=== PATIENT | male | born 1980 | race Caucasian/White ===

== ENCOUNTER 2016-11-20 22:39 | Emergency (ER) | payer OTHER ==
[~2016-11-20] VITALS: Ht 170.2 cm; Wt 94.4 kg
[~2016-11-20 22:39] MED LIST: ALBUAER2 INH; IBUP-1050 PO; LEVO25TA5 PO; LEVO50TA6 PO; ONDA4TAB9 PO; SUCR1TAB PO; SUMA20SP
[2016-11-20 22:41] VITALS: TEMP 36.8; Ht 170.2 cm; Wt 94.4 kg
[2016-11-20] MEDS ORDERED: HYDROmorphone INJ 2 MG/ML SYR/VIAL IV STA (23:08)
[2016-11-20] MEDS ORDERED: ONDANSETRON 4MG OD TAB PO STA (23:08)
[2016-11-20] MEDS ORDERED: DEXAMETHASONE SOD INJ 10 MG/ML VIAL IV STA (23:08)
[2016-11-20] MEDS ORDERED: HYDROmorphone INJ 2 MG/ML SYR/VIAL IM STA (23:18)
[2016-11-20] MEDS ORDERED: DEXAMETHASONE SOD INJ 10 MG/ML VIAL IM STA (23:18)
--- NOTE | 2016-11-20 23:33 | EMERGENCY ROOM VISIT NOTE ---
ED Visit Note First contact with patient: 22:49 CHIEF COMPLAINT: Migraine headache HISTORY OF PRESENT ILLNESS: This 36-year-old male patient presented to the emergency department via private vehicle accompanied by female with a gradual onset of a severe generalized headache that started today around 1 or 2 PM. The patient states the migraine is similar to their typical migraines. There has been associated photophobia, phonophobia, nausea but no vomiting. The patient denies fever or chills recently, and there is no weakness or numbness of the extremities. There is no difficulty with speech or vision. No trauma to the head and no neck pain. The pain is severe, constant, and it is slowly increasing in severity. The patient points to the occipital region of his head as a location of the pain rates it as a 7/10. The patient has taken over-the- counter medication as well as Imitrex nasal spray with minimal relief. This is not the worst headache of the life and is similar to previous migraines. Previous imaging studies of the brain have been normal. 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 REVIEW OF SYSTEMS: A review of systems was performed with positives and pertinent negatives listed in the history of present illness. All other systems were reviewed and are negative. ALLERGIES: As noted below MEDICATIONS: As noted below PMH: High blood pressure, asthma SOCIAL HISTORY: Patient lives at home with PHYSICAL EXAM: Vital Signs: Reviewed Nurse's notes, vital signs stable. GENERAL : 36-year-old male, who appears in pain, but non toxic in appearance and in no acute distress. MENTAL STATUS: Alert, oriented, and coherent. HEENT: Normocephalic. PERRLA. EOMI. Nares patent without nuchal rigidity. Tympanic membranes pearly ram without erythema or effusion bilaterally. Mucous membranes moist. NECK: Supple, no nuchal rigidity, nontender, no lymphadenopathy. HEART: Regular rhythm and normal rate without murmurs, ectopy, gallops, or rubs. LUNGS: Clear to auscultation bilaterally without wheezes, rales or rhonchi. No accessory muscle use. No retractions. SKIN: Normal. NEUROLOGICAL: Pupils are round, equal and react to light. The optic fundi are normal and the discs are flat. The patient moves all extremities well and the gait is normal. EMERGENCY DEPARTMENT COURSE: I examined the patient. The patient is on a 2 narcotic injection per month treatment plan for their migraines. The patient was given 2 mg of Dilaudid IM, 10 mg of Decadron IM, 4 mg of Zofran ODT per their usual protocol. The differential diagnosis includes acute intracranial bleed, meningitis, encephalitis, mass or mass effect, sinusitis, infection, tumor, headache, temporal arteritis and carbon monoxide exposure, and migraine. The patient was discharged home in stable condition with driving. The patient is to see a neurologic specialist either this coming week where following. At this time Botox injections are to be discussed as per patient. Problem List Medical Problems: (1) Asthma Status: Chronic (2) Finger fracture, right Status: Resolved (3) Gastroparesis Status: Chronic (4) GERD (gastroesophageal reflux disease) Status: Chronic (5) Hyperlipidemia Status: Chronic (6) Hypothyroidism Status: Chronic (7) Migraine Status: Chronic (8) JESI (obstructive sleep apnea) Status: Chronic Surgical Problems: (1) Cholecystectomy Status: Resolved (2) History of dental surgery Status: Chronic (3) Hx of esophagogastroduodenoscopy Status: Chronic Current/Historical Medications Scheduled Amitriptyline Hcl (Elavil), 100 MG PO HS Atorvastatin (Atorvastatin Calcium), 40 MG PO HS Dicyclomine Hcl (Dicyclomine Hcl), 10 MG PO QID Hydrochlorothiazide (Hydrochlorothiazide), 6.25 MG PO HS Ibuprofen (Advil), 600 MG PO DAILY Levothyroxine Sodium (Levothyroxine Sodium), 25 MCG PO HS Levothyroxine Sodium (Levothyroxine Sodium), 50 MCG PO HS Pantoprazole (Pantoprazole Sodium), 40 MG PO HS Ranitidine HCl (Ranitidine HCl), 300 MG PO BID Sucralfate (Sucralfate), 1 GM PO QID Scheduled PRN Albuterol (Ventolin), 2 PUFFS INH Q4H PRN for Wheezing Fluticasone Prop/Salmeterol (Advair Diskus 250/50 60 Dose), 1 PUFF INH BID PRN for Wheezing Ibuprofen (Advil), 400 MG PO UD PRN for Pain Ondansetron (Ondansetron HCl), 4 MG PO Q8 PRN for Nausea Sumatriptan Succinate (Imitrex Nasal [place]), 1 SPRAY NA UD PRN for Headache Allergies Coded Allergies: Benzoyl Peroxide (Verified Allergy, Mild, 10/23/16) Lactose Intolerance (Verified Allergy, Unknown, Unknown, 10/23/16) Hydrocodone (Verified Adverse Reaction, Mild, VOMITING, 10/23/16) Magnesium (Verified Adverse Reaction, Unknown, Nausea, GI upset, 10/23/16) Prednisone (Verified Adverse Reaction, Unknown, "messes up my mind, depressed", 10/23/16) Vital Signs Date Time Temp Pulse Resp B/P Pulse Ox O2 Delivery O2 Flow Rate FiO2 11/21/16 00:00 81 16 129/84 98 11/20/16 22:41 36.8 79 18 133/84 96 Room Air Medications Administered Medications (Trade) Dose Ordered Sig/Denise Route Start Time Stop Time Status Last Admin Dose Admin Ondansetron HCl (Zofran Odt) 4 mg NOW STAT PO 11/20/16 23:08 11/20/16 23:11 DC 11/20/16 23:30 4 MG Hydromorphone HCl (Dilaudid Inj) 2 mg NOW STAT IM 11/20/16 23:18 11/20/16 23:19 DC 11/20/16 23:31 2 MG Dexamethasone Sodium Phosphate (Decadron Inj) 10 mg NOW STAT IM 11/20/16 23:18 11/20/16 23:19 DC 11/20/16 23:30 10 MG Departure Information Impression Primary Impression: Migraine Dispostion Home / Self-Care Condition GOOD Referrals Heather Guzman M.D. (PCP) Patient Instructions A Signature Page, [facility] Additional Instructions You have been treated in the Emergency Department for a Headache. You have received pain medicine in the emergency department which impairs your ability to operate a vehicle. It is illegal for you to drive after receiving these medicines. Please continue your regularly prescribed medications. For pain control, you can use the following [id number] medicines (if >12 yo): - Regular strength (325mg/tab) Tylenol (acetaminophen) 2 tabs every 4-6 hours as needed. Do not exceed 12 tablets in a 24 hour period. Avoid taking more than 4 grams (4000 mg) of Tylenol per day. This includes any other sources of acetaminophen you may take on a regular basis. - Regular strength (200 mg/tab) Advil (ibuprofen) 1-2 tabs every 4-6 hours as needed. Do not exceed a dose of 3200 mg per day. You should relax in a quiet, dark place for the rest of the day. Avoid any possible triggers including: cigarette smoke, caffeine, nicotine, chocolate, wine, beer, loud noises or music, or bright lights. You should schedule a follow-up appointment in 2-3 days with your Primary Care Provider or established Neurologist for further evaluation and treatment of your Headache. Please keep your scheduled appointment with the neurologist as you indicated. It is also recommended to contact your regular neurologist regarding today's visit to schedule follow-up as soon as possible. Please call them first thing tomorrow morning and indicate you were seen here for your headache. Return to the Emergency Department if your current symptoms worsen despite treatment course outlined above, or if you develop any of the following symptoms : intractable pain despite aforementioned treatment course, visual disturbances , loss of vision, unilateral weakness or facial drooping, slurring of speech, loss of coordination, or loss of consciousness. Please return to the emergency department with any new/concerning symptoms.
[2016-11-21] VITALS: BP 129/84; PULSE 81; O2SAT 98
[2017-03-22] MEDS ORDERED: ONDA4TAB10 SL (20:41)
[2017-07-03] MEDS ORDERED: VNTHFA/IN INH (10:07)
[2017-07-03] MEDS ORDERED: IMTIN5 (10:07)
[2017-07-03] MEDS ORDERED: MULT-506 PO (13:02)
[2017-07-03] MEDS ORDERED: LPT40 PO (15:49)
[2017-07-03] MEDS ORDERED: RANI150T2 PO (15:49)
[2017-07-03] MEDS ORDERED: PANT40TA2 PO (17:45)
[2017-10-20] MEDS ORDERED: FLM4 PO (16:26)
[2017-10-20] MEDS ORDERED: PHEN-775 PO (16:26)
[2017-10-20] MEDS ORDERED: ACET-1047 OR (16:30)
[2017-10-21] MEDS ORDERED: NITR-5 PO (16:24)
== END 2016-11-21 00:01 | disposition home or self-care (01) ==
LOC: C.EDB 22:40 → C.EDA 11-21 00:01
DX: G43.909 Migraine, unspecified, not intractable, without status migrainosus (principal); Z79.899 Other long term (current) drug therapy; K21.9 Gastro-esophageal reflux disease without esophagitis; E78.5 Hyperlipidemia, unspecified; E03.9 Hypothyroidism, unspecified

== ENCOUNTER 2016-11-25 10:48 | Emergency (ER) | payer OTHER ==
[~2016-11-25] VITALS: Ht 170.2 cm; Wt 92.6 kg
[2016-11-25 10:56] VITALS: BP 147/97; PULSE 76; TEMP 36.4; O2SAT 95; Ht 170.2 cm; Wt 92.6 kg
[2016-11-25] MEDS ORDERED: KETOROLAC TROMETHAMINE 60 MG/2 ML VIAL IM STA (11:34)
[2016-11-25] MEDS ORDERED: HYDROmorphone INJ 2 MG/ML SYR/VIAL IM STA (11:34)
[2016-11-25] MEDS ORDERED: ONDANSETRON 4MG OD TAB PO STA (11:34)
--- NOTE | 2016-11-25 11:40 | EMERGENCY ROOM VISIT NOTE ---
ED Visit Note First contact with patient: 11:00 CHIEF COMPLAINT: Migraine headache times one day HISTORY OF PRESENT ILLNESS: Patient is a 36-year-old white male who presents to the emergency department accompanied by his for evaluation of a migraine headache that started yesterday. Patient is well-known to the emergency department for frequent visits, and is presently on a treatment plan expecting him to 2 narcotic injections per month with regards to his chronic pain related complaints. Patient was just here 3 days ago for a migraine and received his typical regimen. He states that his headache went away, then returned yesterday. He states that he is cutting back on his caffeine use. He states that he drinks 2, 2 L of Mountain Dew per day, and stopped. He has a history of kidney stones. He states that he developed his typical, throbbing migraine headache yesterday that did not respond to Imitrex nasal spray or ibuprofen. He presently rates his headache as 7/10. He denies associated nausea and vomiting. The patient denies fever or chills recently, and there is no weakness or numbness of the extremities. There is no difficulty with speech or vision. No trauma to the head and no neck pain. The pain is severe, constant, and it is slowly increasing in severity. This is not the worst headache of the life and is similar to previous migraines. He states that the only other change to his regimen was his doctors added dicyclomine for his irritable bowel syndrome. REVIEW OF SYSTEMS: Review of systems as per HPI. All other systems reviewed were negative. 10 systems reviewed. PMH: Electronic medical records are reviewed and summarized as above/below. See Problem List. SOCIAL HISTORY: Patient lives at home. Employed. Smoker. PHYSICAL EXAM: Vital Signs: Reviewed Nurse's notes. General Appearance: Patient is well appearing, in no acute distress Eyes: Pupils equal round reactive to light extraocular muscles are intact, no proptosis, mild photophobia ENT: Oropharynx is clear, mucous membranes are moist, tympanic membranes are clear bilaterally, no sinus or dental tenderness Neck: Supple, no cervical lymphadenopathy, no meningismus Heart: Regular rate and rhythm, S1 and S2 Lungs: Clear to auscultation bilaterally, no wheezes Rales or rhonchi, no increased work of breathing Abdomen: Soft nontender nondistended. Normal active bowel sounds. No rebound. No guarding. Back: No midline tenderness to palpation. : No CVA tenderness to palpation. Skin: Warm, no diaphoresis, no rashes. Extremities: No cyanosis, clubbing, or edema Neurologic: Patient is awake alert, and oriented x 3. Cranial nerves 2-12 are grossly intact. Motor 5 out of 5 strength bilateral upper extremities and lower extremities. No gross sensory deficits. Reflexes are 2+ throughout. EMERGENCY DEPARTMENT COURSE: The patient was seen and evaluated as above. His old records are reviewed. His treatment plan typically consists of IM Dilaudid and oral Zofran. He occasionally receives Toradol as well. He requested Decadron today, stating that it helps keep his headaches from returning. He was given Toradol 60 mg, Dilaudid 2 mg, Decadron 10 mg IM and Zofran 4 mg ODT. He is immediately discharged to home to rest with his driving. He was reminded that this is his second narcotic injection for the month, and he cannot receive any additional narcotics for chronic pain. He expressed understanding of this. Differential includes: acute intracranial bleed, meningitis, encephalitis, mass or mass effect, sinusitis, infection, migraine, tumor, headache, temporal arteritis and carbon monoxide exposure. Problem List Medical Problems: (1) Asthma Status: Chronic (2) Finger fracture, right Status: Resolved (3) Gastroparesis Status: Chronic (4) GERD (gastroesophageal reflux disease) Status: Chronic (5) Hyperlipidemia Status: Chronic (6) Hypothyroidism Status: Chronic (7) Migraine Status: Chronic (8) JESI (obstructive sleep apnea) Status: Chronic Surgical Problems: (1) Cholecystectomy Status: Resolved (2) History of dental surgery Status: Chronic (3) Hx of esophagogastroduodenoscopy Status: Chronic Current/Historical Medications Scheduled Amitriptyline Hcl (Elavil), 100 MG PO HS Atorvastatin (Atorvastatin Calcium), 40 MG PO HS Dicyclomine Hcl (Dicyclomine Hcl), 10 MG PO QID Hydrochlorothiazide (Hydrochlorothiazide), 6.25 MG PO HS Ibuprofen (Advil), 600 MG PO DAILY Levothyroxine Sodium (Levothyroxine Sodium), 25 MCG PO HS Levothyroxine Sodium (Levothyroxine Sodium), 50 MCG PO HS Pantoprazole (Pantoprazole Sodium), 40 MG PO HS Ranitidine HCl (Ranitidine HCl), 300 MG PO BID Sucralfate (Sucralfate), 1 GM PO QID Scheduled PRN Albuterol (Ventolin), 2 PUFFS INH Q4H PRN for Wheezing Fluticasone Prop/Salmeterol (Advair Diskus 250/50 60 Dose), 1 PUFF INH BID PRN for Wheezing Ibuprofen (Advil), 400 MG PO UD PRN for Pain Ondansetron (Ondansetron HCl), 4 MG PO Q8 PRN for Nausea Sumatriptan Succinate (Imitrex Nasal [place]), 1 SPRAY NA UD PRN for Headache Allergies Coded Allergies: Benzoyl Peroxide (Verified Allergy, Mild, 11/25/16) Lactose Intolerance (Verified Allergy, Unknown, Unknown, 11/25/16) Hydrocodone (Verified Adverse Reaction, Mild, VOMITING, 11/25/16) Magnesium (Verified Adverse Reaction, Unknown, Nausea, GI upset, 11/25/16) Prednisone (Verified Adverse Reaction, Unknown, "messes up my mind, depressed", 11/25/16) Vital Signs Date Time Temp Pulse Resp B/P Pulse Ox O2 Delivery O2 Flow Rate FiO2 11/25/16 10:56 36.4 76 16 147/97 95 Room Air Medications Administered Medications (Trade) Dose Ordered Sig/Denise Route Start Time Stop Time Status Last Admin Dose Admin Ketorolac Tromethamine (Toradol Inj) 60 mg NOW STAT IM 11/25/16 11:34 11/25/16 11:36 DC 11/25/16 11:45 60 MG Dexamethasone Sodium Phosphate (Decadron Inj) 10 mg NOW ONCE IM 11/25/16 11:45 11/25/16 11:46 DC 11/25/16 11:45 10 MG Hydromorphone HCl (Dilaudid Inj) 2 mg NOW STAT IM 11/25/16 11:34 11/25/16 11:36 DC 11/25/16 11:44 2 MG Ondansetron HCl (Zofran Odt) 4 mg NOW STAT PO 11/25/16 11:34 11/25/16 11:36 DC 11/25/16 11:42 4 MG Departure Information Impression Primary Impression: Headache Referrals Adrian Meza M.D. (PCP) Patient Instructions A Signature Page, [facility] Additional Instructions DO NOT drive, drink alcohol, operate machinery, or perform dangerous activities today. You were given medications in the ER that can affect your ability to safely function or operate a vehicle. Rest today in a quiet, peaceful, dark environment and get a full 8-10 hrs of sleep tonight. Avoid loud noises, smoke/smoking, alcohol, bright lights, stress, or physical exertion today to minimize the chance the headache may return. Continue current medications. Return to the ER for passing out, worsening headache, vision problems, neck stiffness/pain, fevers, vomiting, worsening of your condition, or as needed. Follow up with your primary physician in 2-3 days for a recheck of your current condition.
[2016-11-25] MEDS ORDERED: DEXAMETHASONE SOD INJ 10 MG/ML VIAL IM ONE (11:45)
[2017-03-22] MEDS ORDERED: ONDA4TAB10 SL (20:41)
[2017-07-03] MEDS ORDERED: VNTHFA/IN INH (10:07)
[2017-07-03] MEDS ORDERED: IMTIN5 (10:07)
[2017-07-03] MEDS ORDERED: MULT-506 PO (13:02)
[2017-07-03] MEDS ORDERED: RANI150T2 PO (15:49)
[2017-07-03] MEDS ORDERED: LPT40 PO (15:49)
== END 2016-11-25 11:46 | disposition home or self-care (01) ==
LOC: C.EDB 10:52 → C.EDD 11:46
DX: R51 Headache (principal); K31.84 Gastroparesis; K21.9 Gastro-esophageal reflux disease without esophagitis; E78.5 Hyperlipidemia, unspecified; E03.9 Hypothyroidism, unspecified; J45.909 Unspecified asthma, uncomplicated; G47.33 Obstructive sleep apnea (adult) (pediatric); F17.200 Nicotine dependence, unspecified, uncomplicated; Z87.442 Personal history of urinary calculi; Z79.899 Other long term (current) drug therapy; Z88.5 Allergy status to narcotic agent; Z88.8 Allergy status to other drugs, medicaments and biological substances

== ENCOUNTER 2016-12-22 09:04 | Emergency (ER) | payer OTHER ==
[~2016-12-22] VITALS: Ht 170.2 cm; Wt 90.9 kg
[2016-12-22 09:16] VITALS: TEMP 36.5; Ht 170.2 cm; Wt 90.9 kg
[2016-12-22] MEDS ORDERED: PROMETHAZINE HCL INJ 25 MG/ML 1 ML VIAL IM STA (10:00)
[2016-12-22] MEDS ORDERED: KETOROLAC TROMETHAMINE 60 MG/2 ML VIAL IM STA (10:00)
[2016-12-22] MEDS ORDERED: HYDROmorphone INJ 2 MG/ML SYR/VIAL IM ONE (10:00)
--- NOTE | 2016-12-22 10:04 | EMERGENCY ROOM VISIT NOTE ---
ED Visit Note First contact with patient: 09:31 CHIEF COMPLAINT: Migraine headache HISTORY OF PRESENT ILLNESS: This 35-year-old male patient presented to the emergency department this morning with a gradual onset of a severe generalized headache that started a few days ago. The patient states the migraine is similar to their typical migraines. There has been associated photophobia, phonophobia, nausea without vomiting. The patient denies fever or chills recently, and there is no weakness or numbness of the extremities. There is no difficulty with speech or vision. No trauma to the head and no neck pain. The pain is severe, constant, and it is slowly increasing in severity. The patient rates the pain as constant and 7/10. The patient has taken ibuprofen and Imitrex without relief. This is not the worst headache of the life and is similar to previous migraines. Previous imaging studies of the brain have been normal. REVIEW OF SYSTEMS: A review of systems was performed with positives and pertinent negatives listed in the history of present illness. All other systems were reviewed and are negative. ALLERGIES: Benzyl peroxide, hydrocodone, lactose intolerance, magnesium, prednisone. MEDICATIONS: Reviewed and discussed with the patient. PMH: Migraine headaches SOCIAL HISTORY: Patient is a 35-year-old male who lives at home with family. PHYSICAL EXAM: VITAL SIGNS - Vital signs and nursing notes were reviewed. GENERAL - 35-year-old male appearing his stated age who is in no acute distress. Communicates well with provider and answers questions appropriately. HEAD - Normocephalic, Atraumatic. No House's Sign or Raccoon's Eyes. No depressed skull fractures palpable. EYES - PERRL with EOMI bilaterally. Sclera anicteric. Palpebral conjunctiva pink and moist with no injection noted. EARS - No deformities of external structures noted on gross examination bilaterally. No pain elicited with palpation of the tragus bilaterally. External auditory canals without discharge or otorrhea. Tympanic membranes pearly ram without retraction or bulging. No fluid or purulent material visualized behind the TM. Handle of malleus, umbo, cone of light, pars tensa/ flaccid all easily visualized. NOSE - Midline and without cyanosis. No epistaxis or purulent drainage noted. Septum midline without deviation or septal hematoma noted. MOUTH/OROPHARYNX - Without perioral cyanosis. Buccal mucosa pink and moist and without leukoplakia. Tongue midline with equal elevation of palate bilaterally. No tonsillar hypertrophy, erythema, or exudates noted. NECK - Neck with FROM. Supple to palpation. No lymphadenopathy noted. No nuchal rigidity. LUNGS - Chest wall symmetric without accessory muscle use, intercostals retractions, or central cyanosis. Normal vesicular breath sounds CTA B/L. No wheezes, rales, or rhonchi appreciated. CARDIAC - RRR with S1/S2. No murmur, rubs, or gallops appreciated. EXTREMITIES - No pretibial edema present. +3/5 radial and dorsalis pedis pulses palpated throughout. FROM with no tremors, fasciculations, or clonus noted on PROM throughout. +5/5 strength noted in UE/LE bilaterally. NEUROLOGIC - Cranial nerves II through XII grossly intact. Sensory intact to light touch throughout. Patellar reflexes +2/4. Patient able to perform rapid alternating movements appropriately. Negative Romberg and Pronator Drift. PSYCH - A&Ox3 and cooperates fully with examiner. Pt is very pleasant and interacts well with examiner. EMERGENCY DEPARTMENT COURSE: I examined the patient. The patient is on a narcotic injection per month treatment plan for their migraines. The patient was given 2 mg Dilaudid, 60 mg Toradol, and 25 mg Phenergan intramuscularly per their usual protocol. The differential diagnosis includes acute intracranial bleed, meningitis, encephalitis, mass or mass effect, sinusitis, infection, tumor, headache, temporal arteritis and carbon monoxide exposure, and migraine. The patient was discharged home in stable condition with his significant other driving. DIAGNOSIS: Migraine headache DISCHARGE INSTRUCTIONS & TREATMENT: You have been treated in the Emergency Department for a Headache. You have received pain medicine in the emergency department which impairs your ability to operate a vehicle. It is illegal for you to drive after receiving these medicines. For pain control, you can use the following [id number] medicines (if >12 yo): - Regular strength (325mg/tab) Tylenol (acetaminophen) 2 tabs every 4-6 hours as needed. Do not exceed 12 tablets in a 24 hour period. Avoid taking more than 4 grams (4000 mg) of Tylenol per day. This includes any other sources of acetaminophen you may take on a regular basis. - Regular strength (200 mg/tab) Advil (ibuprofen) 1-2 tabs every 4-6 hours as needed. Do not exceed a dose of 3200 mg per day. You should relax in a quiet, dark place for the rest of the day. Avoid any possible triggers including: cigarette smoke, caffeine, nicotine, chocolate, wine, beer, loud noises or music, or bright lights. You should schedule a follow-up appointment in 2-3 days with your Primary Care Provider or established Neurologist for further evaluation and treatment of your Headache. Return to the Emergency Department if your current symptoms worsen despite treatment course outlined above, or if you develop any of the following symptoms : intractable pain despite aforementioned treatment course, visual disturbances , loss of vision, unilateral weakness or facial drooping, slurring of speech, loss of coordination, or loss of consciousness. Problem List Medical Problems: (1) Asthma Status: Chronic (2) Finger fracture, right Status: Resolved (3) Gastroparesis Status: Chronic (4) GERD (gastroesophageal reflux disease) Status: Chronic (5) Hyperlipidemia Status: Chronic (6) Hypothyroidism Status: Chronic (7) Migraine Status: Chronic (8) JESI (obstructive sleep apnea) Status: Chronic Surgical Problems: (1) Cholecystectomy Status: Resolved (2) History of dental surgery Status: Chronic (3) Hx of esophagogastroduodenoscopy Status: Chronic Current/Historical Medications Scheduled Amitriptyline Hcl (Elavil), 100 MG PO HS Atorvastatin (Atorvastatin Calcium), 40 MG PO HS Dicyclomine Hcl (Dicyclomine Hcl), 10 MG PO QID Hydrochlorothiazide (Hydrochlorothiazide), 6.25 MG PO HS Ibuprofen (Advil), 600 MG PO DAILY Levothyroxine Sodium (Levothyroxine Sodium), 25 MCG PO HS Levothyroxine Sodium (Levothyroxine Sodium), 50 MCG PO HS Pantoprazole (Pantoprazole Sodium), 40 MG PO HS Ranitidine HCl (Ranitidine HCl), 300 MG PO BID Sucralfate (Sucralfate), 1 GM PO QID Scheduled PRN Albuterol (Ventolin), 2 PUFFS INH Q4H PRN for Wheezing Fluticasone Prop/Salmeterol (Advair Diskus 250/50 60 Dose), 1 PUFF INH BID PRN for Wheezing Ibuprofen (Advil), 400 MG PO UD PRN for Pain Ondansetron (Ondansetron HCl), 4 MG PO Q8 PRN for Nausea Sumatriptan Succinate (Imitrex Nasal [place]), 1 SPRAY NA UD PRN for Headache Allergies Coded Allergies: Benzoyl Peroxide (Verified Allergy, Mild, 11/25/16) Lactose Intolerance (Verified Allergy, Unknown, Unknown, 11/25/16) Hydrocodone (Verified Adverse Reaction, Mild, VOMITING, 11/25/16) Magnesium (Verified Adverse Reaction, Unknown, Nausea, GI upset, 11/25/16) Prednisone (Verified Adverse Reaction, Unknown, "messes up my mind, depressed", 11/25/16) Vital Signs Date Time Temp Pulse Resp B/P Pulse Ox O2 Delivery O2 Flow Rate FiO2 12/22/16 10:22 90 16 140/84 96 12/22/16 09:16 36.5 73 18 141/87 97 Room Air Medications Administered Medications (Trade) Dose Ordered Sig/Denise Route Start Time Stop Time Status Last Admin Dose Admin Hydromorphone HCl (Dilaudid Inj) 2 mg NOW ONCE IM 12/22/16 10:00 12/22/16 10:02 DC 12/22/16 10:14 2 MG Ketorolac Tromethamine (Toradol Inj) 60 mg NOW STAT IM 12/22/16 10:00 12/22/16 10:02 DC 12/22/16 10:13 60 MG Promethazine HCl (Phenergan Inj) 25 mg NOW STAT IM 12/22/16 10:00 12/22/16 10:02 DC 12/22/16 10:14 25 MG Departure Information Impression Primary Impression: Migraine Dispostion Home / Self-Care Condition GOOD Referrals Adrian Meza M.D. (PCP) Patient Instructions ED Headache Migraine, My [facility] Additional Instructions You have been treated in the Emergency Department for a Headache. You have received pain medicine in the emergency department which impairs your ability to operate a vehicle. It is illegal for you to drive after receiving these medicines. For pain control, you can use the following [id number] medicines (if >12 yo): - Regular strength (325mg/tab) Tylenol (acetaminophen) 2 tabs every 4-6 hours as needed. Do not exceed 12 tablets in a 24 hour period. Avoid taking more than 4 grams (4000 mg) of Tylenol per day. This includes any other sources of acetaminophen you may take on a regular basis. - Regular strength (200 mg/tab) Advil (ibuprofen) 1-2 tabs every 4-6 hours as needed. Do not exceed a dose of 3200 mg per day. You should relax in a quiet, dark place for the rest of the day. Avoid any possible triggers including: cigarette smoke, caffeine, nicotine, chocolate, wine, beer, loud noises or music, or bright lights. You should schedule a follow-up appointment in 2-3 days with your Primary Care Provider or established Neurologist for further evaluation and treatment of your Headache. Return to the Emergency Department if your current symptoms worsen despite treatment course outlined above, or if you develop any of the following symptoms : intractable pain despite aforementioned treatment course, visual disturbances , loss of vision, unilateral weakness or facial drooping, slurring of speech, loss of coordination, or loss of consciousness. Problem Qualifiers Primary Impression: Migraine Migraine type: other Status migrainosus presence: without status migrainosus Intractability: not intractable Qualified Codes: G43.809 - Other migraine, not intractable, without status migrainosus
[2016-12-22 10:22] VITALS: BP 140/84; PULSE 90; O2SAT 96
[2017-03-22] MEDS ORDERED: ONDA4TAB10 SL (20:41)
[2017-07-03] MEDS ORDERED: VNTHFA/IN INH (10:07)
[2017-07-03] MEDS ORDERED: IMTIN5 (10:07)
[2017-07-03] MEDS ORDERED: MULT-506 PO (13:02)
[2017-07-03] MEDS ORDERED: LPT40 PO (15:49)
[2017-07-03] MEDS ORDERED: RANI150T2 PO (15:49)
== END 2016-12-22 10:24 | disposition home or self-care (01) ==
LOC: C.EDB 09:05 → C.EDA 10:24
DX: G43.809 Other migraine, not intractable, without status migrainosus (principal); J45.909 Unspecified asthma, uncomplicated; K31.84 Gastroparesis; K21.9 Gastro-esophageal reflux disease without esophagitis; E78.5 Hyperlipidemia, unspecified; E03.9 Hypothyroidism, unspecified; G47.33 Obstructive sleep apnea (adult) (pediatric)

== ENCOUNTER 2016-12-26 19:55 | Emergency (ER) | payer OTHER ==
[~2016-12-26] VITALS: Ht 170.2 cm; Wt 93.7 kg
[2016-12-26 20:14] VITALS: BP 153/89; PULSE 97; TEMP 36.8; O2SAT 100; Ht 170.2 cm; Wt 93.7 kg
[2016-12-26] MEDS ORDERED: NICOTINE 14 MG/24 HR TDSY TD STA (20:25)
[2016-12-26] MEDS ORDERED: HYDROmorphone INJ 2 MG/ML SYR/VIAL IM STA (20:25)
[2016-12-26] MEDS ORDERED: MAGIC MOUTHWASH PO STA ×2 (20:25→21:07)
[2016-12-26] MEDS ORDERED: PROMETHAZINE HCL INJ 25 MG/ML 1 ML VIAL IM STA (20:25)
[2016-12-26] MEDS ORDERED: KETOROLAC TROMETHAMINE 60 MG/2 ML VIAL IM STA (20:25)
[2016-12-26] MEDS ORDERED: DEXAMETHASONE CONC SOLN 0.078 MG, NYSTATIN SUSP 0.625 ML, DiphenhydrAMINE HCL SYRUP 6.2... PO ONE ×5 (20:45)
--- NOTE | 2016-12-26 20:59 | EMERGENCY ROOM VISIT NOTE ---
ED Visit Note First contact with patient: 20:16 CHIEF COMPLAINT: Migraine headache HISTORY OF PRESENT ILLNESS: This 36-year-old male patient presented to the emergency department ambulatory with a gradual onset of a severe generalized headache that started to days ago. The patient states the migraine is similar to their typical migraines. There has been associated photophobia, phonophobia and nausea. He has not had vomiting. The patient denies fever or chills recently, and there is no weakness or numbness of the extremities. There is no difficulty with speech or vision. No trauma to the head and no neck pain. The pain is severe, constant, and it is slowly increasing in severity. The patient rates the pain as throbbing and and 8/10. The patient has taken ibuprofen and Imitrex without relief. This is not the worst headache of the life and is similar to previous migraines. Previous imaging studies of the brain have been normal. The patient currently sees a neurologist in [place] and is being scheduled for Botox injections in the next few months. The patient also reports that after chewing tobacco today, he has irritation of the inside of the left cheek. REVIEW OF SYSTEMS: A review of systems was performed with positives and pertinent negatives listed in the history of present illness. All other systems were reviewed and are negative. ALLERGIES: Benzoyl peroxide, hydrocodone, magnesium, prednisone, lactose MEDICATIONS: See med list PMH: Migraine headaches, asthma, hypothyroidism SOCIAL HISTORY: The patient lives locally with family. He is a smoker and chews tobacco. PHYSICAL EXAM: Vital Signs: Reviewed Nurse's notes, vital signs stable. GENERAL : This is a 36-year-old male, who appears in pain, but non toxic in appearance and in no acute distress. MENTAL STATUS: Alert, oriented, and coherent. HEENT: Normocephalic. PERRLA. EOMI. Nares patent without nuchal rigidity. Tympanic membranes pearly ram without erythema or effusion bilaterally. Mucous membranes moist. There is some erythema and irritation of the left buccal mucosa. No lacerations or swelling. NECK: Supple, no nuchal rigidity, nontender, no lymphadenopathy. HEART: Regular rhythm and normal rate without murmurs, ectopy, gallops, or rubs. LUNGS: Clear to auscultation bilaterally without wheezes, rales or rhonchi. No dullness to percussion. No accessory muscle use. No retractions. SKIN: Normal. NEUROLOGICAL: Pupils are round, equal and react to light. The optic fundi are normal and the discs are flat. The patient moves all extremities well and the gait is normal. EMERGENCY DEPARTMENT COURSE: I examined the patient. The patient was given Magic mouthwash for his cheek pain. He was instructed to avoid chewing tobacco for at least the next several days until the irritation is gone. He requested a nicotine patch and was given one. The patient is on a 2 narcotic injection per month treatment plan for their migraines. The patient was given 2 mg Dilaudid IM, 60 mg Toradol IM, and 25 mg Phenergan IM per their usual protocol. The differential diagnosis includes acute intracranial bleed, meningitis, encephalitis, mass or mass effect, sinusitis, infection, tumor, headache, temporal arteritis and carbon monoxide exposure, and migraine. The patient was discharged home in stable condition with his significant other driving. DIAGNOSIS: Migraine headache Problem List Medical Problems: (1) Asthma Status: Chronic (2) Finger fracture, right Status: Resolved (3) Gastroparesis Status: Chronic (4) GERD (gastroesophageal reflux disease) Status: Chronic (5) Hyperlipidemia Status: Chronic (6) Hypothyroidism Status: Chronic (7) Migraine Status: Chronic (8) JESI (obstructive sleep apnea) Status: Chronic Surgical Problems: (1) Cholecystectomy Status: Resolved (2) History of dental surgery Status: Chronic (3) Hx of esophagogastroduodenoscopy Status: Chronic Current/Historical Medications Scheduled Amitriptyline Hcl (Elavil), 100 MG PO HS Atorvastatin (Atorvastatin Calcium), 40 MG PO HS Dicyclomine Hcl (Dicyclomine Hcl), 10 MG PO QID Hydrochlorothiazide (Hydrochlorothiazide), 6.25 MG PO HS Ibuprofen (Advil), 600 MG PO DAILY Levothyroxine Sodium (Levothyroxine Sodium), 25 MCG PO HS Levothyroxine Sodium (Levothyroxine Sodium), 50 MCG PO HS Pantoprazole (Pantoprazole Sodium), 40 MG PO HS Ranitidine HCl (Ranitidine HCl), 300 MG PO BID Sucralfate (Sucralfate), 1 GM PO QID Scheduled PRN Albuterol (Ventolin), 2 PUFFS INH Q4H PRN for Wheezing Fluticasone Prop/Salmeterol (Advair Diskus 250/50 60 Dose), 1 PUFF INH BID PRN for Wheezing Ibuprofen (Advil), 400 MG PO UD PRN for Pain Ondansetron (Ondansetron HCl), 4 MG PO Q8 PRN for Nausea Sumatriptan Succinate (Imitrex Nasal [place]), 1 SPRAY NA UD PRN for Headache Allergies Coded Allergies: Benzoyl Peroxide (Verified Allergy, Mild, 11/25/16) Lactose Intolerance (Verified Allergy, Unknown, Unknown, 11/25/16) Hydrocodone (Verified Adverse Reaction, Mild, VOMITING, 11/25/16) Magnesium (Verified Adverse Reaction, Unknown, Nausea, GI upset, 11/25/16) Prednisone (Verified Adverse Reaction, Unknown, "messes up my mind, depressed", 11/25/16) Vital Signs Date Time Temp Pulse Resp B/P Pulse Ox O2 Delivery O2 Flow Rate FiO2 12/26/16 20:14 36.8 97 18 153/89 100 Room Air Medications Administered Medications (Trade) Dose Ordered Sig/Denise Route Start Time Stop Time Status Last Admin Dose Admin Hydromorphone HCl (Dilaudid Inj) 2 mg NOW STAT IM 12/26/16 20:25 12/26/16 20:28 DC 12/26/16 20:49 2 MG Ketorolac Tromethamine (Toradol Inj) 60 mg NOW STAT IM 12/26/16 20:25 12/26/16 20:28 DC 12/26/16 20:49 60 MG Promethazine HCl (Phenergan Inj) 25 mg NOW STAT IM 12/26/16 20:25 12/26/16 20:28 DC 12/26/16 20:50 25 MG Nicotine 1 patch NOW STAT TD 12/26/16 20:25 12/26/16 20:28 DC 12/26/16 20:48 1 PATCH Dexamethasone/ Nystatin/ Diphenhydramine HCl/Sucrose/ Microcrystalline Cellulose/Barcode (Decadron Conc Soln/Mycostatin Susp/Benadryl Syrup/Ora-Sweet Syrup/Ora-Plus Susp. Vehicle) NOW ONCE PO 12/26/16 20:45 12/26/16 20:46 DC 12/26/16 21:14 5 ML Departure Information Impression Primary Impression: Migraine Additional Impression: Pain of cheek Dispostion Home / Self-Care Condition GOOD Referrals Heather Guzman M.D. (PCP) Patient Instructions [facility] Additional Instructions You have been treated in the Emergency Department for a Headache. You have received pain medicine in the emergency department which impairs your ability to operate a vehicle. It is illegal for you to drive after receiving these medicines. Continue your typical medication as needed for migraines. You should relax in a quiet, dark place for the rest of the day. Avoid any possible triggers including: cigarette smoke, caffeine, nicotine, chocolate, wine, beer, loud noises or music, or bright lights. Follow-up with your primary care provider and neurologist as scheduled. Return to the Emergency Department if your current symptoms worsen despite treatment course outlined above, or if you develop any of the following symptoms : intractable pain despite aforementioned treatment course, visual disturbances , loss of vision, unilateral weakness or facial drooping, slurring of speech, loss of coordination, or loss of consciousness. Problem Qualifiers Primary Impression: Migraine Migraine type: without aura Status migrainosus presence: without status migrainosus Intractability: not intractable Qualified Codes: G43.009 - Migraine without aura, not intractable, without status migrainosus
[2016-12-26] MEDS ORDERED: DEXAMETHASONE CONC SOLN 3.75 MG, NYSTATIN SUSP 30 ML, DiphenhydrAMINE HCL SYRUP 300 MG,... PO SCH ×5 (21:15)
[2017-03-22] MEDS ORDERED: ONDA4TAB10 SL (20:41)
[2017-07-03] MEDS ORDERED: IMTIN5 (10:07)
[2017-07-03] MEDS ORDERED: VNTHFA/IN INH (10:07)
[2017-07-03] MEDS ORDERED: MULT-506 PO (13:02)
[2017-07-03] MEDS ORDERED: RANI150T2 PO (15:49)
[2017-07-03] MEDS ORDERED: LPT40 PO (15:49)
== END 2016-12-26 21:33 | disposition home or self-care (01) ==
LOC: C.EDB 19:56 → C.EDD 21:33
DX: G43.009 Migraine without aura, not intractable, without status migrainosus (principal); K13.79 Other lesions of oral mucosa; J45.909 Unspecified asthma, uncomplicated; E03.9 Hypothyroidism, unspecified; E78.5 Hyperlipidemia, unspecified; K21.9 Gastro-esophageal reflux disease without esophagitis; F17.200 Nicotine dependence, unspecified, uncomplicated; F17.220 Nicotine dependence, chewing tobacco, uncomplicated; Z79.899 Other long term (current) drug therapy

== ENCOUNTER 2016-12-30 09:03 | Emergency (ER) | payer OTHER ==
[~2016-12-30] VITALS: Ht 170.2 cm; Wt 92.4 kg
[2016-12-30 09:10] VITALS: BP 146/93; PULSE 110; TEMP 36.7; O2SAT 96; Ht 170.2 cm; Wt 92.4 kg
--- NOTE | 2016-12-30 09:54 | EMERGENCY ROOM VISIT NOTE ---
History Report prepared by Geetha: Khloe Lawton Under the Supervision of: Dr. César Phillips M.D. First contact with patient: 09:41 Chief Complaint: OTHER COMPLAINT Stated Complaint: LUMP ON INSIDE NEAR BELLY BUTTON History of Present Illness The patient is a 36 year old male who presents to the Emergency Room with complaints of a persistent lump above his umbilicus that appeared yesterday. He currently rates his discomfort as a 4/10 in severity. The patient states that the area drained fluid and states that he feels that it is going to pop. He states that the area is tender. The patient denies any other abnormal lymphadenopathy. Source of History: patient Onset: yesterday Position: abdomen (umbilicus) Symptom Intensity: 4/10 Quality: other (lump) Timing: other (persistent) Associated Symptoms: No lymphadenopathy Review of Systems All systems have been listed, reviewed, and are negative other than those previously mentioned. Please see Additional Medical History Sheet. Past Medical & Surgical Medical Problems: (1) Asthma (2) Finger fracture, right (3) Gastroparesis (4) GERD (gastroesophageal reflux disease) (5) Hyperlipidemia (6) Hypothyroidism (7) Intractable pain (8) Migraine (9) JESI (obstructive sleep apnea) (10) Renal calculi Surgical Problems: (1) Cholecystectomy (2) History of dental surgery (3) Hx of esophagogastroduodenoscopy Family History Diabetes mellitus MOTHER GRANDFATHER FH: cancer FH: heart disease FATHER GRANDFATHER FH: lung disease Hypertension Kidney disease or stones Social History Smoking Status: Former Smoker Alcohol Use: none Drug Use: none Marital Status: Housing Status: lives with family Occupation Status: employed Current/Historical Medications Scheduled Albuterol Hfa (Ventolin Hfa), 2-4 PUFFS INH Q4 Amitriptyline Hcl (Elavil), 100 MG PO HS Atorvastatin (Atorvastatin Calcium), 40 MG PO HS Cephalexin Monohydrate (Keflex), 500 MG PO QID Dicyclomine Hcl (Dicyclomine Hcl), 10 MG PO QID Hydrochlorothiazide (Hydrochlorothiazide), 6.25 MG PO HS Ibuprofen (Advil), 600 MG PO DAILY Levothyroxine Sodium (Levothyroxine Sodium), 25 MCG PO HS Levothyroxine Sodium (Levothyroxine Sodium), 50 MCG PO HS Pantoprazole (Pantoprazole Sodium), 40 MG PO HS Ranitidine HCl (Ranitidine HCl), 300 MG PO BID Sucralfate (Sucralfate), 1 GM PO QID Scheduled PRN Fluticasone Prop/Salmeterol (Advair Diskus 250/50 60 Dose), 1 PUFF INH BID PRN for Wheezing Ibuprofen (Advil), 400 MG PO UD PRN for Pain Ondansetron (Ondansetron HCl), 4 MG PO Q8 PRN for Nausea Sumatriptan Succinate (Imitrex Nasal [place]), 1 SPRAY NA UD PRN for Headache Allergies Coded Allergies: Benzoyl Peroxide (Verified Allergy, Mild, 12/30/16) Lactose Intolerance (Verified Allergy, Unknown, Unknown, 12/30/16) Hydrocodone (Verified Adverse Reaction, Mild, VOMITING, 12/30/16) Magnesium (Verified Adverse Reaction, Unknown, Nausea, GI upset, 12/30/16) Prednisone (Verified Adverse Reaction, Unknown, "messes up my mind, depressed", 12/30/16) Physical Exam Vital Signs Date Time Temp Pulse Resp B/P Pulse Ox O2 Delivery O2 Flow Rate FiO2 12/30/16 09:10 36.7 110 20 146/93 96 Room Air Physical Exam GENERAL: Patient awake, alert, oriented x 3. Patient follows commands. Patient does not appear toxic. Patient is adequately hydrated and well- nourished. SKIN: No erythema, pallor, cyanosis or rash HEENT: Normal head, pupils equal, reactive to light and accommodation. Neck: Without adenopathy, no neck vein distention. LUNGS: Clear to auscultation. No wheezes, no rales, no rhonchi. HEART: No murmurs. No gallops. No rubs ABDOMEN: [place] size mass that is fairly deep, and above umbilicus, Scar just below xiphoid from previous cholecystectomy. No signs of inguinal adenopathy. No rebound, no hepatomegaly or splenomegaly. EXTREMITIES: No signs of trauma or infection. NEUROLOGIC: Cranial nerves II-XII within normal limits. No gross motor sensory function deficits. Medical Decision & Procedures ED Course 0942: Past medical records reviewed. The patient was evaluated in room B8. A complete history and physical examination was performed. I discussed the exam findings with him and I discussed the treatment plan. He verbalized complete understanding and agreement. He is ready to go home. Medical Decision Nurses notes reviewed. Medical history sheet reviewed. Differential diagnosis includes but is not limited to: abscess, umbilical hernia. The patient has a small marble size mass just above his umbilicus. This most likely is a small abscess. It is not close enough to the skin to I&D. The patient be placed on Keflex. He is encouraged to apply warm soaks 3 times a day. Impression Primary Impression: Abscess Scribe Attestation The scribe's documentation has been prepared under my direction and personally reviewed by me in its entirety. I confirm that the note above accurately reflects all work, treatment, procedures, and medical decision making performed by me. Departure Information Dispostion Home / Self-Care Prescriptions Cephalexin Monohydrate (Keflex) 500 Mg Cap 500 MG PO QID for 10 Days, #40 CAP Prov: César Phillips M.D. 12/30/16 Referrals No Doctor, Assigned (PCP) Forms HOME CARE DOCUMENTATION FORM, IMPORTANT VISIT INFORMATION Patient Instructions [facility] Additional Instructions 500 mg of Keflex 4 times a day for 10 days. Apply warm soaks to your abdomen 3 times a day for the next 5 days. Follow-up with your family physician within the next 10 days.
[2016-12-30] MEDS ORDERED: CEPH500C PO (10:09)
[2017-03-22] MEDS ORDERED: ONDA4TAB10 SL (20:41)
[2017-07-03] MEDS ORDERED: IMTIN5 (10:07)
[2017-07-03] MEDS ORDERED: VNTHFA/IN INH (10:07)
[2017-07-03] MEDS ORDERED: MULT-506 PO (13:02)
[2017-07-03] MEDS ORDERED: RANI150T2 PO (15:49)
[2017-07-03] MEDS ORDERED: LPT40 PO (15:49)
== END 2016-12-30 10:17 | disposition home or self-care (01) ==
LOC: C.EDB 09:06
DX: L02.211 Cutaneous abscess of abdominal wall (principal); J45.909 Unspecified asthma, uncomplicated; K21.9 Gastro-esophageal reflux disease without esophagitis; E03.9 Hypothyroidism, unspecified; E78.5 Hyperlipidemia, unspecified; Z79.899 Other long term (current) drug therapy; Z87.891 Personal history of nicotine dependence; Z83.3 Family history of diabetes mellitus; Z82.49 Family history of ischemic heart disease and other diseases of the circulatory system

== ENCOUNTER 2017-01-10 10:32 | Emergency (ER) | payer OTHER ==
[~2017-01-10 10:32] MED LIST changes: -ALBUAER2 INH; +CEPH500C PO; -SUMA20SP
[2017-03-22] MEDS ORDERED: ONDA4TAB10 SL (20:41)
[2017-07-03] MEDS ORDERED: IMTIN5 (10:07)
[2017-07-03] MEDS ORDERED: VNTHFA/IN INH (10:07)
[2017-07-03] MEDS ORDERED: MULT-506 PO (13:02)
[2017-07-03] MEDS ORDERED: RANI150T2 PO (15:49)
[2017-07-03] MEDS ORDERED: LPT40 PO (15:49)
== END 2017-01-10 10:44 | disposition left against medical advice (07) ==
LOC: C.EDB 10:34
DX: M79.643 Pain in unspecified hand (principal)

== ENCOUNTER 2017-01-18 16:04 | Emergency (ER) | payer OTHER ==
[~2017-01-18] VITALS: Ht 170.2 cm; Wt 90.2 kg
[~2017-01-18 16:04] MED LIST changes: -CEPH500C PO
[2017-01-18 16:21] VITALS: TEMP 37.2; Ht 170.2 cm; Wt 90.2 kg
[2017-01-18] MEDS ORDERED: PROMETHAZINE HCL INJ 25 MG/ML 1 ML VIAL IM STA (18:01)
[2017-01-18] MEDS ORDERED: HYDROmorphone INJ 2 MG/ML SYR/VIAL IM STA (18:01)
[2017-01-18 18:14] VITALS: BP 120/83; PULSE 70; O2SAT 96
[2017-01-18] MEDS ORDERED: DEXAMETHASONE SOD INJ 10 MG/ML VIAL IM ONE (18:15)
--- NOTE | 2017-01-19 20:05 | EMERGENCY ROOM VISIT NOTE ---
ED Visit Note First contact with patient: 16:47 CHIEF COMPLAINT: Migraine headache. HISTORY OF PRESENT ILLNESS: Mr. Merrill is a 36 year-old white male who ambulates into the ED accompanied complaining of a migraine headache and left hand paresthesias. He reports a gradual onset of a severe migraine headache that started approximately 3 days or ago. His pain has been constant and slowly increasing in intensity. This is not the worst headache of the his life and is similar to previous migraines. Currently he describes the headache as a pressure/throbbing sensation/pain in the left frontal area. He rates the pain a 7/10. The pain is radiating to the retro-orbital area. He has not identified any aggravating factors related to the pain. He reports taking her prescribed Imitrex and [id number] ibuprofen without relief of pain. There is been associated light sensitivity, mild nasal congestion and nausea but no vomiting. He denies fever, sweats, chills, skin eruptions, skin color changes, dizziness, lightheadedness, abnormal neurological symptoms, sinus infection, sore throat/ pharyngitis, neck pain/stiffness weakness of the extremities, recent head/face/ neck trauma to the head. Additionally he reports over the last several months he has been noting a tingling sensation throughout the left hand excluding the distal aspect of the ring finger. He has noted this most prominent after daily working. The paresthesias resolve when he wakes up the next morning after working. He has not taken any medications for his symptoms prior to arrival at the hospital. He denies any weakness, recent trauma, swelling, previous significant injuries or surgeries. REVIEW OF SYSTEMS: As noted above in Review of Systems; all systems were reviewed with the patient and found to be negative unless noted above otherwise. PAST MEDICAL HISTORY: (1) Asthma (2) Finger fracture, right (3) Gastroparesis (4) GERD (gastroesophageal reflux disease) (5) Hyperlipidemia (6) Hypothyroidism (7) Intractable pain (8) Migraine (9) JESI (obstructive sleep apnea) (10) Renal calculi Surgical Problems: (1) Cholecystectomy (2) History of dental surgery (3) Hx of esophagogastroduodenoscopy CURRENT MEDICATIONS: Medications Dose Route/Sig Max Daily Dose Days Date Category Synthroid (Levothyroxine Sodium) 75 Mcg Tab 75 Mcg PO HS 01/18/17 Reported Imitrex Nasal [place] (Sumatriptan Succinate) 5 Mg Aers 1 [place] NA UD PRN 12/30/16 Reported Ventolin Hfa (Albuterol) 200 Puffs/81156 Mcg Aers 2-4 Puffs INH Q4 12/30/16 Reported Dicyclomine Hcl 10 Mg Cap 10 Mg PO QID 11/20/16 Reported Pantoprazole Sodium (Pantoprazole) 40 Mg Tab 40 Mg PO HS 07/19/16 Reported Ranitidine HCl 150 Mg Tab 300 Mg PO BID 04/05/16 Reported Atorvastatin Calcium (Atorvastatin) 40 Mg Tab 40 Mg PO HS 04/05/16 Reported Advil (Ibuprofen) 200 Mg Tab 400 Mg PO UD PRN 02/26/16 Reported Elavil (Amitriptyline Hcl) 100 Mg Tab 100 Mg PO HS 12/24/15 Reported Hydrochlorothiazide 12.5 Mg Tab 6.25 Mg PO HS 12/24/15 Reported Advair Diskus 250/50 60 Dose (Fluticasone Prop/Salmeterol) 1 Ea Aerp 1 Puff INH BID PRN 04/01/14 Reported ALLERGIES TO MEDICATIONS: Prednisone, hydrocodone, benzyl peroxide, lactose, magnesium, prednisone, magnesium, risperidone. SOCIAL HISTORY: Patient is currently employed; he feels safe in her home environment; he admits to tobacco use; she denies alcohol use. PHYSICAL EXAM: Vital Signs: Date Time Temp Pulse Resp B/P Pulse Ox O2 Delivery O2 Flow Rate FiO2 01/18/17 18:14 70 18 120/83 96 Room Air 01/18/17 16:21 37.2 90 18 137/88 96 Room Air GENERAL: 36 year-old male in mild distress due to pain, afebrile and hemodynamically stable. Found lying in a lighted room. NEUROLOGIC: Awake, alert and oriented to person place and time. Answering questions appropriately and following commands. Cranial nerves II-XII grossly intact. No focal neurologic deficits noted. Normal gait. Good short-term and long-term recall. SKIN: Warm, dry and pink. No rashes, lesions or soft tissue trauma noted. HEENT: Normocephalic, atraumatic. Pupils equal, round and reactive. Positive light sensitivity. Extraocular movements intact and there is no nystagmus. Sclera sclerae white and conjunctiva pink without drainage. External ears are nontender. Patient photophobic precluding funduscopic examination. Auditory canals are pink and patent and tympanic membranes are pearly ram with normal light reflex. No erythema or tenderness over the phone or back/sinuses. No nasal drainage. Oral cavity is moist and pink. Airway is patent. Uvula is midline and no abscesses are seen. No posterior pharyngeal erythema, edema; no tonsillar hypertrophy or exudates. No JVD. Trachea midline. NECK: No tenderness over the bony cervical spine or para musculature. No paraspinous muscle spasm. No nuchal rigidity. Full range of motion of the cervical spine. THORAX: Lungs clear to auscultation and equal bilaterally with no wheezing, crackles, rhonchi or stridor and equal chest wall movements. HEART: Regular rate and rhythm with no murmurs, rubs or gallops. ABDOMEN: Obese and soft with mild left lower quadrant tenderness. Positive bowel sounds present in all quadrants; no rigidity, rebound tenderness, organomegaly or guarding. EXTREMITIES: Moves all extremities well on command and with purpose. All distal neurovascular statuses intact and equal bilaterally. LEFT HAND: No gross bony deformity. No tenderness throughout the distal radius , wrist, hand or fingers. Tinel negative. Positive Phalen sign. 4/5 muscle strength in wrist flexion, wrist extension, radial and ulnar deviation. Thumb opposition strength with all fingers is 4/5. Throughout the hand the skin was warm and pink and capillary refill is brisk. He was able to distinguish light sensations through all dermatomes of the fingers. ED COURSE: Patient is assessed with history and physical examination. Patient was given 2 mg of the Dilaudid IM, 10 mg of Decadron IM and 25 mg of Phenergan IM for his symptoms. Patient was reassessed. Patient was educated about his condition and instructed on his treatment plan; he verbalized understanding and agreement with this plan. CLINICAL IMPRESSION: Migraine headache. Left hand paresthesias, possible carpal tunnel syndrome. DECISION MAKIN-year-old male who presents for evaluation of headache. He is afebrile, well appearing, and hemodynamically stable. He has no signs of a sinus, dental, or ear infection and no evidence of meningismus. He is neurologically intact. I do not suspect a headache to be secondary to a subarachnoid hemorrhage, meningitis, encephalitis, or intracranial mass lesion. DISPOSITION: Patient was discharged to home in stable condition accompanied by a friend; prior to departure she was reassessed and subjectively reported he was pain-free. DISCHARGE INSTRUCTIONS: Rest at home, in a quiet darkened room and allow the medication to work for the pain. Continue to follow up current treatment plan prescribed by your physician for your migraine headaches. See your own doctor in follow-up this week for continued care and treatment. Patient was encouraged to return to the ED as needed worsening/uncontrolled pain , any abnormal neurological symptoms, fevers, any new/concerning symptoms or in accordance with his pain management plan. Patient was encouraged to follow-up with his family physician for his left hand paresthesias for possible referral to orthopedics or surgery for definitive care and treatment.
[2017-03-22] MEDS ORDERED: ONDA4TAB10 SL (20:41)
[2017-07-03] MEDS ORDERED: VNTHFA/IN INH (10:07)
[2017-07-03] MEDS ORDERED: IMTIN5 (10:07)
[2017-07-03] MEDS ORDERED: MULT-506 PO (13:02)
[2017-07-03] MEDS ORDERED: RANI150T2 PO (15:49)
[2017-07-03] MEDS ORDERED: LPT40 PO (15:49)
== END 2017-01-18 18:37 | disposition home or self-care (01) ==
LOC: C.EDB 16:05 → C.EDD 18:37
DX: G43.909 Migraine, unspecified, not intractable, without status migrainosus (principal); R20.2 Paresthesia of skin; J45.909 Unspecified asthma, uncomplicated; E78.5 Hyperlipidemia, unspecified; E03.9 Hypothyroidism, unspecified; G47.33 Obstructive sleep apnea (adult) (pediatric)

== ENCOUNTER 2017-01-22 02:44 | Emergency (ER) | payer OTHER ==
[~2017-01-22] VITALS: Ht 170.2 cm; Wt 92.6 kg
[2017-01-22 02:48] VITALS: TEMP 36.5; Ht 170.2 cm; Wt 92.6 kg
[2017-01-22] MEDS ORDERED: PROMETHAZINE HCL INJ 25 MG/ML 1 ML VIAL IM STA (02:57)
[2017-01-22] MEDS ORDERED: KETOROLAC TROMETHAMINE 60 MG/2 ML VIAL IM STA (02:57)
[2017-01-22] MEDS ORDERED: HYDROmorphone INJ 2 MG/ML SYR/VIAL IM ONE (03:00)
--- NOTE | 2017-01-22 03:02 | EMERGENCY ROOM VISIT NOTE ---
ED Visit Note First contact with patient: 02:51 CHIEF COMPLAINT: Migraine headache HISTORY OF PRESENT ILLNESS: This 35-year-old male patient presented to the emergency department this morning with a gradual onset of a severe generalized headache that started a few days ago. The patient states the migraine is similar to their typical migraines. There has been associated photophobia, phonophobia, nausea without vomiting. The patient denies fever or chills recently, and there is no weakness or numbness of the extremities. There is no difficulty with speech or vision. No trauma to the head and no neck pain. The pain is severe, constant, and it is slowly increasing in severity. The patient rates the pain as constant and 7/10. The patient has taken ibuprofen and Imitrex without relief. This is not the worst headache of the life and is similar to previous migraines. Previous imaging studies of the brain have been normal. REVIEW OF SYSTEMS: A review of systems was performed with positives and pertinent negatives listed in the history of present illness. All other systems were reviewed and are negative. ALLERGIES: Benzyl peroxide, hydrocodone, lactose intolerance, magnesium, prednisone. MEDICATIONS: Reviewed and discussed with the patient. PMH: Migraine headaches SOCIAL HISTORY: Patient is a 35-year-old male who lives at home with family. PHYSICAL EXAM: VITAL SIGNS - Vital signs and nursing notes were reviewed. GENERAL - 35-year-old male appearing his stated age who is in no acute distress. Communicates well with provider and answers questions appropriately. HEAD - Normocephalic, Atraumatic. No House's Sign or Raccoon's Eyes. No depressed skull fractures palpable. EYES - PERRL with EOMI bilaterally. Sclera anicteric. Palpebral conjunctiva pink and moist with no injection noted. EARS - No deformities of external structures noted on gross examination bilaterally. No pain elicited with palpation of the tragus bilaterally. External auditory canals without discharge or otorrhea. Tympanic membranes pearly ram without retraction or bulging. No fluid or purulent material visualized behind the TM. Handle of malleus, umbo, cone of light, pars tensa/ flaccid all easily visualized. NOSE - Midline and without cyanosis. No epistaxis or purulent drainage noted. Septum midline without deviation or septal hematoma noted. MOUTH/OROPHARYNX - Without perioral cyanosis. Buccal mucosa pink and moist and without leukoplakia. Tongue midline with equal elevation of palate bilaterally. No tonsillar hypertrophy, erythema, or exudates noted. NECK - Neck with FROM. Supple to palpation. No lymphadenopathy noted. No nuchal rigidity. LUNGS - Chest wall symmetric without accessory muscle use, intercostals retractions, or central cyanosis. Normal vesicular breath sounds CTA B/L. No wheezes, rales, or rhonchi appreciated. CARDIAC - RRR with S1/S2. No murmur, rubs, or gallops appreciated. EXTREMITIES - No pretibial edema present. +3/5 radial and dorsalis pedis pulses palpated throughout. FROM with no tremors, fasciculations, or clonus noted on PROM throughout. +5/5 strength noted in UE/LE bilaterally. NEUROLOGIC - Cranial nerves II through XII grossly intact. Sensory intact to light touch throughout. Patellar reflexes +2/4. Patient able to perform rapid alternating movements appropriately. Negative Romberg and Pronator Drift. Negative [id number]. PSYCH - A&Ox3 and cooperates fully with examiner. Pt is very pleasant and interacts well with examiner. EMERGENCY DEPARTMENT COURSE: I examined the patient. The patient is on a narcotic injection per month treatment plan for their migraines. The patient was given 2 mg Dilaudid, 60 mg Toradol, and 25 mg Phenergan intramuscularly per their usual protocol. The differential diagnosis includes acute intracranial bleed, meningitis, encephalitis, mass or mass effect, sinusitis, infection, tumor, headache, temporal arteritis and carbon monoxide exposure, and migraine. The patient was discharged home in stable condition. DIAGNOSIS: Migraine headache DISCHARGE INSTRUCTIONS & TREATMENT: You have been treated in the Emergency Department for a Headache. You have received pain medicine in the emergency department which impairs your ability to operate a vehicle. It is illegal for you to drive after receiving these medicines. For pain control, you can use the following [id number] medicines (if >12 yo): - Regular strength (325mg/tab) Tylenol (acetaminophen) 2 tabs every 4-6 hours as needed. Do not exceed 12 tablets in a 24 hour period. Avoid taking more than 4 grams (4000 mg) of Tylenol per day. This includes any other sources of acetaminophen you may take on a regular basis. - Regular strength (200 mg/tab) Advil (ibuprofen) 1-2 tabs every 4-6 hours as needed. Do not exceed a dose of 3200 mg per day. You should relax in a quiet, dark place for the rest of the day. Avoid any possible triggers including: cigarette smoke, caffeine, nicotine, chocolate, wine, beer, loud noises or music, or bright lights. You should schedule a follow-up appointment in 2-3 days with your Primary Care Provider or established Neurologist for further evaluation and treatment of your Headache. Return to the Emergency Department if your current symptoms worsen despite treatment course outlined above, or if you develop any of the following symptoms : intractable pain despite aforementioned treatment course, visual disturbances , loss of vision, unilateral weakness or facial drooping, slurring of speech, loss of coordination, or loss of consciousness. Problem List Medical Problems: (1) Asthma Status: Chronic (2) Finger fracture, right Status: Resolved (3) Gastroparesis Status: Chronic (4) GERD (gastroesophageal reflux disease) Status: Chronic (5) Hyperlipidemia Status: Chronic (6) Hypothyroidism Status: Chronic (7) Migraine Status: Chronic (8) JESI (obstructive sleep apnea) Status: Chronic Surgical Problems: (1) Cholecystectomy Status: Resolved (2) History of dental surgery Status: Chronic (3) Hx of esophagogastroduodenoscopy Status: Chronic Current/Historical Medications Scheduled Albuterol Hfa (Ventolin Hfa), 2-4 PUFFS INH Q4 Amitriptyline Hcl (Elavil), 100 MG PO HS Atorvastatin (Atorvastatin Calcium), 40 MG PO HS Dicyclomine Hcl (Dicyclomine Hcl), 10 MG PO QID Hydrochlorothiazide (Hydrochlorothiazide), 6.25 MG PO HS Levothyroxine Sodium (Synthroid), 75 MCG PO HS Pantoprazole (Pantoprazole Sodium), 40 MG PO HS Ranitidine HCl (Ranitidine HCl), 300 MG PO BID Scheduled PRN Fluticasone Prop/Salmeterol (Advair Diskus 250/50 60 Dose), 1 PUFF INH BID PRN for Wheezing Ibuprofen (Advil), 400 MG PO UD PRN for Pain Sumatriptan Succinate (Imitrex Nasal [place]), 1 SPRAY NA UD PRN for Headache Allergies Coded Allergies: Benzoyl Peroxide (Verified Allergy, Mild, 01/18/17) Lactose Intolerance (Verified Allergy, Unknown, Unknown, 01/18/17) Risperidone (Unverified Allergy, Unknown, "I FELT LIKE I WAS DRUNK", ) Hydrocodone (Verified Adverse Reaction, Mild, VOMITING, 01/18/17) Magnesium (Verified Adverse Reaction, Unknown, Nausea, GI upset, 01/18/17) Prednisone (Verified Adverse Reaction, Unknown, "messes up my mind, depressed", 01/18/17) Vital Signs Date Time Temp Pulse Resp B/P Pulse Ox O2 Delivery O2 Flow Rate FiO2 01/22/17 03:40 75 18 148/105 96 01/22/17 02:48 36.5 83 18 159/95 97 Room Air Medications Administered Medications (Trade) Dose Ordered Sig/Denise Route Start Time Stop Time Status Last Admin Dose Admin Hydromorphone HCl (Dilaudid Inj) 2 mg NOW ONCE IM 01/22/17 03:00 01/22/17 03:01 DC 01/22/17 03:09 2 MG Ketorolac Tromethamine (Toradol Inj) 60 mg NOW STAT IM 01/22/17 02:57 01/22/17 02:58 DC 01/22/17 03:08 60 MG Promethazine HCl (Phenergan Inj) 25 mg NOW STAT IM 01/22/17 02:57 01/22/17 02:58 DC 01/22/17 02:57 25 MG Departure Information Impression Primary Impression: Migraine Dispostion Home / Self-Care Condition GOOD Referrals No Doctor, Assigned (PCP) Patient Instructions ED Headache Migraine, My [facility] Additional Instructions You have been treated in the Emergency Department for a Headache. You have received pain medicine in the emergency department which impairs your ability to operate a vehicle. It is illegal for you to drive after receiving these medicines. For pain control, you can use the following [id number] medicines (if >12 yo): - Regular strength (325mg/tab) Tylenol (acetaminophen) 2 tabs every 4-6 hours as needed. Do not exceed 12 tablets in a 24 hour period. Avoid taking more than 4 grams (4000 mg) of Tylenol per day. This includes any other sources of acetaminophen you may take on a regular basis. - Regular strength (200 mg/tab) Advil (ibuprofen) 1-2 tabs every 4-6 hours as needed. Do not exceed a dose of 3200 mg per day. You should relax in a quiet, dark place for the rest of the day. Avoid any possible triggers including: cigarette smoke, caffeine, nicotine, chocolate, wine, beer, loud noises or music, or bright lights. You should schedule a follow-up appointment in 2-3 days with your Primary Care Provider or established Neurologist for further evaluation and treatment of your Headache. Return to the Emergency Department if your current symptoms worsen despite treatment course outlined above, or if you develop any of the following symptoms : intractable pain despite aforementioned treatment course, visual disturbances , loss of vision, unilateral weakness or facial drooping, slurring of speech, loss of coordination, or loss of consciousness. Problem Qualifiers Primary Impression: Migraine Migraine type: without aura Status migrainosus presence: without status migrainosus Intractability: not intractable Qualified Codes: G43.009 - Migraine without aura, not intractable, without status migrainosus
[2017-01-22 03:40] VITALS: BP 148/105; PULSE 75; O2SAT 96
[2017-03-22] MEDS ORDERED: ONDA4TAB10 SL (20:41)
[2017-07-03] MEDS ORDERED: IMTIN5 (10:07)
[2017-07-03] MEDS ORDERED: VNTHFA/IN INH (10:07)
[2017-07-03] MEDS ORDERED: MULT-506 PO (13:02)
[2017-07-03] MEDS ORDERED: LPT40 PO (15:49)
[2017-07-03] MEDS ORDERED: RANI150T2 PO (15:49)
== END 2017-01-22 03:42 | disposition home or self-care (01) ==
LOC: C.EDB 02:45
DX: G43.009 Migraine without aura, not intractable, without status migrainosus (principal); J45.909 Unspecified asthma, uncomplicated; K21.9 Gastro-esophageal reflux disease without esophagitis; E03.9 Hypothyroidism, unspecified; E78.5 Hyperlipidemia, unspecified; Z90.49 Acquired absence of other specified parts of digestive tract; Z98.818 Other dental procedure status; Z98.890 Other specified postprocedural states; Z79.899 Other long term (current) drug therapy

== ENCOUNTER 2017-02-19 05:52 | Emergency (ER) | payer OTHER ==
[~2017-02-19] VITALS: Ht 170.2 cm; Wt 92.8 kg
[2017-02-19 05:59] VITALS: TEMP 36.4; Ht 170.2 cm; Wt 92.8 kg
--- NOTE | 2017-02-19 06:02 | EMERGENCY ROOM VISIT NOTE ---
ED Visit Note First contact with patient: 05:57 CHIEF COMPLAINT: Migraine headache HISTORY OF PRESENT ILLNESS: This 35-year-old male patient presented to the emergency department this morning with a gradual onset of a severe generalized headache that started this morning. The patient states the migraine is similar to their typical migraines. There has been associated photophobia, phonophobia, nausea without vomiting. The patient denies fever or chills recently, and there is no weakness or numbness of the extremities. There is no difficulty with speech or vision. No trauma to the head and no neck pain. The pain is severe, constant, and it is slowly increasing in severity. The patient rates the pain as constant and 7/10. The patient has taken ibuprofen and Imitrex without relief. This is not the worst headache of the life and is similar to previous migraines. Previous imaging studies of the brain have been normal. REVIEW OF SYSTEMS: A review of systems was performed with positives and pertinent negatives listed in the history of present illness. All other systems were reviewed and are negative. ALLERGIES: Benzyl peroxide, hydrocodone, lactose intolerance, magnesium, prednisone. MEDICATIONS: Reviewed and discussed with the patient. PMH: Migraine headaches SOCIAL HISTORY: Patient is a 35-year-old male who lives at home with family. PHYSICAL EXAM: VITAL SIGNS - Vital signs and nursing notes were reviewed. GENERAL - 35-year-old male appearing his stated age who is in no acute distress. Communicates well with provider and answers questions appropriately. HEAD - Normocephalic, Atraumatic. No House's Sign or Raccoon's Eyes. No depressed skull fractures palpable. EYES - PERRL with EOMI bilaterally. Sclera anicteric. Palpebral conjunctiva pink and moist with no injection noted. EARS - No deformities of external structures noted on gross examination bilaterally. No pain elicited with palpation of the tragus bilaterally. External auditory canals without discharge or otorrhea. Tympanic membranes pearly ram without retraction or bulging. No fluid or purulent material visualized behind the TM. Handle of malleus, umbo, cone of light, pars tensa/ flaccid all easily visualized. NOSE - Midline and without cyanosis. No epistaxis or purulent drainage noted. Septum midline without deviation or septal hematoma noted. MOUTH/OROPHARYNX - Without perioral cyanosis. Buccal mucosa pink and moist and without leukoplakia. Tongue midline with equal elevation of palate bilaterally. No tonsillar hypertrophy, erythema, or exudates noted. NECK - Neck with FROM. Supple to palpation. No lymphadenopathy noted. No nuchal rigidity. LUNGS - Chest wall symmetric without accessory muscle use, intercostals retractions, or central cyanosis. Normal vesicular breath sounds CTA B/L. No wheezes, rales, or rhonchi appreciated. CARDIAC - RRR with S1/S2. No murmur, rubs, or gallops appreciated. EXTREMITIES - No pretibial edema present. +3/5 radial and dorsalis pedis pulses palpated throughout. FROM with no tremors, fasciculations, or clonus noted on PROM throughout. +5/5 strength noted in UE/LE bilaterally. NEUROLOGIC - Cranial nerves II through XII grossly intact. Sensory intact to light touch throughout. Patellar reflexes +2/4. Patient able to perform rapid alternating movements appropriately. Negative Romberg and Pronator Drift. Negative [id number]. PSYCH - A&Ox3 and cooperates fully with examiner. Pt is very pleasant and interacts well with examiner. EMERGENCY DEPARTMENT COURSE: I examined the patient. The patient is on a narcotic injection per month treatment plan for their migraines. The patient was given 2 mg Dilaudid, 60 mg Toradol, and 25 mg Phenergan intramuscularly per their usual protocol. The differential diagnosis includes acute intracranial bleed, meningitis, encephalitis, mass or mass effect, sinusitis, infection, tumor, headache, temporal arteritis and carbon monoxide exposure, and migraine. The patient was discharged home in stable condition. DIAGNOSIS: Migraine headache DISCHARGE INSTRUCTIONS & TREATMENT: You have been treated in the Emergency Department for a Headache. You have received pain medicine in the emergency department which impairs your ability to operate a vehicle. It is illegal for you to drive after receiving these medicines. For pain control, you can use the following [id number] medicines (if >12 yo): - Regular strength (325mg/tab) Tylenol (acetaminophen) 2 tabs every 4-6 hours as needed. Do not exceed 12 tablets in a 24 hour period. Avoid taking more than 4 grams (4000 mg) of Tylenol per day. This includes any other sources of acetaminophen you may take on a regular basis. - Regular strength (200 mg/tab) Advil (ibuprofen) 1-2 tabs every 4-6 hours as needed. Do not exceed a dose of 3200 mg per day. You should relax in a quiet, dark place for the rest of the day. Avoid any possible triggers including: cigarette smoke, caffeine, nicotine, chocolate, wine, beer, loud noises or music, or bright lights. You should schedule a follow-up appointment in 2-3 days with your Primary Care Provider or established Neurologist for further evaluation and treatment of your Headache. Return to the Emergency Department if your current symptoms worsen despite treatment course outlined above, or if you develop any of the following symptoms : intractable pain despite aforementioned treatment course, visual disturbances , loss of vision, unilateral weakness or facial drooping, slurring of speech, loss of coordination, or loss of consciousness. Problem List Medical Problems: (1) Asthma Status: Chronic (2) Finger fracture, right Status: Resolved (3) Gastroparesis Status: Chronic (4) GERD (gastroesophageal reflux disease) Status: Chronic (5) Hyperlipidemia Status: Chronic (6) Hypothyroidism Status: Chronic (7) Migraine Status: Chronic (8) JESI (obstructive sleep apnea) Status: Chronic Surgical Problems: (1) Cholecystectomy Status: Resolved (2) History of dental surgery Status: Chronic (3) Hx of esophagogastroduodenoscopy Status: Chronic Current/Historical Medications Scheduled Albuterol Hfa (Ventolin Hfa), 2-4 PUFFS INH Q4 Amitriptyline Hcl (Elavil), 100 MG PO HS Atorvastatin (Atorvastatin Calcium), 40 MG PO HS Dicyclomine Hcl (Dicyclomine Hcl), 10 MG PO QID Hydrochlorothiazide (Hydrochlorothiazide), 6.25 MG PO HS Levothyroxine Sodium (Synthroid), 75 MCG PO HS Pantoprazole (Pantoprazole Sodium), 40 MG PO HS Ranitidine HCl (Ranitidine HCl), 300 MG PO BID Scheduled PRN Fluticasone Prop/Salmeterol (Advair Diskus 250/50 60 Dose), 1 PUFF INH BID PRN for Wheezing Ibuprofen (Advil), 400 MG PO UD PRN for Pain Sumatriptan Succinate (Imitrex Nasal [place]), 1 SPRAY NA UD PRN for Headache Allergies Coded Allergies: Benzoyl Peroxide (Verified Allergy, Mild, 01/18/17) Lactose Intolerance (Verified Allergy, Unknown, Unknown, 01/18/17) Risperidone (Unverified Allergy, Unknown, "I FELT LIKE I WAS DRUNK", ) Hydrocodone (Verified Adverse Reaction, Mild, VOMITING, 01/18/17) Magnesium (Verified Adverse Reaction, Unknown, Nausea, GI upset, 01/18/17) Prednisone (Verified Adverse Reaction, Unknown, "messes up my mind, depressed", 01/18/17) Vital Signs Date Time Temp Pulse Resp B/P Pulse Ox O2 Delivery O2 Flow Rate FiO2 02/19/17 06:41 78 18 132/64 99 02/19/17 05:59 36.4 79 18 132/81 96 Room Air Medications Administered Medications (Trade) Dose Ordered Sig/Denise Route Start Time Stop Time Status Last Admin Dose Admin Hydromorphone HCl (Dilaudid Inj) 2 mg NOW ONCE IM 02/19/17 06:15 02/19/17 06:16 DC 02/19/17 06:16 2 MG Ketorolac Tromethamine (Toradol Inj) 60 mg NOW STAT IM 02/19/17 06:07 02/19/17 06:08 DC 02/19/17 06:16 60 MG Promethazine HCl (Phenergan Inj) 25 mg NOW STAT IM 02/19/17 06:07 02/19/17 06:08 DC 02/19/17 06:15 25 MG Departure Information Impression Primary Impression: Migraine Dispostion Home / Self-Care Condition GOOD Referrals No Doctor, Assigned (PCP) Patient Instructions ED Headache Migraine, [facility] Additional Instructions You have been treated in the Emergency Department for a Headache. You have received pain medicine in the emergency department which impairs your ability to operate a vehicle. It is illegal for you to drive after receiving these medicines. For pain control, you can use the following [id number]-dspwvba medicines (if >12 yo): - Regular strength (325mg/tab) Tylenol (acetaminophen) 2 tabs every 4-6 hours as needed. Do not exceed 12 tablets in a 24 hour period. Avoid taking more than 4 grams (4000 mg) of Tylenol per day. This includes any other sources of acetaminophen you may take on a regular basis. - Regular strength (200 mg/tab) Advil (ibuprofen) 1-2 tabs every 4-6 hours as needed. Do not exceed a dose of 3200 mg per day. You should relax in a quiet, dark place for the rest of the day. Avoid any possible triggers including: cigarette smoke, caffeine, nicotine, chocolate, wine, beer, loud noises or music, or bright lights. You should schedule a follow-up appointment in 2-3 days with your Primary Care Provider or established Neurologist for further evaluation and treatment of your Headache. Return to the Emergency Department if your current symptoms worsen despite treatment course outlined above, or if you develop any of the following symptoms : intractable pain despite aforementioned treatment course, visual disturbances , loss of vision, unilateral weakness or facial drooping, slurring of speech, loss of coordination, or loss of consciousness. Problem Qualifiers Primary Impression: Migraine Migraine type: unspecified Status migrainosus presence: without status migrainosus Intractability: not intractable Qualified Codes: G43.909 - Migraine, unspecified, not intractable, without status migrainosus
[2017-02-19] MEDS ORDERED: KETOROLAC TROMETHAMINE 60 MG/2 ML VIAL IM STA (06:07)
[2017-02-19] MEDS ORDERED: PROMETHAZINE HCL INJ 25 MG/ML 1 ML VIAL IM STA (06:07)
[2017-02-19] MEDS ORDERED: HYDROmorphone INJ 2 MG/ML SYR/VIAL IM ONE (06:15)
[2017-02-19 06:41] VITALS: BP 132/64; PULSE 78; O2SAT 99
[2017-03-22] MEDS ORDERED: ONDA4TAB10 SL (20:41)
[2017-07-03] MEDS ORDERED: IMTIN5 (10:07)
[2017-07-03] MEDS ORDERED: VNTHFA/IN INH (10:07)
[2017-07-03] MEDS ORDERED: MULT-506 PO (13:02)
[2017-07-03] MEDS ORDERED: RANI150T2 PO (15:49)
[2017-07-03] MEDS ORDERED: LPT40 PO (15:49)
[2017-07-03] MEDS ORDERED: PANT40TA2 PO (17:45)
[2017-10-20] MEDS ORDERED: FLM4 PO (16:26)
[2017-10-20] MEDS ORDERED: PHEN-775 PO (16:26)
[2017-10-20] MEDS ORDERED: ACET-1047 OR (16:30)
[2017-10-21] MEDS ORDERED: NITR-5 PO (16:24)
== END 2017-02-19 06:44 | disposition home or self-care (01) ==
LOC: C.EDB 05:53 → C.EDA 06:44
DX: G43.909 Migraine, unspecified, not intractable, without status migrainosus (principal); E78.5 Hyperlipidemia, unspecified; E03.9 Hypothyroidism, unspecified; K21.9 Gastro-esophageal reflux disease without esophagitis; K31.84 Gastroparesis; J45.909 Unspecified asthma, uncomplicated; G47.33 Obstructive sleep apnea (adult) (pediatric); Z87.81 Personal history of (healed) traumatic fracture; Z90.49 Acquired absence of other specified parts of digestive tract; Z98.890 Other specified postprocedural states; Z79.899 Other long term (current) drug therapy; Z88.5 Allergy status to narcotic agent; Z88.8 Allergy status to other drugs, medicaments and biological substances

== ENCOUNTER 2017-02-20 14:22 | Emergency (ER) | payer OTHER ==
[~2017-02-20] VITALS: Ht 170.2 cm; Wt 90.3 kg
[2017-02-20 14:40] VITALS: TEMP 36.8; Ht 170.2 cm; Wt 90.3 kg
[2017-02-20] MEDS ORDERED: HYDROmorphone INJ 2 MG/ML SYR/VIAL IM STA (14:55)
[2017-02-20] MEDS ORDERED: PROMETHAZINE HCL INJ 25 MG/ML 1 ML VIAL IM STA (14:55)
[2017-02-20] MEDS ORDERED: DEXAMETHASONE SOD INJ 10 MG/ML VIAL IM ONE (15:00)
[2017-02-20 15:45] VITALS: BP 134/72; PULSE 75; O2SAT 95
--- NOTE | 2017-02-20 23:43 | EMERGENCY ROOM VISIT NOTE ---
ED Visit Note First contact with patient: 14:36 CHIEF COMPLAINT: Migraine headache. HISTORY OF PRESENT ILLNESS: Mr. Merrill is a 36 year-old white male who ambulates into the ED accompanied complaining of a migraine headache and left hand paresthesias. He reports a gradual onset of a severe migraine headache that started approximately 6 hours or ago. His pain has been constant and slowly increasing in intensity. This is not the worst headache of the his life and is similar to previous migraines. Currently he describes the headache as a pressure/throbbing sensation/pain in the left frontal area. He rates the pain a 7/10. The pain is radiating to the retro-orbital area. He has not identified any aggravating factors related to the pain. He reports taking her prescribed Imitrex and [id number]-[id number] ibuprofen without relief of pain. There is been associated light sensitivity, mild nasal congestion and nausea but no vomiting. He denies fever, sweats, chills, skin eruptions, skin color changes, dizziness, lightheadedness, abnormal neurological symptoms, sinus infection, sore throat/ pharyngitis, neck pain/stiffness weakness of the extremities, recent head/face/ neck trauma to the head. REVIEW OF SYSTEMS: As noted above in Review of Systems; all systems were reviewed with the patient and found to be negative unless noted above otherwise. PAST MEDICAL HISTORY: Asthma, gastroparesis, GERD, dyslipidemia, hypothyroidism , migraine headaches, obstructive sleep apnea, kidney stone, status post cholecystectomy. CURRENT MEDICATIONS: Medications Dose Route/Sig Max Daily Dose Days Date Category Synthroid (Levothyroxine Sodium) 75 Mcg Tab 75 Mcg PO HS 01/18/17 Reported Imitrex Nasal [place] (Sumatriptan Succinate) 5 Mg Aers 1 Lily NA UD PRN 12/30/16 Reported Ventolin Hfa (Albuterol) 200 Puffs/30034 Mcg Aers 2-4 Puffs INH Q4 12/30/16 Reported Dicyclomine Hcl 10 Mg Cap 10 Mg PO QID 11/20/16 Reported Pantoprazole Sodium (Pantoprazole) 40 Mg Tab 40 Mg PO HS 07/19/16 Reported Ranitidine HCl 150 Mg Tab 300 Mg PO BID 04/05/16 Reported Atorvastatin Calcium (Atorvastatin) 40 Mg Tab 40 Mg PO HS 04/05/16 Reported Advil (Ibuprofen) 200 Mg Tab 400 Mg PO UD PRN 02/26/16 Reported Elavil (Amitriptyline Hcl) 100 Mg Tab 100 Mg PO HS 12/24/15 Reported Hydrochlorothiazide 12.5 Mg Tab 6.25 Mg PO HS 12/24/15 Reported Advair Diskus 250/50 60 Dose (Fluticasone Prop/Salmeterol) 1 Ea Aerp 1 Puff INH BID PRN 04/01/14 Reported ALLERGIES TO MEDICATIONS: Prednisone, hydrocodone, benzyl peroxide, lactose, magnesium, prednisone, magnesium, risperidone. SOCIAL HISTORY: Patient is currently employed; he feels safe in her home environment; he admits to tobacco use; she denies alcohol use. PHYSICAL EXAM: Vital Signs: Date Time Temp Pulse Resp B/P Pulse Ox O2 Delivery O2 Flow Rate FiO2 02/20/17 15:45 75 18 134/72 95 Room Air 02/20/17 14:40 36.8 82 18 128/82 95 Room Air GENERAL: 36 year-old male in mild distress due to pain, afebrile and hemodynamically stable. Found lying in a lighted room. NEUROLOGIC: Awake, alert and oriented to person place and time. Answering questions appropriately and following commands. Cranial nerves II-XII grossly intact. No focal neurologic deficits noted. Normal gait. Good short-term and long-term recall. SKIN: Warm, dry and pink. No rashes, lesions or soft tissue trauma noted. HEENT: Normocephalic, atraumatic. Pupils equal, round and reactive. Positive light sensitivity. Extraocular movements intact and there is no nystagmus. Sclera sclerae white and conjunctiva pink without drainage. External ears are nontender. Patient photophobic precluding funduscopic examination. Auditory canals are pink and patent and tympanic membranes are pearly ram with normal light reflex. No erythema or tenderness over the phone or back/sinuses. No nasal drainage. Oral cavity is moist and pink. Airway is patent. Uvula is midline and no abscesses are seen. No posterior pharyngeal erythema, edema; no tonsillar hypertrophy or exudates. No JVD. Trachea midline. NECK: No tenderness over the bony cervical spine or para musculature. No paraspinous muscle spasm. No nuchal rigidity. Full range of motion of the cervical spine. THORAX: Lungs clear to auscultation and equal bilaterally with no wheezing, crackles, rhonchi or stridor and equal chest wall movements. HEART: Regular rate and rhythm with no murmurs, rubs or gallops. ABDOMEN: Obese and soft with mild left lower quadrant tenderness. Positive bowel sounds present in all quadrants; no rigidity, rebound tenderness, organomegaly or guarding. EXTREMITIES: Moves all extremities well on command and with purpose. All distal neurovascular statuses intact and equal bilaterally. ED COURSE: Patient is assessed with history and physical examination. Patient was given 2 mg of the Dilaudid IM, 10 mg of Decadron IM and 25 mg of Phenergan IM for his symptoms. Patient was reassessed. Patient was educated about his condition and instructed on his treatment plan; he verbalized understanding and agreement with this plan. CLINICAL IMPRESSION: Migraine headache. DECISION MAKIN-year-old male who presents for evaluation of headache. He is afebrile, well appearing, and hemodynamically stable. He has no signs of a sinus, dental, or ear infection and no evidence of meningismus. He is neurologically intact. I do not suspect a headache to be secondary to a subarachnoid hemorrhage, meningitis, encephalitis, or intracranial mass lesion. DISPOSITION: Patient was discharged to home in stable condition accompanied by a friend; prior to departure she was reassessed and subjectively reported he was feeling better and rated his discomfort 4/10. DISCHARGE INSTRUCTIONS: Rest at home, in a quiet darkened room and allow the medication to work for the pain. Continue to follow up current treatment plan prescribed by your physician for your migraine headaches. See your own doctor in follow-up this week for continued care and treatment. Patient was encouraged to return to the ED as needed worsening/uncontrolled pain , any abnormal neurological symptoms, fevers, any new/concerning symptoms or in accordance with his pain management plan.
[2017-03-22] MEDS ORDERED: ONDA4TAB10 SL (20:41)
[2017-07-03] MEDS ORDERED: VNTHFA/IN INH (10:07)
[2017-07-03] MEDS ORDERED: IMTIN5 (10:07)
[2017-07-03] MEDS ORDERED: MULT-506 PO (13:02)
[2017-07-03] MEDS ORDERED: RANI150T2 PO (15:49)
[2017-07-03] MEDS ORDERED: LPT40 PO (15:49)
[2017-07-03] MEDS ORDERED: PANT40TA2 PO (17:45)
[2017-10-20] MEDS ORDERED: FLM4 PO (16:26)
[2017-10-20] MEDS ORDERED: PHEN-775 PO (16:26)
[2017-10-20] MEDS ORDERED: ACET-1047 OR (16:30)
[2017-10-21] MEDS ORDERED: NITR-5 PO (16:24)
== END 2017-02-20 15:46 | disposition home or self-care (01) ==
LOC: C.EDB 14:24 → C.EDD 15:46
DX: G43.909 Migraine, unspecified, not intractable, without status migrainosus (principal); E78.5 Hyperlipidemia, unspecified; K21.9 Gastro-esophageal reflux disease without esophagitis; K31.84 Gastroparesis; J45.909 Unspecified asthma, uncomplicated; G47.33 Obstructive sleep apnea (adult) (pediatric); F17.200 Nicotine dependence, unspecified, uncomplicated; Z87.442 Personal history of urinary calculi; Z90.49 Acquired absence of other specified parts of digestive tract; Z79.899 Other long term (current) drug therapy; Z88.8 Allergy status to other drugs, medicaments and biological substances

== ENCOUNTER 2017-03-06 08:22 | Emergency (ER) | payer OTHER ==
[~2017-03-06] VITALS: Ht 170.2 cm; Wt 92.2 kg
[2017-03-06 08:27] VITALS: TEMP 36.6; Ht 170.2 cm; Wt 92.2 kg
[2017-03-06] MEDS ORDERED: SODIUM CHLORIDE 0.9% 1000ML 1,000 ML IV STA (08:37)
[2017-03-06] MEDS ORDERED: KETOROLAC TROMETHAMINE 30 MG/ML VIAL IV STA (08:37)
[2017-03-06] MEDS ORDERED: ONDANSETRON INJ 2 MG/ML 2 ML VIAL IV STA (08:37)
[2017-03-06] MEDS ORDERED: TAMSULOSIN HCL 0.4 MG CAP PO ONE (08:45)
[2017-03-06 08:52] LABS: BASO % 0.4 %; BASO ABS # 0.03 K/uL (0-0.2); COMPLETE YES; EOS % 2.9 %; HEMATOCRIT 38.7 % (42-52); LYMPH % 33.4 %; LYMPH ABS # 2.38 K/uL (1.2-3.4); MEAN CELL VOLUME 88.2 fL (80-100); MEAN CORPUSCULAR HEMOGLOBIN 31.2 pg (25-34); MEAN CORPUSCULAR HGB CONC 35.4 g/dl (32-36); MEAN PLATELET VOLUME 11.1 fL (7.4-10.4); MONO % 13.7 %; NEUT % 49.6 %; PLATELET COUNT 193 K/uL (130-400); RED BLOOD COUNT 4.39 M/uL (4.7-6.1); WHITE BLOOD COUNT 7.13 K/uL (4.8-10.8)
--- NOTE | 2017-03-06 09:11 | DIAGNOSTIC IMAGING REPORT ---
ABDOMEN AND PELVIS CT WITHOUT CONTRAST CT DOSE: 1113.05 mGy.cm HISTORY: Right flank pain. TECHNIQUE: Multiaxial CT images of the abdomen and pelvis were performed without the use of intravenous and oral contrast according to the standard department stone protocol. COMPARISON STUDY: Abdomen and pelvis CT 10/30/2015. FINDINGS: There are multiple punctate bilateral renal calculi with the largest in the upper pole the left kidney measuring 4 mm. There are 2 obstructing stones within the distal right ureter with the largest measuring 3 mm. The bladder is not well-distended. Mild right hydronephrosis. No left ureteral calculi. The lung bases are clear. No fractures within the visualized osseous structures. Cholecystectomy. The unenhanced liver, spleen, pancreas are unremarkable. Stable bilateral adrenal gland thickening. Suboptimal evaluation for bowel pathology due to the lack of intravenous and oral contrast. However, there is no definite bowel wall thickening or obstruction. Normal appendix. No retroperitoneal lymphadenopathy. IMPRESSION: 1. There are 2 obstructing stones within the distal right ureter with the largest measuring 3 mm. There is associated mild right-sided hydronephrosis. 2. Bilateral nephrolithiasis. 3. Cholecystectomy. Electronically signed by: Atul Herzog M.D. 03/06/2017 9:09 AM Dictated Date/Time: 03/06/2017 9:05 AM
[2017-03-06 09:12] LABS: CALCIUM 8.9 mg/dl (8.5-10.1); CREATININE 0.91 mg/dl (0.60-1.40); POTASSIUM 3.9 mmol/L (3.5-5.1)
[2017-03-06] MEDS ORDERED: HYDROmorphone INJ 1 MG/ML SYR IV STA ×2 (09:28→10:29)
[2017-03-06 09:29] LABS: URINE APPEARANCE CLOUDY (CLEAR); URINE BILIRUBIN NEG (NEG); URINE COLOR YELLOW; URINE NITRITE NEG (NEG); URINE SPECIFIC GRAVITY 1.022 (1.000-1.030); UROBILINOGEN NEG (NEG); ZZUR CULT IF INDIC CLEAN CATCH NO
[2017-03-06 09:34] LABS: MANUAL MICROSCOPIC REQUIRED? NO; REVIEW REQ? NO
[2017-03-06] MEDS ORDERED: ONDA4TAB10 SL (11:47)
[2017-03-06] MEDS ORDERED: OXYC1TAB3 PO (11:47)
[2017-03-06] MEDS ORDERED: TAMS0.4C38 PO (11:47)
--- NOTE | 2017-03-06 11:47 | EMERGENCY ROOM VISIT NOTE ---
History First contact with patient: 08:31 Chief Complaint: FLANK PAIN Stated Complaint: KIDNEY PAIN, FRONT BACK,NAUSEA History of Present Illness The patient is a 36 year old male who presents to the Emergency Room with complaints of right flank pain which started this morning. The patient admits to associated nausea but denies any vomiting. The patient states that he has decreased urinary output but denies any dysuria, hematuria, frequency. The patient denies any fever. The patient denies any abdominal pain. The patient has a history of kidney stones. He states he last had problems with kidney stones approximately 6 months ago. The patient is on a 2 injection per month treatment plan for frequent ER visits for headaches and abdominal pain. The patient has already received his 2 narcotic injections for the month of February. The patient has seen Dr. Noriega in the past for his kidney stones. Review of Systems 10 system review was performed and was negative unless stated otherwise history of present illness. Past Medical/Surgical History Medical Problems: (1) Asthma (2) Finger fracture, right (3) Gastroparesis (4) GERD (gastroesophageal reflux disease) (5) Hyperlipidemia (6) Hypothyroidism (7) Intractable pain (8) Migraine (9) JESI (obstructive sleep apnea) (10) Renal calculi Surgical Problems: (1) Cholecystectomy (2) History of dental surgery (3) Hx of esophagogastroduodenoscopy Family History Diabetes mellitus MOTHER GRANDFATHER FH: cancer FH: heart disease FATHER GRANDFATHER FH: lung disease Hypertension Kidney disease or stones Social History Smoking Status: Former Smoker Alcohol Use: none Drug Use: none Marital Status: Housing Status: lives with family Occupation Status: employed Current/Historical Medications Scheduled Albuterol Hfa (Ventolin Hfa), 2-4 PUFFS INH Q4 Amitriptyline Hcl (Elavil), 100 MG PO HS Atorvastatin (Atorvastatin Calcium), 40 MG PO HS Dicyclomine Hcl (Dicyclomine Hcl), 10 MG PO QID Hydrochlorothiazide (Hydrochlorothiazide), 6.25 MG PO HS Levothyroxine Sodium (Synthroid), 75 MCG PO HS Pantoprazole (Pantoprazole Sodium), 40 MG PO HS Ranitidine HCl (Ranitidine HCl), 300 MG PO BID Scheduled PRN Fluticasone Prop/Salmeterol (Advair Diskus 250/50 60 Dose), 1 PUFF INH BID PRN for Wheezing Ibuprofen (Advil), 400 MG PO UD PRN for Pain Sumatriptan Succinate (Imitrex Nasal [place]), 1 SPRAY NA UD PRN for Headache Allergies Coded Allergies: Benzoyl Peroxide (Verified Allergy, Mild, 03/06/17) Lactose Intolerance (Verified Allergy, Unknown, Unknown, 03/06/17) Risperidone (Verified Allergy, Unknown, "I FELT LIKE I WAS DRUNK", 03/06/17 ) Hydrocodone (Verified Adverse Reaction, Mild, VOMITING, 03/06/17) Magnesium (Verified Adverse Reaction, Unknown, Nausea, GI upset, 03/06/17) Prednisone (Verified Adverse Reaction, Unknown, "messes up my mind, depressed", 03/06/17) Physical Exam Vital Signs Date Time Temp Pulse Resp B/P Pulse Ox O2 Delivery O2 Flow Rate FiO2 03/06/17 10:57 70 16 117/67 96 Room Air 03/06/17 09:38 73 16 111/64 97 Room Air 03/06/17 08:27 36.6 85 20 160/109 96 Room Air Physical Exam GENERAL: 36-year-old male appears uncomfortable secondary to pain. MENTAL Status: Alert and oriented 3. EYES: No icterus noted MOUTH: Mucosa is moist NECK: Supple, no lymphadenopathy noted. No carotid bruits noted. LUNGS: Clear auscultation without wheezes rales or rhonchi. CARDIAC: Regular rate and rhythm without murmur. Pulses is full and equal throughout. BACK: No CVA tenderness noted. ABDOMEN: Positive bowel sounds all 4 quadrants. Soft, nontender to palpation without organomegaly or masses. EXTREMITIES: No cyanosis or edema noted. Medical Decision & Procedures ER Provider Diagnostic Interpretation: ABDOMEN AND PELVIS CT WITHOUT CONTRAST CT DOSE: 1113.05 mGy.cm HISTORY: Right flank pain. TECHNIQUE: Multiaxial CT images of the abdomen and pelvis were performed without the use of intravenous and oral contrast according to the standard department stone protocol. COMPARISON STUDY: Abdomen and pelvis CT 10/30/2015. FINDINGS: There are multiple punctate bilateral renal calculi with the largest in the upper pole the left kidney measuring 4 mm. There are 2 obstructing stones within the distal right ureter with the largest measuring 3 mm. The bladder is not well-distended. Mild right hydronephrosis. No left ureteral calculi. The lung bases are clear. No fractures within the visualized osseous structures. Cholecystectomy. The unenhanced liver, spleen, pancreas are unremarkable. Stable bilateral adrenal gland thickening. Suboptimal evaluation for bowel pathology due to the lack of intravenous and oral contrast. However, there is no definite bowel wall thickening or obstruction. Normal appendix. No retroperitoneal lymphadenopathy. IMPRESSION: 1. There are 2 obstructing stones within the distal right ureter with the largest measuring 3 mm. There is associated mild right-sided hydronephrosis. 2. Bilateral nephrolithiasis. 3. Cholecystectomy. Electronically signed by: Atul Herzog M.D. 03/06/2017 9:09 AM Dictated Date/Time: 03/06/2017 9:05 AM Laboratory Results 03/06/17 08:38 Red Blood Count 4.39, Mean Corpuscular Volume 88.2, Mean Corpuscular Hemoglobin 31.2, Mean Corpuscular Hemoglobin Concent 35.4, Mean Platelet Volume 11.1, Neutrophils (%) (Auto) 49.6, Lymphocytes (%) (Auto) 33.4, Monocytes (%) (Auto) 13.7, Eosinophils (%) (Auto) 2.9, Basophils (%) (Auto) 0.4, Neutrophils # (Auto ) 3.53, Lymphocytes # (Auto) 2.38, Monocytes # (Auto) 0.98, Eosinophils # (Auto ) 0.21, Basophils # (Auto) 0.03 03/06/17 08:38 Test 03/06/17 08:34 03/06/17 08:38 Urine Color YELLOW Urine Appearance CLOUDY (CLEAR) Urine pH 5.0 (4.5-7.5) Urine Specific [place] 1.022 (1.000-1.030) Urine Protein 1+ (NEG) Urine Glucose (UA) NEG (NEG) Urine Ketones NEG (NEG) Urine Occult Blood 3+ (NEG) Urine Nitrite NEG (NEG) Urine Bilirubin NEG (NEG) Urine Urobilinogen NEG (NEG) Urine Leukocyte Esterase TRACE (NEG) Urine WBC (Auto) 1-5 /hpf (0-5) Urine RBC (Auto) >30 /hpf (0-4) Urine Hyaline Casts (Auto) 1-5 /lpf (0-5) Urine Epithelial Cells (Auto) 5-10 /lpf (0-5) Urine Bacteria (Auto) NEG (NEG) White Blood Count 7.13 K/uL (4.8-10.8) Red Blood Count 4.39 M/uL (4.7-6.1) Hemoglobin 13.7 g/dL (14.0-18.0) Hematocrit 38.7 % (42-52) Mean Corpuscular Volume 88.2 fL (80-100) Mean Corpuscular Hemoglobin 31.2 pg (25-34) Mean Corpuscular Hemoglobin Concent 35.4 g/dl (32-36) Platelet Count 193 K/uL (130-400) Mean Platelet Volume 11.1 fL (7.4-10.4) Neutrophils (%) (Auto) 49.6 % Lymphocytes (%) (Auto) 33.4 % Monocytes (%) (Auto) 13.7 % Eosinophils (%) (Auto) 2.9 % Basophils (%) (Auto) 0.4 % Neutrophils # (Auto) 3.53 K/uL (1.4-6.5) Lymphocytes # (Auto) 2.38 K/uL (1.2-3.4) Monocytes # (Auto) 0.98 K/uL (0.11-0.59) Eosinophils # (Auto) 0.21 K/uL (0-0.5) Basophils # (Auto) 0.03 K/uL (0-0.2) RDW Standard Deviation 40.2 fL (36.4-46.3) RDW Coefficient of Variation 12.4 % (11.5-14.5) Immature Granulocyte % (Auto) 0.0 % Immature Granulocyte # (Auto) 0.00 K/uL (0.00-0.02) Anion Gap 7.0 mmol/L (3-11) Est Creatinine Clear Calc Drug Dose 123.8 ml/min Estimated GFR () 127.0 Estimated GFR (Non- 109.6 BUN/Creatinine Ratio 14.0 (10-20) Calcium Level 8.9 mg/dl (8.5-10.1) Total Bilirubin 0.6 mg/dl (0.2-1) Direct Bilirubin 0.1 mg/dl (0-0.2) Aspartate Amino Transf (AST/SGOT) 37 U/L (15-37) Alanine Aminotransferase (ALT/SGPT) 62 U/L (12-78) Alkaline Phosphatase 107 U/L (45-117) Total Protein 7.6 gm/dl (6.4-8.2) Albumin 4.0 gm/dl (3.4-5.0) Lipase 110 U/L (73-393) Medications Administered Medications (Trade) Dose Ordered Sig/Denise Route Start Time Stop Time Status Last Admin Dose Admin Sodium Chloride (Nss 1000ml) 1,000 ml @ 999 mls/hr Q1H1M STAT IV 03/06/17 08:37 03/06/17 09:37 DC 03/06/17 08:37 999 MLS/HR Ketorolac Tromethamine (Toradol Inj) 30 mg NOW STAT IV 03/06/17 08:37 03/06/17 08:41 DC 03/06/17 08:43 30 MG Ondansetron HCl (Zofran Inj) 4 mg NOW STAT IV 03/06/17 08:37 03/06/17 08:41 DC 03/06/17 08:44 4 MG Tamsulosin HCl (Flomax Cap) 0.4 mg NOW ONCE PO 03/06/17 08:45 03/06/17 08:46 DC 03/06/17 08:44 0.4 MG Hydromorphone HCl (Dilaudid Inj) 1 mg NOW STAT IV 03/06/17 09:28 03/06/17 09:30 DC 03/06/17 09:40 1 MG Hydromorphone HCl (Dilaudid Inj) 1 mg NOW STAT IV 03/06/17 10:29 03/06/17 10:31 DC 03/06/17 10:57 1 MG ED Course The patient was evaluated. IV access was obtained. The patient was given 1 L normal saline wide-open. Patient was given Toradol 30 mg IV, Zofran 4 mg IV. The patient was also given Flomax 0.4 mg by mouth. The patient has already received his 2 narcotic injections for the month of February. If he indeed had an obstructing kidney stone he will be given narcotic pain medication. A CT stone study was ordered and interpreted by the radiologist as above with 2 stones noted in the right distal ureter, the largest measuring 3 mm. Mild hydronephrosis. CBC differential, renal profile, LFTs and lipase levels was ordered. Urinalysis was ordered. Since the patient had evidence of ureteral calculi the patient was given Dilaudid 1 mg IV for pain. Labs are reviewed and were unremarkable. White count was normal. Urinalysis revealed hematuria but no evidence of bacteria. This will be sent for culture. The patient was reevaluated and was still in significant pain. The patient was given Dilaudid 1 mg IV for pain. The patient was reevaluated was feeling much better. The patient was discharged home in stable condition. Medical Decision Differential diagnosis include UTI, pyelonephritis, ureteral calculi Impression Primary Impression: Ureteral stone with hydronephrosis Departure Information Dispostion Home / Self-Care Condition GOOD Prescriptions Oxycodone Immediate Rel Tab (ROXICODONE IR) 5 Mg Tab 1-2 TAB PO Q6 Y for Pain, #20 TAB Prov: Herlinda Morales PA-C 03/06/17 Ondasetron Odt (ZOFRAN ODT) 4 Mg Tab 4 MG SL Q6H for Nausea, #10 TAB Prov: Herlinda Morales PA-C 03/06/17 Tamsulosin Hcl (FLOMAX) 0.4 Mg Cap 0.4 MG PO DAILY for 7 Days, #7 CAP Prov: Herlinda Morales PA-C 03/06/17 Referrals No Doctor, Assigned (PCP) Christelle Noriega MD Forms HOME CARE DOCUMENTATION FORM, IMPORTANT VISIT INFORMATION Patient Instructions Kidney Stones - [facility], [facility] Additional Instructions Push fluids. Strain all urine. Take Flomax as directed. Ibuprofen 600 mg every 6 hours with food for pain. Take OxyIR for more severe pain. Do not drive while taking the OxyIR. Take Zofran as needed for nausea. Call Dr. Noriega today for follow-up appointment in 2 days for reevaluation. If you experience any uncontrolled pain, high fevers, uncontrolled nausea vomiting return to ER immediately.
[2017-03-06 12:17] VITALS: BP 115/64; PULSE 72; O2SAT 97
[2017-03-22] MEDS ORDERED: ONDA4TAB10 SL (20:41)
[2017-07-03] MEDS ORDERED: VNTHFA/IN INH (10:07)
[2017-07-03] MEDS ORDERED: IMTIN5 (10:07)
[2017-07-03] MEDS ORDERED: MULT-506 PO (13:02)
[2017-07-03] MEDS ORDERED: LPT40 PO (15:49)
[2017-07-03] MEDS ORDERED: RANI150T2 PO (15:49)
[2017-07-03] MEDS ORDERED: PANT40TA2 PO (17:45)
[2017-10-20] MEDS ORDERED: PHEN-775 PO (16:26)
[2017-10-20] MEDS ORDERED: FLM4 PO (16:26)
[2017-10-20] MEDS ORDERED: ACET-1047 OR (16:30)
[2017-10-21] MEDS ORDERED: NITR-5 PO (16:24)
== END 2017-03-06 12:35 | disposition home or self-care (01) ==
LOC: C.EDB 08:24
DX: N13.2 Hydronephrosis with renal and ureteral calculous obstruction (principal); N20.0 Calculus of kidney; J45.909 Unspecified asthma, uncomplicated; K21.9 Gastro-esophageal reflux disease without esophagitis; E78.5 Hyperlipidemia, unspecified; E03.9 Hypothyroidism, unspecified; G47.33 Obstructive sleep apnea (adult) (pediatric); Z83.3 Family history of diabetes mellitus; Z82.49 Family history of ischemic heart disease and other diseases of the circulatory system; Z87.891 Personal history of nicotine dependence

== ENCOUNTER 2017-03-21 12:31 | Emergency (ER) | payer OTHER ==
[~2017-03-21] VITALS: Ht 170.2 cm; Wt 94.0 kg
[~2017-03-21 12:31] MED LIST changes: -IBUP-1050 PO; -LEVO25TA5 PO; -LEVO50TA6 PO; +ONDA4TAB10 SL; -ONDA4TAB9 PO; +OXYC1TAB3 PO; -SUCR1TAB PO
[2017-03-21 12:34] VITALS: TEMP 36.8; Ht 170.2 cm; Wt 94.0 kg
[2017-03-21] MEDS ORDERED: PROMETHAZINE HCL INJ 25 MG/ML 1 ML VIAL IM STA (12:51)
[2017-03-21] MEDS ORDERED: HYDROmorphone INJ 2 MG/ML SYR/VIAL IM STA (12:51)
[2017-03-21] MEDS ORDERED: DEXAMETHASONE SOD INJ 10 MG/ML VIAL IM ONE (13:00)
--- NOTE | 2017-03-21 13:11 | EMERGENCY ROOM VISIT NOTE ---
ED Visit Note First contact with patient: 12:38 CHIEF COMPLAINT: Migraine headache HISTORY OF PRESENT ILLNESS: This 36-year-old male patient presented to the emergency department with a gradual onset of a severe generalized headache that started today. There has been associated photophobia, phonophobia, nausea and vomiting. The patient denies fever or chills recently, and there is no weakness or numbness of the extremities. There is no difficulty with speech or vision. No trauma to the head and no neck pain. The pain is severe, constant, and it is slowly increasing in severity. The patient rates the pain as moderate and 8/10. The patient has taken his usual medications. This is not the worst headache of the life and is similar to previous migraines. Previous imaging studies of the brain (CT scans) have been normal. REVIEW OF SYSTEMS: An 8 system review of systems was completed with positives and pertinent negatives listed in the HPI. ALLERGIES: Benzoyl peroxide, hydrocodone, magnesium, prednisone, risperidone MEDICATIONS: See nursing notes PMH: Migraines, kidney stones, carpal tunnel SOCIAL HISTORY: The patient lives locally with family PHYSICAL EXAM: Vital Signs: Reviewed Nurse's notes, vital signs stable. MENTAL STATUS: Alert, oriented, and coherent. In great distress from the headache. NECK : Supple, no nuchal rigidity, nontender, no lymphadenopathy. HEART: Regular rhythm and normal rate without murmurs, ectopy, gallops, or rubs. SKIN: Normal. NEUROLOGICAL: Pupils are round, equal and react to light. The optic fundi are normal and the discs are flat. EOMs are full and there is no nystagmus. The patient moves all extremities well and the gait is normal. EMERGENCY DEPARTMENT COURSE: I examined the patient. The patient is well-known to the emergency department. He is on a 2 shot per month treatment protocol. This is a first visit for the month. He has not had any fevers, neck pain, neck stiffness, nuchal rigidity, signs or symptoms of meningitis. He states this headache feels exactly typical of his recurrent migraines. The patient was given 2 mg IM Dilaudid, 25 mg IM Phenergan and 10 mg IM Decadron with relief of their pain. The differential diagnosis includes acute intracranial bleed, meningitis, encephalitis, mass or mass effect, sinusitis, infection, tumor, headache, temporal arteritis and carbon monoxide exposure, and migraine. The patient was discharged home in stable condition with his significant other driving. DIAGNOSIS: Migraine headache DISCHARGE INSTRUCTIONS & TREATMENT: Rest at home, resume prescription medications. See your own doctor in follow-up. Problem List Medical Problems: (1) Asthma Status: Chronic (2) Finger fracture, right Status: Resolved (3) Gastroparesis Status: Chronic (4) GERD (gastroesophageal reflux disease) Status: Chronic (5) Hyperlipidemia Status: Chronic (6) Hypothyroidism Status: Chronic (7) Migraine Status: Chronic (8) JESI (obstructive sleep apnea) Status: Chronic Surgical Problems: (1) Cholecystectomy Status: Resolved (2) History of dental surgery Status: Chronic (3) Hx of esophagogastroduodenoscopy Status: Chronic Current/Historical Medications Scheduled Albuterol Hfa (Ventolin Hfa), 2-4 PUFFS INH Q4 Amitriptyline Hcl (Elavil), 100 MG PO HS Atorvastatin (Atorvastatin Calcium), 40 MG PO HS Dicyclomine Hcl (Dicyclomine Hcl), 10 MG PO QID Hydrochlorothiazide (Hydrochlorothiazide), 6.25 MG PO HS Levothyroxine Sodium (Synthroid), 75 MCG PO HS Multivitamin (Multivitamin), 1 TAB PO DAILY Ondasetron Odt (Zofran Odt), 4 MG SL Q6H Pantoprazole (Pantoprazole Sodium), 40 MG PO HS Ranitidine HCl (Ranitidine HCl), 300 MG PO BID Scheduled PRN Fluticasone Prop/Salmeterol (Advair Diskus 250/50 60 Dose), 1 PUFF INH BID PRN for Wheezing Ibuprofen (Advil), 400 MG PO UD PRN for Pain Sumatriptan Succinate (Imitrex Nasal [place]), 1 SPRAY NA UD PRN for Headache Allergies Coded Allergies: Benzoyl Peroxide (Verified Allergy, Mild, 03/21/17) Lactose Intolerance (Verified Allergy, Unknown, Unknown, 03/21/17) Risperidone (Verified Allergy, Unknown, "I FELT LIKE I WAS DRUNK", 03/21/17) Hydrocodone (Verified Adverse Reaction, Mild, VOMITING, 03/21/17) Magnesium (Verified Adverse Reaction, Unknown, Nausea, GI upset, 03/21/17) Prednisone (Verified Adverse Reaction, Unknown, "messes up my mind, depressed", 03/21/17) Vital Signs Date Time Temp Pulse Resp B/P Pulse Ox O2 Delivery O2 Flow Rate FiO2 03/21/17 13:16 73 15 125/81 96 03/21/17 12:34 36.8 79 16 124/80 95 Room Air Medications Administered Medications (Trade) Dose Ordered Sig/Denise Route Start Time Stop Time Status Last Admin Dose Admin Hydromorphone HCl (Dilaudid Inj) 2 mg ONE STAT IM 03/21/17 12:51 03/21/17 12:53 DC 03/21/17 12:51 2 MG Promethazine HCl (Phenergan Inj) 25 mg NOW STAT IM 03/21/17 12:51 03/21/17 12:53 DC 03/21/17 13:05 25 MG Dexamethasone Sodium Phosphate (Decadron Inj) 10 mg NOW ONCE IM 03/21/17 13:00 03/21/17 13:01 DC 03/21/17 13:05 10 MG Departure Information Impression Primary Impression: Migraine Dispostion Home / Self-Care Condition GOOD Referrals No Doctor, Assigned (PCP) Patient Instructions ED Headache Migraine, [facility] Additional Instructions Rest at home, resume prescription medications. See your own doctor in follow-up. Problem Qualifiers Primary Impression: Migraine
[2017-03-21 13:16] VITALS: BP 125/81; PULSE 73; O2SAT 96
[2017-03-21] MEDS ORDERED: LEVO75TA PO (16:37)
[2017-03-21] MEDS ORDERED: IBUP-1050 PO (22:36)
[2017-03-21] MEDS ORDERED: DICY10CA12 PO (23:57)
[2017-03-22] MEDS ORDERED: ONDA4TAB10 SL (20:41)
[2017-07-03] MEDS ORDERED: IMTIN5 (10:07)
[2017-07-03] MEDS ORDERED: VNTHFA/IN INH (10:07)
[2017-07-03] MEDS ORDERED: MULT-506 PO (13:02)
[2017-07-03] MEDS ORDERED: LPT40 PO (15:49)
[2017-07-03] MEDS ORDERED: RANI150T2 PO (15:49)
[2017-07-03] MEDS ORDERED: PANT40TA2 PO (17:45)
[2017-10-20] MEDS ORDERED: FLM4 PO (16:26)
[2017-10-20] MEDS ORDERED: PHEN-775 PO (16:26)
[2017-10-20] MEDS ORDERED: ACET-1047 OR (16:30)
[2017-10-21] MEDS ORDERED: NITR-5 PO (16:24)
== END 2017-03-21 13:17 | disposition home or self-care (01) ==
LOC: C.EDB 12:33 → C.EDD 13:17
DX: G43.909 Migraine, unspecified, not intractable, without status migrainosus (principal); Z87.442 Personal history of urinary calculi; J45.909 Unspecified asthma, uncomplicated; E78.5 Hyperlipidemia, unspecified; E03.9 Hypothyroidism, unspecified; K21.9 Gastro-esophageal reflux disease without esophagitis; Z90.49 Acquired absence of other specified parts of digestive tract; Z98.818 Other dental procedure status; Z98.890 Other specified postprocedural states; Z79.899 Other long term (current) drug therapy

== ENCOUNTER 2017-04-17 18:50 | Emergency (ER) | payer OTHER ==
[~2017-04-17] VITALS: Ht 170.2 cm; Wt 89.2 kg
[~2017-04-17 18:50] MED LIST changes: +DICY10CA12 PO; +IBUP-1050 PO; +LEVO75TA PO; -OXYC1TAB3 PO
[2017-04-17 18:52] VITALS: TEMP 36.7; Ht 170.2 cm; Wt 89.2 kg
[2017-04-17 19:20] VITALS: O2SAT 97
[2017-04-17 19:34] LABS: BASO % 0.4 %; BASO ABS # 0.03 K/uL (0-0.2); COMPLETE YES; EOS % 0.7 %; HEMATOCRIT 39.2 % (42-52); IG% 0.2 %; LYMPH % 19.3 %; LYMPH ABS # 1.62 K/uL (1.2-3.4); MEAN CELL VOLUME 88.1 fL (80-100); MEAN CORPUSCULAR HEMOGLOBIN 30.8 pg (25-34); MEAN CORPUSCULAR HGB CONC 34.9 g/dl (32-36); MONO % 4.5 %; NEUT % 74.9 %; PLATELET COUNT 210 K/uL (130-400); RED BLOOD COUNT 4.45 M/uL (4.7-6.1); WHITE BLOOD COUNT 8.41 K/uL (4.8-10.8)
[2017-04-17 19:44] LABS: PARTIAL THROMBOPLASTIN RATIO 0.9; PROTHROMBIN TIME (PATIENT) 10.5 SECONDS (9.0-12.0)
[2017-04-17 19:53] LABS: CREATININE 0.95 mg/dl (0.60-1.40)
--- NOTE | 2017-04-17 20:26 | DIAGNOSTIC IMAGING REPORT ---
CHEST 2 VIEWS ROUTINE CLINICAL HISTORY: Chest pain. Evaluate for pneumonia. COMPARISON STUDY: Chest radiograph April 25, 2016. FINDINGS: There are cholecystectomy clips. Lung volumes are normal. No pneumothorax or pleural effusion is present. There is no evidence of pulmonary edema. Cardiomediastinal silhouette is normal. There is no consolidation to suggest pneumonia. IMPRESSION: No acute cardiopulmonary findings. Electronically signed by: Oz Jackson M.D. 04/17/2017 8:24 PM Dictated Date/Time: 04/17/2017 8:23 PM
[2017-04-17] MEDS ORDERED: LORAZEPAM 2 MG/ML 1 ML VIAL IV STA (20:45)
[2017-04-17 21:32] VITALS: BP 117/77; PULSE 77; O2SAT 94
--- NOTE | 2017-04-18 00:37 | EMERGENCY ROOM VISIT NOTE ---
History Report prepared by Geetha: Ginny Cosme Under the Supervision of: Dr. Cole Cameron M.D. First contact with patient: 18:59 Chief Complaint: RESPIRATORY PROBLEMS Stated Complaint: BREATHING PROBLEMS History of Present Illness The patient is a 36 year old male who presents to the Emergency Room with complaints of worsening respiratory problems beginning 3 days prior to arrival. The patient states that his symptoms are worsened at night time. He is experiencing trouble breathing. When laying down his symptoms worsen. The patient does have a history of sleep apnea and initially thought this was the cause of his respiratory problems. He notes chest pressure began 3 days ago as well. The pressure radiates to his back under his shoulder blades. This pressure is constant and unremitting and has been worsening the past 3 days. The patient has been in bed the past 2 days due to increased shortness of breath with exertion. He notes that he has not been sedentary after surgery. The patient did have surgery done to his left wrist one week ago. He notes chronic abdominal pain from IBS without change. He denies swelling or pain to the extremities, history of clots in lungs, or a cough or fever. The patient has a family history of heart disease on his father's side, he states all the males have had heart disease. He did have a stress test done many years ago. 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 A total of 10 systems reviewed and were otherwise negative. Past Medical & Surgical Medical Problems: (1) Asthma (2) Finger fracture, right (3) Gastroparesis (4) GERD (gastroesophageal reflux disease) (5) Hyperlipidemia (6) Hypothyroidism (7) Intractable pain (8) Migraine (9) JESI (obstructive sleep apnea) (10) Renal calculi Surgical Problems: (1) Cholecystectomy (2) History of dental surgery (3) Hx of esophagogastroduodenoscopy Family History Diabetes mellitus MOTHER GRANDFATHER FH: cancer FH: heart disease FATHER GRANDFATHER FH: lung disease Hypertension Kidney disease or stones Social History Smoking Status: Former Smoker Smokeless Tobacco Use: Yes Alcohol Use: none Drug Use: none Marital Status: Housing Status: lives with family Occupation Status: employed Current/Historical Medications Scheduled Albuterol Hfa (Ventolin Hfa), 2-4 PUFFS INH Q4 Amitriptyline Hcl (Elavil), 100 MG PO HS Atorvastatin (Atorvastatin Calcium), 40 MG PO HS Dicyclomine Hcl (Dicyclomine Hcl), 10 MG PO QID Hydrochlorothiazide (Hydrochlorothiazide), 6.25 MG PO HS Levothyroxine Sodium (Synthroid), 75 MCG PO HS Multivitamin (Multivitamin), 1 TAB PO DAILY Pantoprazole (Pantoprazole Sodium), 40 MG PO HS Ranitidine HCl (Ranitidine HCl), 300 MG PO BID Scheduled PRN Fluticasone Prop/Salmeterol (Advair Diskus 250/50 60 Dose), 1 PUFF INH BID PRN for Wheezing Ibuprofen (Advil), 400 MG PO UD PRN for Pain Ondasetron Odt (Zofran Odt), 4 MG SL Q6H PRN for Nausea or Vomiting Sumatriptan Succinate (Imitrex Nasal [place]), 1 SPRAY NA UD PRN for Headache Allergies Coded Allergies: Benzoyl Peroxide (Verified Allergy, Mild, 03/22/17) Lactose Intolerance (Verified Allergy, Unknown, Unknown, 03/22/17) Risperidone (Verified Allergy, Unknown, "I FELT LIKE I WAS DRUNK", 03/22/17) Hydrocodone (Verified Adverse Reaction, Mild, VOMITING, 03/22/17) Magnesium (Verified Adverse Reaction, Unknown, Nausea, GI upset, 03/22/17) Prednisone (Verified Adverse Reaction, Unknown, "messes up my mind, depressed", 03/22/17) Physical Exam Vital Signs Date Time Temp Pulse Resp B/P Pulse Ox O2 Delivery O2 Flow Rate FiO2 04/17/17 21:32 77 19 117/77 94 04/17/17 21:27 67 04/17/17 21:22 72 19 129/72 96 Room Air 04/17/17 21:17 129/72 04/17/17 20:28 78 19 136/92 95 Room Air 04/17/17 19:45 97 Room Air 04/17/17 19:20 97 Room Air 04/17/17 18:52 36.7 88 16 135/86 95 Room Air Physical Exam Constitutional: Vital signs reviewed. Eyes: Pupils are equal round reactive to light. Conjunctiva are noninjected. ENT: Pharynx is clear without erythema or exudate. Mucous membranes are moist. Neck supple without meningeal signs. Respiratory: Clear to auscultation bilaterally. Breath sounds are equal bilaterally. Cardiovascular: Regular rate and rhythm. No rubs or gallops. GI: Soft, nondistended and nontender. Bowel sounds are present. Musculoskeletal: No peripheral edema. No lower extremity tenderness. Left wrist in wound dressing. No swelling to left arm. Integumentary: No cyanosis. Neurological: The patient is awake and alert. No focal deficits. Psychiatric: Anxious. Medical Decision & Procedures ER Provider Diagnostic Interpretation: X-ray results as stated below per interpretation by me and the radiologist: CHEST 2 VIEWS ROUTINE CLINICAL HISTORY: Chest pain. Evaluate for pneumonia. COMPARISON STUDY: Chest radiograph April 25, 2016. FINDINGS: There are cholecystectomy clips. Lung volumes are normal. No pneumothorax or pleural effusion is present. There is no evidence of pulmonary edema. Cardiomediastinal silhouette is normal. There is no consolidation to suggest pneumonia. IMPRESSION: No acute cardiopulmonary findings. Electronically signed by: Oz Jackson M.D. 04/17/2017 8:24 PM Dictated Date/Time: 04/17/2017 8:23 PM Laboratory Results 04/17/17 19:23 Red Blood Count 4.45, Mean Corpuscular Volume 88.1, Mean Corpuscular Hemoglobin 30.8, Mean Corpuscular Hemoglobin Concent 34.9, Mean Platelet Volume 11.0, Neutrophils (%) (Auto) 74.9, Lymphocytes (%) (Auto) 19.3, Monocytes (%) (Auto) 4.5, Eosinophils (%) (Auto) 0.7, Basophils (%) (Auto) 0.4, Neutrophils # (Auto) 6.30, Lymphocytes # (Auto) 1.62, Monocytes # (Auto) 0.38, Eosinophils # (Auto) 0.06, Basophils # (Auto) 0.03 04/17/17 19:23 Test 04/17/17 19:23 04/17/17 19:27 04/17/17 21:22 White Blood Count 8.41 K/uL (4.8-10.8) Red Blood Count 4.45 M/uL (4.7-6.1) Hemoglobin 13.7 g/dL (14.0-18.0) Hematocrit 39.2 % (42-52) Mean Corpuscular Volume 88.1 fL (80-100) Mean Corpuscular Hemoglobin 30.8 pg (25-34) Mean Corpuscular Hemoglobin Concent 34.9 g/dl (32-36) Platelet Count 210 K/uL (130-400) Mean Platelet Volume 11.0 fL (7.4-10.4) Neutrophils (%) (Auto) 74.9 % Lymphocytes (%) (Auto) 19.3 % Monocytes (%) (Auto) 4.5 % Eosinophils (%) (Auto) 0.7 % Basophils (%) (Auto) 0.4 % Neutrophils # (Auto) 6.30 K/uL (1.4-6.5) Lymphocytes # (Auto) 1.62 K/uL (1.2-3.4) Monocytes # (Auto) 0.38 K/uL (0.11-0.59) Eosinophils # (Auto) 0.06 K/uL (0-0.5) Basophils # (Auto) 0.03 K/uL (0-0.2) RDW Standard Deviation 40.3 fL (36.4-46.3) RDW Coefficient of Variation 12.5 % (11.5-14.5) Immature Granulocyte % (Auto) 0.2 % Immature Granulocyte # (Auto) 0.02 K/uL (0.00-0.02) Prothrombin Time 10.5 SECONDS (9.0-12.0) Prothromb Time International Ratio 1.0 (0.9-1.1) Activated Partial Thromboplast Time 24.0 SECONDS (21.0-31.0) Partial Thromboplastin Ratio 0.9 Anion Gap 6.0 mmol/L (3-11) Est Creatinine Clear Calc Drug Dose 116.8 ml/min Estimated GFR () 120.6 Estimated GFR (Non- 104.0 BUN/Creatinine Ratio 14.0 (10-20) Calcium Level 9.0 mg/dl (8.5-10.1) Bedside D-Dimer 279 ng/mlFEU (0-450) Bedside Troponin I 0.000 ng/ml (0-0.045) Laboratory results as reviewed by me. Medications Administered Medications (Trade) Dose Ordered Sig/Denise Route Start Time Stop Time Status Last Admin Dose Admin Lorazepam (Ativan Inj) 1 mg NOW STAT IV 04/17/17 20:45 04/17/17 20:46 DC 04/17/17 21:16 1 MG ECG Indication: SOB/dyspnea Rate (beats per minute): 81 Rhythm: normal sinus Findings: 1st degree AV block, T-wave inversion (lead 3 only), no ectopy, other (early repolarization in precordial leads) Change: 1st degree AV block new from 11/23/15 ED Course 1900: The patient was evaluated in room C6. A complete history and physical exam was performed. 1957: I discussed test results with the patient. 2043: I discussed test results with the patient. A repeat Troponin will be done and he will be given Ativan. 2044: Ativan Inj 1 mg IV. 2147: I checked on the patient. Her second troponin was 0. His chest pain relieved with Ativan. He will follow up with his PCP. 2150: Upon reevaluation, the patient appeared to have improvement of his symptoms. I discussed tonight's findings with him. He verbalized agreement of the treatment plan. He was discharged home. Medical Decision This is a 36-year-old male who presents with chest pain and shortness of breath. Differential diagnosis includes PE, DVT, pleurisy, pericarditis, pneumonia, NH. I did perform a limited focused review of portions of the patient's old chart on the electronic medical record. The patient was seen March 24 for wrist pain from carpal tunnel syndrome. He has also recently been seen for headache. Blood Pressure Screening: Patient was found to have an elevated blood pressure and was referred to their primary doctor for recheck and further treatment. Medication Reconciliation: I attest that I have personally reviewed the patient' s current medication list. I did evaluate the patient as noted above. The patient is presenting with chest pain and shortness of breath. He states the pain is a tightness across his chest rating to his back which he has had persistently for 3 days. He states at no time did his chest pain go away. He does have a family history of cardiac disease. IV access was established. The patient was placed on a continuous playground monitor. I did order and personally review the patient's 12- lead EKG and chest x-ray as described above. His 12-lead EKG demonstrates a first-degree AV block but no acute ischemic changes. Chest x-ray is unremarkable. I did order and review the patient's blood work as noted in the electronic medical record. Troponin and d-dimer are both negative. I did reassess the patient. I did discuss the test results with him. He states that he feels anxious and believes that this may be what's causing his chest discomfort. I did treat him with Ativan IV. I also repeated a second troponin. Both troponins were 0. On reassessment his chest pain is resolved with the Ativan. I did recommend he follow closely with his doctor for further evaluation and possible stress testing giving his family history. He was discharged in good condition and told to return for any worsening symptoms. Impression Primary Impression: Acute chest pain Additional Impressions: Dyspnea Anxiety First degree AV block Scribe Attestation The scribe's documentation has been prepared under my direct and personally reviewed by me in its entirety. I confirm that the note above accurately reflects all work, treatment, procedures, and medical decision making performed by me. Departure Information Dispostion Home / Self-Care Referrals Adrian Meza M.D. (PCP) Forms HOME CARE DOCUMENTATION FORM, IMPORTANT VISIT INFORMATION, WORK / SCHOOL INSTRUCTIONS Patient Instructions Chest Pain - [facility], ED Dyspnea Shortness of Breath, My [facility] Additional Instructions You have been examined and treated today on an emergency basis only. This is not a substitute for, or an effort to provide, complete comprehensive medical care. It is impossible to recognize and treat all injuries or illnesses in a single emergency department visit. It is therefore important that you follow up closely with your physician this week. Call as soon as possible for an appointment. Return for worsening symptoms or if you develop fever, vomiting, lightheadedness, profuse sweating or any other concerning symptoms. Problem Qualifiers Additional Impressions: Dyspnea Dyspnea type: unspecified Qualified Codes: R06.00 - Dyspnea, unspecified
[2017-07-03] MEDS ORDERED: IMTIN5 (10:07)
[2017-07-03] MEDS ORDERED: VNTHFA/IN INH (10:07)
[2017-07-03] MEDS ORDERED: MULT-506 PO (13:02)
[2017-07-03] MEDS ORDERED: LPT40 PO (15:49)
[2017-07-03] MEDS ORDERED: RANI150T2 PO (15:49)
[2017-07-03] MEDS ORDERED: PANT40TA2 PO (17:45)
[2017-10-20] MEDS ORDERED: FLM4 PO (16:26)
[2017-10-20] MEDS ORDERED: PHEN-775 PO (16:26)
[2017-10-20] MEDS ORDERED: ACET-1047 OR (16:30)
[2017-10-21] MEDS ORDERED: NITR-5 PO (16:24)
== END 2017-04-17 22:03 | disposition home or self-care (01) ==
LOC: C.EDB 18:51 → C.EDC 22:03
DX: R07.9 Chest pain, unspecified (principal); R06.00 Dyspnea, unspecified; F41.9 Anxiety disorder, unspecified; I44.0 Atrioventricular block, first degree; K58.9 Irritable bowel syndrome, unspecified; J45.909 Unspecified asthma, uncomplicated; K21.9 Gastro-esophageal reflux disease without esophagitis; E78.5 Hyperlipidemia, unspecified; E03.9 Hypothyroidism, unspecified; G47.33 Obstructive sleep apnea (adult) (pediatric); Z87.442 Personal history of urinary calculi; Z90.49 Acquired absence of other specified parts of digestive tract; Z83.3 Family history of diabetes mellitus; Z80.9 Family history of malignant neoplasm, unspecified; Z82.49 Family history of ischemic heart disease and other diseases of the circulatory system; Z84.1 Family history of disorders of kidney and ureter; Z87.891 Personal history of nicotine dependence; Z79.899 Other long term (current) drug therapy

== ENCOUNTER 2017-04-21 12:23 | Emergency (ER) | payer OTHER ==
[~2017-04-21] VITALS: Ht 170.2 cm; Wt 91.7 kg
[2017-04-21 12:25] VITALS: TEMP 36.4; Ht 170.2 cm; Wt 91.7 kg
[2017-04-21] MEDS ORDERED: DEXAMETHASONE SOD INJ 10 MG/ML VIAL IM STA (12:47)
[2017-04-21] MEDS ORDERED: HYDROmorphone INJ 2 MG/ML SYR/VIAL IM STA (12:47)
[2017-04-21] MEDS ORDERED: PROMETHAZINE HCL INJ 25 MG/ML 1 ML VIAL IM STA (12:47)
--- NOTE | 2017-04-21 12:51 | EMERGENCY ROOM VISIT NOTE ---
ED Visit Note First contact with patient: 12:37 CHIEF COMPLAINT: Migraine headache HISTORY OF PRESENT ILLNESS: This 36-year-old male patient presented to the emergency department via private vehicle with a gradual onset of a severe generalized headache that started last night. The patient states the migraine is similar to their typical migraines. There has been associated photophobia, phonophobia, nausea but no vomiting. The patient denies fever or chills recently , and there is no weakness or numbness of the extremities. There is no difficulty with speech or vision. No trauma to the head and no neck pain. The pain is severe, constant, and it is slowly increasing in severity. The patient rates the pain as constant and 7/10. This is not the worst headache of the life and is similar to previous migraines. Previous imaging studies of the brain have been normal from an emergency department standpoint. REVIEW OF SYSTEMS: A review of systems was performed with positives and pertinent negatives listed in the history of present illness. All other systems were reviewed and are negative. ALLERGIES: As noted below MEDICATIONS: As noted below PMH: Migraine headaches, carpal tunnel, high blood pressure, asthma, bronchitis , pneumonia, stomach problems, kidney stones SOCIAL HISTORY: Patient lives at home with family. PHYSICAL EXAM: Vital Signs: Reviewed Nurse's notes, vital signs stable. GENERAL : 36-year-old male, who appears in pain, but non toxic in appearance and in no acute distress. MENTAL STATUS: Alert, oriented, and coherent. HEENT: Normocephalic. PERRLA. EOMI. Nares patent without nuchal rigidity. Tympanic membranes pearly ram without erythema or effusion bilaterally. Mucous membranes moist. NECK: Supple, no nuchal rigidity, nontender, no lymphadenopathy. HEART: Regular rhythm and normal rate without murmurs, ectopy, gallops, or rubs. LUNGS: Clear to auscultation bilaterally without wheezes, rales or rhonchi. No dullness to percussion. No accessory muscle use. No retractions. SKIN: Normal. NEUROLOGICAL: Pupils are round, equal and react to light. The patient moves all extremities well and the gait is normal. EMERGENCY DEPARTMENT COURSE: I examined the patient. The patient is on a 2 narcotic injection per month treatment plan for their migraines. The patient was given 2 mg of Dilaudid, 10 mg of Decadron, and 25 mg of Phenergan all of which were provided intramuscularly per their usual protocol. The differential diagnosis includes acute intracranial bleed, meningitis, encephalitis, mass or mass effect, sinusitis, infection, tumor, headache, temporal arteritis and carbon monoxide exposure, and migraine. During the patient injection, he did appearance and episode of syncope, which was believed to be vagal vasal. There was no seizure. Patient states he has not slept well over the past 4 days, and has ongoing sleep apnea. He states he has had similar experiences in the past. His vital signs are stable. He was observed for a period of time, reevaluated and found to be feeling much better. He wanted to be discharged home. The patient was discharged home in stable condition with driving. Problem List Medical Problems: (1) Asthma Status: Chronic (2) Finger fracture, right Status: Resolved (3) Gastroparesis Status: Chronic (4) GERD (gastroesophageal reflux disease) Status: Chronic (5) Hyperlipidemia Status: Chronic (6) Hypothyroidism Status: Chronic (7) Migraine Status: Chronic (8) JESI (obstructive sleep apnea) Status: Chronic Surgical Problems: (1) Cholecystectomy Status: Resolved (2) History of dental surgery Status: Chronic (3) Hx of esophagogastroduodenoscopy Status: Chronic Current/Historical Medications Scheduled Albuterol Hfa (Ventolin Hfa), 2-4 PUFFS INH Q4 Amitriptyline Hcl (Elavil), 100 MG PO HS Atorvastatin (Atorvastatin Calcium), 40 MG PO HS Dicyclomine Hcl (Dicyclomine Hcl), 10 MG PO QID Hydrochlorothiazide (Hydrochlorothiazide), 6.25 MG PO HS Levothyroxine Sodium (Synthroid), 75 MCG PO HS Multivitamin (Multivitamin), 1 TAB PO DAILY Pantoprazole (Pantoprazole Sodium), 40 MG PO HS Ranitidine HCl (Ranitidine HCl), 300 MG PO BID Scheduled PRN Fluticasone Prop/Salmeterol (Advair Diskus 250/50 60 Dose), 1 PUFF INH BID PRN for Wheezing Ibuprofen (Advil), 400 MG PO UD PRN for Pain Ondasetron Odt (Zofran Odt), 4 MG SL Q6H PRN for Nausea or Vomiting Sumatriptan Succinate (Imitrex Nasal [place]), 1 SPRAY NA UD PRN for Headache Allergies Coded Allergies: Benzoyl Peroxide (Verified Allergy, Mild, 04/21/17) Lactose Intolerance (Verified Allergy, Unknown, Unknown, 04/21/17) Risperidone (Verified Allergy, Unknown, "I FELT LIKE I WAS DRUNK", 04/21/17) Hydrocodone (Verified Adverse Reaction, Mild, VOMITING, 04/21/17) Magnesium (Verified Adverse Reaction, Unknown, Nausea, GI upset, 04/21/17) Prednisone (Verified Adverse Reaction, Unknown, "messes up my mind, depressed", 04/21/17) Vital Signs Date Time Temp Pulse Resp B/P (MAP) Pulse Ox O2 Delivery O2 Flow Rate FiO2 04/21/17 13:02 64 18 147/101 97 Room Air 04/21/17 12:25 36.4 87 18 142/93 96 Room Air Medications Administered Medications (Trade) Dose Ordered Sig/Denise Route Start Time Stop Time Status Last Admin Dose Admin Dexamethasone Sodium Phosphate (Decadron Inj) 10 mg NOW STAT IM 04/21/17 12:47 04/21/17 12:49 DC 04/21/17 12:55 10 MG Hydromorphone HCl (Dilaudid Inj) 2 mg NOW STAT IM 04/21/17 12:47 04/21/17 12:49 DC 04/21/17 12:56 2 MG Promethazine HCl (Phenergan Inj) 25 mg NOW STAT IM 04/21/17 12:47 04/21/17 12:49 DC 04/21/17 12:55 25 MG Departure Information Impression Primary Impression: Headache Dispostion Home / Self-Care Condition GOOD Referrals Adrian Meza M.D. (PCP) Patient Instructions My [facility] Additional Instructions You have been treated in the Emergency Department for a Headache. You have received pain medicine in the emergency department which impairs your ability to operate a vehicle. It is illegal for you to drive after receiving these medicines. For pain control, you can use the following [id number] medicines: - Regular strength (325mg/tab) Tylenol (acetaminophen) 2 tabs every 4-6 hours as needed. Do not exceed 12 tablets in a 24 hour period. Avoid taking more than 3 grams (3000 mg) of Tylenol per day. This includes any other sources of acetaminophen you may take on a regular basis. - Regular strength (200 mg/tab) Advil (ibuprofen) 1-2 tabs every 4-6 hours as needed. Do not exceed a dose of 3200 mg per day. You should relax in a quiet, dark place for the rest of the day. Avoid any possible triggers including: cigarette smoke, caffeine, nicotine, chocolate, wine, beer, loud noises or music, or bright lights. You should schedule a follow-up appointment in 2-3 days with your Primary Care Provider or established Neurologist for further evaluation and treatment of your Headache. Return to the Emergency Department if your current symptoms worsen despite treatment course outlined above, or if you develop any of the following symptoms : intractable pain despite aforementioned treatment course, visual disturbances , loss of vision, unilateral weakness or facial drooping, slurring of speech, loss of coordination, or loss of consciousness. Please return to the emergency department with any new/concerning symptoms.
[2017-04-21 13:26] VITALS: BP 127/77; PULSE 76; O2SAT 95
[2017-07-03] MEDS ORDERED: IMTIN5 (10:07)
[2017-07-03] MEDS ORDERED: VNTHFA/IN INH (10:07)
[2017-07-03] MEDS ORDERED: MULT-506 PO (13:02)
[2017-07-03] MEDS ORDERED: LPT40 PO (15:49)
[2017-07-03] MEDS ORDERED: RANI150T2 PO (15:49)
[2017-07-03] MEDS ORDERED: PANT40TA2 PO (17:45)
[2017-10-20] MEDS ORDERED: PHEN-775 PO (16:26)
[2017-10-20] MEDS ORDERED: FLM4 PO (16:26)
[2017-10-20] MEDS ORDERED: ACET-1047 OR (16:30)
[2017-10-21] MEDS ORDERED: NITR-5 PO (16:24)
== END 2017-04-21 13:29 | disposition home or self-care (01) ==
LOC: C.EDB 12:25 → C.EDD 13:29
DX: R51 Headache (principal); J45.909 Unspecified asthma, uncomplicated; E78.5 Hyperlipidemia, unspecified; E03.9 Hypothyroidism, unspecified; G47.33 Obstructive sleep apnea (adult) (pediatric)

== ENCOUNTER 2017-04-22 17:07 | Emergency (ER) | payer OTHER ==
[~2017-04-22] VITALS: Ht 170.2 cm; Wt 92.4 kg
[2017-04-22 17:11] VITALS: TEMP 36.6; Ht 170.2 cm; Wt 92.4 kg
[2017-04-22] MEDS ORDERED: SODIUM CHLORIDE 0.9% 1000ML 1,000 ML IV STA (17:27)
[2017-04-22] MEDS ORDERED: KETOROLAC TROMETHAMINE 30 MG/ML VIAL IV STA (17:27)
[2017-04-22] MEDS ORDERED: PROCHLORPERAZINE 5 MG/ML 2 ML VIAL IV STA (17:30)
[2017-04-22] MEDS ORDERED: DEXAMETHASONE SOD INJ 10 MG/ML VIAL IV ONE (17:30)
--- NOTE | 2017-04-22 17:46 | DIAGNOSTIC IMAGING REPORT ---
SINGLE VIEW CHEST CLINICAL HISTORY: Generalized weakness. Change in mental status. FINDINGS: An AP, portable, upright chest radiograph is compared to study dated 04/17/2017. The examination is degraded by portable technique and patient rotation. The cardiomediastinal silhouette is unremarkable. There are foci of bibasilar atelectasis. No airspace consolidation is seen typical for pneumonia and there is no large pleural effusion. No pneumothorax is seen. The bony thorax is grossly intact. IMPRESSION: No acute cardiopulmonary abnormality. Electronically signed by: Barrie Bauer M.D. 04/22/2017 5:45 PM Dictated Date/Time: 04/22/2017 5:44 PM
[2017-04-22 18:00] LABS: BASO % 0.1 %; BASO ABS # 0.01 K/uL (0-0.2); COMPLETE YES; HEMATOCRIT 34.2 % (42-52); IG% 0.6 %; LYMPH % 10.3 %; LYMPH ABS # 1.53 K/uL (1.2-3.4); MEAN CELL VOLUME 88.8 fL (80-100); MEAN CORPUSCULAR HEMOGLOBIN 30.9 pg (25-34); MEAN CORPUSCULAR HGB CONC 34.8 g/dl (32-36); MEAN PLATELET VOLUME 11.4 fL (7.4-10.4); MONO % 5.4 %; NEUT % 83.6 %; PLATELET COUNT 197 K/uL (130-400); RED BLOOD COUNT 3.85 M/uL (4.7-6.1); WHITE BLOOD COUNT 14.91 K/uL (4.8-10.8)
[2017-04-22 18:16] LABS: ALT/SGPT 65 U/L (12-78); AST/SGOT 42 U/L (15-37); BLOOD UREA NITROGEN 12 mg/dl (7-18); BUN/CREATININE RATIO 15.2 (10-20); CALCIUM 8.5 mg/dl (8.5-10.1); CARBON DIOXIDE 28 mmol/L (21-32); CHLORIDE 110 mmol/L (98-107); GLUCOSE 121 mg/dl (70-99); MAGNESIUM 2.4 mg/dl (1.8-2.4); POTASSIUM 3.6 mmol/L (3.5-5.1); SODIUM 144 mmol/L (136-145)
[2017-04-22 18:19] LABS: ALKALINE PHOSPHATASE 91 U/L (45-117); CKMB/CK RATIO 1.1 (0-3.0)
[2017-04-22 18:23] LABS: INR 0.9 (0.9-1.1); PARTIAL THROMBOPLASTIN RATIO 0.8; PROTHROMBIN TIME (PATIENT) 10.1 SECONDS (9.0-12.0)
--- NOTE | 2017-04-22 19:02 | EMERGENCY ROOM VISIT NOTE ---
History Report prepared by Jerryibkindra: Swapna Walter Under the Supervision of: Dr. Tom Esqueda D.O. First contact with patient: 17:24 Chief Complaint: SYNCOPE Stated Complaint: BLACKING OUT, CHEST PAIN, BREATHING ISSSUES Nursing Triage Summary: Pt presents for eval of syncope x 3 since yesterday. states, "One time was in here yesterday. He will answer questions, but he isn't always on track with what you are saying." Pt reports h/a, chest pains, sob. Seen here yesterday for a migraine. History of Present Illness The patient is a 36 year old male who presents to the Emergency Room with complaints of intermittent episodes of syncope that started yesterday. The patient's states that the patient experienced one episode of syncope when he was evaluated in the ED yesterday for a migraine. He has experienced two more episodes of syncope since then. He is also experiencing a headache and nausea. The patient denies fevers, vomiting, and diarrhea. His adds that the patient has not been answering questions appropriately at times. She also states that the patient was sitting on the deck earlier today and started sweating. She states that he also shivers intermittently. The patient is also experiencing chest tightness with shortness of breath, which he thinks is secondary to his anxiety. The patient states that he has been experiencing increased stress and anxiety lately because his son just got expelled from a second school this year so the patient and his have been dealing with police and CYS. He states that he has not been sleeping well over the last 4 days secondary to worsening sleep apnea. Source of History: patient, spouse/significant other Onset: yesterday Position: other (global) Quality: other (syncope) Timing: intermittent Associated Symptoms: + headache, + chest pain, + SOB, + nausea, No fevers, No vomiting, No diarrhea Review of Systems See HPI for pertinent positives & negatives. A total of 10 systems reviewed and were otherwise negative. Past Medical & Surgical Medical Problems: (1) Asthma (2) Finger fracture, right (3) Gastroparesis (4) GERD (gastroesophageal reflux disease) (5) Hyperlipidemia (6) Hypothyroidism (7) Intractable pain (8) Migraine (9) JESI (obstructive sleep apnea) (10) Renal calculi Surgical Problems: (1) Cholecystectomy (2) History of dental surgery (3) Hx of esophagogastroduodenoscopy Family History Diabetes mellitus MOTHER GRANDFATHER FH: cancer FH: heart disease FATHER GRANDFATHER FH: lung disease Hypertension Kidney disease or stones Social History Smoking Status: Former Smoker Alcohol Use: none Drug Use: none Marital Status: Housing Status: lives with family Occupation Status: employed Current/Historical Medications Scheduled Albuterol Hfa (Ventolin Hfa), 2-4 PUFFS INH Q4 Amitriptyline Hcl (Elavil), 100 MG PO HS Atorvastatin (Atorvastatin Calcium), 40 MG PO HS Hydrochlorothiazide (Hydrochlorothiazide), 6.25 MG PO HS Levothyroxine Sodium (Synthroid), 75 MCG PO HS Multivitamin (Multivitamin), 1 TAB PO DAILY Pantoprazole (Pantoprazole Sodium), 40 MG PO HS Ranitidine HCl (Ranitidine HCl), 300 MG PO BID Scheduled PRN Fluticasone Prop/Salmeterol (Advair Diskus 250/50 60 Dose), 1 PUFF INH BID PRN for Wheezing Ibuprofen (Advil), 400 MG PO UD PRN for Pain Sumatriptan Succinate (Imitrex Nasal [place]), 1 SPRAY NA UD PRN for Headache Allergies Coded Allergies: Benzoyl Peroxide (Verified Allergy, Mild, 04/21/17) Lactose Intolerance (Verified Allergy, Unknown, Unknown, 04/21/17) Risperidone (Verified Allergy, Unknown, "I FELT LIKE I WAS DRUNK", 04/21/17) Hydrocodone (Verified Adverse Reaction, Mild, VOMITING, 04/21/17) Magnesium (Verified Adverse Reaction, Unknown, Nausea, GI upset, 04/21/17) Prednisone (Verified Adverse Reaction, Unknown, "messes up my mind, depressed", 04/21/17) Physical Exam Vital Signs Date Time Temp Pulse Resp B/P (MAP) Pulse Ox O2 Delivery O2 Flow Rate FiO2 04/22/17 17:11 36.6 94 18 156/94 97 Room Air Physical Exam CONSTITUTIONAL/VITAL SIGNS: Reviewed / noted above. GENERAL: Non-toxic in appearance, appears drowsy. INTEGUMENTARY: Warm, dry, and [place]. HEAD: Normocephalic. EYES: without scleral icterus or trauma. ENT/OROPHARYNX: clear and moist. LYMPHADENOPATHY/NECK: Is supple without lymphadenopathy or meningismus. RESPIRATORY: Lungs clear and equal. CARDIOVASCULAR: Regular rate and rhythm. GI/ABDOMEN: Soft and nontender. No organomegaly or pulsatile mass. No rebound or guarding. Normal bowel sounds. EXTREMITIES: Warm and well perfused. BACK: No CVA tenderness. NEUROLOGICAL: Intact without focal deficits. PSYCHIATRIC: normal affect. MUSCULOSKELETAL: Normally developed with good muscle tone. Medical Decision & Procedures ER Provider Diagnostic Interpretation: Radiology results as stated below per my review and radiologist interpretation: SINGLE VIEW CHEST FINDINGS: An AP, portable, upright chest radiograph is compared to study dated 04/17/2017. The examination is degraded by portable technique and patient rotation. The cardiomediastinal silhouette is unremarkable. There are foci of bibasilar atelectasis. No airspace consolidation is seen typical for pneumonia and there is no large pleural effusion. No pneumothorax is seen. The bony thorax is grossly intact. IMPRESSION: No acute cardiopulmonary abnormality. Electronically signed by: Barrie Bauer M.D. 04/22/2017 5:45 PM Dictated Date/Time: 04/22/2017 5:44 PM Laboratory Results 04/22/17 17:50 Red Blood Count 3.85, Mean Corpuscular Volume 88.8, Mean Corpuscular Hemoglobin 30.9, Mean Corpuscular Hemoglobin Concent 34.8, Mean Platelet Volume 11.4, Neutrophils (%) (Auto) 83.6, Lymphocytes (%) (Auto) 10.3, Monocytes (%) (Auto) 5.4, Eosinophils (%) (Auto) 0.0, Basophils (%) (Auto) 0.1, Neutrophils # (Auto) 12.48, Lymphocytes # (Auto) 1.53, Monocytes # (Auto) 0.80, Eosinophils # (Auto) 0.00, Basophils # (Auto) 0.01 04/22/17 17:50 Test 04/22/17 17:50 White Blood Count 14.91 K/uL (4.8-10.8) Red Blood Count 3.85 M/uL (4.7-6.1) Hemoglobin 11.9 g/dL (14.0-18.0) Hematocrit 34.2 % (42-52) Mean Corpuscular Volume 88.8 fL (80-100) Mean Corpuscular Hemoglobin 30.9 pg (25-34) Mean Corpuscular Hemoglobin Concent 34.8 g/dl (32-36) Platelet Count 197 K/uL (130-400) Mean Platelet Volume 11.4 fL (7.4-10.4) Neutrophils (%) (Auto) 83.6 % Lymphocytes (%) (Auto) 10.3 % Monocytes (%) (Auto) 5.4 % Eosinophils (%) (Auto) 0.0 % Basophils (%) (Auto) 0.1 % Neutrophils # (Auto) 12.48 K/uL (1.4-6.5) Lymphocytes # (Auto) 1.53 K/uL (1.2-3.4) Monocytes # (Auto) 0.80 K/uL (0.11-0.59) Eosinophils # (Auto) 0.00 K/uL (0-0.5) Basophils # (Auto) 0.01 K/uL (0-0.2) RDW Standard Deviation 40.5 fL (36.4-46.3) RDW Coefficient of Variation 12.6 % (11.5-14.5) Immature Granulocyte % (Auto) 0.6 % Immature Granulocyte # (Auto) 0.09 K/uL (0.00-0.02) Prothrombin Time 10.1 SECONDS (9.0-12.0) Prothromb Time International Ratio 0.9 (0.9-1.1) Activated Partial Thromboplast Time 21.9 SECONDS (21.0-31.0) Partial Thromboplastin Ratio 0.8 Anion Gap 6.0 mmol/L (3-11) Est Creatinine Clear Calc Drug Dose 141.0 ml/min Estimated GFR () 135.1 Estimated GFR (Non- 116.6 BUN/Creatinine Ratio 15.2 (10-20) Calcium Level 8.5 mg/dl (8.5-10.1) Magnesium Level 2.4 mg/dl (1.8-2.4) Total Bilirubin 0.4 mg/dl (0.2-1) Direct Bilirubin < 0.1 mg/dl (0-0.2) Aspartate Amino Transf (AST/SGOT) 42 U/L (15-37) Alanine Aminotransferase (ALT/SGPT) 65 U/L (12-78) Alkaline Phosphatase 91 U/L (45-117) Total Creatine Kinase 569 U/L (39-308) Creatine Kinase MB 6.2 ng/ml (0.5-3.6) Creatine Kinase MB Ratio 1.1 (0-3.0) Troponin I < 0.015 ng/ml (0-0.045) Total Protein 6.8 gm/dl (6.4-8.2) Albumin 3.7 gm/dl (3.4-5.0) Lipase 69 U/L (73-393) Laboratory results as stated above per my review. Medications Administered Medications (Trade) Dose Ordered Sig/[facility] Route Start Time Stop Time Status Last Admin Dose Admin Sodium Chloride 1,000 ml @ 999 mls/hr Q1H1M STAT IV 04/22/17 17:27 04/22/17 18:27 DC 04/22/17 18:00 999 MLS/HR Ketorolac Tromethamine (Toradol Inj) 30 mg NOW STAT IV 04/22/17 17:27 04/22/17 17:34 DC 04/22/17 18:00 30 MG Dexamethasone Sodium Phosphate (Decadron Inj) 10 mg NOW ONCE IV 04/22/17 17:30 04/22/17 17:34 DC 04/22/17 18:00 10 MG Prochlorperazine Edisylate (Compazine Inj) 10 mg NOW STAT IV 04/22/17 17:30 04/22/17 17:34 DC 04/22/17 18:00 10 MG ECG Indication: syncope Rate (beats per minute): 73 Rhythm: sinus rhythm Findings: 1st degree AV block, no acute ischemic change, no ectopy ED Course 1725: Previous medical records were reviewed. The patient was evaluated in room C3. A complete history and physical examination was performed. 1727: Ordered Toradol Inj 30 mg IV, Sodium Chloride 1000 ml @ 999 mls/hr IV 1730: Ordered Compazine Inj 10 mg IV, Decadron Inj 10 mg IV 1852: On reevaluation, the patient is doing well. I discussed the results and findings with the patient. He verbalized agreement of the treatment plan. He was discharged home. Medical Decision Differential includes acute coronary syndrome, myocardial infarction, CVA, TIA, anemia, infection, pneumonia, UTI, pyelonephritis, poor nutrition, dehydration, electrolyte disturbance,hypoglycemia. Medication Reconciliation: I attest that I have personally reviewed the patient' s current medication list. Blood pressure Screening: Patient was found to have an elevated blood pressure and was referred to their primary doctor for recheck and further treatment. This is a 36-year-old male who presents to the ED with a chief complaint of passing out several times yesterday. He also reports some history of anxiety and stress. The patient has been somewhat out of it according to the . Further details are listed above. The patient's vital signs reveal slight hypertension. He is on blood pressure medication. His physical exam and neuro exam were unremarkable. He does appear to be somewhat drowsy. Answers questions appropriately. He is in no distress. White blood cell count is 14.9. A chest x-ray did not show acute disease. EKG shows sinus rhythm at a rate of 73. No acute injury or ectopy. Complete metabolic panel was unremarkable. Troponin was negative. The patient was told results the test. He was treated with IV Toradol, IV Compazine as well as IV Decadron. He was given some IV fluids. On reassessment, he is feeling better. He was felt to be stable for discharge. He was advised that his blood pressure was elevated, he will have this rechecked. Impression Primary Impression: Syncope Additional Impressions: Malaise Headache Scribe Attestation The scribe's documentation has been prepared under my direction and personally reviewed by me in its entirety. I confirm that the note above accurately reflects all work, treatment, procedures, and medical decision making performed by me. Departure Information Dispostion Home / Self-Care Referrals Adrian Meza M.D. (PCP) Forms HOME CARE DOCUMENTATION FORM, IMPORTANT VISIT INFORMATION Patient Instructions My [facility] Additional Instructions Have your blood pressure rechecked this week by your doctor. Follow-up with your doctor for recheck of her symptoms. Problem Qualifiers
[2017-04-22 19:16] VITALS: BP 158/87; PULSE 79; O2SAT 94
[2017-07-03] MEDS ORDERED: IMTIN5 (10:07)
[2017-07-03] MEDS ORDERED: VNTHFA/IN INH (10:07)
[2017-07-03] MEDS ORDERED: MULT-506 PO (13:02)
[2017-07-03] MEDS ORDERED: LPT40 PO (15:49)
[2017-07-03] MEDS ORDERED: RANI150T2 PO (15:49)
[2017-07-03] MEDS ORDERED: PANT40TA2 PO (17:45)
[2017-10-20] MEDS ORDERED: FLM4 PO (16:26)
[2017-10-20] MEDS ORDERED: PHEN-775 PO (16:26)
[2017-10-20] MEDS ORDERED: ACET-1047 OR (16:30)
[2017-10-21] MEDS ORDERED: NITR-5 PO (16:24)
== END 2017-04-22 19:17 | disposition home or self-care (01) ==
LOC: C.EDB 17:08 → C.EDC 19:17
DX: R55 Syncope and collapse (principal); R53.81 Other malaise; R51 Headache; J45.909 Unspecified asthma, uncomplicated; K21.9 Gastro-esophageal reflux disease without esophagitis; E03.9 Hypothyroidism, unspecified; G47.33 Obstructive sleep apnea (adult) (pediatric); E78.5 Hyperlipidemia, unspecified; Z83.3 Family history of diabetes mellitus; Z82.49 Family history of ischemic heart disease and other diseases of the circulatory system; Z87.891 Personal history of nicotine dependence

== ENCOUNTER 2017-04-24 14:59 | Emergency (ER) | payer OTHER ==
[~2017-04-24] VITALS: Ht 170.2 cm; Wt 92.7 kg
[~2017-04-24 14:59] MED LIST changes: -DICY10CA12 PO; -ONDA4TAB10 SL
[2017-04-24 15:07] VITALS: BP 146/99; PULSE 66; TEMP 36.6; O2SAT 95; Ht 170.2 cm; Wt 92.7 kg
[2017-04-24] MEDS ORDERED: DEXAMETHASONE SOD INJ 10 MG/ML VIAL IM STA (15:30)
[2017-04-24] MEDS ORDERED: HYDROmorphone INJ 1 MG/ML SYR IM STA (15:30)
[2017-04-24] MEDS ORDERED: PROMETHAZINE HCL INJ 25 MG/ML 1 ML VIAL IM STA (15:30)
--- NOTE | 2017-04-24 15:34 | EMERGENCY ROOM VISIT NOTE ---
ED Visit Note First contact with patient: 15:22 CHIEF COMPLAINT: Migraine headache HISTORY OF PRESENT ILLNESS: This 36-year-old male patient presented to the emergency department here private vehicle accompanied by with a gradual onset of a severe generalized headache that started this morning. The patient states the migraine is similar to their typical migraines. There has been associated photophobia, phonophobia, nausea but no vomiting. The patient denies fever or chills recently, and there is no weakness or numbness of the extremities. There is no difficulty with speech or vision. No trauma to the head and no neck pain. The pain is severe, constant, and it is slowly increasing in severity. The patient rates the pain as constant and 7/10. The patient has taken Excedrin Migraine with minimal relief. Patient was seen today by his family doctor, and has been started on Lexapro and BuSpar for anxiety. He is to follow-up tomorrow with his hand specialist for recheck of his carpal tunnel surgery. He is also to have a sleep study tomorrow. This is not the worst headache of the life and is similar to previous migraines. Previous imaging studies of the brain have been normal from the emergency department standpoint. REVIEW OF SYSTEMS: A review of systems was performed with positives and pertinent negatives listed in the history of present illness. All other systems were reviewed and are negative. ALLERGIES: As noted below MEDICATIONS: As noted below PMH: High blood pressure, asthma, orchitis, pneumonia, stomach problems SOCIAL HISTORY: Patient lives at home with family PHYSICAL EXAM: Vital Signs: Reviewed Nurse's notes, vital signs stable. GENERAL : 36-year-old male, who appears in pain, but non toxic in appearance and in no acute distress. MENTAL STATUS: Alert, oriented, and coherent. HEENT: Normocephalic. PERRLA. EOMI. Nares patent without nuchal rigidity. Tympanic membranes pearly ram without erythema or effusion bilaterally. Mucous membranes moist. NECK: Supple, no nuchal rigidity, nontender, no lymphadenopathy. HEART: Regular rhythm and normal rate without murmurs, ectopy, gallops, or rubs. LUNGS: Clear to auscultation bilaterally without wheezes, rales or rhonchi. No dullness to percussion. No accessory muscle use. No retractions. SKIN: Normal. NEUROLOGICAL: Pupils are round, equal and react to light. The patient moves all extremities well and the gait is normal. EMERGENCY DEPARTMENT COURSE: I examined the patient. The patient is on a 2 narcotic injection per month treatment plan for their migraines. The patient was given 2 mg of Dilaudid, 25 mg of Phenergan, and 10 mg of Decadron all intramuscularly per their usual protocol. The differential diagnosis includes acute intracranial bleed, meningitis, encephalitis, mass or mass effect, sinusitis, infection, tumor, headache, temporal arteritis and carbon monoxide exposure, and migraine. The patient was discharged home in stable condition with female driving. There has been no syncope be since his evaluation here yesterday. Problem List Medical Problems: (1) Asthma Status: Chronic (2) Finger fracture, right Status: Resolved (3) Gastroparesis Status: Chronic (4) GERD (gastroesophageal reflux disease) Status: Chronic (5) Hyperlipidemia Status: Chronic (6) Hypothyroidism Status: Chronic (7) Migraine Status: Chronic (8) JESI (obstructive sleep apnea) Status: Chronic Surgical Problems: (1) Cholecystectomy Status: Resolved (2) History of dental surgery Status: Chronic (3) Hx of esophagogastroduodenoscopy Status: Chronic Current/Historical Medications Scheduled Albuterol Hfa (Ventolin Hfa), 2-4 PUFFS INH Q4 Amitriptyline Hcl (Elavil), 100 MG PO HS Atorvastatin (Atorvastatin Calcium), 40 MG PO HS Hydrochlorothiazide (Hydrochlorothiazide), 6.25 MG PO HS Levothyroxine Sodium (Synthroid), 75 MCG PO HS Multivitamin (Multivitamin), 1 TAB PO DAILY Pantoprazole (Pantoprazole Sodium), 40 MG PO HS Ranitidine HCl (Ranitidine HCl), 300 MG PO BID Scheduled PRN Fluticasone Prop/Salmeterol (Advair Diskus 250/50 60 Dose), 1 PUFF INH BID PRN for Wheezing Ibuprofen (Advil), 400 MG PO UD PRN for Pain Sumatriptan Succinate (Imitrex Nasal [place]), 1 SPRAY NA UD PRN for Headache Allergies Coded Allergies: Benzoyl Peroxide (Verified Allergy, Mild, 04/21/17) Lactose Intolerance (Verified Allergy, Unknown, Unknown, 04/21/17) Risperidone (Verified Allergy, Unknown, "I FELT LIKE I WAS DRUNK", 04/21/17) Hydrocodone (Verified Adverse Reaction, Mild, VOMITING, 04/21/17) Magnesium (Verified Adverse Reaction, Unknown, Nausea, GI upset, 04/21/17) Prednisone (Verified Adverse Reaction, Unknown, "messes up my mind, depressed", 04/21/17) Vital Signs Date Time Temp Pulse Resp B/P (MAP) Pulse Ox O2 Delivery O2 Flow Rate FiO2 04/24/17 15:07 36.6 66 18 146/99 95 Room Air Medications Administered Medications (Trade) Dose Ordered Sig/[facility] Route Start Time Stop Time Status Last Admin Dose Admin Dexamethasone Sodium Phosphate (Decadron Inj) 10 mg NOW STAT IM 04/24/17 15:30 04/24/17 15:33 DC 04/24/17 16:03 10 MG Hydromorphone HCl (Dilaudid Inj) 2 mg NOW STAT IM 04/24/17 15:30 04/24/17 15:33 DC 04/24/17 16:03 2 MG Promethazine HCl (Phenergan Inj) 25 mg NOW STAT IM 04/24/17 15:30 04/24/17 15:33 DC 04/24/17 16:03 25 MG Departure Information Impression Primary Impression: Headache Dispostion Home / Self-Care Condition GOOD Referrals Adrian Meza M.D. (PCP) Patient Instructions My [facility] Additional Instructions You have been treated in the Emergency Department for a Headache. You have received pain medicine in the emergency department which impairs your ability to operate a vehicle. It is illegal for you to drive after receiving these medicines. For pain control, you can use the following [id number] medicines (if >12 yo): - Regular strength (325mg/tab) Tylenol (acetaminophen) 2 tabs every 4-6 hours as needed. Do not exceed 12 tablets in a 24 hour period. Avoid taking more than 3 grams (3000 mg) of Tylenol per day. This includes any other sources of acetaminophen you may take on a regular basis. - Regular strength (200 mg/tab) Advil (ibuprofen) 1-2 tabs every 4-6 hours as needed. Do not exceed a dose of 3200 mg per day. You should relax in a quiet, dark place for the rest of the day. Avoid any possible triggers including: cigarette smoke, caffeine, nicotine, chocolate, wine, beer, loud noises or music, or bright lights. You should schedule a follow-up appointment in 2-3 days with your Primary Care Provider or established Neurologist for further evaluation and treatment of your Headache. Return to the Emergency Department if your current symptoms worsen despite treatment course outlined above, or if you develop any of the following symptoms : intractable pain despite aforementioned treatment course, visual disturbances , loss of vision, unilateral weakness or facial drooping, slurring of speech, loss of coordination, or loss of consciousness. Please return to the emergency department with any new/concerning symptoms.
[2017-07-03] MEDS ORDERED: IMTIN5 (10:07)
[2017-07-03] MEDS ORDERED: VNTHFA/IN INH (10:07)
[2017-07-03] MEDS ORDERED: MULT-506 PO (13:02)
[2017-07-03] MEDS ORDERED: LPT40 PO (15:49)
[2017-07-03] MEDS ORDERED: RANI150T2 PO (15:49)
[2017-07-03] MEDS ORDERED: PANT40TA2 PO (17:45)
[2017-10-20] MEDS ORDERED: FLM4 PO (16:26)
[2017-10-20] MEDS ORDERED: PHEN-775 PO (16:26)
[2017-10-20] MEDS ORDERED: ACET-1047 OR (16:30)
[2017-10-21] MEDS ORDERED: NITR-5 PO (16:24)
== END 2017-04-24 16:05 | disposition home or self-care (01) ==
LOC: C.EDB 14:59 → C.EDD 16:05
DX: R51 Headache (principal); R03.0 Elevated blood-pressure reading, without diagnosis of hypertension; J45.909 Unspecified asthma, uncomplicated; K21.9 Gastro-esophageal reflux disease without esophagitis; E78.5 Hyperlipidemia, unspecified; E03.9 Hypothyroidism, unspecified; G47.33 Obstructive sleep apnea (adult) (pediatric); K31.84 Gastroparesis; Z87.19 Personal history of other diseases of the digestive system; Z87.81 Personal history of (healed) traumatic fracture; Z90.49 Acquired absence of other specified parts of digestive tract; Z79.899 Other long term (current) drug therapy; Z98.890 Other specified postprocedural states; Z88.5 Allergy status to narcotic agent; Z88.8 Allergy status to other drugs, medicaments and biological substances; Z91.011 Allergy to milk products

== ENCOUNTER 2017-05-23 21:09 | Emergency (ER) | payer OTHER ==
[~2017-05-23] VITALS: Ht 170.2 cm; Wt 91.2 kg
[2017-05-23 21:25] VITALS: Ht 170.2 cm; Wt 91.2 kg
[2017-05-23] MEDS ORDERED: PROMETHAZINE HCL INJ 25 MG/ML 1 ML VIAL IM STA (23:07)
[2017-05-23] MEDS ORDERED: HYDROmorphone INJ 1 MG/ML SYR IM ONE (23:15)
[2017-05-23] MEDS ORDERED: DEXAMETHASONE SOD INJ 10 MG/ML VIAL IM ONE (23:15)
[2017-05-24 00:09] VITALS: BP 138/87; PULSE 94; TEMP 36.8; O2SAT 96
--- NOTE | 2017-05-24 02:53 | EMERGENCY ROOM VISIT NOTE ---
History Report prepared by Geetha: Tulio Cowan Under the Supervision of: Dr. Aristeo Hopkins D.O. First contact with patient: 22:58 Chief Complaint: RASH Stated Complaint: MIGRAINE,RASH History of Present Illness The patient is a 36 year old male who presents to the Emergency Room with complaints of a persistent migraine headache that began this morning, several hours prior to arrival. The patient states that his headache onset gradually and gradually worsened throughout the day today. He describes the pain as a "hammer in his head" or a "pounding" sensation. The patient has a history of migraine headaches and claims that he has experienced them since he was young. He denies that this headache is unusual in any way. He also denies any numbness/ tingling in the hands or feet, or any recent trauma. The patient also made note of an unusual rash that he has noticed diffusely across his upper body. He first noticed this rash 4-5 days ago. He denies change in vision, fevers, chest pain, shortness of breath, nausea, vomiting, diarrhea, pain with urination, and melena. Source of History: patient Onset: Several hours [employer] Position: head Quality: other (pounding) Timing: other (Persistent) Associated Symptoms: No weakness, No numbness Note: Pt. complains of rash as well. Review of Systems See HPI for pertinent positives & negatives. A total of 10 systems reviewed and were otherwise negative. Past Medical & Surgical Medical Problems: (1) Asthma (2) Finger fracture, right (3) Gastroparesis (4) GERD (gastroesophageal reflux disease) (5) Hyperlipidemia (6) Hypothyroidism (7) Intractable pain (8) Migraine (9) JESI (obstructive sleep apnea) (10) Renal calculi Surgical Problems: (1) Cholecystectomy (2) History of dental surgery (3) Hx of esophagogastroduodenoscopy Family History Diabetes mellitus MOTHER GRANDFATHER FH: cancer FH: heart disease FATHER GRANDFATHER FH: lung disease Hypertension Kidney disease or stones Social History Smoking Status: Former Smoker Alcohol Use: none Drug Use: none Marital Status: Housing Status: lives with family Occupation Status: employed Current/Historical Medications Scheduled Albuterol Hfa (Ventolin Hfa), 2-4 PUFFS INH Q4 Amitriptyline Hcl (Elavil), 100 MG PO HS Atorvastatin (Atorvastatin Calcium), 40 MG PO HS Hydrochlorothiazide (Hydrochlorothiazide), 6.25 MG PO HS Levothyroxine Sodium (Synthroid), 75 MCG PO HS Multivitamin (Multivitamin), 1 TAB PO DAILY Pantoprazole (Pantoprazole Sodium), 40 MG PO HS Ranitidine HCl (Ranitidine HCl), 300 MG PO BID Scheduled PRN Fluticasone Prop/Salmeterol (Advair Diskus 250/50 60 Dose), 1 PUFF INH BID PRN for Wheezing Sumatriptan Succinate (Imitrex Nasal [place]), 1 SPRAY NA UD PRN for Headache Allergies Coded Allergies: Benzoyl Peroxide (Verified Allergy, Mild, 05/23/17) Lactose Intolerance (Verified Allergy, Unknown, Unknown, 05/23/17) Risperidone (Verified Allergy, Unknown, "I FELT LIKE I WAS DRUNK", 05/23/17) Hydrocodone (Verified Adverse Reaction, Mild, VOMITING, 05/23/17) Magnesium (Verified Adverse Reaction, Unknown, Nausea, GI upset, 05/23/17) Prednisone (Verified Adverse Reaction, Unknown, "messes up my mind, depressed", 05/23/17) Physical Exam Vital Signs Date Time Temp Pulse Resp B/P (MAP) Pulse Ox O2 Delivery O2 Flow Rate FiO2 05/24/17 00:09 36.8 94 19 138/87 96 05/23/17 21:25 36.8 94 19 138/87 96 Room Air Physical Exam GENERAL: alert, well appearing male, well nourished, no distress, non-toxic EYE EXAM: normal conjunctiva, PERRL and EOM's intact OROPHARYNX: no exudate, no erythema, lips, buccal mucosa, and tongue normal and mucous membranes are moist NECK: supple, no nuchal rigidity, no adenopathy, non-tender LUNGS: Clear to auscultation. Normal chest wall mechanics HEART: no murmurs, S1 normal and S2 normal ABDOMEN: abdomen soft, non-tender, normo-active bowel sounds, no masses, no rebound or guarding. BACK: Back is symmetrical on inspection and there is no deformity, no midline tenderness, no CVA tenderness. SKIN: There are several small macular papular lesions approximately 0.5 cm in size. They are not pustules and leif on palpation. They are on the right axilla, chest, back, and right groin. A total of 10 lesions are present. UPPER EXTREMITIES: upper extremities are grossly normal. LOWER EXTREMITIES: No pitting edema. NEURO EXAM: Normal sensorium, cranial nerves II-XII intact, normal speech, no weakness of arms, no weakness of legs. No drift. Finger to nose intact. Gross sensation intact. Medical Decision & Procedures Medications Administered Medications (Trade) Dose Ordered Sig/Denise Route Start Time Stop Time Status Last Admin Dose Admin Dexamethasone Sodium Phosphate (Decadron Inj) 10 mg NOW ONCE IM 05/23/17 23:15 05/23/17 23:16 DC 05/23/17 23:25 10 MG Hydromorphone HCl (Dilaudid Inj) 1.5 mg ONE ONCE IM 05/23/17 23:15 05/23/17 23:16 DC 05/23/17 23:24 1.5 MG Promethazine HCl (Phenergan Inj) 25 mg NOW STAT IM 05/23/17 23:07 05/23/17 23:10 DC 05/23/17 23:24 25 MG ED Course ED COURSE: Vital signs were reviewed and showed hypertensive vitals The patients medical record was reviewed The above diagnostic studies were performed and reviewed. ED treatments and interventions as stated above. 2301: The patient was evaluated in room C4. A complete history and physical examination was performed. 2307: Ordered Phenergan 25 mg IM. 2315: Ordered Dilaudid 1.5 mg IM, Decadron 10 mg IM. 003: Upon reevaluation, the patient is feeling improved.I discussed my findings with the patient and he understands and agrees with the treatment plan. Based on the patients age, coexisting illnesses, exam and lab findings the decision to treat as an outpatient was made. The patient remained stable while under my care. The patient appeared well at the time of discharge. Medical Decision Blood Pressure Screening: The patient was found to have a slightly elevated blood pressure due to circumstances. I do not believe that the patient requires hypertension monitoring. Medication Reconciliation: I attest that I have personally reviewed the patient' s current medication list. Differential Diagnosis includes but is not limited to headache, tension headache , cluster headache, migraine, subarachnoid hemorrhage, meningitis, mass, central venous thrombus, concussion, trauma and epidural/subdural hemorrhage. Patient is a 36-year-old male who presents the ER for headache which came on gradually and progressively worsened today. He notes he has a history of migraines and this feels exactly like his previous headaches. This headache today is unchanged in anyway. No signs of meningitis or encephalitis. No fevers. No stiff neck. He is completely neurologically intact. IM Dilaudid, Phenergan and Decadron was given. He had significant improvement of his pain. He did have a mild diffuse rash. Uncertain of the etiology although there were no petechiae and he did not appear to be infectious. Recommended following up with PCP in the next 48 hours. No [address], working or drinking alcohol for the next 12 hours. Discussed with Pt concerning signs and symptoms to watch out for. Pt was instructed to follow up with their PCP and discussed with the patient their option to return to the ED at anytime for persistent or worsening symptoms. The appropriate anticipatory guidance and out-patient management, including indications for return to the emergency department, were explained at length to the patient and understood. Impression Primary Impression: Headache Additional Impression: Rash Scribe Attestation The scribe's documentation has been prepared under my direction and personally reviewed by me in its entirety. I confirm that the note above accurately reflects all work, treatment, procedures, and medical decision making performed by me. Departure Information Dispostion Home / Self-Care Referrals Adrian Meza M.D. (PCP) Forms HOME CARE DOCUMENTATION FORM, IMPORTANT VISIT INFORMATION, WORK / SCHOOL INSTRUCTIONS Patient Instructions My [facility] Additional Instructions Please follow up with your primary care doctor with in the next 24 hours. Any worsening of your symptoms, please return to the ED immediately. This includes confusion, weakness of the arms or legs, change in vision, fevers greater than 100.4, stiff neck, or any other concerning signs or symptoms from your standpoint. Please do not drive, operate heavy machinery, drink alcohol, take narcotics, use benzodiazepines or any other concerning signs or symptoms from your standpoint. Please follow up with your primary care doctor in regards to your rash in 24 hours. Problem Qualifiers Primary Impression: Headache Headache type: unspecified Headache chronicity pattern: acute headache Intractability: not intractable Qualified Codes: R51 - Headache
[2017-07-03] MEDS ORDERED: VNTHFA/IN INH (10:07)
[2017-07-03] MEDS ORDERED: IMTIN5 (10:07)
[2017-07-03] MEDS ORDERED: MULT-506 PO (13:02)
[2017-07-03] MEDS ORDERED: RANI150T2 PO (15:49)
[2017-07-03] MEDS ORDERED: LPT40 PO (15:49)
== END 2017-05-24 00:10 | disposition home or self-care (01) ==
LOC: C.EDB 21:10 → C.EDC 05-24 00:10
DX: G43.909 Migraine, unspecified, not intractable, without status migrainosus (principal); R21 Rash and other nonspecific skin eruption; J45.909 Unspecified asthma, uncomplicated; K31.84 Gastroparesis; K21.9 Gastro-esophageal reflux disease without esophagitis; E78.5 Hyperlipidemia, unspecified; E03.9 Hypothyroidism, unspecified; G47.33 Obstructive sleep apnea (adult) (pediatric); Z87.442 Personal history of urinary calculi; Z90.49 Acquired absence of other specified parts of digestive tract; Z83.3 Family history of diabetes mellitus; Z80.9 Family history of malignant neoplasm, unspecified; Z82.49 Family history of ischemic heart disease and other diseases of the circulatory system; Z84.1 Family history of disorders of kidney and ureter; Z87.891 Personal history of nicotine dependence; Z79.899 Other long term (current) drug therapy

== ENCOUNTER 2017-05-25 23:26 | Emergency (ER) | payer OTHER ==
[~2017-05-25] VITALS: Ht 170.2 cm; Wt 89.1 kg
[~2017-05-25 23:26] MED LIST changes: -IBUP-1050 PO
[2017-05-25 23:30] VITALS: TEMP 36.7; Ht 170.2 cm; Wt 89.1 kg
[2017-05-25] MEDS ORDERED: HYDROmorphone INJ 2 MG/ML SYR/VIAL IM STA (23:43)
[2017-05-25] MEDS ORDERED: PROMETHAZINE HCL INJ 25 MG/ML 1 ML VIAL IM STA (23:43)
[2017-05-25] MEDS ORDERED: DEXAMETHASONE SOD INJ 4 MG/ML VIAL IM ONE (23:45)
--- NOTE | 2017-05-25 23:59 | EMERGENCY ROOM VISIT NOTE ---
ED Visit Note First contact with patient: 23:32 CHIEF COMPLAINT: Migraine headache HISTORY OF PRESENT ILLNESS: This 36-year-old male patient presented to the emergency department ambulatory with a gradual onset of a severe generalized headache that started this afternoon. The patient states the migraine is similar to their typical migraines. There has been associated photophobia, phonophobia, nausea and vomiting. The patient denies fever or chills recently, and there is no weakness or numbness of the extremities. There is no difficulty with speech or vision. No trauma to the head and no neck pain. The pain is severe, constant, and it is slowly increasing in severity. The patient rates the pain as throbbing and 7/10. The patient has taken ibuprofen without relief. This is not the worst headache of the life and is similar to previous migraines. Previous imaging studies of the brain have been normal. REVIEW OF SYSTEMS: A review of systems was performed with positives and pertinent negatives listed in the history of present illness. All other systems were reviewed and are negative. ALLERGIES: See EMR MEDICATIONS: See med list PMH: Migraine headaches SOCIAL HISTORY: The patient lives locally with family. He is a former smoker. PHYSICAL EXAM: Vital Signs: Reviewed Nurse's notes, vital signs stable. GENERAL : This is a 36-year-old male, who appears in pain, but non toxic in appearance and in no acute distress. MENTAL STATUS: Alert, oriented, and coherent. HEENT: Normocephalic. PERRLA. EOMI. Nares patent without nuchal rigidity. Tympanic membranes pearly ram without erythema or effusion bilaterally. Mucous membranes moist. NECK: Supple, no nuchal rigidity, nontender, no lymphadenopathy. HEART: Regular rhythm and normal rate without murmurs, ectopy, gallops, or rubs. LUNGS: Clear to auscultation bilaterally without wheezes, rales or rhonchi. No dullness to percussion. No accessory muscle use. No retractions. SKIN: Normal. NEUROLOGICAL: Pupils are round, equal and react to light. The optic fundi are normal and the discs are flat. The patient moves all extremities well and the gait is normal. EMERGENCY DEPARTMENT COURSE: I examined the patient. The patient is on a 2 narcotic injection per month treatment plan for their migraines. The patient was given 2 mg Dilaudid IM, 10 mg Decadron IM and 25 mg Phenergan IM per their usual protocol. The differential diagnosis includes acute intracranial bleed, meningitis, encephalitis, mass or mass effect, sinusitis, infection, tumor, headache, temporal arteritis and carbon monoxide exposure, and migraine. There is no meningismus or evidence of subarachnoid hemorrhage. The patient was discharged home in stable condition with his significant other driving. DIAGNOSIS: Migraine headache Problem List Medical Problems: (1) Asthma Status: Chronic (2) Finger fracture, right Status: Resolved (3) Gastroparesis Status: Chronic (4) GERD (gastroesophageal reflux disease) Status: Chronic (5) Hyperlipidemia Status: Chronic (6) Hypothyroidism Status: Chronic (7) Migraine Status: Chronic (8) JESI (obstructive sleep apnea) Status: Chronic Surgical Problems: (1) Cholecystectomy Status: Resolved (2) History of dental surgery Status: Chronic (3) Hx of esophagogastroduodenoscopy Status: Chronic Current/Historical Medications Scheduled Albuterol Hfa (Ventolin Hfa), 2-4 PUFFS INH Q4 Amitriptyline Hcl (Elavil), 100 MG PO HS Atorvastatin (Atorvastatin Calcium), 40 MG PO HS Hydrochlorothiazide (Hydrochlorothiazide), 6.25 MG PO HS Levothyroxine Sodium (Synthroid), 75 MCG PO HS Multivitamin (Multivitamin), 1 TAB PO DAILY Pantoprazole (Pantoprazole Sodium), 40 MG PO HS Ranitidine HCl (Ranitidine HCl), 300 MG PO BID Scheduled PRN Fluticasone Prop/Salmeterol (Advair Diskus 250/50 60 Dose), 1 PUFF INH BID PRN for Wheezing Sumatriptan Succinate (Imitrex Nasal [place]), 1 SPRAY NA UD PRN for Headache Allergies Coded Allergies: Benzoyl Peroxide (Verified Allergy, Mild, 05/26/17) Lactose Intolerance (Verified Allergy, Unknown, Unknown, 05/26/17) Risperidone (Verified Allergy, Unknown, "I FELT LIKE I WAS DRUNK", 05/26/17) Hydrocodone (Verified Adverse Reaction, Mild, VOMITING, 05/26/17) Magnesium (Verified Adverse Reaction, Unknown, Nausea, GI upset, 05/26/17) Prednisone (Verified Adverse Reaction, Unknown, "messes up my mind, depressed", 05/26/17) Vital Signs Date Time Temp Pulse Resp B/P (MAP) Pulse Ox O2 Delivery O2 Flow Rate FiO2 05/26/17 00:25 67 18 139/96 95 Room Air 05/25/17 23:30 36.7 82 18 135/96 96 Room Air Medications Administered Medications (Trade) Dose Ordered Sig/Denise Route Start Time Stop Time Status Last Admin Dose Admin Dexamethasone Sodium Phosphate (Decadron Inj) 10 mg NOW ONCE IM 05/25/17 23:45 05/25/17 23:46 DC 05/26/17 00:02 10 MG Hydromorphone HCl (Dilaudid Inj) 2 mg NOW STAT IM 05/25/17 23:43 05/25/17 23:45 DC 05/26/17 00:01 2 MG Promethazine HCl (Phenergan Inj) 25 mg NOW STAT IM 05/25/17 23:43 05/25/17 23:45 DC 05/26/17 00:02 25 MG Departure Information Impression Primary Impression: Migraine Dispostion Home / Self-Care Condition GOOD Referrals Adrian Meza M.D. (PCP) Patient Instructions My [facility] Additional Instructions You have been treated in the Emergency Department for a Headache. You have received pain medicine in the emergency department which impairs your ability to operate a vehicle. It is illegal for you to drive after receiving these medicines. You should schedule a follow-up appointment in 2-3 days with your Primary Care Provider or established Neurologist for further evaluation and treatment of your Headache. Return to the Emergency Department if your current symptoms worsen despite treatment course outlined above, or if you develop any of the following symptoms : intractable pain despite aforementioned treatment course, visual disturbances , loss of vision, unilateral weakness or facial drooping, slurring of speech, loss of coordination, or loss of consciousness. Problem Qualifiers Primary Impression: Migraine Migraine type: unspecified Status migrainosus presence: without status migrainosus Intractability: not intractable Qualified Codes: G43.909 - Migraine, unspecified, not intractable, without status migrainosus
[2017-05-26 00:25] VITALS: BP 139/96; PULSE 67; O2SAT 95
[2017-07-03] MEDS ORDERED: VNTHFA/IN INH (10:07)
[2017-07-03] MEDS ORDERED: IMTIN5 (10:07)
[2017-07-03] MEDS ORDERED: MULT-506 PO (13:02)
[2017-07-03] MEDS ORDERED: LPT40 PO (15:49)
[2017-07-03] MEDS ORDERED: RANI150T2 PO (15:49)
== END 2017-05-26 00:29 | disposition home or self-care (01) ==
LOC: C.EDB 23:27
DX: G43.909 Migraine, unspecified, not intractable, without status migrainosus (principal); E03.9 Hypothyroidism, unspecified; G47.33 Obstructive sleep apnea (adult) (pediatric); E78.5 Hyperlipidemia, unspecified

== ENCOUNTER 2017-07-01 21:15 | Emergency (ER) | payer OTHER ==
[~2017-07-01] VITALS: Ht 170.2 cm; Wt 89.2 kg
[2017-07-01 21:19] VITALS: BP 132/88; PULSE 82; TEMP 36.8; O2SAT 97; Ht 170.2 cm; Wt 89.2 kg
[2017-07-01] MEDS ORDERED: DEXAMETHASONE SOD INJ 4 MG/ML VIAL IM STA (21:38)
[2017-07-01] MEDS ORDERED: HYDROmorphone INJ 2 MG/ML SYR/VIAL IM STA (21:38)
[2017-07-01] MEDS ORDERED: PROMETHAZINE HCL INJ 25 MG/ML 1 ML VIAL IM STA (21:38)
--- NOTE | 2017-07-02 00:59 | EMERGENCY ROOM VISIT NOTE ---
ED Visit Note First contact with patient: 21:23 CHIEF COMPLAINT: Migraine headache. HISTORY OF PRESENT ILLNESS: Mr. Merrill is a 36 year-old white male who ambulates into the ED accompanied by his complaining of a migraine headache. He reports a gradual onset of a severe migraine headache that started approximately 2 days ago. His pain has been constant and slowly increasing in intensity. This is not the worst headache of the his life and is similar to previous migraines. Currently he describes the headache as a pressure/throbbing sensation/pain in the left frontal area. He rates the pain a 7/10. The pain is radiating to the retro-orbital area. He has not identified any aggravating factors related to the pain. He reports taking his prescribed Imitrex without relief of pain. There is been associated light sensitivity and nausea but no vomiting. He denies fever, sweats, chills, skin eruptions, skin color changes, dizziness, lightheadedness, abnormal neurological symptoms, sinus infection, sore throat/ pharyngitis, neck pain/stiffness weakness of the extremities, recent head/face/ neck trauma to the head. REVIEW OF SYSTEMS: As noted above in Review of Systems; all systems were reviewed with the patient and found to be negative unless noted above otherwise. PAST MEDICAL HISTORY: Asthma, gastroparesis, GERD, dyslipidemia, hypothyroidism , migraine headaches, obstructive sleep apnea, kidney stone, status post cholecystectomy. CURRENT MEDICATIONS: Medications Dose Route/Sig Max Daily Dose Days Date Category Dose Instructions Buspirone HCl 10 Mg Tab 10 Mg PO BID PRN 07/01/17 Reported Dicyclomine Hcl 10 Mg Cap 10 Mg PO QID PRN 07/01/17 Reported Levothyroxine Sodium 75 Mcg Tab 75 Mcg PO QAM 07/01/17 Reported TAKE THIS MEDICATION ONCE DAILY 30 MINUTES BEFORE BREAKFAST OR ANY OTHER MEDICATION Multivitamin (Multivitamins) Tab 1 Tab PO DAILY 03/21/17 Reported Imitrex Nasal [place] (Sumatriptan Succinate) 5 Mg Aers 1 [place] NA UD PRN 12/30/16 Reported Ventolin Hfa (Albuterol) 200 Puffs/30516 Mcg Aers 2-4 Puffs INH Q4H PRN 12/30/16 Reported Pantoprazole Sodium (Pantoprazole) 40 Mg Tab 40 Mg PO HS 07/19/16 Reported Ranitidine HCl 150 Mg Tab 300 Mg PO BID 04/05/16 Reported Atorvastatin Calcium (Atorvastatin) 40 Mg Tab 40 Mg PO HS 04/05/16 Reported Elavil (Amitriptyline Hcl) 100 Mg Tab 100 Mg PO HS 12/24/15 Reported Hydrochlorothiazide 12.5 Mg Tab 6.25 Mg PO HS 12/24/15 Reported Advair Diskus 250/50 60 Dose (Fluticasone Prop/Salmeterol) 1 Ea Aerp 1 Puff INH BID PRN 04/01/14 Reported ALLERGIES TO MEDICATIONS: Prednisone, hydrocodone, benzyl peroxide, lactose, magnesium, prednisone, magnesium, risperidone. SOCIAL HISTORY: Patient is currently employed; he feels safe in her home environment; he admits to tobacco use; she denies alcohol use. PHYSICAL EXAM: Vital Signs: Date Time Temp Pulse Resp B/P (MAP) Pulse Ox O2 Delivery O2 Flow Rate FiO2 07/01/17 21:19 36.8 82 18 132/88 97 Room Air GENERAL: 36 year-old male in mild distress due to pain, afebrile and hemodynamically stable. Found lying in a lighted room. NEUROLOGIC: Awake, alert and oriented to person place and time. Answering questions appropriately and following commands. Cranial nerves II-XII grossly intact. No focal neurologic deficits noted. Normal gait. Good short-term and long-term recall. SKIN: Warm, dry and pink. No rashes, lesions or soft tissue trauma noted. HEENT: Normocephalic, atraumatic. Pupils equal, round and reactive. Positive light sensitivity. Extraocular movements intact and there is no nystagmus. Sclera sclerae white and conjunctiva pink without drainage. External ears are nontender. Patient photophobic precluding funduscopic examination. Auditory canals are pink and patent and tympanic membranes are pearly ram with normal light reflex. No erythema or tenderness over the phone or back/sinuses. No nasal drainage. Oral cavity is moist and pink. Airway is patent. Uvula is midline and no abscesses are seen. No posterior pharyngeal erythema, edema; no tonsillar hypertrophy or exudates. No JVD. Trachea midline. NECK: No tenderness over the bony cervical spine or para musculature. No paraspinous muscle spasm. No nuchal rigidity. Full range of motion of the cervical spine. THORAX: Lungs clear to auscultation and equal bilaterally with no wheezing, crackles, rhonchi or stridor and equal chest wall movements. HEART: Regular rate and rhythm with no murmurs, rubs or gallops. ABDOMEN: Obese and soft with mild left lower quadrant tenderness. Positive bowel sounds present in all quadrants; no rigidity, rebound tenderness, organomegaly or guarding. EXTREMITIES: Moves all extremities well on command and with purpose. All distal neurovascular statuses intact and equal bilaterally. ED COURSE: Patient is assessed with history and physical examination. Patient was given 2 mg of the Dilaudid IM, 10 mg of Decadron IM and 25 mg of Phenergan IM for his symptoms. Patient was reassessed. Patient was educated about his condition and instructed on his treatment plan; he verbalized understanding and agreement with this plan. CLINICAL IMPRESSION: Migraine headache. DECISION MAKIN-year-old male who presents for evaluation of headache. He is afebrile, well appearing, and hemodynamically stable. He has no signs of a sinus, dental, or ear infection and no evidence of meningismus. He is neurologically intact. I do not suspect a headache to be secondary to a subarachnoid hemorrhage, meningitis, encephalitis, or intracranial mass lesion. DISPOSITION: Patient was discharged to home in stable condition accompanied by his ; prior to departure she was reassessed and subjectively reported he was feeling better and rated his discomfort 5/10. DISCHARGE INSTRUCTIONS: Rest at home, in a quiet darkened room and allow the medication to work for the pain. Continue to follow up current treatment plan prescribed by your physician for your migraine headaches. See your own doctor in follow-up this week for continued care and treatment. Patient was encouraged to return to the ED as needed worsening/uncontrolled pain , any abnormal neurological symptoms, fevers, any new/concerning symptoms or in accordance with his pain management plan.
[2017-07-03] MEDS ORDERED: IMTIN5 (10:07)
[2017-07-03] MEDS ORDERED: VNTHFA/IN INH (10:07)
[2017-07-03] MEDS ORDERED: MULT-506 PO (13:02)
[2017-07-03] MEDS ORDERED: LPT40 PO (15:49)
[2017-07-03] MEDS ORDERED: RANI150T2 PO (15:49)
== END 2017-07-01 22:06 | disposition home or self-care (01) ==
LOC: C.EDB 21:16 → C.EDD 22:06
DX: G43.909 Migraine, unspecified, not intractable, without status migrainosus (principal); J45.909 Unspecified asthma, uncomplicated; E03.9 Hypothyroidism, unspecified; K21.9 Gastro-esophageal reflux disease without esophagitis; E78.5 Hyperlipidemia, unspecified; Z87.442 Personal history of urinary calculi; Z72.0 Tobacco use; Z90.49 Acquired absence of other specified parts of digestive tract; Z79.899 Other long term (current) drug therapy

== ENCOUNTER 2017-07-03 17:06 | Emergency (ER) | payer OTHER ==
[~2017-07-03] VITALS: Ht 180.3 cm; Wt 92.2 kg
[~2017-07-03 17:06] MED LIST changes: +IMTIN5; -LEVO75TA PO; +LPT40 PO; +MULT-506 PO; +RANI150T2 PO; +VNTHFA/IN INH
[2017-07-03 17:10] VITALS: BP 145/99; TEMP 36.9; Ht 180.3 cm; Wt 92.2 kg
[2017-07-03] MEDS ORDERED: HYDROmorphone INJ 2 MG/ML SYR/VIAL IM STA (17:17)
[2017-07-03] MEDS ORDERED: PROMETHAZINE HCL INJ 25 MG/ML 1 ML VIAL IM STA (17:17)
--- NOTE | 2017-07-03 17:23 | EMERGENCY ROOM VISIT NOTE ---
History First contact with patient: 17:13 Chief Complaint: HEADACHE Stated Complaint: MIGRAINE History of Present Illness The patient is a 36 year old male who presents to the Emergency Room with complaints of migraine headache which started yesterday at 4 PM. The patient states the headache is at the center of the back of his head. He admits to photosensitivity but denies any other visual changes. The patient denies any dizziness. The patient admits to nausea but denies any vomiting. The patient took 2 doses of Imitrex without any relief. The patient states that symptoms are typical for his migraine headaches. This is not the worst headache of his life. Review of Systems 6 system review was performed and was negative unless stated otherwise in history of present illness. Past Medical/Surgical History Medical Problems: (1) Asthma (2) Finger fracture, right (3) Gastroparesis (4) GERD (gastroesophageal reflux disease) (5) Hyperlipidemia (6) Hypothyroidism (7) Intractable pain (8) Migraine (9) JESI (obstructive sleep apnea) (10) Renal calculi Surgical Problems: (1) Cholecystectomy (2) History of dental surgery (3) Hx of esophagogastroduodenoscopy Family History Diabetes mellitus MOTHER GRANDFATHER FH: cancer FH: heart disease FATHER GRANDFATHER FH: lung disease Hypertension Kidney disease or stones Social History Smoking Status: Former Smoker Alcohol Use: none Drug Use: none Marital Status: Housing Status: lives with family Occupation Status: employed Current/Historical Medications Scheduled Amitriptyline Hcl (Elavil), 100 MG PO HS Atorvastatin (Atorvastatin Calcium), 40 MG PO HS Hydrochlorothiazide (Hydrochlorothiazide), 6.25 MG PO HS Levothyroxine Sodium (Levothyroxine Sodium), 75 MCG PO QAM Multivitamin (Multivitamin), 1 TAB PO DAILY Pantoprazole (Pantoprazole Sodium), 40 MG PO HS Ranitidine HCl (Ranitidine HCl), 300 MG PO BID Scheduled PRN Albuterol Hfa (Ventolin Hfa), 2-4 PUFFS INH Q4H PRN for SOB/Wheezing Buspirone HCl (Buspirone HCl), 10 MG PO BID PRN for Anxiety Dicyclomine Hcl (Dicyclomine Hcl), 10 MG PO QID PRN for Abdominal Pain Fluticasone Prop/Salmeterol (Advair Diskus 250/50 60 Dose), 1 PUFF INH BID PRN for Wheezing Sumatriptan Succinate (Imitrex Nasal [place]), 1 SPRAY NA UD PRN for Headache Physical Exam Vital Signs Date Time Temp Pulse Resp B/P (MAP) Pulse Ox O2 Delivery O2 Flow Rate FiO2 07/03/17 17:10 36.9 87 18 145/99 97 Room Air Physical Exam GENERAL: 36-year-old male appears lying in a darkened room in no acute distress. MENTAL STATUS: Patient is alert and oriented x3 EYES: PERRLA. EOMs intact. EARS: Canals clear. TMs without fluid level noted. NECK: Supple, no lymphadenopathy noted. No carotid bruits noted. LUNGS: Clear auscultation without wheezes rales or rhonchi. CARDIAC: Regular rate and rhythm without murmur. Pulses is full and equal throughout. NEURO:Cranial nerves two through 12 intact. Cerebellar function intact with [id number]. Fine motor intact with alternating finger motions. Medical Decision & Procedures ED Course The patient was evaluated. The patient's EMR was reviewed. The patient was given his typical migraine headache regimen. He was given Dilaudid 2 mg IM, Decadron 10 mg IM and Phenergan 25 mg IM. The patient was informed that as of July 21 we will not be giving narcotics for migraine headaches. The patient verbalized understanding. The patient was reevaluated was feeling better. The patient was discharged home in stable condition. Medical Decision Differential includes: Acute intracranial bleed, trauma, meningitis, encephalitis, increased intracranial pressure, mass or mass effect, facial or dental infection, temporal arteritis, CVA, TIA, acute hypertensive emergency, sinusitis, carbon monoxide exposure. The patient presented with his typical migraine headache symptoms therefore no additional diagnostic imaging was performed. [place] Drug Monitoring Program Search Results: patient reviewed within database Medication Reconcilliation Current Medication List: was personally reviewed by [place] Blood Pressure Screening Patient's blood pressure: Elevated blood pressure Blood pressure disposition: Elevated BP felt to be situational Impression Primary Impression: Migraine headache Departure Information Dispostion Home / Self-Care Condition GOOD Referrals Adrian Meza M.D. (PCP) Forms HOME CARE DOCUMENTATION FORM, IMPORTANT VISIT INFORMATION Patient Instructions ED Headache Migraine, My [employer] Additional Instructions Go home and rest in a dark room. Do not drive for the remainder of the day. Continue current medications as prescribed. Follow-up with your family physician if the frequency of urine headaches increases Problem Qualifiers Primary Impression: Migraine headache Migraine type: without aura Status migrainosus presence: without status migrainosus Intractability: intractable Qualified Codes: G43.019 - Migraine without aura, intractable, without status migrainosus
[2017-07-03] MEDS ORDERED: DEXAMETHASONE SOD INJ 10 MG/ML VIAL IM ONE (17:30)
[2017-07-03] MEDS ORDERED: HYDR12.55 PO (17:39)
[2017-07-03] MEDS ORDERED: AMIT100T2 PO (17:39)
[2017-07-03] MEDS ORDERED: PRT/40 PO (17:45)
[2017-07-03] MEDS ORDERED: ADVIN25/60 INH (17:45)
[2017-07-03 17:47] VITALS: PULSE 78; O2SAT 98
[2017-07-03] MEDS ORDERED: LEVO75TA5 PO (21:32)
[2017-07-03] MEDS ORDERED: BSP/10 PO (21:38)
[2017-07-03] MEDS ORDERED: DICY10CA12 PO (21:38)
== END 2017-07-03 17:48 | disposition home or self-care (01) ==
LOC: C.EDB 17:07 → C.EDD 17:48
DX: G43.909 Migraine, unspecified, not intractable, without status migrainosus (principal); E78.5 Hyperlipidemia, unspecified; E03.9 Hypothyroidism, unspecified; K31.84 Gastroparesis; K21.9 Gastro-esophageal reflux disease without esophagitis; J45.909 Unspecified asthma, uncomplicated; G47.33 Obstructive sleep apnea (adult) (pediatric); Z87.81 Personal history of (healed) traumatic fracture; Z87.442 Personal history of urinary calculi; Z90.49 Acquired absence of other specified parts of digestive tract; Z98.890 Other specified postprocedural states; Z87.891 Personal history of nicotine dependence; Z79.899 Other long term (current) drug therapy; Z83.3 Family history of diabetes mellitus; Z80.9 Family history of malignant neoplasm, unspecified; Z82.49 Family history of ischemic heart disease and other diseases of the circulatory system; Z84.1 Family history of disorders of kidney and ureter

== ENCOUNTER 2017-09-07 18:02 | Emergency (ER) | payer SELFPAY ==
[~2017-09-07] VITALS: Ht 170.2 cm; Wt 85.6 kg
[~2017-09-07 18:02] MED LIST changes: +ADVIN25/60 INH; +AMIT100T2 PO; +BSP/10 PO; +DICY10CA12 PO; +HYDR12.55 PO; +LEVO75TA5 PO; +PRT/40 PO
[2017-09-07 18:14] VITALS: TEMP 36.6; Ht 170.2 cm; Wt 85.6 kg
[2017-09-07] MEDS ORDERED: XYLOCAINE 1%/SOD BICARB 20 ML VIAL INFIL ONE (18:45)
[2017-09-07] MEDS ORDERED: OXYCODONE/ACETAMINOPHEN 5-325 TAB PO ONE (18:45)
--- NOTE | 2017-09-07 19:09 | DIAGNOSTIC IMAGING REPORT ---
LEFT HAND 3 VIEWS CLINICAL HISTORY: Left second finger laceration. FINDINGS: 3 views of the left hand are obtained. No prior studies are available for comparison at the time of dictation. Skeletal structures are well mineralized. No fracture is seen. A ring is present on the fourth finger. The joint spaces of the hand are well-maintained. Bandaging and mild soft tissue swelling is noted in the second finger. No radiodense foreign body is identified. IMPRESSION: There is no radiographic evidence of fracture in the left hand. Electronically signed by: Barrie Bauer M.D. 09/07/2017 7:08 PM Dictated Date/Time: 09/07/2017 7:07 PM
[2017-09-07] MEDS ORDERED: PERCOCET HOME PACK PO ONE (19:45)
[2017-09-07] MEDS ORDERED: OXYC-57 PO (19:49)
[2017-09-07] MEDS ORDERED: CEPH500C2 PO (19:50)
[2017-09-07 19:59] VITALS: BP 131/81; PULSE 84; O2SAT 98
[2017-09-07] MEDS ORDERED: CEPHALEXIN 500MG HOME PACK 1 EA BTL PO ONE (20:00)
--- NOTE | 2017-09-08 10:49 | EMERGENCY ROOM VISIT NOTE ---
ED Visit Note First contact with patient: 18:31 Chief Complaint: I cut my left index finger. History of Present Illness: Mr. Merrill is a 37-year-old white male who ambulates into the ED complaining of a laceration to the left index finger. Patient reports he was working at home and cut his left index finger with a mechanical saw approximately 2 hours ago. He does report he control bleeding prior to arrival at the hospital but did not wash the wound. Associated with his wound he is complaining of a throbbing sensation over the area of his laceration over the distal phalanx of the left index finger. He also reports he has a shooting pain that goes from his finger to his elbow. He rates his discomfort 10/10. His pain worsens with palpation or manipulation of the distal phalanx of the left index finger. He has not identified any alleviating factors related to the pain. He has not taken medications for pain prior to arrival at the hospital. Associated with his pain he reports he has having a numbness sensation over the distal aspect of the index finger. Review of Systems: As noted above in history of present illness. Past Medical History: Asthma, migraine headaches, gastroparesis, GERD, dyslipidemia, hypothyroidism, sleep apnea, kidney stones, status post cholecystectomy and unspecified dental surgery. Current Medications: Medications Dose Route/Sig Max Daily Dose Days Date Category Dose Instructions Buspirone HCl 10 Mg Tab 10 Mg PO BID PRN 07/01/17 Reported Dicyclomine Hcl 10 Mg Cap 10 Mg PO QID PRN 07/01/17 Reported Levothyroxine Sodium 75 Mcg Tab 75 Mcg PO QAM 07/01/17 Reported TAKE THIS MEDICATION ONCE DAILY 30 MINUTES BEFORE BREAKFAST OR ANY OTHER MEDICATION Multivitamin (Multivitamins) Tab 1 Tab PO DAILY 03/21/17 Reported Imitrex Nasal [place] (Sumatriptan Succinate) 5 Mg Aers 1 [place] NA UD PRN 12/30/16 Reported Ventolin Hfa (Albuterol) 200 Puffs/08881 Mcg Aers 2-4 Puffs INH Q4H PRN 12/30/16 Reported Pantoprazole Sodium (Pantoprazole) 40 Mg Tab 40 Mg PO HS 07/19/16 Reported Ranitidine HCl 150 Mg Tab 300 Mg PO BID 04/05/16 Reported Atorvastatin Calcium (Atorvastatin) 40 Mg Tab 40 Mg PO HS 04/05/16 Reported Elavil (Amitriptyline Hcl) 100 Mg Tab 100 Mg PO HS 12/24/15 Reported Hydrochlorothiazide 12.5 Mg Tab 6.25 Mg PO HS 12/24/15 Reported Advair Diskus 250/50 60 Dose (Fluticasone Prop/Salmeterol) 1 Ea Aerp 1 Puff INH BID PRN 04/01/14 Reported Allergies to Medications: Benzyl peroxide, hydrocodone, lactose intolerance, magnesium, prednisone and risperidone Social History: Patient feels safe in his home environment; he denies tobacco use. Tetanus Immunization Status: Patient reports up-to-date. Physical Examination: Vital Signs: Date Time Temp Pulse Resp B/P (MAP) Pulse Ox O2 Delivery O2 Flow Rate FiO2 09/07/17 19:59 84 18 131/81 98 09/07/17 18:14 36.6 92 20 138/92 96 Room Air GENERAL: 37-year-old male in moderate distress due to pain, nontoxic-appearing, afebrile and hemodynamically stable. NEUROLOGICAL: Awake, alert and oriented to person, place and time. Answering questions appropriately and following commands. SKIN: Warm, dry and pink. Left Index Finger: Over the lateral aspect of the distal phalanx patient has a flap-like laceration measuring approximately 2.3 cm. This is full-thickness and there is no active bleeding. No soft tissue eruptions or trauma noted. LEFT INDEX FINGER: No gross bony deformity. Soft tissue injury as noted above. Full range of motion in flexion and extension of the MCP, PIP and DIP joint. The laceration does extend into the lateral aspect of the soft tissues adjacent to the fingernail but the finger nail was not involved. He was able to distinguish light sensations but feels like it is decreased. Capillary refill is brisk. ED Course: Patient is assessed as noted above. Patient's medication list was reviewed. Patient was given one Percocet 5/325 mg tablet by mouth for pain. A digital block was performed on the index finger with 3.8 mL of buffered 1% lidocaine. Left Hand X-Rays: Were read by myself and the radiologist and shows no acute fractures or dislocations. Swelling around the area of his laceration was noted and no radiopaque foreign densities were noted. Wound Repair: Complexity: Basic Verbal consent was obtained after the risks and benefits were explained. The skin was prepped with betadine and a sterile field set. The wound was explored for foreign bodies and none found. Copious irrigation was performed using sterile saline. With direct pressure the bleeding subsided. Debridement was not performed. The wound edges were approximated using 5-0 Ethilon with 5 simple interrupted sutures. Hemostasis and excellent approximation was achieved. Antibacterial ointment and a sterile dressing applied. A finger splint was applied for protection. No complications and the patient tolerated the procedure well. Patient was educated about tonight's findings and instructed on his treatment plan; he verbalizes understanding and agreement with this plan. Clinical Impression: Laceration of the left index finger. Disposition: Patient discharged home in stable condition; prior to departure he was reassessed and subjectively reported he was feeling much better and rated his discomfort 2/10. Plan: Comfort measures, wound care and signs of infection were discussed with the patient. Patient was prescribed Keflex for antibiotic coverage 500 mg 4 times a day for 7 days. Additionally patient was placed on a sliding pain medication scale including ibuprofen, acetaminophen or Percocet for 3 days; his name was checked in the state database and no red flags were noted. Additionally he was educated on narcotic use. Patient was encouraged to follow-up with personal physician or return emergency department for any signs of infection and/or suture removal in 10-12 days.
== END 2017-09-07 20:01 | disposition home or self-care (01) ==
LOC: C.EDB 18:03 → C.EDD 20:01
DX: S61.211A Laceration without foreign body of left index finger without damage to nail, initial encounter (principal); W27.0XXA Contact with workbench tool, initial encounter; Y92.009 Unspecified place in unspecified non-institutional (private) residence as the place of occurrence of the external cause; J45.909 Unspecified asthma, uncomplicated; G43.909 Migraine, unspecified, not intractable, without status migrainosus; K31.84 Gastroparesis; K21.9 Gastro-esophageal reflux disease without esophagitis; E78.5 Hyperlipidemia, unspecified; E03.9 Hypothyroidism, unspecified; G47.30 Sleep apnea, unspecified; Z87.442 Personal history of urinary calculi

== ENCOUNTER 2017-09-18 18:53 | Emergency (ER) | payer OTHER ==
[~2017-09-18] VITALS: Ht 170.2 cm; Wt 86.5 kg
[~2017-09-18 18:53] MED LIST changes: +OXYC-57 PO; +PANT40TA2 PO; -PRT/40 PO
[2017-09-18 19:01] VITALS: TEMP 36.8; Ht 170.2 cm; Wt 86.5 kg
[2017-09-18] MEDS ORDERED: CEPH500C PO (19:44)
--- NOTE | 2017-09-18 19:46 | EMERGENCY ROOM VISIT NOTE ---
ED Visit Note First contact with patient: 19:13 CHIEF COMPLAINT: Suture removal HPI: This patient returns to the ED today for removal of sutures that were placed 11 days ago and for wound recheck. There has been no swelling or drainage from the wound. The patient does report a purplish color in his fingertip where the avulsed skin was replaced and sutured. He states the wound does appear to be splitting apart for the past few days. He states he has been applying antibiotic ointment and bandaging the wound. The patient did take his 7 day course of Keflex as prescribed. He states he was at his PCP today who became concerned due to the discoloration of the wound, and he states he was sent to the emergency department for further evaluation of the wound and for pain medication. He denies significant redness, swelling, fever, chills, body aches, drainage, or other concerning symptoms. She states the pain is severe, and though wound edges are red and slightly. REVIEW OF SYSTEMS: A complete 10 point review of systems was reviewed with the patient with pertinent positives and negatives as per history of present illness. All else were negative. PMH: Unchanged from previous visit SOCIAL HISTORY: The patient lives locally with family. He denies drug, alcohol , tobacco use. PHYSICAL EXAM: Vital Signs: Reviewed Nurse's notes. Vital signs stable. SKIN: There is a sutured wound on the anterior left index finger with no signs of infection, however there is ecchymosis over the avulsed flap of skin. The wound edges are pulling apart and are very dry. There is significant tenderness on palpation of the laceration. There is minimal swelling. EMERGENCY DEPARTMENT COURSE: The sutures were removed without any difficulty. The wound edges did separate mildly. The wound was bandaged with bacitracin ointment and a Band-Aid. I do feel that the patient may benefit from a longer course of Keflex. I did offer to provide the patient with his first dose here in the emergency department, and he declines. The antibiotics were sent to the pharmacy. The patient was given discharge instructions and was discharged home in good condition. I attest that I have personally reviewed the patient's current medication list. Patient was found to have normal blood pressure on screening and does not require follow-up. DIFFERENTIAL DIAGNOSIS: Laceration, avulsion, cellulitis, abscess, and others DIAGNOSIS: Suture removal, left index finger laceration Problem List Medical Problems: (1) Asthma Status: Chronic (2) Finger fracture, right Status: Resolved (3) Gastroparesis Status: Chronic (4) GERD (gastroesophageal reflux disease) Status: Chronic (5) Hyperlipidemia Status: Chronic (6) Hypothyroidism Status: Chronic (7) Migraine Status: Chronic (8) JESI (obstructive sleep apnea) Status: Chronic Surgical Problems: (1) Cholecystectomy Status: Resolved (2) History of dental surgery Status: Chronic (3) Hx of esophagogastroduodenoscopy Status: Chronic Current/Historical Medications Scheduled Amitriptyline Hcl (Elavil), 100 MG PO HS Atorvastatin (Atorvastatin Calcium), 40 MG PO HS Cephalexin Monohydrate (Keflex), 500 MG PO QID Hydrochlorothiazide (Hydrochlorothiazide), 6.25 MG PO HS Levothyroxine Sodium (Levothyroxine Sodium), 75 MCG PO QAM Multivitamin (Multivitamin), 1 TAB PO DAILY Pantoprazole (Pantoprazole Sodium), 40 MG PO HS Ranitidine HCl (Ranitidine HCl), 300 MG PO BID Scheduled PRN Albuterol Hfa (Ventolin Hfa), 2-4 PUFFS INH Q4H PRN for SOB/Wheezing Buspirone HCl (Buspirone HCl), 10 MG PO BID PRN for Anxiety Dicyclomine Hcl (Dicyclomine Hcl), 10 MG PO QID PRN for Abdominal Pain Fluticasone Prop/Salmeterol (Advair Diskus 250/50 60 Dose), 1 PUFF INH BID PRN for Wheezing Oxycodone/Acetaminophen 5MG/325MG (Percocet 5MG/325MG), 1 TAB PO Q6H PRN for Pain Sumatriptan Succinate (Imitrex Nasal [place]), 1 SPRAY NA UD PRN for Headache Allergies Coded Allergies: Benzoyl Peroxide (Verified Allergy, Mild, 09/18/17) Lactose Intolerance (Verified Allergy, Unknown, Unknown, 09/18/17) Risperidone (Verified Allergy, Unknown, "I FELT LIKE I WAS DRUNK", ) Hydrocodone (Verified Adverse Reaction, Mild, VOMITING, 09/18/17) Magnesium (Verified Adverse Reaction, Unknown, Nausea, GI upset, 09/18/17) Prednisone (Verified Adverse Reaction, Unknown, "messes up my mind, depressed", 09/18/17) Vital Signs Date Time Temp Pulse Resp B/P (MAP) Pulse Ox O2 Delivery O2 Flow Rate FiO2 09/18/17 19:50 75 18 132/84 97 09/18/17 19:01 36.8 77 18 142/84 97 Room Air Departure Information Impression Primary Impression: Encounter for removal of sutures Additional Impression: Finger laceration Dispostion Home / Self-Care Condition GOOD Prescriptions Cephalexin Monohydrate (Keflex) 500 Mg Cap 500 MG PO QID for 7 Days, #28 CAP Prov: Gris Jo PA-C 09/18/17 Referrals Adrian Meza M.D. (PCP) Forms WORK / SCHOOL INSTRUCTIONS, HOME CARE DOCUMENTATION FORM, IMPORTANT VISIT INFORMATION Patient Instructions ED Laceration Ext Sutr Stap Tape, My [facility] Additional Instructions He was seen in the emergency Department for wound recheck and to have stitches removed. These were removed successfully. As discussed, I do suspect that a large portion of the avulsed skin may fall off, however it is very important for you to keep the area moistened and clean. You were prescribed Keflex to be taken 4 times daily. This is an antibiotic. All antibiotics have the potential to cause diarrhea. Stop this medication and contact a medical provider if you were to develop any significant adverse side effects including: wheezing, shortness of breath, passing out, vomiting, or a diffuse rash. Always take antibiotics as directed and COMPLETE the ENTIRE course regardless of the improvement of your symptoms. Ibuprofen(Motrin, Advil) may be used for fever or pain. Use 600mg every six hours as needed. Take with food. Avoid using more than 2400mg in a 24 hour period. Do not use 2400mg per day for more than three consecutive days without physician direction. Prolonged inappropriate use can lead to stomach upset or ulcers. (AND/OR) Acetaminophen(Tylenol) may be used for fever or pain. Use 1000mg every six hours as needed. Avoid using more than 3000mg in a 24 hour period. Please follow up closely with your PCP for wound recheck. You may consider plastic surgery or orthopedics if your PCP does not feel comfortable managing this wound. Return to the emergency department for fever, chills, puslike drainage, significant swelling, significant redness, severe pain, or other concerning symptoms. Problem Qualifiers Additional Impression: Finger laceration Encounter type: subsequent encounter Finger: index finger Damage to nail status: with damage Foreign body presence: without foreign body Laterality: left Qualified Codes: S61.311D - Laceration without foreign body of left index finger with damage to nail, subsequent encounter
[2017-09-18 19:50] VITALS: BP 132/84; PULSE 75; O2SAT 97
== END 2017-09-18 19:51 | disposition home or self-care (01) ==
LOC: C.EDB 18:55 → C.EDD 19:51
DX: S61.211D Laceration without foreign body of left index finger without damage to nail, subsequent encounter (principal); W27.0XXD Contact with workbench tool, subsequent encounter; Y92.9 Unspecified place or not applicable; J45.909 Unspecified asthma, uncomplicated; K31.84 Gastroparesis; K21.9 Gastro-esophageal reflux disease without esophagitis; E78.5 Hyperlipidemia, unspecified; E03.9 Hypothyroidism, unspecified; G43.909 Migraine, unspecified, not intractable, without status migrainosus; G47.33 Obstructive sleep apnea (adult) (pediatric); Z79.899 Other long term (current) drug therapy

== ENCOUNTER 2017-10-18 16:39 | Emergency (ER) | payer OTHER ==
[~2017-10-18] VITALS: Ht 170.2 cm; Wt 85.1 kg
[2017-10-18 16:51] VITALS: TEMP 36.5; Ht 170.2 cm; Wt 85.1 kg
[2017-10-18] MEDS ORDERED: HYDROmorphone INJ 1 MG/ML SYR IV STA ×2 (17:09→18:54)
[2017-10-18] MEDS ORDERED: KETOROLAC TROMETHAMINE 30 MG/ML VIAL IV STA (17:09)
[2017-10-18] MEDS ORDERED: SODIUM CHLORIDE 0.9% 1000ML 1,000 ML IV STA (17:09)
[2017-10-18 17:38] LABS: URINE APPEARANCE CLOUDY (CLEAR); URINE BILIRUBIN NEG (NEG); URINE COLOR DK YELLOW; URINE EPITHELIAL CELL AUTO >30 /lpf (0-5); URINE NITRITE NEG (NEG); URINE SPECIFIC GRAVITY 1.027 (1.000-1.030); UROBILINOGEN NEG (NEG); ZZUR CULT IF INDIC CLEAN CATCH YES
[2017-10-18 17:40] LABS: BASO % 0.1 %; BASO ABS # 0.01 K/uL (0-0.2); COMPLETE YES; EOS % 0.2 %; HEMATOCRIT 40.8 % (42-52); IG% 0.2 %; LYMPH % 9.5 %; LYMPH ABS # 1.21 K/uL (1.2-3.4); MEAN CELL VOLUME 86.3 fL (80-100); MEAN CORPUSCULAR HEMOGLOBIN 31.3 pg (25-34); MEAN CORPUSCULAR HGB CONC 36.3 g/dl (32-36); MEAN PLATELET VOLUME 10.5 fL (7.4-10.4); MONO % 5.2 %; NEUT % 84.8 %; PLATELET COUNT 248 K/uL (130-400); RED BLOOD COUNT 4.73 M/uL (4.7-6.1); WHITE BLOOD COUNT 12.75 K/uL (4.8-10.8)
[2017-10-18 17:40] LABS: MANUAL MICROSCOPIC REQUIRED? NO; REVIEW REQ? YES
[2017-10-18 17:56] LABS: URINE MUCUS PRESENT (NONE PRSENT)
[2017-10-18 18:02] LABS: BUN/CREATININE RATIO 12.5 (10-20); CALCIUM 9.5 mg/dl (8.5-10.1); CREATININE 1.17 mg/dl (0.60-1.40); POTASSIUM 3.9 mmol/L (3.5-5.1)
--- NOTE | 2017-10-18 18:12 | DIAGNOSTIC IMAGING REPORT ---
KUB HISTORY: Acute left-sided flank pain with history of kidney stones L flank pain COMPARISON: CT abdomen and pelvis 03/06/2017, KUB 08/02/2016 FINDINGS: The bowel gas pattern is non-obstructive. There is no organomegaly. Bilateral nephrolithiasis redemonstrated with largest calculi on the left measuring 2 mm and largest on the right measuring 3 mm. There is a 4 mm radiodensity within the left midabdomen at the level of L4-L5, suspicious for ureteral calculus . No fracture. There is a surgical clip of the left abdomen. Phleboliths of the pelvis. Cholecystectomy clips noted. IMPRESSION: 1. Bilateral nephrolithiasis redemonstrated. 2. 4 mm radiodensity of the left midabdomen at the level of L4-L5 is suspicious for ureteral calculus. Electronically signed by: Edson Pabon M.D. 10/18/2017 6:10 PM Dictated Date/Time: 10/18/2017 6:07 PM
--- NOTE | 2017-10-18 18:44 | DIAGNOSTIC IMAGING REPORT ---
RETROPERITONEAL COMPLETE CLINICAL HISTORY: L flank pain pain TECHNIQUE: Ultrasound COMPARISON STUDY: 04/15/2016 FINDINGS: Right kidney measures 11.8 cm maximum dimension. No evidence for hydronephrosis. Left kidney measures 11.6 cm. Mild hydronephrosis. Possible nonobstructing calcifications. IMPRESSION: Mild left renal hydronephrosis. The above report was generated using voice recognition software. It may contain grammatical, syntax or spelling errors. Electronically signed by: Adrian Morales M.D. 10/18/2017 6:43 PM Dictated Date/Time: 10/18/2017 6:41 PM
[2017-10-18] MEDS ORDERED: TAMS0.4C38 PO (18:53)
[2017-10-18] MEDS ORDERED: OXYC1TAB3 PO (18:53)
[2017-10-18] MEDS ORDERED: ONDA4TAB10 SL (18:53)
[2017-10-18 19:45] VITALS: BP 141/76; PULSE 94; O2SAT 98
--- NOTE | 2017-10-19 00:17 | EMERGENCY ROOM VISIT NOTE ---
History First contact with patient: 16:55 Chief Complaint: KIDNEY STONE Stated Complaint: KIDNEY STONE History of Present Illness The patient is a 37 year old male who presents to the Emergency Room with complaints of severe left flank pain, nausea, vomiting, urinary retention and burning. He reports that the pain started 4 hours ago. He has a history of kidney stones, and has seen Dr. Noriega in the past. The patient denied any symptoms upon awakening this morning. He denies any anterior abdominal pain or central back pain. He denies fevers or chills, diarrhea or constipation. He rates his initial discomfort an 8 out of 10. Review of Systems HEENT: Denies dizziness, visual problems, hearing loss, tinnitus. Denies difficulty swallowing or oral lesions. PULMONARY: Denies cough, shortness of breath, sputum production or hemoptysis. CARDIOVASCULAR: Denies chest pain, palpitations, dyspnea on exertion, orthopnea or peripheral edema. GASTROINTESTINAL: Denies diarrhea, constipation or anterior abdominal pain. GENITOURINARY: Denies dysuria, frequency, urgency or nocturia. Otherwise see history of present illness. NEUROLOGIC: Denies history of epilepsy, CVA, TIA or chronic headaches. MUSCULOSKELETAL: Denies history of joint tenderness/swelling. SKIN: Denies rashes or lesions. PSYCHIATRIC: Denies history of depression or mental illness. ENDOCRINE: Denies history of diabetes or thyroid disorders. Past Medical/Surgical History Medical Problems: (1) Asthma (2) Finger fracture, right (3) Gastroparesis (4) GERD (gastroesophageal reflux disease) (5) Hyperlipidemia (6) Hypothyroidism (7) Intractable pain (8) Migraine (9) JESI (obstructive sleep apnea) (10) Renal calculi Surgical Problems: (1) Cholecystectomy (2) History of dental surgery (3) Hx of esophagogastroduodenoscopy Family History Diabetes mellitus MOTHER GRANDFATHER FH: cancer FH: heart disease FATHER GRANDFATHER FH: lung disease Hypertension Kidney disease or stones Social History Smoking Status: Former Smoker Alcohol Use: none Drug Use: none Marital Status: Housing Status: lives with family Occupation Status: employed Current/Historical Medications Scheduled Amitriptyline Hcl (Elavil), 100 MG PO HS Atorvastatin (Atorvastatin Calcium), 40 MG PO HS Levothyroxine Sodium (Levothyroxine Sodium), 75 MCG PO QAM Multivitamin (Multivitamin), 1 TAB PO DAILY Ondasetron Odt (Zofran Odt), 4 MG SL Q6H Pantoprazole (Pantoprazole Sodium), 40 MG PO HS Ranitidine HCl (Ranitidine HCl), 300 MG PO BID Tamsulosin Hcl (Flomax), 0.4 MG PO DAILY Scheduled PRN Albuterol Hfa (Ventolin Hfa), 2-4 PUFFS INH Q4H PRN for SOB/Wheezing Buspirone HCl (Buspirone HCl), 10 MG PO BID PRN for Anxiety Dicyclomine Hcl (Dicyclomine Hcl), 10 MG PO QID PRN for Abdominal Pain Fluticasone Prop/Salmeterol (Advair Diskus 250/50 60 Dose), 1 PUFF INH BID PRN for Wheezing Oxycodone Ir (Roxicodone Ir), 1-2 TAB PO Q4H PRN for Pain Sumatriptan Succinate (Imitrex Nasal [place]), 1 SPRAY NA UD PRN for Headache Physical Exam Vital Signs Date Time Temp Pulse Resp B/P (MAP) Pulse Ox O2 Delivery O2 Flow Rate FiO2 10/18/17 19:45 94 16 141/76 98 10/18/17 18:58 89 20 132/92 95 Room Air 10/18/17 16:51 36.5 115 20 124/52 97 Room Air Physical Exam CONSTITUTIONAL: Healthy and well nourished. Alert and oriented X 3 with flat affect. Patient appears in severe distress and discomfort. HEENT: Normocephalic, atraumatic. Pupils equal, round and reactive. Ears and nares are clear. No scleral icterus or conjunctival injection/pallor. NECK: Full active range of motion without discomfort. RESPIRATORY: Clear to auscultation bilaterally with no wheezing, crackles, rhonchi or stridor. CARDIOVASCULAR: Regular rate and rhythm with no murmurs, rubs or gallops. GASTROINTESTINAL: Bowel sounds present in all quadrants. Patient has no focal anterior or left lower quadrant tenderness to palpation. Negative CVA tenderness. No abdominal rigidity, guarding or rebound. MUSCULOSKELETAL: Full range of motion of all joints without discomfort. INTEGUMENTARY: No rash or other significant dermatologic conditions noted. HEMATOLOGIC: No ecchymosis or petechiae noted. NEUROLOGIC: No focal neurologic deficits noted. Medical Decision & Procedures ER Provider Diagnostic Interpretation: My interpretation of a KUB x-ray shows a 4 mm distal left ureteral calculus. Radiologist report is as follows: KUB HISTORY: Acute left-sided flank pain with history of kidney stones L flank pain COMPARISON: CT abdomen and pelvis 03/06/2017, KUB 08/02/2016 FINDINGS: The bowel gas pattern is non-obstructive. There is no organomegaly. Bilateral nephrolithiasis redemonstrated with largest calculi on the left measuring 2 mm and largest on the right measuring 3 mm. There is a 4 mm radiodensity within the left midabdomen at the level of L4-L5, suspicious for ureteral calculus . No fracture. There is a surgical clip of the left abdomen. Phleboliths of the pelvis. Cholecystectomy clips noted. IMPRESSION: 1. Bilateral nephrolithiasis redemonstrated. 2. 4 mm radiodensity of the left midabdomen at the level of L4-L5 is suspicious for ureteral calculus. Retroperitoneal ultrasound shows a mild left hydronephrosis: RETROPERITONEAL COMPLETE CLINICAL HISTORY: L flank pain pain TECHNIQUE: Ultrasound COMPARISON STUDY: 04/15/2016 FINDINGS: Right kidney measures 11.8 cm maximum dimension. No evidence for hydronephrosis. Left kidney measures 11.6 cm. Mild hydronephrosis. Possible nonobstructing calcifications. IMPRESSION: Mild left renal hydronephrosis. Laboratory Results 10/18/17 17:30 Red Blood Count 4.73, Mean Corpuscular Volume 86.3, Mean Corpuscular Hemoglobin 31.3, Mean Corpuscular Hemoglobin Concent 36.3, Mean Platelet Volume 10.5, Neutrophils (%) (Auto) 84.8, Lymphocytes (%) (Auto) 9.5, Monocytes (%) (Auto) 5.2, Eosinophils (%) (Auto) 0.2, Basophils (%) (Auto) 0.1, Neutrophils # (Auto) 10.81, Lymphocytes # (Auto) 1.21, Monocytes # (Auto) 0.66, Eosinophils # (Auto) 0.03, Basophils # (Auto) 0.01 10/18/17 17:30 Test 10/18/17 17:24 11/29/17 17:30 Urine Color DK YELLOW Urine Appearance CLOUDY (CLEAR) Urine pH 5.0 (4.5-7.5) Urine Specific [place] 1.027 (1.000-1.030) Urine Protein 3+ (NEG) Urine Glucose (UA) NEG (NEG) Urine Ketones NEG (NEG) Urine Occult Blood 3+ (NEG) Urine Nitrite NEG (NEG) Urine Bilirubin NEG (NEG) Urine Urobilinogen NEG (NEG) Urine Leukocyte Esterase NEG (NEG) Urine WBC (Auto) 10-30 /hpf (0-5) Urine RBC (Auto) >30 /hpf (0-4) Urine Hyaline Casts (Auto) 5-10 /lpf (0-5) Urine Epithelial Cells (Auto) >30 /lpf (0-5) Urine Bacteria (Auto) NEG (NEG) Urine Renal Epithelial Cells 0-5 /lpf (0-5) Urine Pathogenic Casts /lpf (0) Urine Mucus PRESENT (NONE PRSENT) White Blood Count 12.75 K/uL (4.8-10.8) Red Blood Count 4.73 M/uL (4.7-6.1) Hemoglobin 14.8 g/dL (14.0-18.0) Hematocrit 40.8 % (42-52) Mean Corpuscular Volume 86.3 fL (80-100) Mean Corpuscular Hemoglobin 31.3 pg (25-34) Mean Corpuscular Hemoglobin Concent 36.3 g/dl (32-36) Platelet Count 248 K/uL (130-400) Mean Platelet Volume 10.5 fL (7.4-10.4) Neutrophils (%) (Auto) 84.8 % Lymphocytes (%) (Auto) 9.5 % Monocytes (%) (Auto) 5.2 % Eosinophils (%) (Auto) 0.2 % Basophils (%) (Auto) 0.1 % Neutrophils # (Auto) 10.81 K/uL (1.4-6.5) Lymphocytes # (Auto) 1.21 K/uL (1.2-3.4) Monocytes # (Auto) 0.66 K/uL (0.11-0.59) Eosinophils # (Auto) 0.03 K/uL (0-0.5) Basophils # (Auto) 0.01 K/uL (0-0.2) RDW Standard Deviation 39.9 fL (36.4-46.3) RDW Coefficient of Variation 12.6 % (11.5-14.5) Immature Granulocyte % (Auto) 0.2 % Immature Granulocyte # (Auto) 0.03 K/uL (0.00-0.02) Anion Gap 9.0 mmol/L (3-11) Est Creatinine Clear Calc Drug Dose 91.9 ml/min Estimated GFR () 93.1 Estimated GFR (Non- 80.3 BUN/Creatinine Ratio 12.5 (10-20) Calcium Level 9.5 mg/dl (8.5-10.1) Total Bilirubin 1.0 mg/dl (0.2-1) Direct Bilirubin 0.2 mg/dl (0-0.2) Aspartate Amino Transf (AST/SGOT) 20 U/L (15-37) Alanine Aminotransferase (ALT/SGPT) 37 U/L (12-78) Alkaline Phosphatase 133 U/L (45-117) Total Protein 8.5 gm/dl (6.4-8.2) Albumin 4.5 gm/dl (3.4-5.0) The above labs were reviewed. Medications Administered Medications (Trade) Dose Ordered Sig/Denise Route Start Time Stop Time Status Last Admin Dose Admin Ketorolac Tromethamine (Toradol Inj) 30 mg NOW STAT IV 10/18/17 17:09 10/18/17 17:11 DC 10/18/17 17:36 30 MG Sodium Chloride 1,000 ml @ 999 mls/hr Q1H1M STAT IV 10/18/17 17:09 10/18/17 18:09 DC 10/18/17 17:36 999 MLS/HR Hydromorphone HCl (Dilaudid Inj) 1 mg NOW STAT IV 10/18/17 17:09 10/18/17 17:11 DC 10/18/17 17:36 1 MG Hydromorphone HCl (Dilaudid Inj) 1 mg NOW STAT IV 10/18/17 18:54 10/18/17 18:56 DC 10/18/17 19:00 1 MG Procedure 1. IV hydration: The patient was administered a normal saline 1 L bolus 2. IV medications: The patient was initially administered Dilaudid 1 mg, Toradol 30 mg and Zofran 4 mg IVP. He required an additional Dilaudid 1 mg IVP for persistent pain. ED Course Patient history and physical exam were performed. Nurse's notes were reviewed. Vital signs were reviewed and were normal. The patient appears in severe discomfort. IV access was established, and labs were drawn. The patient was hydrated with normal saline, and received IV Dilaudid, Toradol and Zofran for pain. Review of medical records that show a prior history of kidney stones. He is also currently on a treatment plan. Given that he likely does have a stone, he was administered parenteral analgesics for his pain. Review of labs shows a mild leukocytosis, likely secondary to pain. Urinalysis does not show evidence for infection. KUB x-ray confirms a 4 mm left ureteral calculus, with ultrasound showing mild hydronephrosis. The patient did require an additional dose of Dilaudid 1 mg IVP for reduction of pain to a 4 out of 10. The patient was provided prescriptions for Flomax, OxyIR and Zofran ODT. He was instructed to follow-up with Dr. Noriega for further reevaluation and management. He was encouraged to increase fluid intake. Return to the emergency Department for uncontrollable pain, vomiting or fever. The patient voiced understanding of all discharge instructions, and was happy with plan of care. Medical Decision Patient history and clinical findings today are consistent with left ureteral colic secondary to a 4 mm left distal ureteral calculus. I do not suspect diverticulitis, bowel obstruction, mesenteric adenitis, ischemic gut, volvulus or other acute intra-abdominal etiologies. Urinalysis is not consistent with infection, and the patient has no fever or leukocytosis of concern. [place] Drug Monitoring Program Search Results: patient reviewed within database, no issues identified Medication Reconcilliation Current Medication List: was personally reviewed by ri Blood Pressure Screening Patient's blood pressure: Normal blood pressure Impression Primary Impression: Left ureteral calculus Departure Information Dispostion Home / Self-Care Prescriptions Ondasetron Odt (ZOFRAN ODT) 4 Mg Tab 4 MG SL Q6H for Nausea, #6 TAB Prov: Daniel Nolen PA 10/18/17 Tamsulosin Hcl (FLOMAX) 0.4 Mg Cap 0.4 MG PO DAILY for 7 Days, #7 CAP Prov: Daniel Nolen PA 10/18/17 Oxycodone Ir (Roxicodone Ir) 5 Mg Tab 1-2 TAB PO Q4H Y for Pain, #15 TAB For Initial Treatment Prov: Daniel Nolen PA 10/18/17 Referrals Christelle Noriega MD Forms HOME CARE DOCUMENTATION FORM, IMPORTANT VISIT INFORMATION Patient Instructions My [facility] Additional Instructions Increase fluid intake. Take Flomax as prescribed. Ibuprofen 800 mg and/or Tylenol 1000 mg every 8 hours. You may also alternate these medications for more effective pain relief: Ibuprofen --4 HRS--> Tylenol --4 HRS--> ibuprofen --4 HRS--> Tylenol .... OxyIR if needed for worse pain. Do not drink alcohol or drive while taking OxyIR. Zofran ODT if needed for nausea. Follow-up with Dr. Noriega for further reevaluation and management.
[2017-10-20] MEDS ORDERED: PHEN-775 PO (16:26)
[2017-10-20] MEDS ORDERED: FLM4 PO (16:26)
[2017-10-20] MEDS ORDERED: ACET-1047 OR (16:30)
--- NOTE | 2017-10-20 18:14 | Pharmacy Progress Note ---
ED Pharmacist Culture FollowUp Date of Service: Oct 20, 2017. Patient grew gardnerella in the urine at a low CFU count, but was found to have a kidney stone while in the ED. Discussed with Dr. Cristobal, no further treatment necessary at this time as this is likely contamination.
[2017-10-21] MEDS ORDERED: NITR-5 PO (16:24)
== END 2017-10-18 19:45 | disposition home or self-care (01) ==
LOC: C.EDB 16:41
DX: N13.2 Hydronephrosis with renal and ureteral calculous obstruction (principal); J45.909 Unspecified asthma, uncomplicated; K31.84 Gastroparesis; K21.9 Gastro-esophageal reflux disease without esophagitis; E78.5 Hyperlipidemia, unspecified; E03.9 Hypothyroidism, unspecified; G47.33 Obstructive sleep apnea (adult) (pediatric); Z90.49 Acquired absence of other specified parts of digestive tract; Z83.3 Family history of diabetes mellitus; Z80.9 Family history of malignant neoplasm, unspecified; Z82.49 Family history of ischemic heart disease and other diseases of the circulatory system; Z84.1 Family history of disorders of kidney and ureter; Z87.891 Personal history of nicotine dependence; Z79.899 Other long term (current) drug therapy

== ENCOUNTER 2017-10-20 01:56 | Observation (INO) | payer OTHER ==
[2017-10-20] VITALS (7 sets, daily range): BP systolic 120–156; BP diastolic 71–100; PULSE 63–77; TEMP 36.2–36.4; O2SAT 96–99; Ht 170.2 cm; Wt 86.8 kg
[~2017-10-20] VITALS: Ht 170.2 cm; Wt 86.8 kg
[~2017-10-20 01:56] MED LIST changes: -HYDR12.55 PO; +ONDA4TAB10 SL; -OXYC-57 PO; +OXYC1TAB3 PO; +TAMS0.4C38 PO
[2017-10-20] MEDS ORDERED: ONDANSETRON INJ 2 MG/ML 2 ML VIAL IV STA (02:29)
[2017-10-20] MEDS ORDERED: HYDROmorphone INJ 1 MG/ML SYR IV STA ×2 (02:29→04:03)
[2017-10-20] MEDS ORDERED: SODIUM CHLORIDE 0.9% 1000ML 1,000 ML IV ONE (02:30)
[2017-10-20] MEDS ORDERED: TAMS0.4C38 PO (02:30)
[2017-10-20] MEDS ORDERED: OXYC1TAB3 PO (02:32)
[2017-10-20] MEDS ORDERED: ONDA4TAB10 SL (02:33)
[2017-10-20 03:06] LABS: BASO % 0.4 %; BASO ABS # 0.02 K/uL (0-0.2); COMPLETE YES; HEMATOCRIT 36.3 % (42-52); LYMPH % 30.6 %; LYMPH ABS # 1.65 K/uL (1.2-3.4); MEAN CELL VOLUME 86.6 fL (80-100); MEAN CORPUSCULAR HEMOGLOBIN 29.8 pg (25-34); MEAN CORPUSCULAR HGB CONC 34.4 g/dl (32-36); MEAN PLATELET VOLUME 10.1 fL (7.4-10.4); MONO % 7.4 %; NEUT % 59.6 %; PLATELET COUNT 211 K/uL (130-400); RED BLOOD COUNT 4.19 M/uL (4.7-6.1); WHITE BLOOD COUNT 5.39 K/uL (4.8-10.8)
[2017-10-20 03:29] LABS: BUN/CREATININE RATIO 15.8 (10-20); CALCIUM 8.8 mg/dl (8.5-10.1); CREATININE 0.89 mg/dl (0.60-1.40); POTASSIUM 3.6 mmol/L (3.5-5.1)
[2017-10-20 03:32] LABS: ALB/GLOB RATIO 1.1 (0.9-2)
[2017-10-20 03:39] LABS: URINE APPEARANCE CLEAR (CLEAR); URINE BILIRUBIN NEG (NEG); URINE COLOR YELLOW; URINE EPITHELIAL CELL AUTO >30 /lpf (0-5); URINE NITRITE NEG (NEG); URINE SPECIFIC GRAVITY 1.022 (1.000-1.030); UROBILINOGEN NEG (NEG); ZZUR CULT IF INDIC CLEAN CATCH NO
[2017-10-20 03:42] LABS: MANUAL MICROSCOPIC REQUIRED? NO; REVIEW REQ? NO
[2017-10-20] MEDS ORDERED: TAMSULOSIN HCL 0.4 MG CAP PO STA (04:18)
[2017-10-20 04:33] LABS: MAGNESIUM 2.2 mg/dl (1.8-2.4)
[2017-10-20] MEDS ORDERED: KETOROLAC TROMETHAMINE 30 MG/ML VIAL IV STA (04:38)
[2017-10-20] MEDS ORDERED: KETOROLAC TROMETHAMINE 30 MG/ML VIAL IV PRN (04:45)
[2017-10-20] MEDS ORDERED: ACETAMINOPHEN 325 MG TAB PO PRN (05:15)
[2017-10-20] MEDS ORDERED: DICYCLOMINE HCL 10 MG CAP PO PRN (05:15)
[2017-10-20] MEDS ORDERED: NSS + 20MEQ KCL 1000ML 1,000 ML IV ONE (05:15)
[2017-10-20] MEDS ORDERED: IBUPROFEN 200 MG TAB PO PRN (05:15)
[2017-10-20] MEDS ORDERED: FLUTICASONE/SALMETEROL 250/50 (ADVAIR) 14 PUFF/1 INHALER INH PRN (05:15)
[2017-10-20] MEDS ORDERED: MoRPHine SULFATE 2 MG/ML CARP IV PRN (05:15)
[2017-10-20] MEDS: OXYCODONE/ACETAMINOPHEN 5-325 TAB PO PRN ×2 (05:33→14:53)
[2017-10-20] MEDS ORDERED: IV FLUIDS COMPLETED PRN (05:45)
[2017-10-20] MEDS ORDERED: PROCHLORPERAZINE INJ 5 MG in SYRINGE 4 ML IV PRN (05:45)
[2017-10-20 06:10] LABS: THYROID STIMULATING HORMONE 3.07 uIu/ml (0.300-4.500)
[2017-10-20] MEDS ORDERED: LEVOTHYROXINE 75 MCG TAB PO SCH (07:00)
--- NOTE | 2017-10-20 07:19 | DIAGNOSTIC IMAGING REPORT ---
ABDOMEN AND PELVIS CT WITHOUT CONTRAST CT DOSE: 432.43 mGy.cm HISTORY: Acute left-sided flank pain Left flank pain. Stone vs other? TECHNIQUE: Multiaxial CT images of the abdomen and pelvis were performed without contrast. A dose lowering technique was utilized adhering to the principles of ALARA. COMPARISON STUDY: Renal ultrasound 10/18/2017 CT abdomen and pelvis 03/06/2017. FINDINGS: Lung bases are generally clear with mild subsegmental bibasilar atelectasis. No pneumatosis or pneumoperitoneum. Imaged inferior cardiac chambers are unremarkable. Prior cholecystectomy. Liver, spleen, and pancreas are unremarkable. Bilateral low attenuating lesions of the adrenal glands are again seen with lesion on the right measuring 10 x 13 mm and on the left measuring 11 x 13 mm. There are at least 7 nonobstructing calculi on the left largest measuring up to 4 mm. There are least 14 nonobstructing calculi on the right, largest measuring up to 5 mm. Normal right ureter. 5 x 3 x 5 mm calculus of the proximal left ureter is seen at the level of L3 with a 4 x 4 x 4 mm calculus noted approximately 3 cm distally to the first calculus at the level of L4. There is associated mild left-sided hydroureteronephrosis. Urinary bladder and prostate are unremarkable. Aorta is normal in course and caliber. No bulky adenopathy. No bowel obstruction or focal bowel wall thickening. The appendix appears normal. Soft tissues are unremarkable. Bones appear intact. IMPRESSION: 1. Mild left-sided hydroureteronephrosis secondary to two calculi within the left ureter, the more proximal calculus measures up to 5 mm at the level of L3 and the more distal calculus measures up to 4 mm at the level of L4. Multiple additional bilateral nonobstructing renal calculi are also present. 2. Bilateral adrenal adenomas. 3. Prior cholecystectomy. Electronically signed by: Edson Pabon M.D. 10/20/2017 7:18 AM Dictated Date/Time: 10/20/2017 6:57 AM
--- NOTE | 2017-10-20 07:43 | HISTORY & PHYSICAL EXAMINATION ---
DATE OF ADMISSION: 10/20/2017 PRIMARY CARE DOCTOR: Adrian Meza MD. CHIEF COMPLAINT: Flank pain. HISTORY OF PRESENT ILLNESS: History obtained from patient, , and records. Medical history significant for asthma, irritable bowel syndrome, gastroparesis , mood disorder, reflux, sleep apnea, CPAP noncompliance, past tobacco abuse, kidney stones, hypothyroidism, chronic anemia (baseline hemoglobin of 13). Recent confinement last September 2015 for renal colic. Spontaneous passage of stone. One day history of achy left flank pain, some nausea, no vomiting. No bowel movement changes. No hematuria, no fever, no chills. Symptoms reminiscent of kidney stone pain. Two syncopal events witnessed by on route to the hospital. No chest pain, no shortness of breath. No tongue biting, no incontinence noted. Intractable pain at the Emergency Room. MEDICAL HISTORY: As above. SURGERIES: She has had dental surgery, cholecystectomy. HOME MEDICATIONS: Include levothyroxine, multivitamin, Zofran, oxycodone, Protonix, ranitidine, Imitrex, Flomax, Ventolin, Elavil, atorvastatin, buspirone, dicyclomine, Advair Diskus. ALLERGIES: BENTYL, VICODIN, MAGNESIUM, PREDNISONE, RISPERDAL, LACTULOSE. FAMILY HISTORY: Heart disease, diabetes. 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 REVIEW OF SYSTEMS: As per HPI, all 10 systems reviewed, all other ROS negative. PHYSICAL EXAMINATION: VITAL SIGNS: Blood pressure was noted to be 179/96, later 140/81, pulse rate 62, RR 18, temperature 36.5, sats 98 on room air. GENERAL: Uncomfortable obese, no respiratory distress. SKIN: Pallor, warm. HEENT: Partial alopecia. Pale palpebral conjunctivae. No ptosis. Dry mucosa. NECK: No JVD. Supple. No tenderness. LUNGS: Decreased breath sounds. No tenderness. HEART: Regular rate and rhythm. No murmur ABDOMEN: Soft, nontender. Minimal L flank tenderness in the back. EXTREMITIES: No edema. No tenderness, no gross deformities. NEUROLOGIC: Coherent. No gross focality. LABORATORY DATA: Hemoglobin was noted to be 12.5, hematocrit 36.2, white cell count 5.9, platelets 211. Sodium 139, potassium 3.6, chloride 109, CO2 26, BUN 40, creatinine 0.8, glucose 122. LFTs, lipase normal. UA showed protein, hyaline casts, epithelial cells. WBC 1 to 5, occult blood. EKG as per my interpretation, rate 60, normal sinus rhythm, no ischemia. CT of the abdomen and pelvis initial read showed 5 mm obstructing calculus proximal to mid left ureter, 5 mm left ureteral calculus distal with minimal left hydronephrosis. cholecystectomy. ASSESSMENT: 1. Syncope likely vasovagal secondary to renal colic. No sepsis. Rule out orthostasis, cardiac pathology as etio of syncope 2. Irritable bowel syndrome as per records. 3. Past tobacco abuse. 4. hx Asthma, stable PLAN: Observation PCU check orthostatic vitals. 2D echo RE syncope Analgesia continue Flomax. Strain urine. Urology consult. RE renal colic. DVT prophylaxis, SCDs. Full code. MTDD
[2017-10-20] MEDS ORDERED: INFLUENZA VIRUS QUAD VACCINE 0.5 ML SYR IM. ONE (08:30)
[2017-10-20] MEDS ORDERED: INFLUENZA ADMINISTRATION CHARGE ONE (08:30)
[2017-10-20] MEDS ORDERED: MULTIVITAMIN TAB PO SCH (09:00)
[2017-10-20] MEDS ORDERED: RANITIDINE HCL 150 MG TAB PO SCH (09:00)
[2017-10-20] MEDS ORDERED: DEXAMETHASONE SOD INJ 4 MG/ML VIAL ONE (10:19)
[2017-10-20] MEDS ORDERED: ONDANSETRON INJ 2 MG/ML 2 ML VIAL ONE (10:19)
[2017-10-20] MEDS ORDERED: FENTANYL CITRATE INJ 50 MCG/1 ML 2 ML VIAL ONE ×3 (10:19→13:20)
[2017-10-20] MEDS ORDERED: PROPOFOL IV EMULSION 10 MG/ML 20 ML VIAL IV ONE (10:19)
[2017-10-20] MEDS ORDERED: LIDOCAINE HCL 2% 2 ML VIAL (20MG/ML) ONE (10:19)
[2017-10-20] MEDS ORDERED: MIDAZOLAM HCL 1 MG/ML 2ML VIAL ONE (10:19)
--- NOTE | 2017-10-20 11:00 | ECHOCARDIOGRAM REPORT ---
*NOTICE TO RECEIVING CONSTITUTION PARTY AGENCY This information is strictly Confidential and protected under [place] law. [place] law prohibits you from making any further disclosure of this information unless further disclosure is expressly permitted by the written consent of the person to whom it pertains or is authorized by law. A general authorization for the release of medical or other information is not sufficient for this purpose. Hospital accepts no responsibility if the information is made available to any other person, INCLUDING THE PATIENT. Interpretation Summary * Name: ANCA LEWIS JR Study Date: 10/20/2017 06:27 AM BP: 171/96 mmHg * Patient Location: .EDB HR: 94 * : 1980 (M/d/yyyy) Gender: Male Height: 67 in * Age: 37 yrs Ethnicity: CA Weight: 191 lb * Ordering Physician: Harman Cardoza * Referring Physician: Self, Referred * Performed By: Isela Davis RCS * * Reason For Study: Syncope * BSA: 2.0 m2 * The study was technically adequate. * There is no comparison study available. * -- Conclusions -- * Ejection Fraction = 60-65%. * The left ventricular wall motion is normal. * Grade I diastolic dysfunction, (abnormal relaxation pattern). * No significant valvular pathology. Procedure Details * A complete two-dimensional transthoracic echocardiogram was performed (2D, M-mode, Doppler and color flow Doppler). Left Ventricle * The left ventricle is normal in size. * There is normal left ventricular wall thickness. * Ejection Fraction = 60-65%. * Left ventricular systolic function is normal. * The left ventricular wall motion is normal. Right Ventricle * The right ventricle is normal size. * The right ventricular systolic function is normal as assessed by tricuspid annular plane systolic excursion (TAPSE) (normal >1.5 cm). Atria * The left atrial size is normal. * Right atrial size is normal. * There is no evidence of atrial septal defect, but resolution does not allow assessment for a patent foramen ovale. Mitral Valve * The mitral valve is normal. * There is no mitral valve stenosis. * Significant mitral regurgitation is absent. Tricuspid Valve * The tricuspid valve is normal. * There is no tricuspid stenosis. * Significant tricuspid regurgitation is absent. Aortic Valve * The aortic valve is trileaflet. * Aortic stenosis is absent. * There is no significant aortic regurgitation. Pulmonic Valve * The pulmonary valve is not well seen, but the Doppler examination is normal without significant regurgitation or stenosis. Great Vessels * The aortic root is normal size. Pericardium/Pleural * There is no pericardial effusion. Great Vessels * Normal inferior vena cava diameter and respiratory variation suggests normal central venous pressure. Left Ventricular Diastolic Function * Grade I diastolic dysfunction, (abnormal relaxation pattern). MMode 2D Measurements and Calculations IVSd 0.98 cm IVSs 1.3 cm LVIDd 5.3 cm LVIDs 3.3 cm LVPWd 1.1 cm LVPWs 1.7 cm IVS/LVPW 0.91 FS 38.4 % EDV(Teich) 136.9 ml ESV(Teich) 43.4 ml EF(Teich) 68.3 % EDV(cubed) 151.0 ml ESV(cubed) 35.2 ml EF(cubed) 76.7 % % IVS thick 36.4 % % LVPW thick 61.3 % LV mass(C)d 210.2 grams LV mass(C)dI 106.0 grams/m\S\2 LV mass(C)s 185.0 grams LV mass(C)sI 93.3 grams/m\S\2 SV(Teich) 93.4 ml SI(Teich) 47.1 ml/m\S\2 SV(cubed) 115.8 ml SI(cubed) 58.4 ml/m\S\2 Ao root diam 3.6 cm Ao root area 9.9 cm\S\2 ACS 1.7 cm LA dimension 3.8 cm asc Aorta Diam 2.6 cm LA/Ao 1.1 EDV(MOD-sp4) 162.1 ml ESV(MOD-sp4) 66.5 ml EF(MOD-sp4) 59.0 % EDV(MOD-sp2) 155.1 ml ESV(MOD-sp2) 45.0 ml EF(MOD-sp2) 71.0 % SV(MOD-sp4) 95.6 ml SI(MOD-sp4) 48.2 ml/m\S\2 SV(MOD-sp2) 110.1 ml SI(MOD-sp2) 55.5 ml/m\S\2 Doppler Measurements and Calculations MV E max jarred 113.8 cm/sec MV A max jarred 59.9 cm/sec MV E/A 1.9 MV P1/2t max jarred 106.6 cm/sec MV P1/2t 85.1 msec MVA(P1/2t) 2.6 cm\S\2 MV dec slope 366.7 cm/sec\S\2 MV dec time 0.24 sec Ao V2 max 124.6 cm/sec Ao max PG 6.2 mmHg Ao max PG (full) -0.13 mmHg LV V1 max PG 6.3 mmHg LV V1 max 125.9 cm/sec PA V2 max 128.8 cm/sec PA max PG 6.7 mmHg PI max jarred 226.0 cm/sec PI max PG 20.4 mmHg PI dec slope 169.5 cm/sec\S\2 PI P1/2t 390.5 msec TR max jarred 219.4 cm/sec
[2017-10-20] MEDS ORDERED: EpHEDrine SULFATE INJ 50 MG/ML AMP IV PRN (11:45)
[2017-10-20] MEDS ORDERED: ATROPINE SULFATE 0.1 MG/ML 5ML SYR IV PRN (11:45)
[2017-10-20] MEDS ORDERED: ONDANSETRON INJ 2 MG/ML 2 ML VIAL IV PRN (11:45)
[2017-10-20] MEDS ORDERED: FENTANYL CITRATE INJ 50 MCG/1 ML 2 ML VIAL IV PRN (11:45)
[2017-10-20] MEDS ORDERED: CEFAZOLIN SOD 2000MG/10 ML IV PUSH IV ONE (11:49)
--- NOTE | 2017-10-20 11:54 | Urology Consultation ---
History General Date of Service: Oct 20, 2017. Chief Complaint: left ureteral stone Primary Care Physician: Adrian Meza M.D. Pt seen a urologist before?: No History of Present Illness I am asked by Dr Bhakta to evaluate and treat patient for left ureteral stone. He had sudden onset pain overnight. He has severe pain nausea and emesis. The pain was so severe he nearly passed out. His ct scan shows left hydro due to 2 medium stones in the upper ureter. he also has several very small stone and one medium stone in left kidney. he also has right kidney stones. Imaging Imaging: CT Laboratory Results Past 24 Hours Test 10/20/17 02:40 10/20/17 02:55 10/20/17 05:36 Range/Units Urine Color YELLOW Urine Appearance CLEAR CLEAR Urine pH 5.0 4.5-7.5 Urine Specific [place] 1.022 1.000-1.030 Urine Protein TRACE NEG Urine Glucose (UA) NEG NEG Urine Ketones NEG NEG Urine Occult Blood 2+ NEG Urine Nitrite NEG NEG Urine Bilirubin NEG NEG Urine Urobilinogen NEG NEG Urine Leukocyte Esterase NEG NEG Urine WBC (Auto) 1-5 0-5 /hpf Urine RBC (Auto) 10-30 0-4 /hpf Urine Hyaline Casts (Auto) 10-30 0-5 /lpf Urine Epithelial Cells (Auto) >30 0-5 /lpf Urine Bacteria (Auto) NEG NEG White Blood Count 5.39 4.8-10.8 K/uL Red Blood Count 4.19 4.7-6.1 M/uL Hemoglobin 12.5 14.0-18.0 g/dL Hematocrit 36.3 42-52 % Mean Corpuscular Volume 86.6 80-100 fL Mean Corpuscular Hemoglobin 29.8 25-34 pg Mean Corpuscular Hemoglobin Concent 34.4 32-36 g/dl Platelet Count 211 130-400 K/uL Mean Platelet Volume 10.1 7.4-10.4 fL Neutrophils (%) (Auto) 59.6 % Lymphocytes (%) (Auto) 30.6 % Monocytes (%) (Auto) 7.4 % Eosinophils (%) (Auto) 2.0 % Basophils (%) (Auto) 0.4 % Neutrophils # (Auto) 3.21 1.4-6.5 K/uL Lymphocytes # (Auto) 1.65 1.2-3.4 K/uL Monocytes # (Auto) 0.40 0.11-0.59 K/uL Eosinophils # (Auto) 0.11 0-0.5 K/uL Basophils # (Auto) 0.02 0-0.2 K/uL RDW Standard Deviation 40.5 36.4-46.3 fL RDW Coefficient of Variation 12.7 11.5-14.5 % Immature Granulocyte % (Auto) 0.0 % Immature Granulocyte # (Auto) 0.00 0.00-0.02 K/uL Sodium Level 139 136-145 mmol/L Potassium Level 3.6 3.5-5.1 mmol/L Chloride Level 109 98-107 mmol/L Carbon Dioxide Level 26 21-32 mmol/L Anion Gap 4.0 3-11 mmol/L Blood Urea Nitrogen 14 7-18 mg/dl Creatinine 0.89 0.60-1.40 mg/dl Est Creatinine Clear Calc Drug Dose 121.9 ml/min Estimated GFR () 128.4 Estimated GFR (Non- 110.8 BUN/Creatinine Ratio 15.8 10-20 Random Glucose 99 70-99 mg/dl Calcium Level 8.8 8.5-10.1 mg/dl Magnesium Level 2.2 1.8-2.4 mg/dl Total Bilirubin 0.7 0.2-1 mg/dl Aspartate Amino Transf (AST/SGOT) 23 15-37 U/L Alanine Aminotransferase (ALT/SGPT) 34 12-78 U/L Alkaline Phosphatase 122 45-117 U/L Total Protein 7.3 6.4-8.2 gm/dl Albumin 3.8 3.4-5.0 gm/dl Globulin 3.5 2.5-4.0 gm/dl Albumin/Globulin Ratio 1.1 0.9-2 Lipase 80 73-393 U/L Thyroid Stimulating Hormone (TSH) 3.070 0.300-4.500 uIu/ml Troponin I < 0.015 0-0.045 ng/ml Labs were reviewed and are within normal limits unless listed below. Labs are available in the chart and at [facility] Problem List Medical Problems: (1) Abscess Status: Acute (2) Bronchitis Status: Acute (3) Carpal tunnel syndrome on both sides Status: Acute (4) Encounter for removal of sutures Status: Acute (5) Finger laceration Status: Acute (6) Flank pain Status: Acute (7) Headache Status: Acute (8) Headache Status: Acute (9) Headache Status: Acute (10) Headache Status: Acute (11) Headache Status: Acute (12) Headache Status: Acute (13) Hematuria Status: Acute (14) Laceration Status: Acute (15) Left ureteral calculus Status: Acute (16) Malaise Status: Acute (17) Migraine Status: Acute (18) Migraine Status: Acute (19) Migraine Status: Acute (20) Migraine Status: Acute (21) Migraine Status: Acute (22) Migraine Status: Acute (23) Migraine headache Status: Acute (24) Migraine with aura Status: Acute (25) Pain of cheek Status: Acute (26) Rash Status: Acute (27) Rash Status: Acute (28) Renal colic Status: Acute (29) Rhus dermatitis Status: Acute (30) Sinusitis Status: Acute (31) Syncope Status: Acute (32) Ureteral stone with hydronephrosis Status: Acute (33) Wart Status: Acute Past History GERD, migraines, other (sleep apnea) Past Surgical History: no surgical history, cholecystectomy Family History Diabetes mellitus MOTHER GRANDFATHER FH: cancer FH: heart disease FATHER GRANDFATHER FH: lung disease Hypertension Kidney disease or stones kidney stones Social History Hx Tobacco Use In Past Year?: No Smoking: quit less than 1 year, other (chews tobacco) Alcohol: never Marital status: Housing status: lives with family Occupation status: employed Immunizations History of Influenza Vaccine: Yes Influenza Vaccine Date: Sep 16, 2008 History of Tetanus Vaccine?: Yes History of Pneumococcal: Yes History of Hepatitis B Vaccine: Yes History of MDRO No Allergies Coded Allergies: Benzoyl Peroxide (Verified Allergy, Mild, 10/18/17) Lactose Intolerance (Verified Allergy, Unknown, Unknown, 10/18/17) Risperidone (Verified Allergy, Unknown, "I FELT LIKE I WAS DRUNK", ) Hydrocodone (Verified Adverse Reaction, Mild, VOMITING, 10/18/17) Magnesium (Verified Adverse Reaction, Unknown, Nausea, GI upset, 10/18/17) Prednisone (Verified Adverse Reaction, Unknown, "messes up my mind, depressed", 10/18/17) Medications Home Medications: Home Meds and Scripts Medications Dose Route/Sig Max Daily Dose Days Date Category Dose Instructions Zofran Odt (Ondansetron HCl) 4 Mg Tab 4 Mg SL Q6H PRN 10/20/17 Reported Roxicodone Ir (Oxycodone HCl) 5 Mg Tab 1-2 Tab PO Q4H PRN 10/20/17 Reported Flomax (Tamsulosin Hcl) 0.4 Mg Cap 0.4 Mg PO DAILY 10/20/17 Reported BEGIN 10/18/17 X 7 DAYS. Buspirone HCl 10 Mg Tab 10 Mg PO BID PRN 07/01/17 Reported Dicyclomine Hcl 10 Mg Cap 10 Mg PO QID PRN 07/01/17 Reported Levothyroxine Sodium 75 Mcg Tab 75 Mcg PO QAM 07/01/17 Reported TAKE THIS MEDICATION ONCE DAILY 30 MINUTES BEFORE BREAKFAST OR ANY OTHER MEDICATION Multivitamin (Multivitamins) Tab 1 Tab PO DAILY 03/21/17 Reported Imitrex Nasal [place] (Sumatriptan Succinate) 5 Mg Aers 1 [place] NA UD PRN 12/30/16 Reported Ventolin Hfa (Albuterol) 200 Puffs/91400 Mcg Aers 2-4 Puffs INH Q4H PRN 12/30/16 Reported Pantoprazole Sodium (Pantoprazole) 40 Mg Tab 40 Mg PO HS 07/19/16 Reported Ranitidine HCl 150 Mg Tab 300 Mg PO BID 04/05/16 Reported Atorvastatin Calcium (Atorvastatin) 40 Mg Tab 40 Mg PO HS 04/05/16 Reported Elavil (Amitriptyline Hcl) 100 Mg Tab 100 Mg PO HS 12/24/15 Reported Advair Diskus 250/50 60 Dose (Fluticasone Prop/Salmeterol) 1 Ea Aerp 1 Puff INH BID PRN 04/01/14 Reported Inpatient Medications: Current Inpatient Medications Medications (Trade) Dose Ordered Sig/Denise Route Start Time Stop Time Status Last Admin Dose Admin Tamsulosin HCl (Flomax Cap) 0.4 mg QAM PO 10/21/17 09:00 11/20/17 08:59 Ketorolac Tromethamine (Toradol Inj) 30 mg Q6H PRN IV 10/20/17 04:45 10/25/17 04:44 Amitriptyline HCl (Elavil Tab) 100 mg HS PO 10/20/17 21:00 11/19/17 20:59 Atorvastatin Calcium (Lipitor Tab) 40 mg HS PO 10/20/17 21:00 11/19/17 20:59 Dicyclomine HCl (Bentyl Cap) 10 mg QID PRN PO 10/20/17 05:15 11/19/17 05:14 Salmeterol Xinafoate/ Fluticasone (Advair Diskus 250/50 Inh) 1 puff BID PRN INH 10/20/17 05:15 11/19/17 05:14 Levothyroxine Sodium (Synthroid Tab) 75 mcg DAILYBB PO 10/20/17 07:00 11/19/17 06:59 Multivitamins (Multivitamin Tab) 1 tab DAILY PO 10/20/17 09:00 11/19/17 08:59 Pantoprazole Sodium (Protonix Tab) 40 mg HS PO 10/20/17 21:00 11/19/17 20:59 Ranitidine HCl (zANTac TAB) 300 mg BID PO 10/20/17 09:00 11/19/17 08:59 Buspirone HCl (Buspar Tab) 10 mg BID PRN PO 10/20/17 05:15 11/19/17 05:14 Oxycodone/ Acetaminophen (Percocet 5-325mg Tab) pain not relieved by tylenol Q6H PRN PO 10/20/17 05:15 11/03/17 05:14 10/20/17 05:33 2 TAB Ibuprofen (Advil Tab) 400 mg Q6H PRN PO 10/20/17 05:15 11/19/17 05:14 Morphine Sulfate (MoRPHine SULFATE INJ) 4 mg Q4H PRN IV 10/20/17 05:15 11/03/17 05:14 10/20/17 08:22 4 MG Potassium Chloride/Sodium Chloride 1,000 ml @ 75 mls/hr [id number] ONCE IV 10/20/17 05:15 10/20/17 18:34 10/20/17 08:22 75 MLS/HR Acetaminophen (Tylenol Tab) 650 mg Q4H PRN PO 10/20/17 05:15 11/19/17 05:14 Buspirone HCl (Buspar Tab) 5 mg BID PRN PO 10/20/17 05:30 11/19/17 05:29 Prochlorperazine Edisylate 5 mg/ Syringe 5 ml @ 5 mls/min Q6H PRN IV 10/20/17 05:45 11/19/17 05:44 10/20/17 09:54 5 MLS/MIN Miscellaneous (Iv Fluids Completed) 1 ea PRN PRN N/A 10/20/17 05:45 10/20/18 05:44 Fentanyl Citrate (Fentanyl Inj) 50 mcg Q5M PRN IV 10/20/17 11:45 10/20/17 16:45 Ondansetron HCl (Zofran Inj) 4 mg ONE PRN IV 10/20/17 11:45 10/20/17 16:45 Ephedrine Sulfate (EpHEDrine SULFATE INJ) 5 mg Q5M PRN IV 10/20/17 11:45 10/20/17 16:45 Atropine Sulfate (Atropine Sulfate 0.1MG/Ml Inj) 0.5 mg Q1M PRN IV 10/20/17 11:45 10/20/17 16:45 Review of Systems Review of Systems Constitutional: No fever, No chills Neurological: + dizzy, + passing out Endocrine: + tired/sluggish, No too hot, No too cold Gastrointestinal: + abdominal pain, + indigestion, + nausea, + vomiting, No constipation, No diarrhea Cardiovascular: No chest pain, No irregular heartbeat, No palpitations, No swelling ankles/feet Respiratory: No shortness of breath, No chronic cough Male : + kidney stones, No frequent urination, No painful urination, No weak stream, No infections, No nocturia more than once/night Physical Exam Vital Signs: Vital Signs Past 12 Hours Date Time Temp Pulse Resp B/P (MAP) Pulse Ox O2 Delivery O2 Flow Rate FiO2 10/20/17 07:30 36.4 68 18 150/100 (117) 96 Room Air 10/20/17 07:16 62 18 144/96 98 10/20/17 07:10 98 Room Air 10/20/17 06:25 62 18 141/81 98 10/20/17 02:04 36.5 94 18 171/96 97 Room Air Physical Exam: General Appearance: WD/WN, no apparent distress, + thin, + pertinent finding ( anxious affect) Eyes: bilateral eyes normal inspection ENT: hearing grossly normal Neck: no adenopathy, no JVD, trachea midline Respiratory/Chest: normal breath sounds, no respiratory distress, no accessory muscle use Cardiovascular: regular rate, rhythm, no edema Extremities: non-tender, normal inspection, no pedal edema, no calf tenderness Neurologic/Psychiatric: alert, normal mood/affect, oriented x 3 Skin: normal color, warm/dry, no rash Assessment & Plan Assessment & Plan two left upper ueteral stones I offered pt observation to try to pass or left ureteroscopy laser litho basket stone extraction stent today he prefers ureteroscopy laser treatment/ I have explained surgery and possible complications. he had an opportunity to ask questions. 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
[2017-10-20] MEDS ORDERED: KETOROLAC TROMETHAMINE 30 MG/ML VIAL ONE (12:13)
[2017-10-20] MEDS ORDERED: BELLADONNA/OPIUM SUPP 60 MG SUPP PR ONE ×2 (12:35→12:47)
--- NOTE | 2017-10-20 12:53 | [facility] Operative Report ---
Operative Report Operative Date Oct 20, 2017. Pre-Operative Diagnosis Left Ureteral Stones, left renal stones Post-Operative Diagnosis Left Ureteral Stones, left renal stones Procedure(s) Performed Cystoscopy, Left Ureteroscopy, Laser Lithotripsy, Basket Stone Extraction, Left Stent Placement Surgeon Dr. Noriega Jumpbasting Canvas Baster Surgeon(s) none Estimated Blood Loss 2 cc Findings two radio-opaque stones in left upper ureter and radio-lucent stones in kidney Fluids 700mL Specimens A: Left ureteral stone for chemical analysis Drains 6 fr 22 centimeter double J stent Anesthesia LMA Complication(s) None Disposition Recovery Room / PACU Indications two obstructing stones in the left upper ureter with severe colic. Description of Procedure Patient was given general LMA anesthesia and placed in lithotomy position. His genitals were prepped and draped in sterile fashion. Time out held with team. I placed a 21 fr rigid cystoscope to bladder. The urethra is unremarkable. The prostate is small. The UOs are normal average size. I placed a stiff wire up left ureter and under fluoro watched the wire go past the 2 upper ureteral stones with some manipulation required. I then removed scope and used a dual lumen to both calibrate the left UO and place a second wire. I passed the flexible ureteroscope over the second wire up to the upper ureter. I used a 200 micron holmium laser to fragment both the ureteral stone into small pieces. I used a 2.4 fr zero tip basket to remove all but the tiniest fragments of stone from the ureter. I then went up to the left kidney and removed 2 stones from the lower pole calyces and removed them whole. I placed a 24 centimeter 6 Fr double J stent easily withthe string still on. I rinsed all the stone pieces out of the bladder and sent them for analysis. I left bladder empty and concluded case. I placed a belladonna and opium suppository for post-op pain. He transferred to recovery under my escort, in stable condition. 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 Any exceptions are noted below.
--- NOTE | 2017-10-20 12:55 | DIAGNOSTIC IMAGING REPORT ---
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 Nephrolithiasis. COMPARISON: CT 10/20/2017 TECHNIQUE: 2 spot fluoroscopic images of the left abdomen were obtained utilizing 24.1 seconds fluoroscopy time. FINDINGS: There has been interval placement of a double-J left ureteral stent which appears to be appropriately positioned. Previously noted calculi of the left ureter are not identified. IMPRESSION: Status post placement of a left ureteral stent which appears to be in satisfactory positioning. Please see procedural report for further details. The above report was generated using voice recognition software. It may contain grammatical, syntax or spelling errors. Electronically signed by: Edson Pabon M.D. 10/20/2017 12:53 PM Dictated Date/Time: 10/20/2017 12:52 PM
[2017-10-20] MEDS ORDERED: PHENAZOPYRIDINE HCL 200 MG TAB PO PRN (13:00)
[2017-10-20] MEDS ORDERED: HYDROmorphone INJ 0.5 MG/0.5 ML SYR ONE (13:36)
--- NOTE | 2017-10-20 13:55 | Anesthesiology Progress Note ---
Anesthesia Post Op Note Date & Time Oct 20, 2017 at 13:55 Vital Signs Pain Intensity: 4 Vital Signs Past 12 Hours Date Time Temp Pulse Resp B/P (MAP) Pulse Ox O2 Delivery O2 Flow Rate FiO2 10/20/17 13:46 36.4 71 15 135/72 98 Nasal Cannula 2 10/20/17 13:00 82 15 10/20/17 13:00 81 15 120/66 98 10/20/17 12:55 81 15 99/64 97 10/20/17 12:55 81 15 10/20/17 12:50 36.4 79 16 118/62 98 Mask 8 10/20/17 12:50 80 23 118/62 95 10/20/17 12:50 80 23 10/20/17 07:30 36.4 68 18 150/100 (117) 96 Room Air 10/20/17 07:16 62 18 144/96 98 10/20/17 07:10 98 Room Air 10/20/17 06:25 62 18 141/81 98 10/20/17 02:04 36.5 94 18 171/96 97 Room Air Notes Mental Status: alert / awake / arousable, participated in evaluation Pt Amnestic to Procedure: Yes Nausea / Vomiting: adequately controlled Pain: adequately controlled Airway Patency, RR, SpO2: stable & adequate BP & HR: stable & adequate Hydration State: stable & adequate Anesthetic Complications: no major complications apparent
--- NOTE | 2017-10-20 16:08 | Progress Note ---
Internal Med Progress Note Date of Service: Oct 20, 2017. Provider Documentation: SUBJECTIVE: Patient s/p urology procedure OBJECTIVE: Exam: General- patient with mild discomfort Eyes- EOMI ENT- no epistaxis Neck- no JVD Lungs- Clear to auscultation Heart- RRR Abdomen- soft, nontender Extremities- no edema Neuro- no focal neurological deficits ASSESSMENT & PLAN: Patient presented to hospital after flank pain and likely pain induced syncope Patient had normal Echocardiogram * Ejection Fraction = 60-65%. * The left ventricular wall motion is normal. * Grade I diastolic dysfunction, (abnormal relaxation pattern). * No significant valvular pathology. Procedure Details * A complete two-dimensional transthoracic echocardiogram was performed (2D, M-mode, Doppler and color flow Doppler). Left Ventricle * The left ventricle is normal in size. * There is normal left ventricular wall thickness. * Ejection Fraction = 60-65%. * Left ventricular systolic function is normal. * The left ventricular wall motion is normal. Right Ventricle * The right ventricle is normal size. * The right ventricular systolic function is normal as assessed by tricuspid annular plane systolic excursion (TAPSE) (normal >1.5 cm). Atria * The left atrial size is normal. * Right atrial size is normal. * There is no evidence of atrial septal defect, but resolution does not allow assessment for a patent foramen ovale. Mitral Valve * The mitral valve is normal. * There is no mitral valve stenosis. * Significant mitral regurgitation is absent. Tricuspid Valve * The tricuspid valve is normal. * There is no tricuspid stenosis. * Significant tricuspid regurgitation is absent. Aortic Valve * The aortic valve is trileaflet. * Aortic stenosis is absent. * There is no significant aortic regurgitation. Pulmonic Valve * The pulmonary valve is not well seen, but the Doppler examination is normal without significant regurgitation or stenosis. Great Vessels * The aortic root is normal size. Pericardium/Pleural * There is no pericardial effusion. Great Vessels * Normal inferior vena cava diameter and respiratory variation suggests normal central venous pressure. Left Ventricular Diastolic Function * Grade I diastolic dysfunction, (abnormal relaxation pattern). CT abdomen 1. Mild left-sided hydroureteronephrosis secondary to two calculi within the left ureter, the more proximal calculus measures up to 5 mm at the level of L3 and the more distal calculus measures up to 4 mm at the level of L4. Multiple additional bilateral nonobstructing renal calculi are also present. 2. Bilateral adrenal adenomas. 3. Prior cholecystectomy. Patient had following procedure by Dr. Noriega Cystoscopy, Left Ureteroscopy, Laser Lithotripsy, Basket Stone Extraction, Left Stent Placement Findings two radio-opaque stones in left upper ureter and radio-lucent stones in kidney were removed KUB ultrasound confirmed: placement of a left ureteral stent which appears to be in satisfactory positioning Plan: discharge home with: Pyridium for dysuria x 3 days flomax daily for 7 days oral pain meds as needed Follow up appointments: urology clinic for removal of stent if patient cannot do this on his own at home on Monday10/23/2017, [facility] [address], [place] [address] at 10/23/2017 8AM primary care doctor: 10/27/2017 11:00 AM Adrian Meza MD [facility] Vital Signs: Date Time Temp Pulse Resp B/P (MAP) Pulse Ox O2 Delivery O2 Flow Rate FiO2 10/20/17 15:27 36.3 63 18 120/71 (87) 99 2.0 10/20/17 14:56 36.3 71 18 131/81 (98) 97 Nasal Cannula 2.0 10/20/17 14:15 Nasal Cannula 2.0 10/20/17 14:15 36.2 77 18 156/94 (114) 96 Nasal Cannula 2.0 10/20/17 14:01 63 17 99 10/20/17 14:01 65 17 10/20/17 14:00 135/68 10/20/17 13:56 63 13 10/20/17 13:56 62 13 98 10/20/17 13:55 116/72 10/20/17 13:51 65 22 10/20/17 13:51 64 22 98 10/20/17 13:50 131/77 10/20/17 13:46 71 15 135/72 98 10/20/17 13:46 36.4 71 15 135/72 98 Nasal Cannula 2 10/20/17 13:46 73 15 10/20/17 13:41 69 19 10/20/17 13:41 73 19 98 10/20/17 13:40 136/97 10/20/17 13:36 65 9 119/70 98 10/20/17 13:36 65 9 10/20/17 13:31 74 22 145/82 99 10/20/17 13:31 75 22 10/20/17 13:30 135/99 10/20/17 13:26 80 19 10/20/17 13:26 79 19 140/85 99 10/20/17 13:21 73 14 98 10/20/17 13:21 73 14 10/20/17 13:20 132/84 10/20/17 13:16 84 25 10/20/17 13:16 83 25 98 10/20/17 13:15 149/101 10/20/17 13:11 86 34 10/20/17 13:11 85 34 147/90 95 10/20/17 13:06 89 16 10/20/17 13:06 89 16 99 10/20/17 13:05 148/87 10/20/17 13:01 90 21 98 10/20/17 13:01 90 21 10/20/17 13:00 82 15 10/20/17 13:00 81 15 120/66 98 10/20/17 12:55 81 15 99/64 97 10/20/17 12:55 81 15 10/20/17 12:50 36.4 79 16 118/62 98 Mask 8 10/20/17 12:50 80 23 118/62 95 10/20/17 12:50 80 23 10/20/17 07:30 36.4 68 18 150/100 (117) 96 Room Air 10/20/17 07:16 62 18 144/96 98 10/20/17 07:10 98 Room Air 10/20/17 06:25 62 18 141/81 98 10/20/17 02:04 36.5 94 18 171/96 97 Room Air Lab Results: Results Past 24 Hours Test 10/20/17 00:00 10/20/17 02:40 10/20/17 02:55 10/20/17 05:36 Range/Units Urine Color YELLOW Urine Appearance CLEAR CLEAR Urine pH 5.0 4.5-7.5 Urine Specific [place] 1.022 1.000-1.030 Urine Protein TRACE NEG Urine Glucose (UA) NEG NEG Urine Ketones NEG NEG Urine Occult Blood 2+ NEG Urine Nitrite NEG NEG Urine Bilirubin NEG NEG Urine Urobilinogen NEG NEG Urine Leukocyte Esterase NEG NEG Urine WBC (Auto) 1-5 0-5 /hpf Urine RBC (Auto) 10-30 0-4 /hpf Urine Hyaline Casts (Auto) 10-30 0-5 /lpf Urine Epithelial Cells (Auto) >30 0-5 /lpf Urine Bacteria (Auto) NEG NEG White Blood Count 5.39 4.8-10.8 K/uL Red Blood Count 4.19 4.7-6.1 M/uL Hemoglobin 12.5 14.0-18.0 g/dL Hematocrit 36.3 42-52 % Mean Corpuscular Volume 86.6 80-100 fL Mean Corpuscular Hemoglobin 29.8 25-34 pg Mean Corpuscular Hemoglobin Concent 34.4 32-36 g/dl Platelet Count 211 130-400 K/uL Mean Platelet Volume 10.1 7.4-10.4 fL Neutrophils (%) (Auto) 59.6 % Lymphocytes (%) (Auto) 30.6 % Monocytes (%) (Auto) 7.4 % Eosinophils (%) (Auto) 2.0 % Basophils (%) (Auto) 0.4 % Neutrophils # (Auto) 3.21 1.4-6.5 K/uL Lymphocytes # (Auto) 1.65 1.2-3.4 K/uL Monocytes # (Auto) 0.40 0.11-0.59 K/uL Eosinophils # (Auto) 0.11 0-0.5 K/uL Basophils # (Auto) 0.02 0-0.2 K/uL RDW Standard Deviation 40.5 36.4-46.3 fL RDW Coefficient of Variation 12.7 11.5-14.5 % Immature Granulocyte % (Auto) 0.0 % Immature Granulocyte # (Auto) 0.00 0.00-0.02 K/uL Sodium Level 139 136-145 mmol/L Potassium Level 3.6 3.5-5.1 mmol/L Chloride Level 109 98-107 mmol/L Carbon Dioxide Level 26 21-32 mmol/L Anion Gap 4.0 3-11 mmol/L Blood Urea Nitrogen 14 7-18 mg/dl Creatinine 0.89 0.60-1.40 mg/dl Est Creatinine Clear Calc Drug Dose 121.9 ml/min Estimated GFR () 128.4 Estimated GFR (Non- 110.8 BUN/Creatinine Ratio 15.8 10-20 Random Glucose 99 70-99 mg/dl Calcium Level 8.8 8.5-10.1 mg/dl Magnesium Level 2.2 1.8-2.4 mg/dl Total Bilirubin 0.7 0.2-1 mg/dl Aspartate Amino Transf (AST/SGOT) 23 15-37 U/L Alanine Aminotransferase (ALT/SGPT) 34 12-78 U/L Alkaline Phosphatase 122 45-117 U/L Total Protein 7.3 6.4-8.2 gm/dl Albumin 3.8 3.4-5.0 gm/dl Globulin 3.5 2.5-4.0 gm/dl Albumin/Globulin Ratio 1.1 0.9-2 Lipase 80 73-393 U/L Thyroid Stimulating Hormone (TSH) 3.070 0.300-4.500 uIu/ml Troponin I < 0.015 0-0.045 ng/ml
[2017-10-20] MEDS ORDERED: PHEN-775 PO (16:26)
[2017-10-20] MEDS ORDERED: FLM4 PO (16:26)
[2017-10-20] MEDS ORDERED: ACET-1047 OR (16:30)
--- NOTE | 2017-10-20 16:35 | Discharge Instructions ---
Discharge Instructions Date of Service Oct 20, 2017. Admission Reason for Admission: Syncope Discharge Discharge Diagnosis / Problem: flank pain, pain induced syncope, left hydronephrosis due to kidney stone Discharge Goals Goal(s): Decrease discomfort, Improve function Activity Recommendations Activity Limitations: resume your previous activity Shower/Bathe: no limitations . Instructions / Follow-Up Instructions / Follow-Up Patient presented to hospital after flank pain and likely pain induced syncope Patient had normal Echocardiogram * Ejection Fraction = 60-65%. * The left ventricular wall motion is normal. * Grade I diastolic dysfunction, (abnormal relaxation pattern). * No significant valvular pathology. Procedure Details * A complete two-dimensional transthoracic echocardiogram was performed (2D, M-mode, Doppler and color flow Doppler). Left Ventricle * The left ventricle is normal in size. * There is normal left ventricular wall thickness. * Ejection Fraction = 60-65%. * Left ventricular systolic function is normal. * The left ventricular wall motion is normal. Right Ventricle * The right ventricle is normal size. * The right ventricular systolic function is normal as assessed by tricuspid annular plane systolic excursion (TAPSE) (normal >1.5 cm). Atria * The left atrial size is normal. * Right atrial size is normal. * There is no evidence of atrial septal defect, but resolution does not allow assessment for a patent foramen ovale. Mitral Valve * The mitral valve is normal. * There is no mitral valve stenosis. * Significant mitral regurgitation is absent. Tricuspid Valve * The tricuspid valve is normal. * There is no tricuspid stenosis. * Significant tricuspid regurgitation is absent. Aortic Valve * The aortic valve is trileaflet. * Aortic stenosis is absent. * There is no significant aortic regurgitation. Pulmonic Valve * The pulmonary valve is not well seen, but the Doppler examination is normal without significant regurgitation or stenosis. Great Vessels * The aortic root is normal size. Pericardium/Pleural * There is no pericardial effusion. Great Vessels * Normal inferior vena cava diameter and respiratory variation suggests normal central venous pressure. Left Ventricular Diastolic Function * Grade I diastolic dysfunction, (abnormal relaxation pattern). CT abdomen 1. Mild left-sided hydroureteronephrosis secondary to two calculi within the left ureter, the more proximal calculus measures up to 5 mm at the level of L3 and the more distal calculus measures up to 4 mm at the level of L4. Multiple additional bilateral nonobstructing renal calculi are also present. 2. Bilateral adrenal adenomas. 3. Prior cholecystectomy. Patient had following procedure by Dr. Noriega Cystoscopy, Left Ureteroscopy, Laser Lithotripsy, Basket Stone Extraction, Left Stent Placement Findings two radio-opaque stones in left upper ureter and radio-lucent stones in kidney were removed KUB ultrasound confirmed: placement of a left ureteral stent which appears to be in satisfactory positioning Plan: discharge home with: Pyridium for dysuria x 3 days flomax daily for 7 days oral pain meds as needed Follow up appointments: urology clinic for removal of stent if patient cannot do this on his own at home on Monday10/23/2017, Urology clinic [facility] [address] [address] at 10/23/2017 8AM primary care doctor: 10/27/2017 11:00 AM Adrian Meza MD [facility] Diet Patient's current hospital diet: AHA Diet (Heart Healthy) Discharge Diet Recommended Diet: AHA Diet (Heart Healthy) Procedures Procedures Performed: Cystoscopy, Left Ureteroscopy, Laser Lithotripsy, Basket Stone Extraction, Left Stent Placement Pending Studies Studies pending at discharge: no Laboratory Results 10/20/17 02:55 Red Blood Count 4.19, Mean Corpuscular Volume 86.6, Mean Corpuscular Hemoglobin 29.8, Mean Corpuscular Hemoglobin Concent 34.4, Mean Platelet Volume 10.1, Neutrophils (%) (Auto) 59.6, Lymphocytes (%) (Auto) 30.6, Monocytes (%) (Auto) 7.4, Eosinophils (%) (Auto) 2.0, Basophils (%) (Auto) 0.4, Neutrophils # (Auto) 3.21, Lymphocytes # (Auto) 1.65, Monocytes # (Auto) 0.40, Eosinophils # (Auto) 0.11, Basophils # (Auto) 0.02 10/20/17 02:55 Test 10/20/17 00:00 10/20/17 02:40 10/20/17 02:55 10/20/17 05:36 Urine Color YELLOW Urine Appearance CLEAR (CLEAR) Urine pH 5.0 (4.5-7.5) Urine Specific [place] 1.022 (1.000-1.030) Urine Protein TRACE (NEG) Urine Glucose (UA) NEG (NEG) Urine Ketones NEG (NEG) Urine Occult Blood 2+ (NEG) Urine Nitrite NEG (NEG) Urine Bilirubin NEG (NEG) Urine Urobilinogen NEG (NEG) Urine Leukocyte Esterase NEG (NEG) Urine WBC (Auto) 1-5 /hpf (0-5) Urine RBC (Auto) 10-30 /hpf (0-4) Urine Hyaline Casts (Auto) 10-30 /lpf (0-5) Urine Epithelial Cells (Auto) >30 /lpf (0-5) Urine Bacteria (Auto) NEG (NEG) White Blood Count 5.39 K/uL (4.8-10.8) Red Blood Count 4.19 M/uL (4.7-6.1) Hemoglobin 12.5 g/dL (14.0-18.0) Hematocrit 36.3 % (42-52) Mean Corpuscular Volume 86.6 fL (80-100) Mean Corpuscular Hemoglobin 29.8 pg (25-34) Mean Corpuscular Hemoglobin Concent 34.4 g/dl (32-36) Platelet Count 211 K/uL (130-400) Mean Platelet Volume 10.1 fL (7.4-10.4) Neutrophils (%) (Auto) 59.6 % Lymphocytes (%) (Auto) 30.6 % Monocytes (%) (Auto) 7.4 % Eosinophils (%) (Auto) 2.0 % Basophils (%) (Auto) 0.4 % Neutrophils # (Auto) 3.21 K/uL (1.4-6.5) Lymphocytes # (Auto) 1.65 K/uL (1.2-3.4) Monocytes # (Auto) 0.40 K/uL (0.11-0.59) Eosinophils # (Auto) 0.11 K/uL (0-0.5) Basophils # (Auto) 0.02 K/uL (0-0.2) RDW Standard Deviation 40.5 fL (36.4-46.3) RDW Coefficient of Variation 12.7 % (11.5-14.5) Immature Granulocyte % (Auto) 0.0 % Immature Granulocyte # (Auto) 0.00 K/uL (0.00-0.02) Anion Gap 4.0 mmol/L (3-11) Est Creatinine Clear Calc Drug Dose 121.9 ml/min Estimated GFR () 128.4 Estimated GFR (Non- 110.8 BUN/Creatinine Ratio 15.8 (10-20) Calcium Level 8.8 mg/dl (8.5-10.1) Magnesium Level 2.2 mg/dl (1.8-2.4) Total Bilirubin 0.7 mg/dl (0.2-1) Aspartate Amino Transf (AST/SGOT) 23 U/L (15-37) Alanine Aminotransferase (ALT/SGPT) 34 U/L (12-78) Alkaline Phosphatase 122 U/L (45-117) Total Protein 7.3 gm/dl (6.4-8.2) Albumin 3.8 gm/dl (3.4-5.0) Globulin 3.5 gm/dl (2.5-4.0) Albumin/Globulin Ratio 1.1 (0.9-2) Lipase 80 U/L (73-393) Thyroid Stimulating Hormone (TSH) 3.070 uIu/ml (0.300-4.500) Troponin I < 0.015 ng/ml (0-0.045) Medical Emergencies . Who to Call and When: Medical Emergencies: If at any time you feel your situation is an emergency, please call 911 immediately. . Non-Emergent Contact Non-Emergency issues call your: Primary Care Provider, Urologist (Christelle Noriega) Call Non-Emergent contact if: you have a fever, your pain is not controlled . . "Provider Documentation" section prepared by Bertrand Holloway. . VTE Core Measure Inpt VTE Proph given/why not?: SCD's
--- NOTE | 2017-10-20 16:36 | Discharge Summary ---
Discharge Summary Date of Service Oct 20, 2017. Discharge Summary Admission Date: Oct 20, 2017 at 05:05 Discharge Date: Oct 20, 2017 Discharge Disposition: Home Principal Diagnosis: flank pain and likely pain induced syncope Mild left-sided hydroureteronephrosis secondary to two calculi within the left ureter, the more proximal calculus measures up to 5 mm at the level of L3 and the more distal calculus measures up to 4 mm at the level of L4. Multiple additional bilateral nonobstructing renal calculi are also present. Bilateral adrenal adenomas. Patient had following procedure by Dr. Noriega Cystoscopy, Left Ureteroscopy, Laser Lithotripsy, Basket Stone Extraction, Left Stent Placement Consultations: urology Medication Reconciliation New Medications: Acetaminophen (Mapap) 325 Mg Tab 1 TAB OR Q6 PRN for Pain for 10 Days, #40 TAB Phenazopyridine Hcl (Pyridium) 200 Mg Tab 1 TAB PO TID for 3 Days, #9 TAB Tamsulosin HCl (Tamsulosin HCl) 0.4 Mg Cap 0.4 MG PO QAM for 7 Days, #7 CAP Continued Medications: Albuterol Hfa (Ventolin Hfa) 200 Puffs/69434 Mcg Aers 2-4 PUFFS INH Q4H PRN for SOB/Wheezing, INHALER Amitriptyline Hcl (Elavil) 100 Mg Tab 100 MG PO HS Atorvastatin (Atorvastatin Calcium) 40 Mg Tab 40 MG PO HS Buspirone HCl (Buspirone HCl) 10 Mg Tab 10 MG PO BID PRN for Anxiety Dicyclomine Hcl (Dicyclomine Hcl) 10 Mg Cap 10 MG PO QID PRN for Abdominal Pain Fluticasone Prop/Salmeterol (Advair Diskus 250/50 60 Dose) 1 Ea Aerp 1 PUFF INH BID PRN for Wheezing Levothyroxine Sodium (Levothyroxine Sodium) 75 Mcg Tab 75 MCG PO QAM TAKE THIS MEDICATION ONCE DAILY 30 MINUTES BEFORE BREAKFAST OR ANY OTHER MEDICATION Multivitamin (Multivitamin) Tab 1 TAB PO DAILY, TAB Ondasetron Odt (Zofran Odt) 4 Mg Tab 4 MG SL Q6H PRN for Nausea Oxycodone Ir (Roxicodone Ir) 5 Mg Tab 1-2 TAB PO Q4H PRN for Severe Pain, TAB Pantoprazole (Pantoprazole Sodium) 40 Mg Tab 40 MG PO HS Ranitidine HCl (Ranitidine HCl) 150 Mg Tab 300 MG PO BID Sumatriptan Succinate (Imitrex Nasal [place]) 5 Mg Aers 1 SPRAY NA UD PRN for Headache, BTL Tamsulosin Hcl (Flomax) 0.4 Mg Cap 0.4 MG PO DAILY, CAP BEGIN 10/18/17 X 7 DAYS. Hospital Course Patient presented to hospital after flank pain and likely pain induced syncope Patient had normal Echocardiogram * Ejection Fraction = 60-65%. * The left ventricular wall motion is normal. * Grade I diastolic dysfunction, (abnormal relaxation pattern). * No significant valvular pathology. Procedure Details * A complete two-dimensional transthoracic echocardiogram was performed (2D, M-mode, Doppler and color flow Doppler). Left Ventricle * The left ventricle is normal in size. * There is normal left ventricular wall thickness. * Ejection Fraction = 60-65%. * Left ventricular systolic function is normal. * The left ventricular wall motion is normal. Right Ventricle * The right ventricle is normal size. * The right ventricular systolic function is normal as assessed by tricuspid annular plane systolic excursion (TAPSE) (normal >1.5 cm). Atria * The left atrial size is normal. * Right atrial size is normal. * There is no evidence of atrial septal defect, but resolution does not allow assessment for a patent foramen ovale. Mitral Valve * The mitral valve is normal. * There is no mitral valve stenosis. * Significant mitral regurgitation is absent. Tricuspid Valve * The tricuspid valve is normal. * There is no tricuspid stenosis. * Significant tricuspid regurgitation is absent. Aortic Valve * The aortic valve is trileaflet. * Aortic stenosis is absent. * There is no significant aortic regurgitation. Pulmonic Valve * The pulmonary valve is not well seen, but the Doppler examination is normal without significant regurgitation or stenosis. Great Vessels * The aortic root is normal size. Pericardium/Pleural * There is no pericardial effusion. Great Vessels * Normal inferior vena cava diameter and respiratory variation suggests normal central venous pressure. Left Ventricular Diastolic Function * Grade I diastolic dysfunction, (abnormal relaxation pattern). CT abdomen 1. Mild left-sided hydroureteronephrosis secondary to two calculi within the left ureter, the more proximal calculus measures up to 5 mm at the level of L3 and the more distal calculus measures up to 4 mm at the level of L4. Multiple additional bilateral nonobstructing renal calculi are also present. 2. Bilateral adrenal adenomas. 3. Prior cholecystectomy. Patient had following procedure by Dr. Noriega Cystoscopy, Left Ureteroscopy, Laser Lithotripsy, Basket Stone Extraction, Left Stent Placement Findings two radio-opaque stones in left upper ureter and radio-lucent stones in kidney were removed KUB ultrasound confirmed: placement of a left ureteral stent which appears to be in satisfactory positioning Plan: discharge home with: Pyridium for dysuria x 3 days flomax daily for 7 days oral pain meds as needed Follow up appointments: urology clinic for removal of stent if patient cannot do this on his own at home on Monday10/23/2017, [facility] [address], [place] [address] at 10/23/2017 8AM primary care doctor: 10/27/2017 11:00 AM Adrian Meza MD [facility] Total time spent on discharge = This includes examination of the patient, discharge planning, medication reconciliation, and communication with other providers. Discharge Instructions see above
[2017-10-20] MEDS ORDERED: ATORVASTATIN 40 MG TAB PO SCH (21:00)
[2017-10-20] MEDS ORDERED: AMITRIPTYLINE HCL 100 MG TAB PO SCH (21:00)
[2017-10-20] MEDS ORDERED: PANTOprazole SOD 40 MG TAB PO SCH (21:00)
[2017-10-21] MEDS ORDERED: CEFAZOLIN SOD 2000MG/10 ML IV PUSH IV ONE (06:00)
[2017-10-21] MEDS ORDERED: TAMSULOSIN HCL 0.4 MG CAP PO SCH (09:00)
[2017-10-21] MEDS ORDERED: NITR-5 PO (16:24)
--- NOTE | 2017-10-21 22:15 | EMERGENCY ROOM VISIT NOTE ---
History First contact with patient: 02:08 Chief Complaint: URINARY SYMPTOMS Stated Complaint: SYNCOPE Nursing Triage Summary: patient diagnosed with 4mm kidney stone last night and sent home . patient stated pain is increasing and he " passed out " from pain at home. History of Present Illness The patient is a 37 year old male who presents to the Emergency Room with complaints of left-sided flank pain that began a few days ago. The patient was seen and evaluated at this facility where x-ray and ultrasound were highly suggestive of a 4 mm ureteral calculi. The patient was given medication at that visit, and did feel well for discharge home. The patient does have a history of kidney stones in the past. He has been using oxycodone and Zofran at home, but states that he is not able to keep his pain under control tonight. He does not have fever or chills. He has urinary frequency. He rates the pain a 10/10. Review of Systems More than 10 systems were reviewed and otherwise negative with the exception of history of present illness. Past Medical/Surgical History Medical Problems: (1) Asthma (2) Finger fracture, right (3) Gastroparesis (4) GERD (gastroesophageal reflux disease) (5) Hyperlipidemia (6) Hypothyroidism (7) Intractable pain (8) Migraine (9) JESI (obstructive sleep apnea) (10) Renal calculi (11) Syncope Surgical Problems: (1) Cholecystectomy (2) History of dental surgery (3) Hx of esophagogastroduodenoscopy Family History Diabetes mellitus MOTHER GRANDFATHER FH: cancer FH: heart disease FATHER GRANDFATHER FH: lung disease Hypertension Kidney disease or stones Social History Smoking Status: Former Smoker Alcohol Use: none Drug Use: none Marital Status: Housing Status: lives with family Occupation Status: employed Current/Historical Medications Scheduled Amitriptyline Hcl (Elavil), 100 MG PO HS Atorvastatin (Atorvastatin Calcium), 40 MG PO HS Levothyroxine Sodium (Levothyroxine Sodium), 75 MCG PO QAM Multivitamin (Multivitamin), 1 TAB PO DAILY Nitrofurantoin Monohyd Macrocr (Macrobid), 100 MG PO BID Pantoprazole (Pantoprazole Sodium), 40 MG PO HS Phenazopyridine Hcl (Pyridium), 1 TAB PO TID Ranitidine HCl (Ranitidine HCl), 300 MG PO BID Tamsulosin HCl (Tamsulosin HCl), 0.4 MG PO QAM Tamsulosin Hcl (Flomax), 0.4 MG PO DAILY Scheduled PRN Acetaminophen (Mapap), 1 TAB OR Q6 PRN for Pain Albuterol Hfa (Ventolin Hfa), 2-4 PUFFS INH Q4H PRN for SOB/Wheezing Buspirone HCl (Buspirone HCl), 10 MG PO BID PRN for Anxiety Dicyclomine Hcl (Dicyclomine Hcl), 10 MG PO QID PRN for Abdominal Pain Fluticasone Prop/Salmeterol (Advair Diskus 250/50 60 Dose), 1 PUFF INH BID PRN for Wheezing Ondasetron Odt (Zofran Odt), 4 MG SL Q6H PRN for Nausea Oxycodone Ir (Roxicodone Ir), 1-2 TAB PO Q4H PRN for Severe Pain Sumatriptan Succinate (Imitrex Nasal [place]), 1 SPRAY NA UD PRN for Headache Physical Exam Vital Signs Date Time Temp Pulse Resp B/P (MAP) Pulse Ox O2 Delivery O2 Flow Rate FiO2 10/20/17 02:04 36.5 94 18 171/96 97 Room Air Physical Exam VITALS: Vitals are noted on the nurse's note and reviewed by myself. Vital signs stable. GENERAL: White male who appears in significant discomfort. He is pale in the face and indicates that he is nauseated. HEART: Regular rate and rhythm without murmurs gallops or rubs. LUNGS: Clear to auscultation bilaterally without wheezes, rales or rhonchi. No retractions or accessory muscle use. ABDOMEN: Positive normal bowel sounds x 4. Soft, nontender, without masses or organomegaly. No guarding or rebound tenderness. No CVA tenderness. MUSCULOSKELETAL: No muscle atrophy, erythema, or edema noted. Full range of motion without joint tenderness in all extremities. Medical Decision & Procedures ER Provider Diagnostic Interpretation: ABDOMEN AND PELVIS CT WITHOUT CONTRAST CT DOSE: 432.43 mGy.cm HISTORY: Acute left-sided flank pain Left flank pain. Stone vs other? TECHNIQUE: Multiaxial CT images of the abdomen and pelvis were performed without contrast. A dose lowering technique was utilized adhering to the principles of ALARA. COMPARISON STUDY: Renal ultrasound 10/18/2017 CT abdomen and pelvis 03/06/2017. FINDINGS: Lung bases are generally clear with mild subsegmental bibasilar atelectasis. No pneumatosis or pneumoperitoneum. Imaged inferior cardiac chambers are unremarkable. Prior cholecystectomy. Liver, spleen, and pancreas are unremarkable. Bilateral low attenuating lesions of the adrenal glands are again seen with lesion on the right measuring 10 x 13 mm and on the left measuring 11 x 13 mm. There are at least 7 nonobstructing calculi on the left largest measuring up to 4 mm. There are least 14 nonobstructing calculi on the right, largest measuring up to 5 mm. Normal right ureter. 5 x 3 x 5 mm calculus of the proximal left ureter is seen at the level of L3 with a 4 x 4 x 4 mm calculus noted approximately 3 cm distally to the first calculus at the level of L4. There is associated mild left-sided hydroureteronephrosis. Urinary bladder and prostate are unremarkable. Aorta is normal in course and caliber. No bulky adenopathy. No bowel obstruction or focal bowel wall thickening. The appendix appears normal. Soft tissues are unremarkable. Bones appear intact. IMPRESSION: 1. Mild left-sided hydroureteronephrosis secondary to two calculi within the left ureter, the more proximal calculus measures up to 5 mm at the level of L3 and the more distal calculus measures up to 4 mm at the level of L4. Multiple additional bilateral nonobstructing renal calculi are also present. 2. Bilateral adrenal adenomas. 3. Prior cholecystectomy. Laboratory Results 10/20/17 02:55 Red Blood Count 4.19, Mean Corpuscular Volume 86.6, Mean Corpuscular Hemoglobin 29.8, Mean Corpuscular Hemoglobin Concent 34.4, Mean Platelet Volume 10.1, Neutrophils (%) (Auto) 59.6, Lymphocytes (%) (Auto) 30.6, Monocytes (%) (Auto) 7.4, Eosinophils (%) (Auto) 2.0, Basophils (%) (Auto) 0.4, Neutrophils # (Auto) 3.21, Lymphocytes # (Auto) 1.65, Monocytes # (Auto) 0.40, Eosinophils # (Auto) 0.11, Basophils # (Auto) 0.02 10/20/17 02:55 Test 10/20/17 00:00 10/20/17 02:40 10/20/17 02:55 Urine Color YELLOW Urine Appearance CLEAR (CLEAR) Urine pH 5.0 (4.5-7.5) Urine Specific [place] 1.022 (1.000-1.030) Urine Protein TRACE (NEG) Urine Glucose (UA) NEG (NEG) Urine Ketones NEG (NEG) Urine Occult Blood 2+ (NEG) Urine Nitrite NEG (NEG) Urine Bilirubin NEG (NEG) Urine Urobilinogen NEG (NEG) Urine Leukocyte Esterase NEG (NEG) Urine WBC (Auto) 1-5 /hpf (0-5) Urine RBC (Auto) 10-30 /hpf (0-4) Urine Hyaline Casts (Auto) 10-30 /lpf (0-5) Urine Epithelial Cells (Auto) >30 /lpf (0-5) Urine Bacteria (Auto) NEG (NEG) White Blood Count 5.39 K/uL (4.8-10.8) Red Blood Count 4.19 M/uL (4.7-6.1) Hemoglobin 12.5 g/dL (14.0-18.0) Hematocrit 36.3 % (42-52) Mean Corpuscular Volume 86.6 fL (80-100) Mean Corpuscular Hemoglobin 29.8 pg (25-34) Mean Corpuscular Hemoglobin Concent 34.4 g/dl (32-36) Platelet Count 211 K/uL (130-400) Mean Platelet Volume 10.1 fL (7.4-10.4) Neutrophils (%) (Auto) 59.6 % Lymphocytes (%) (Auto) 30.6 % Monocytes (%) (Auto) 7.4 % Eosinophils (%) (Auto) 2.0 % Basophils (%) (Auto) 0.4 % Neutrophils # (Auto) 3.21 K/uL (1.4-6.5) Lymphocytes # (Auto) 1.65 K/uL (1.2-3.4) Monocytes # (Auto) 0.40 K/uL (0.11-0.59) Eosinophils # (Auto) 0.11 K/uL (0-0.5) Basophils # (Auto) 0.02 K/uL (0-0.2) RDW Standard Deviation 40.5 fL (36.4-46.3) RDW Coefficient of Variation 12.7 % (11.5-14.5) Immature Granulocyte % (Auto) 0.0 % Immature Granulocyte # (Auto) 0.00 K/uL (0.00-0.02) Anion Gap 4.0 mmol/L (3-11) Est Creatinine Clear Calc Drug Dose 121.9 ml/min Estimated GFR () 128.4 Estimated GFR (Non- 110.8 BUN/Creatinine Ratio 15.8 (10-20) Calcium Level 8.8 mg/dl (8.5-10.1) Magnesium Level 2.2 mg/dl (1.8-2.4) Total Bilirubin 0.7 mg/dl (0.2-1) Aspartate Amino Transf (AST/SGOT) 23 U/L (15-37) Alanine Aminotransferase (ALT/SGPT) 34 U/L (12-78) Alkaline Phosphatase 122 U/L (45-117) Total Protein 7.3 gm/dl (6.4-8.2) Albumin 3.8 gm/dl (3.4-5.0) Globulin 3.5 gm/dl (2.5-4.0) Albumin/Globulin Ratio 1.1 (0.9-2) Lipase 80 U/L (73-393) Thyroid Stimulating Hormone (TSH) 3.070 uIu/ml (0.300-4.500) Medications Administered Medications (Trade) Dose Ordered Sig/Denise Route Start Time Stop Time Status Last Admin Dose Admin Hydromorphone HCl (Dilaudid Inj) 1 mg NOW STAT IV 10/20/17 02:29 10/20/17 02:31 DC 10/20/17 03:09 1 MG Ondansetron HCl (Zofran Inj) 4 mg NOW STAT IV 10/20/17 02:29 10/20/17 02:31 DC 10/20/17 03:07 4 MG Sodium Chloride 1,000 ml @ 999 mls/hr Q1H1M ONCE IV 10/20/17 02:30 10/20/17 03:30 DC 10/20/17 03:03 999 MLS/HR Hydromorphone HCl (Dilaudid Inj) 1 mg NOW STAT IV 10/20/17 04:03 10/20/17 04:05 DC 10/20/17 04:03 1 MG Tamsulosin HCl (Flomax Cap) 0.4 mg NOW STAT PO 10/20/17 04:18 10/20/17 04:19 DC 12/1/17 04:18 0.4 MG Ketorolac Tromethamine (Toradol Inj) 30 mg NOW STAT IV 10/20/17 04:38 10/20/17 04:48 DC 10/20/17 04:38 30 MG ED Course Physical exam and history were performed. Nursing notes, EMR, and Medication List were personally reviewed. Patient appears to have persistent symptoms consistent with a ureteral calculi. IV access was established and labs were obtained. The patient was given IV Dilaudid and IV fluids here in the department. CT scan was performed. The patient's blood work is as above and was reviewed. He does not have significant elevated white blood cell count, gross anemia, bandemia, or significant electrolyte imbalance. Urine is without obvious infection with culture pending. CT scan shows two left ureteral calculi measuring roughly 4-5 mm each. I discussed his care with the patient, who does not feel well for discharge home. He is not able to keep his pain controlled with oral medication. I discussed the case with the on-call [facility] hospitalist, who agreed to evaluate the patient here in the department. Please see their dictation for further patient course, plan, and disposition. The chart was completed utilizing [employer] Speech Voice Recognition Software. Grammatical errors, random word insertions, pronoun errors, and incomplete sentences are an occasional consequence of this system due to software limitations, ambient noise, and hardware issues. Any formal questions or concerns about the content, text, or information contained within the body of this dictation should be directly addressed to the provider for clarification. . Medical Decision Differential diagnosis: Etiologies such as renal colic, appendicitis, diverticulitis, mesenteric ischemia, aortic pathology, infections, inflammatory bowel disease, PUD, biliary pathology, UTI, as well as others were entertained. Impression Primary Impression: Left ureteral calculus Departure Information Dispostion Still a Patient Condition GOOD Prescriptions Acetaminophen (MAPAP) 325 Mg Tab 1 TAB OR Q6 Y for Pain for 10 Days, #40 TAB Prov: Bertrand Holloway M.D. 10/20/17 Phenazopyridine Hcl (PYRIDIUM) 200 Mg Tab 1 TAB PO TID for 3 Days, #9 TAB Prov: Bertrand Holloway M.D. 10/20/17 Tamsulosin HCl (Tamsulosin HCl) 0.4 Mg Cap 0.4 MG PO QAM for 7 Days, #7 CAP Prov: Bertrand Holloway M.D. 10/20/17 Referrals Adrian Meza M.D. (PCP) Forms HOME CARE DOCUMENTATION FORM, IMPORTANT VISIT INFORMATION Patient Instructions [facility]
== END 2017-10-20 17:50 | disposition home or self-care (01) ==
LOC: C.EDB 01:57 → C.MED 05:05 → ENRESERV 06:03
PROVIDERS: ADMIT Hospitalist; ATTEND Hospitalist
DX: R10.9 Unspecified abdominal pain (principal); R55 Syncope and collapse; N13.30 Unspecified hydronephrosis; N20.1 Calculus of ureter; N20.0 Calculus of kidney; D35.01 Benign neoplasm of right adrenal gland; D35.02 Benign neoplasm of left adrenal gland; J45.909 Unspecified asthma, uncomplicated; G47.33 Obstructive sleep apnea (adult) (pediatric); Z79.899 Other long term (current) drug therapy; Z98.818 Other dental procedure status; Z87.891 Personal history of nicotine dependence; Z90.49 Acquired absence of other specified parts of digestive tract; E66.9 Obesity, unspecified; Z68.30 Body mass index [BMI] 30.0-30.9, adult; Z82.49 Family history of ischemic heart disease and other diseases of the circulatory system; Z83.3 Family history of diabetes mellitus

== ENCOUNTER 2017-10-24 10:07 | Emergency (ER) | payer OTHER ==
[~2017-10-24] VITALS: Ht 170.2 cm; Wt 89.3 kg
[~2017-10-24 10:07] MED LIST changes: +ACET-1047 OR; +FLM4 PO; +NITR-5 PO; +PHEN-775 PO
[2017-10-24 10:14] VITALS: Ht 170.2 cm; Wt 89.3 kg
[2017-10-24] MEDS ORDERED: HYDROmorphone INJ 1 MG/ML SYR IV STA (10:49)
[2017-10-24] MEDS ORDERED: ONDANSETRON INJ 2 MG/ML 2 ML VIAL IV STA (10:49)
[2017-10-24] MEDS ORDERED: KETOROLAC TROMETHAMINE 30 MG/ML VIAL IV STA (10:49)
--- NOTE | 2017-10-24 10:58 | EMERGENCY ROOM VISIT NOTE ---
History Report prepared by Geetha: Khloe Lawton Under the Supervision of: Dr. Tom Swann M.D. First contact with patient: 10:35 Chief Complaint: PAIN (GENERALIZED) Stated Complaint: PAIN History of Present Illness The patient is a 37 year old male who presents to the Emergency Room with complaints of persistent generalized pain that began prior to arrival. He currently rates his discomfort an 8/10 in severity. The patient states that on Monday he had a stent placed on the left for left sided kidney stones. He states that he has been taking Vicodin and Ibuprofen at home for pain without relief of his symptoms. The patient states that his last dose was 4-5 hours ago. He states that he consulted Dr. Noriega of Urology and states that he was instructed to come into the emergency department to get his pain under control and that he was going to have his stent removed. Source of History: patient Onset: prior to arrival Position: other (global) Symptom Intensity: 8/10 Quality: other (generalized pain) Timing: other (persistent) Review of Systems See HPI for pertinent positives & negatives. A total of 10 systems reviewed and were otherwise negative. Past Medical & Surgical Medical Problems: (1) Asthma (2) Finger fracture, right (3) Gastroparesis (4) GERD (gastroesophageal reflux disease) (5) Hyperlipidemia (6) Hypothyroidism (7) Intractable pain (8) Migraine (9) JESI (obstructive sleep apnea) (10) Renal calculi (11) Syncope Surgical Problems: (1) Cholecystectomy (2) History of dental surgery (3) Hx of esophagogastroduodenoscopy Family History Diabetes mellitus MOTHER GRANDFATHER FH: cancer FH: heart disease FATHER GRANDFATHER FH: lung disease Hypertension Kidney disease or stones Social History Smoking Status: Never Smoker Alcohol Use: none Drug Use: none Marital Status: Housing Status: lives with family Occupation Status: employed Current/Historical Medications Scheduled Amitriptyline Hcl (Elavil), 100 MG PO HS Atorvastatin (Atorvastatin Calcium), 40 MG PO HS Levothyroxine Sodium (Levothyroxine Sodium), 75 MCG PO QAM Multivitamin (Multivitamin), 1 TAB PO DAILY Nitrofurantoin Monohyd Macrocr (Macrobid), 100 MG PO BID Pantoprazole (Pantoprazole Sodium), 40 MG PO HS Ranitidine HCl (Ranitidine HCl), 300 MG PO BID Tamsulosin HCl (Tamsulosin HCl), 0.4 MG PO QAM Tamsulosin Hcl (Flomax), 0.4 MG PO DAILY Scheduled PRN Acetaminophen (Mapap), 1 TAB OR Q6 PRN for Pain Albuterol Hfa (Ventolin Hfa), 2-4 PUFFS INH Q4H PRN for SOB/Wheezing Buspirone HCl (Buspirone HCl), 10 MG PO BID PRN for Anxiety Dicyclomine Hcl (Dicyclomine Hcl), 10 MG PO QID PRN for Abdominal Pain Fluticasone Prop/Salmeterol (Advair Diskus 250/50 60 Dose), 1 PUFF INH BID PRN for Wheezing Ondasetron Odt (Zofran Odt), 4 MG SL Q6H PRN for Nausea Oxycodone Ir (Roxicodone Ir), 1-2 TAB PO Q4H PRN for Severe Pain Sumatriptan Succinate (Imitrex Nasal [place]), 1 SPRAY NA UD PRN for Headache Allergies Coded Allergies: Benzoyl Peroxide (Verified Allergy, Mild, 10/18/17) Lactose Intolerance (Verified Allergy, Unknown, Unknown, 10/18/17) Risperidone (Verified Allergy, Unknown, "I FELT LIKE I WAS DRUNK", ) Hydrocodone (Verified Adverse Reaction, Mild, VOMITING, 10/18/17) Magnesium (Verified Adverse Reaction, Unknown, Nausea, GI upset, 10/18/17) Prednisone (Verified Adverse Reaction, Unknown, "messes up my mind, depressed", 10/18/17) Physical Exam Vital Signs Date Time Temp Pulse Resp B/P (MAP) Pulse Ox O2 Delivery O2 Flow Rate FiO2 10/24/17 11:01 36.8 110 20 128/87 98 10/24/17 10:14 36.8 110 20 128/87 98 Room Air Physical Exam GENERAL: Patient is a healthy-appearing well-nourished male HEAD: Normocephalic atraumatic EYES: Ocular movements intact pupils equal and react to light OROPHARYNX mucous membranes are moist no exudates present no erythema or edema present NECK: Supple no nuchal rigidity CHEST: Good equal expansion LUNGS: Clear and equal to auscultation CARDIAC: Normal S1 and S2 ABDOMEN: Soft nontender no guarding BACK: No CVA tenderness EXTREMITIES: No pain upon palpation normal muscle strength in all groups no clubbing cyanosis or edema NEURO: Patient is following commands and answering questions appropriately. Alert and oriented x3 Cranial Nerves 2-12 grossly intact Medical Decision & Procedures ED Course 1045: Past medical records reviewed. The patient was evaluated in room A4B. A complete history and physical examination was performed. 1051: I discussed the patients case with Dr. Noriega of Urologys nurse Yanet who gave the patient two options today. She states that the patient is scheduled to have the stent removed in the operating room on Monday. She states that the patient can either come have the stent removed then or go to the office today and have his stent removed. 1054: I reevaluated the patient and further questioned his story. He states that Dr. Noriega wanted to remove the stent on Monday, but additionally wanted to place a scope through his tract. He states that he knew it was going to cause more pain and he did not want to have that done. I then went on to say that his options were to either go to the office and have the stent removed right now or to wait until Monday and have it done in the OR. He said that if the doctors string did not come undone he would not be having the pain. He went on to be verbally abusive in the room and left against medical advice. 1101: I spoke to Dr. Noriega, Urology at this time. She states is aware of the situation. Medical Decision Differential diagnosis: Etiologies such as appendicitis, diverticulitis, PUD, biliary pathology, UTI, pancreatitis, obstruction, mesenteric ischemia, aortic pathology, infections, inflammatory bowel disease, renal colic, as well as others were entertained. This is a 37-year-old male who was supposedly sent in by his urologist office to get his pain under control. I did call this patient's urologist who promptly returned my phone call. I will note that the patient had the option of having the stent pulled out in the office but he refused. His second option was in to have the stent taken out in the operating room on Monday. The patient is expecting his stent to be taken out here in the emergency department today. I told the patient that that will not happen and that he was to go to the office today to have the stent removed. The patient was grossly unhappy with this became belligerent and threatening with staff. I will note that the patient is afebrile normotensive and not tachycardic. I will also note that he is on the no narcotics treatment plan and that he receive 30 of Vicodin from his urologist yesterday. As the patient began cursing at me as well as my scribe he was ejected from the emergency department and told to go to his urologist office. Medication Reconcilliation Current Medication List: was personally reviewed by me Consults Time Called: 1041 Consulting Physician: Dr. Noriega of Urology's nurse Yanet Returned Call: [phone] I discussed the patients case with Dr. Noriega of Urologys nurse Yanet who gave the patient two options today. She states that the patient is scheduled to have the stent removed in the operating room on Monday. She states that the patient can either come have the stent removed then or go to the office today and have his stent removed. Impression Primary Impression: Left sided abdominal pain Scribe Attestation The scribe's documentation has been prepared under my direction and personally reviewed by me in its entirety. I confirm that the note above accurately reflects all work, treatment, procedures, and medical decision making performed by me. Departure Information Dispostion Against Medical Advice Referrals Adrian Meza M.D. (PCP) Patient Instructions My [facility]
[2017-10-24 11:01] VITALS: BP 128/87; PULSE 110; TEMP 36.8; O2SAT 98
== END 2017-10-24 11:02 | disposition left against medical advice (07) ==
LOC: C.EDB 10:09 → C.EDA 11:02
DX: R10.9 Unspecified abdominal pain (principal); Z87.442 Personal history of urinary calculi; J45.909 Unspecified asthma, uncomplicated; K31.84 Gastroparesis; K21.9 Gastro-esophageal reflux disease without esophagitis; E78.5 Hyperlipidemia, unspecified; E03.9 Hypothyroidism, unspecified; G43.909 Migraine, unspecified, not intractable, without status migrainosus; G47.33 Obstructive sleep apnea (adult) (pediatric); Z83.3 Family history of diabetes mellitus; Z80.9 Family history of malignant neoplasm, unspecified; Z82.49 Family history of ischemic heart disease and other diseases of the circulatory system; Z83.6 Family history of other diseases of the respiratory system; Z84.1 Family history of disorders of kidney and ureter

== ENCOUNTER 2018-01-17 19:41 | Emergency (ER) | payer OTHER ==
[~2018-01-17] VITALS: Ht 170.2 cm; Wt 90.0 kg
[~2018-01-17 19:41] MED LIST changes: -BSP/10 PO; -DICY10CA12 PO; -LEVO75TA5 PO; -PHEN-775 PO
[2018-01-17 19:58] VITALS: TEMP 36.7; Ht 170.2 cm; Wt 90.0 kg
[2018-01-17] MEDS ORDERED: LEVO75TA5 PO (21:32)
[2018-01-17] MEDS ORDERED: DICY10CA12 PO (21:38)
[2018-01-17] MEDS ORDERED: BSP/10 PO (21:38)
[2018-01-17 22:08] LABS: HEMATOCRIT 38.4 % (42-52); HEMOGLOBIN 13.7 g/dL (14.0-18.0); MEAN CELL VOLUME 86.1 fL (80-100); MEAN CORPUSCULAR HEMOGLOBIN 30.7 pg (25-34); MEAN CORPUSCULAR HGB CONC 35.7 g/dl (32-36); PLATELET COUNT 239 K/uL (130-400); RED CELL DISTRIBUTION WIDTH CV 12.4 % (11.5-14.5); RED CELL DISTRIBUTION WIDTH SD 39.4 fL (36.4-46.3); WHITE BLOOD COUNT 8.03 K/uL (4.8-10.8)
[2018-01-17] MEDS: ONDANSETRON INJ 2 MG/ML 2 ML VIAL IV STA (22:10)
[2018-01-17] MEDS: SODIUM CHLORIDE 0.9% 1000ML 1,000 ML IV ONE (22:10)
[2018-01-17] MEDS: KETOROLAC TROMETHAMINE 30 MG/ML VIAL IV STA (22:10)
[2018-01-17 22:11] VITALS: O2SAT 96
[2018-01-17 22:30] LABS: CALCIUM 9.1 mg/dl (8.5-10.1); CREATININE 0.8 mg/dl (0.60-1.40); POTASSIUM 3.7 mmol/L (3.5-5.1)
[2018-01-17] MEDS ORDERED: HYDR12.55 PO (22:32)
[2018-01-17] MEDS ORDERED: IBUP-103 PO (22:33)
[2018-01-17] MEDS: SODIUM CHLORIDE 0.9% 1000ML 500 ML IV ONE (23:34)
[2018-01-18] MEDS: ONDANSETRON HOME PACK 4MG OD TAB PO ONE (00:15)
[2018-01-18 00:17] VITALS: BP 162/106; PULSE 67; O2SAT 98
--- NOTE | 2018-01-18 02:34 | EMERGENCY ROOM VISIT NOTE ---
History First contact with patient: 21:39 Chief Complaint: KIDNEY STONE Stated Complaint: KIDNEY STONE History of Present Illness The patient is a 37 year old male who presents to the Emergency Room with complaints of right flank pain for the past 3-4 days. The patient has an established history of kidney stones with ureteral calculi in the past. He states that he passed 2 small stones this week, but continues to have discomfort. He has been taking [id number] analgesics with only minimal improvement of symptoms. He did have vomiting today, and now presents for evaluation. The patient evidently does follow with urology, but does not have an upcoming appointment. No fevers or chills. No gross hematuria. He rates his discomfort an 8/10 that radiates to his groin. Review of Systems More than 10 systems were reviewed and otherwise negative with the exception of history of present illness. Past Medical/Surgical History Medical Problems: (1) Asthma (2) Finger fracture, right (3) Gastroparesis (4) GERD (gastroesophageal reflux disease) (5) Hyperlipidemia (6) Hypothyroidism (7) Intractable pain (8) Migraine (9) JESI (obstructive sleep apnea) (10) Renal calculi (11) Syncope Surgical Problems: (1) Cholecystectomy (2) History of dental surgery (3) Hx of esophagogastroduodenoscopy Family History Diabetes mellitus MOTHER GRANDFATHER FH: cancer FH: heart disease FATHER GRANDFATHER FH: lung disease Hypertension Kidney disease or stones Social History Smoking Status: Former Smoker Alcohol Use: none Drug Use: none Marital Status: Housing Status: lives with family Occupation Status: employed Current/Historical Medications Scheduled Amitriptyline Hcl (Elavil), 100 MG PO HS Hydrochlorothiazide (Hydrochlorothiazide), 6.25 MG PO DAILY Levothyroxine Sodium (Levothyroxine Sodium), 75 MCG PO QAM Multivitamin (Multivitamin), 1 TAB PO DAILY Pantoprazole (Pantoprazole Sodium), 40 MG PO HS Ranitidine HCl (Ranitidine HCl), 150 MG PO BID Scheduled PRN Albuterol Hfa (Ventolin Hfa), 2-4 PUFFS INH Q4H PRN for SOB/Wheezing Buspirone HCl (Buspirone HCl), 10 MG PO BID PRN for Anxiety Dicyclomine Hcl (Dicyclomine Hcl), 10 MG PO QID PRN for Abdominal Pain Fluticasone Prop/Salmeterol (Advair Diskus 250/50 60 Dose), 1 PUFF INH BID PRN for Wheezing Ibuprofen Tab (Advil), 400-600 MG PO Q6H PRN for Pain Sumatriptan Succinate (Imitrex Nasal [place]), 1 SPRAY NA UD PRN for Headache Physical Exam Vital Signs Date Time Temp Pulse Resp B/P (MAP) Pulse Ox O2 Delivery O2 Flow Rate FiO2 01/18/18 00:17 67 16 162/106 98 01/17/18 23:31 64 14 161/130 95 01/17/18 23:17 150/103 01/17/18 22:32 132/97 01/17/18 22:31 75 01/17/18 22:11 96 Room Air 01/17/18 22:00 69 16 161/90 96 Room Air 01/17/18 19:58 36.7 93 18 149/87 98 Room Air Physical Exam VITALS: Vitals are noted on the nurse's note and reviewed by myself. Vital signs stable. GENERAL: Well-developed, well-nourished, white male, who is in no acute distress and resting comfortably. Patient is cooperative with the examination. NECK: Supple without nuchal rigidity. No lymphadenopathy. No thyromegaly. Cervical spine is nontender. HEART: Regular rate and rhythm without murmurs gallops or rubs. LUNGS: Clear to auscultation bilaterally without wheezes, rales or rhonchi. No retractions or accessory muscle use. ABDOMEN: Positive normal bowel sounds x 4. Soft, nontender, without masses or organomegaly. No guarding or rebound tenderness no CVA tenderness.. MUSCULOSKELETAL: No muscle atrophy, erythema, or edema noted. Full range of motion without joint tenderness in all extremities. Medical Decision & Procedures ER Provider Diagnostic Interpretation: Preliminary Findings Only See Final Report For Complete Findings US RENAL: Right kidney measures 11.3 x 5.1 x 6.6 cm. There are multiple echogenic foci within the right kidney, possibly representing small nephroliths. Largest measures 7 mm. No hydronephrosis. Left kidney measures 11.4 x 6.9 x 6.8 cm. There are multiple echogenic foci in the left kidney, possibly representing nephroliths, largest measures 6 mm. No hydronephrosis. Bilateral ureteral jets are visualized. Laboratory Results 01/17/18 21:30 01/17/18 21:30 Test 01/17/18 21:25 01/17/18 21:30 Urine Color RED Urine Appearance CLOUDY (CLEAR) Urine pH 5.0 (4.5-7.5) Urine Specific [place] 1.016 (1.000-1.030) Urine Protein 1+ (NEG) Urine Glucose (UA) NEG (NEG) Urine Ketones NEG (NEG) Urine Occult Blood 3+ (NEG) Urine Nitrite NEG (NEG) Urine Bilirubin NEG (NEG) Urine Urobilinogen NEG (NEG) Urine Leukocyte Esterase SMALL (NEG) Urine WBC (Auto) 1-5 /hpf (0-5) Urine RBC (Auto) >30 /hpf (0-4) Urine Hyaline Casts (Auto) 1-5 /lpf (0-5) Urine Epithelial Cells (Auto) 5-10 /lpf (0-5) Urine Bacteria (Auto) NEG (NEG) Red Blood Count 4.46 M/uL (4.7-6.1) Mean Corpuscular Volume 86.1 fL (80-100) Mean Corpuscular Hemoglobin 30.7 pg (25-34) Mean Corpuscular Hemoglobin Concent 35.7 g/dl (32-36) RDW Standard Deviation 39.4 fL (36.4-46.3) RDW Coefficient of Variation 12.4 % (11.5-14.5) Mean Platelet Volume 11.0 fL (7.4-10.4) Anion Gap 6.0 mmol/L (3-11) Est Creatinine Clear Calc Drug Dose 137.9 ml/min Estimated GFR () 134.1 Estimated GFR (Non- 115.7 BUN/Creatinine Ratio 14.6 (10-20) Calcium Level 9.1 mg/dl (8.5-10.1) Medications Administered Medications (Trade) Dose Ordered Sig/Denise Route Start Time Stop Time Status Last Admin Dose Admin Sodium Chloride 500 ml @ 999 mls/hr Q31M ONCE IV 01/17/18 21:25 01/17/18 21:55 DC 01/17/18 23:34 999 MLS/HR Sodium Chloride 1,000 ml @ 999 mls/hr Q1H1M ONCE IV 01/17/18 21:45 01/17/18 22:45 DC 01/17/18 22:10 999 MLS/HR Ondansetron HCl (Zofran Inj) 4 mg NOW STAT IV 01/17/18 21:45 01/17/18 21:47 DC 01/17/18 22:10 4 MG Ketorolac Tromethamine (Toradol Inj) 30 mg NOW STAT IV 01/17/18 21:45 01/17/18 21:47 DC 01/17/18 22:10 30 MG Ondansetron HCl (ZOFRAN ODT 4MG Home Pack) 1 homepack UD ONCE PO 01/18/18 00:15 01/18/18 00:16 DC 01/18/18 00:15 1 HOMEPACK ED Course Physical exam and history were performed. Nursing notes, EMR, and Medication List were personally reviewed. Patient appears to have right flank pain with radiation to his groin. He has an established history of ureteral calculi with multiple CT scans in the past. The patient does not appear toxic on exam today. IV access was established and labs were obtained. The patient was hydrated with normal saline. He was given IV Toradol and IV Zofran for comfort. I did elect to perform ultrasound and plain films to better evaluate his condition. The patient's blood work is as above and was reviewed. He does not have a grossly elevated white blood cell count, significant anemia, or gross electrolyte imbalance. He does have some hematuria on his urine. Ultrasound does show some intrarenal calculi, but no distinct hydronephrosis or obvious ureteral calculi. X-ray was reviewed by myself and my attending without showing distinct ureteral calculi as well. Radiology reading is pending at the time of this dictation. On reevaluation the patient remains comfortable. I suspect that he recently passed his stones and is having some residual irritation. I will give him a home pack of Zofran and have him use [id number] analgesics. The patient is otherwise to follow with urology. The patient voiced understanding of this plan was invited back to the emergency department with any new, worsening, or concerning symptoms. The chart was completed utilizing [employer] Voice Recognition Software. Grammatical errors, random word insertions, pronoun errors, and incomplete sentences are an occasional consequence of this system due to software limitations, ambient noise, and hardware issues. Any formal questions or concerns about the content, text, or information contained within the body of this dictation should be directly addressed to the provider for clarification. . Medical Decision Differential diagnosis: Etiologies such as renal colic, appendicitis, diverticulitis, mesenteric ischemia, aortic pathology, infections, inflammatory bowel disease, PUD, biliary pathology, UTI, as well as others were entertained. Impression Primary Impression: Right flank pain Departure Information Dispostion Home / Self-Care Condition GOOD Forms HOME CARE DOCUMENTATION FORM, IMPORTANT VISIT INFORMATION Patient Instructions My [facility] Additional Instructions You were seen and evaluated today on an emergency basis only. This is not a substitute for, or an effort to provide, complete comprehensive medical care. It is not possible to recognize and treat all injuries or illnesses in a single emergency department visit. For this reason it is recommended that you followup with urology for ongoing care and evaluation. For baseline pain relief you may alternate ibuprofen and acetaminophen every 4 hours for pain control. Take 600 mg ibuprofen (Advil) and then 4 hours later take 1000 mg acetaminophen (Tylenol). Do not take more than 3000 mg acetaminophen in a single day. Zofran 4 mg ODT: Dissolve 1 tablet every 6 hrs as needed for nausea. You are welcome to return to the emergency department anytime with new, worsening, or concerning symptoms.
--- NOTE | 2018-01-18 06:44 | DIAGNOSTIC IMAGING REPORT ---
KUB CLINICAL HISTORY: R flank pain. hx stones. Nephrocalcinosis COMPARISON STUDY: 10/21/2017 FINDINGS: Interval removal of the left ureteral stent. Nonobstructive bowel pattern. Several renal calcifications similar as compared to the prior study. IMPRESSION: Stable bilateral nephrocalcinosis. Nonobstructive bowel pattern. The above report was generated using voice recognition software. It may contain grammatical, syntax or spelling errors. Electronically signed by: Adrian Morales M.D. 01/18/2018 6:43 AM Dictated Date/Time: 01/18/2018 6:42 AM
--- NOTE | 2018-01-18 06:54 | DIAGNOSTIC IMAGING REPORT ---
(RENAL)RETROPERITON COMP HISTORY: 37 years-old Male r flank pain. hx stones acute right-sided flank pain with history of kidney stones COMPARISON: Renal ultrasound 10/21/2017, CT 10/20/2017 TECHNIQUE: Multiple real-time sonographic images of the bilateral kidneys and urinary bladder were obtained assessing grayscale appearance and color flow FINDINGS: The right kidney measures 11.3 x 5.1 x 6.6 cm. Multiple echogenic foci with twinkle artifact is noted throughout the right kidney measuring up to 7 mm compatible with nephrolithiasis. No hydronephrosis or suspicious mass lesions of the right kidney. Cortical medullary differentiation is preserved. The left kidney measures 11.4 x 6.9 x 6.8 cm and also demonstrates multiple nonobstructing nephrolithiasis without hydronephrosis. The largest calculus on the left measures 6 mm within the interpolar region. Bilateral ureteral jets are noted. Urinary bladder is within normal limits. IMPRESSION: 1. Bilateral nephrolithiasis without hydronephrosis. 2. Unremarkable sonographic appearance of the urinary bladder. The above report was generated using voice recognition software. It may contain grammatical, syntax or spelling errors. Electronically signed by: Edson Pabon M.D. 01/18/2018 6:53 AM Dictated Date/Time: 01/18/2018 6:48 AM
== END 2018-01-18 00:17 | disposition home or self-care (01) ==
LOC: C.EDB 19:42
DX: R10.9 Unspecified abdominal pain (principal); J45.909 Unspecified asthma, uncomplicated; K21.9 Gastro-esophageal reflux disease without esophagitis; E78.5 Hyperlipidemia, unspecified; E03.9 Hypothyroidism, unspecified; G47.30 Sleep apnea, unspecified; R55 Syncope and collapse; Z83.3 Family history of diabetes mellitus; Z82.49 Family history of ischemic heart disease and other diseases of the circulatory system; Z87.891 Personal history of nicotine dependence

== ENCOUNTER 2018-03-03 06:18 | Emergency (ER) | payer OTHER ==
[~2018-03-03] VITALS: Ht 170.2 cm; Wt 90.8 kg
[~2018-03-03 06:18] MED LIST changes: -ACET-1047 OR; +BSP/10 PO; +DICY10CA12 PO; -FLM4 PO; +HYDR12.55 PO; +IBUP-103 PO; +LEVO75TA5 PO; -LPT40 PO; -NITR-5 PO; -ONDA4TAB10 SL; -OXYC1TAB3 PO; -TAMS0.4C38 PO
[2018-03-03 06:21] VITALS: TEMP 36.7; Ht 170.2 cm; Wt 90.8 kg
[2018-03-03] MEDS ORDERED: ONDANSETRON INJ 2 MG/ML 2 ML VIAL IV STA ×2 (06:51→07:40)
[2018-03-03] MEDS ORDERED: KETOROLAC TROMETHAMINE 30 MG/ML VIAL IV STA (06:51)
[2018-03-03] MEDS ORDERED: SODIUM CHLORIDE 0.9% 1000ML 1,000 ML IV STA (06:51)
[2018-03-03] MEDS ORDERED: MoRPHine SULFATE 10 MG/ML CARP/VIAL IV STA (07:30)
--- NOTE | 2018-03-03 07:39 | DIAGNOSTIC IMAGING REPORT ---
CT SCAN OF THE ABDOMEN AND PELVIS WITHOUT CONTRAST CLINICAL HISTORY: Right flank pain COMPARISON STUDY: 10/20/2017 TECHNIQUE: CT scan of the abdomen and pelvis was performed from the lung bases to the proximal femurs. Images are reviewed in the axial, sagittal, and coronal planes. IV contrast was not administered for this examination. A dose lowering technique was utilized adhering to the principles of ALARA. CT DOSE: 1053.64 mGy.cm FINDINGS: Lower chest: The heart is normal in size and configuration, without pericardial effusion. The lung bases and pleural spaces are clear. Liver: The unenhanced liver is normal in size, contour, and attenuation. There is no intrahepatic biliary ductal dilatation. Gallbladder: Surgically absent Spleen: Normal in size and attenuation. Pancreas: Unremarkable. Adrenal glands: There is bilateral adrenal gland thickening consistent with adenomatous hyperplasia Kidneys: Four left renal calculi are visualized, the largest of which measures 3 mm. Nine right renal calculi are visualized, the largest of which measures 3 mm. There is right-sided hydronephrosis and hydroureter. There is an obstructing 4 mm proximal right ureteral calculus at the inferior L3 level Bowel: There are no transition zones indicate bowel obstruction. There is no acute diverticulitis. The appendix appears normal. Peritoneum: There is no intraperitoneal free air or abdominal ascites. Vasculature: The abdominal aorta is normal in course and caliber. Adenopathy: None. Pelvic viscera: The bladder, and pelvic viscera are unremarkable. Skeletal structures: No destructive osseous lesions are seen. IMPRESSION: 1. Bilateral nephrolithiasis 2. Obstructing 4 mm proximal right ureteral calculus Electronically signed by: Carlos A Hazel M.D. 03/03/2018 7:38 AM Dictated Date/Time: 03/03/2018 7:33 AM
[2018-03-03 08:00] LABS: BASO % 0.4 %; BASO ABS # 0.03 K/uL (0-0.2); EOS % 3.2 %; EOS ABS # 0.22 K/uL (0-0.5); HEMATOCRIT 34.3 % (42-52); HEMOGLOBIN 12.2 g/dL (14.0-18.0); IG# 0.02 K/uL (0.00-0.02); LYMPH % 23.4 %; LYMPH ABS # 1.63 K/uL (1.2-3.4); MEAN CELL VOLUME 86.4 fL (80-100); MEAN CORPUSCULAR HEMOGLOBIN 30.7 pg (25-34); MEAN CORPUSCULAR HGB CONC 35.6 g/dl (32-36); MEAN PLATELET VOLUME 10.2 fL (7.4-10.4); MONO % 9.2 %; MONO ABS # 0.64 K/uL (0.11-0.59); NEUT % 63.5 %; NEUT ABS # 4.43 K/uL (1.4-6.5); PLATELET COUNT 208 K/uL (130-400); RED CELL DISTRIBUTION WIDTH CV 12.5 % (11.5-14.5); RED CELL DISTRIBUTION WIDTH SD 39.8 fL (36.4-46.3); WHITE BLOOD COUNT 6.97 K/uL (4.8-10.8)
[2018-03-03 08:16] LABS: ALBUMIN 3.4 gm/dl (3.4-5.0); BLOOD UREA NITROGEN 19 mg/dl (7-18); CALCIUM 8.5 mg/dl (8.5-10.1); CARBON DIOXIDE 23 mmol/L (21-32); CREATININE 1.09 mg/dl (0.60-1.40); GLUCOSE 101 mg/dl (70-99); LIPASE 118 U/L (73-393); POTASSIUM 3.6 mmol/L (3.5-5.1); SODIUM 142 mmol/L (136-145)
[2018-03-03] MEDS ORDERED: INHALER INH (08:16)
[2018-03-03] MEDS ORDERED: MoRPHine SULFATE 4 MG/ML 1 ML CARP\\VIAL IV STA (08:19)
[2018-03-03 08:20] LABS: ALKALINE PHOSPHATASE 119 U/L (45-117); ALT/SGPT 34 U/L (12-78); AST/SGOT 23 U/L (15-37); TOTAL PROTEIN 6.5 gm/dl (6.4-8.2)
--- NOTE | 2018-03-03 08:57 | EMERGENCY ROOM VISIT NOTE ---
History Report prepared by Geetha: Marcelino Vasquez Under the Supervision of: Dr. Tom Esqueda D.O. First contact with patient: 06:50 Chief Complaint: KIDNEY STONE Stated Complaint: KIDNEY STONE History of Present Illness The patient is a 37 year old male who presents to the Emergency Room with complaints of constant right sided flank pain rated as 9/10 that began 3 hours ago. He complains of nausea. He denies vomiting and CVA tenderness. Source of History: patient Onset: 3 hours ago Position: other (right flank) Symptom Intensity: pain rated as 9/10 Timing: constant Associated Symptoms: + nausea, No vomiting, No back pain Review of Systems As above otherwise negative for 10 systems Past Medical & Surgical Medical Problems: (1) Asthma (2) Finger fracture, right (3) Gastroparesis (4) GERD (gastroesophageal reflux disease) (5) Hyperlipidemia (6) Hypothyroidism (7) Intractable pain (8) Migraine (9) JESI (obstructive sleep apnea) (10) Renal calculi (11) Syncope Surgical Problems: (1) Cholecystectomy (2) History of dental surgery (3) Hx of esophagogastroduodenoscopy Family History Diabetes mellitus MOTHER GRANDFATHER FH: cancer FH: heart disease FATHER GRANDFATHER FH: lung disease Hypertension Kidney disease or stones Social History Smoking Status: Former Smoker Alcohol Use: none Drug Use: none Marital Status: Housing Status: lives with family Occupation Status: employed Current/Historical Medications Scheduled Amitriptyline Hcl (Elavil), 100 MG PO HS Hydrochlorothiazide (Hydrochlorothiazide), 6.25 MG PO DAILY Levothyroxine Sodium (Levothyroxine Sodium), 75 MCG PO QAM Multivitamin (Multivitamin), 1 TAB PO DAILY Pantoprazole (Pantoprazole Sodium), 40 MG PO HS Ranitidine HCl (Ranitidine HCl), 150 MG PO BID Tamsulosin Hcl (Flomax), 0.4 MG PO HS Scheduled PRN Albuterol Hfa (Ventolin Hfa), 2-4 PUFFS INH Q4H PRN for SOB/Wheezing Fluticasone Prop/Salmeterol (Advair Diskus 250/50 60 Dose), 1 PUFF INH BID PRN for Wheezing Oxycodone/Acetaminophen 5MG/325MG (Percocet 5MG/325MG), 1 TAB PO Q6H PRN for Pain [Inhaler], 1 PUFF INH DAILY PRN for SOB/Wheezing Allergies Coded Allergies: Benzoyl Peroxide (Verified Allergy, Mild, 03/03/18) Lactose Intolerance (Verified Allergy, Unknown, Unknown, 03/03/18) Risperidone (Verified Allergy, Unknown, "I FELT LIKE I WAS DRUNK", 03/03/18 ) Hydrocodone (Verified Adverse Reaction, Mild, VOMITING, 03/03/18) Magnesium (Verified Adverse Reaction, Unknown, Nausea, GI upset, 03/03/18) Prednisone (Verified Adverse Reaction, Unknown, "messes up my mind, depressed", 03/03/18) Physical Exam Vital Signs Date Time Temp Pulse Resp B/P (MAP) Pulse Ox O2 Delivery O2 Flow Rate FiO2 03/03/18 07:30 72 18 164/105 99 Room Air 03/03/18 06:21 36.7 86 24 173/110 98 Room Air Physical Exam CONSTITUTIONAL/VITAL SIGNS: Reviewed / noted above. GENERAL: Non-toxic in appearance. Writhing in pain. INTEGUMENTARY: Warm, dry, and [place]. HEAD: Normocephalic. EYES: without scleral icterus or trauma. ENT/OROPHARYNX: clear and moist. LYMPHADENOPATHY/NECK: Is supple without lymphadenopathy or meningismus. RESPIRATORY: Lungs clear and equal. CARDIOVASCULAR: Regular rate and rhythm. GI/ABDOMEN: Soft and nontender. No organomegaly or pulsatile mass. No rebound or guarding. Normal bowel sounds. EXTREMITIES: Warm and well perfused. BACK: No CVA tenderness. NEUROLOGICAL: Intact without focal deficits. PSYCHIATRIC: normal affect. MUSCULOSKELETAL: Normally developed with good muscle tone. Medical Decision & Procedures ER Provider Diagnostic Interpretation: Radiology results as stated below per my review and radiologist interpretation: CT SCAN OF THE ABDOMEN AND PELVIS WITHOUT CONTRAST CLINICAL HISTORY: Right flank pain COMPARISON STUDY: 10/20/2017 TECHNIQUE: CT scan of the abdomen and pelvis was performed from the lung bases to the proximal femurs. Images are reviewed in the axial, sagittal, and coronal planes. IV contrast was not administered for this examination. A dose lowering technique was utilized adhering to the principles of ALARA. CT DOSE: 1053.64 mGy.cm FINDINGS: Lower chest: The heart is normal in size and configuration, without pericardial effusion. The lung bases and pleural spaces are clear. Liver: The unenhanced liver is normal in size, contour, and attenuation. There is no intrahepatic biliary ductal dilatation. Gallbladder: Surgically absent Spleen: Normal in size and attenuation. Pancreas: Unremarkable. Adrenal glands: There is bilateral adrenal gland thickening consistent with adenomatous hyperplasia Kidneys: Four left renal calculi are visualized, the largest of which measures 3 mm. Nine right renal calculi are visualized, the largest of which measures 3 mm. There is right-sided hydronephrosis and hydroureter. There is an obstructing 4 mm proximal right ureteral calculus at the inferior L3 level Bowel: There are no transition zones indicate bowel obstruction. There is no acute diverticulitis. The appendix appears normal. Peritoneum: There is no intraperitoneal free air or abdominal ascites. Vasculature: The abdominal aorta is normal in course and caliber. Adenopathy: None. Pelvic viscera: The bladder, and pelvic viscera are unremarkable. Skeletal structures: No destructive osseous lesions are seen. IMPRESSION: 1. Bilateral nephrolithiasis 2. Obstructing 4 mm proximal right ureteral calculus Electronically signed by: Carlos A Hazel M.D. 03/03/2018 7:38 AM Dictated Date/Time: 03/03/2018 7:33 AM Laboratory Results 03/03/18 07:50 Red Blood Count 3.97, Mean Corpuscular Volume 86.4, Mean Corpuscular Hemoglobin 30.7, Mean Corpuscular Hemoglobin Concent 35.6, Mean Platelet Volume 10.2, Neutrophils (%) (Auto) 63.5, Lymphocytes (%) (Auto) 23.4, Monocytes (%) (Auto) 9.2, Eosinophils (%) (Auto) 3.2, Basophils (%) (Auto) 0.4, Neutrophils # (Auto) 4.43, Lymphocytes # (Auto) 1.63, Monocytes # (Auto) 0.64, Eosinophils # (Auto) 0.22, Basophils # (Auto) 0.03 03/03/18 07:50 Test 03/03/18 06:45 03/03/18 07:50 Urine Color ORANGE Urine Appearance CLOUDY (CLEAR) Urine pH 5.5 (4.5-7.5) Urine Specific [place] 1.031 (1.000-1.030) Urine Protein 3+ (NEG) Urine Glucose (UA) NEG (NEG) Urine Ketones NEG (NEG) Urine Occult Blood 3+ (NEG) Urine Nitrite NEG (NEG) Urine Bilirubin NEG (NEG) Urine Urobilinogen NEG (NEG) Urine Leukocyte Esterase TRACE (NEG) Urine WBC (Auto) 5-10 /hpf (0-5) Urine RBC (Auto) >30 /hpf (0-4) Urine Hyaline Casts (Auto) 5-10 /lpf (0-5) Urine Epithelial Cells (Auto) >30 /lpf (0-5) Urine Bacteria (Auto) NEG (NEG) Urine Renal Epithelial Cells /lpf (0-5) Urine Crystals CALCIUM OXALATE (NONE White Blood Count 6.97 K/uL (4.8-10.8) Red Blood Count 3.97 M/uL (4.7-6.1) Hemoglobin 12.2 g/dL (14.0-18.0) Hematocrit 34.3 % (42-52) Mean Corpuscular Volume 86.4 fL (80-100) Mean Corpuscular Hemoglobin 30.7 pg (25-34) Mean Corpuscular Hemoglobin Concent 35.6 g/dl (32-36) Platelet Count 208 K/uL (130-400) Mean Platelet Volume 10.2 fL (7.4-10.4) Neutrophils (%) (Auto) 63.5 % Lymphocytes (%) (Auto) 23.4 % Monocytes (%) (Auto) 9.2 % Eosinophils (%) (Auto) 3.2 % Basophils (%) (Auto) 0.4 % Neutrophils # (Auto) 4.43 K/uL (1.4-6.5) Lymphocytes # (Auto) 1.63 K/uL (1.2-3.4) Monocytes # (Auto) 0.64 K/uL (0.11-0.59) Eosinophils # (Auto) 0.22 K/uL (0-0.5) Basophils # (Auto) 0.03 K/uL (0-0.2) RDW Standard Deviation 39.8 fL (36.4-46.3) RDW Coefficient of Variation 12.5 % (11.5-14.5) Immature Granulocyte % (Auto) 0.3 % Immature Granulocyte # (Auto) 0.02 K/uL (0.00-0.02) Anion Gap 6.0 mmol/L (3-11) Est Creatinine Clear Calc Drug Dose 101.7 ml/min Estimated GFR () 101.4 Estimated GFR (Non- 87.5 BUN/Creatinine Ratio 17.0 (10-20) Calcium Level 8.5 mg/dl (8.5-10.1) Total Bilirubin 0.4 mg/dl (0.2-1) Direct Bilirubin < 0.1 mg/dl (0-0.2) Aspartate Amino Transf (AST/SGOT) 23 U/L (15-37) Alanine Aminotransferase (ALT/SGPT) 34 U/L (12-78) Alkaline Phosphatase 119 U/L (45-117) Total Protein 6.5 gm/dl (6.4-8.2) Albumin 3.4 gm/dl (3.4-5.0) Lipase 118 U/L (73-393) Laboratory results as stated above per my review. Medications Administered Medications (Trade) Dose Ordered Sig/Denise Route Start Time Stop Time Status Last Admin Dose Admin Sodium Chloride 1,000 ml @ 999 mls/hr Q1H1M STAT IV 03/03/18 06:51 03/03/18 07:51 DC 03/03/18 07:12 999 MLS/HR Ondansetron HCl (Zofran Inj) 4 mg NOW STAT IV 03/03/18 06:51 03/03/18 06:53 DC 03/03/18 07:11 4 MG Ketorolac Tromethamine (Toradol Inj) 30 mg NOW STAT IV 03/03/18 06:51 03/03/18 06:53 DC 03/03/18 07:11 30 MG Morphine Sulfate (MoRPHine SULFATE INJ) 8 mg NOW STAT IV 03/03/18 07:30 03/03/18 07:31 DC 03/03/18 07:36 8 MG Ondansetron HCl (Zofran Inj) 4 mg NOW STAT IV 03/03/18 07:40 03/03/18 07:42 DC 03/03/18 08:05 4 MG Morphine Sulfate (MoRPHine SULFATE INJ) 4 mg NOW STAT IV 03/03/18 08:19 03/03/18 08:20 DC 03/03/18 08:27 4 MG ED Course 0650: Previous medical records were reviewed. The patient was evaluated in room B10. A complete history and physical examination was performed. 0651: Toradol Inj, 30 mg, IV; Zofran Inj, 4 mg, IV; Sodium Chloride 1000 ml @ 999 mls/hr IV. 0730: Morphine Sulfate Inj, 8 mg, IV. 0740: Zofran Inj, 4 mg, IV. 0819: Morphine Sulfate Inj, 4 mg, IV. 0845: I checked on the patient and he is resting comfortably. 0900: On reevaluation, the patient is resting. I discussed the results and findings with the patient. He verbalized agreement of the treatment plan. He was discharged home. Medical Decision Differential considered: pancreatitis, hepatitis, or acute cholecystitis, AAA, UTI, pyelonephritis, kidney stones, appendicitis, diverticulitis, shingles, bowel obstruction mesenteric ischemia, intussusception,hernia, testicular torsion. This is a 37-year-old male who presents to the ED with a chief complaint of right-sided flank pain that started a couple hours prior to arrival. He had some nausea associated with this. He reports a history of kidney stones. The patient did not have any specific flank CVA tenderness on exam but does appear to be uncomfortable. Vital signs revealed hypertension, likely pain related. Urine did not show obvious infection. CBC and chemistry panel was normal. CT scan reveals a 4 mm right ureteral stone. He was treated with IV fluids, IV Zofran, IV Toradol, IV morphine and p.o. Flomax.. The patient's pain did improve and he was felt to be stable for discharge. Discharged on Percocet, Flomax and Pyridium. Medication Reconcilliation Current Medication List: was personally reviewed by me Blood Pressure Screening Patient's blood pressure: Elevated blood pressure Blood pressure disposition: Elevated BP felt to be situational Impression Primary Impression: Renal colic on right side Additional Impression: Right ureteral calculus Scribe Attestation The scribe's documentation has been prepared under my direction and personally reviewed by me in its entirety. I confirm that the note above accurately reflects all work, treatment, procedures, and medical decision making performed by me. Departure Information Dispostion Home / Self-Care Prescriptions Tamsulosin Hcl (FLOMAX) 0.4 Mg Cap 0.4 MG PO HS, #10 CAP Prov: Tom Esqueda D.O. 03/03/18 Oxycodone/Acetaminophen 5MG/325MG (PERCOCET 5MG/325MG) Tab 1 TAB PO Q6H Y for Pain, #30 TAB Prov: Tom Esqueda D.O. 03/03/18 Referrals Adrian Meza M.D. (PCP) Patient Instructions My [facility] Additional Instructions Percocet as prescribed. No driving within 6 hours of use. Do not take additional Tylenol while taking Percocet. Zofran: Allow one tablet to dissolve under the tongue every 6 hours as needed for nausea or vomiting. Take ibuprofen 600 mg every 6 hours. Pyridium as prescribed. Strain urine for stone. Call Dr. Noriega on Monday. Dr. Sagastume is currently program management professional. Problem Qualifiers
[2018-03-03] MEDS ORDERED: TAMS0.4C38 PO (09:01)
[2018-03-03] MEDS ORDERED: OXYC-57 PO (09:01)
[2018-03-03 09:24] VITALS: BP 143/92; PULSE 87; O2SAT 96
[2018-03-06] MEDS ORDERED: IBUP1CAP9 OR (09:14)
[2018-03-06] MEDS ORDERED: FLM4 PO (09:14)
[2018-03-06] MEDS ORDERED: PHEN-774 PO (09:16)
== END 2018-03-03 09:26 | disposition home or self-care (01) ==
LOC: C.EDB 06:19
DX: N23 Unspecified renal colic (principal); N20.1 Calculus of ureter; R03.0 Elevated blood-pressure reading, without diagnosis of hypertension; J45.909 Unspecified asthma, uncomplicated; K21.9 Gastro-esophageal reflux disease without esophagitis; K31.84 Gastroparesis; E03.9 Hypothyroidism, unspecified; Z87.891 Personal history of nicotine dependence; Z79.899 Other long term (current) drug therapy; Z91.048 Other nonmedicinal substance allergy status; Z88.6 Allergy status to analgesic agent; E73.9 Lactose intolerance, unspecified; Z88.8 Allergy status to other drugs, medicaments and biological substances; Z83.3 Family history of diabetes mellitus; Z82.49 Family history of ischemic heart disease and other diseases of the circulatory system; Z84.1 Family history of disorders of kidney and ureter

== ENCOUNTER 2018-03-08 00:43 | Emergency (ER) | payer OTHER ==
[~2018-03-08] VITALS: Ht 170.2 cm; Wt 90.4 kg
[~2018-03-08 00:43] MED LIST changes: -ADVIN25/60 INH; -AMIT100T2 PO; -BSP/10 PO; -DICY10CA12 PO; +FLM4 PO; -HYDR12.55 PO; -IBUP-103 PO; +IBUP1CAP9 OR; -IMTIN5; +INHALER INH; -LEVO75TA5 PO; -MULT-506 PO; +OXYC-57 PO; -PANT40TA2 PO; +PHEN-774 PO; -RANI150T2 PO; -VNTHFA/IN INH
[2018-03-08 00:48] VITALS: TEMP 36.8; Ht 170.2 cm; Wt 90.4 kg
[2018-03-08] MEDS ORDERED: OXYC-57 PO (01:13)
[2018-03-08] MEDS ORDERED: TAMS0.4C38 PO (01:15)
[2018-03-08] MEDS ORDERED: ONDANSETRON INJ 2 MG/ML 2 ML VIAL IV STA (01:21)
[2018-03-08] MEDS ORDERED: HYDROmorphone INJ 1 MG/ML SYR IV STA ×2 (01:21→03:00)
[2018-03-08] MEDS ORDERED: SODIUM CHLORIDE 0.9% 1000ML 1,000 ML IV ONE (01:30)
[2018-03-08 01:43] LABS: BASO % 0.3 %; BASO ABS # 0.03 K/uL (0-0.2); EOS % 1.3 %; EOS ABS # 0.13 K/uL (0-0.5); HEMATOCRIT 39.2 % (42-52); HEMOGLOBIN 13.9 g/dL (14.0-18.0); IG# 0.02 K/uL (0.00-0.02); LYMPH % 32.4 %; LYMPH ABS # 3.31 K/uL (1.2-3.4); MEAN CELL VOLUME 86.7 fL (80-100); MEAN CORPUSCULAR HEMOGLOBIN 30.8 pg (25-34); MEAN CORPUSCULAR HGB CONC 35.5 g/dl (32-36); MEAN PLATELET VOLUME 10.6 fL (7.4-10.4); MONO % 6.6 %; MONO ABS # 0.68 K/uL (0.11-0.59); NEUT % 59.2 %; NEUT ABS # 6.06 K/uL (1.4-6.5); PLATELET COUNT 266 K/uL (130-400); RED CELL DISTRIBUTION WIDTH CV 12.8 % (11.5-14.5); RED CELL DISTRIBUTION WIDTH SD 40.5 fL (36.4-46.3); WHITE BLOOD COUNT 10.23 K/uL (4.8-10.8)
[2018-03-08 02:02] LABS: CALCIUM 9.1 mg/dl (8.5-10.1); CREATININE 1.1 mg/dl (0.60-1.40); POTASSIUM 3.6 mmol/L (3.5-5.1)
[2018-03-08 02:05] LABS: TOTAL PROTEIN 7.8 gm/dl (6.4-8.2)
[2018-03-08] MEDS ORDERED: CEFTRIAXONE SOD INJ 1 GM ADDVIAL IV STA (02:06)
[2018-03-08] MEDS ORDERED: KETOROLAC TROMETHAMINE 30 MG/ML VIAL IV STA (02:24)
[2018-03-08] MEDS ORDERED: IBUPROFEN 200 MG TAB PO PRN (03:30)
[2018-03-08] MEDS ORDERED: OXYCODONE/ACETAMINOPHEN 5-325 TAB PO PRN (03:30)
[2018-03-08] MEDS ORDERED: ACETAMINOPHEN 325 MG TAB PO PRN (03:30)
[2018-03-08] MEDS ORDERED: KETOROLAC TROMETHAMINE 30 MG/ML VIAL IV PRN (03:45)
[2018-03-08] MEDS ORDERED: OXYC1TAB3 PO (04:13)
[2018-03-08] MEDS ORDERED: OXYCODONE IR HOME PACK PO ONE (04:15)
[2018-03-08 04:23] VITALS: BP 134/72; PULSE 78; O2SAT 98
--- NOTE | 2018-03-08 06:50 | DIAGNOSTIC IMAGING REPORT ---
KUB CLINICAL HISTORY: Lower abdominal pain. History of ureteral stent placement. COMPARISON STUDY: 03/04/2018 FINDINGS: There is a double-pigtail right-sided nephroureteral stent. There is no pathologic bowel dilatation. Multiple granular calcifications project over the lower pole of the right kidney. There are faint calcifications project over the lower pole the left kidney. There are surgical clips within the right upper quadrant consistent with a prior cholecystectomy. No calcifications along the course of the right-sided stent are visualized. The previous identified proximal right ureteral calculus is not visualized on this study. IMPRESSION: 1. Bilateral nephrolithiasis 2. Interval placement of a right-sided double pigtail nephroureteral stent 3. No evidence of pathologic bowel dilatation Electronically signed by: Carlos A Hazel M.D. 03/08/2018 6:49 AM Dictated Date/Time: 03/08/2018 6:47 AM
--- NOTE | 2018-03-08 23:26 | EMERGENCY ROOM VISIT NOTE ---
History First contact with patient: 01:06 Chief Complaint: PENIS PAIN Stated Complaint: ABDOMINAL PAIN SHOOTING DOWN INTO LEGS Nursing Triage Summary: patient states he recently had stents placed for kidney stones. today pain worsening from flank area into penis along with bloody urine. History of Present Illness The patient is a 37 year old male who presents to the Emergency Room with complaints of right flank pain for the past few days. The patient was seen here in the department recently for a right-sided ureteral calculi. He was admitted and underwent retrieval with stent placement. The patient was discharged home with oral medication. The patient states that his pain continues to remain a 10/10, burning, and into the tip of his penis. He is able to urinate small amounts, which is primarily blood. He has not had fever or chills. The patient has been nauseated without vomiting. He has an appointment in 5 days with urology for stent removal, but is concerned as his pain is too great for him to control at home. Review of Systems More than 10 systems were reviewed and otherwise negative with the exception of history of present illness. Past Medical/Surgical History Medical Problems: (1) Asthma (2) Finger fracture, right (3) Gastroparesis (4) GERD (gastroesophageal reflux disease) (5) Hyperlipidemia (6) Hypothyroidism (7) Intractable pain (8) Migraine (9) JESI (obstructive sleep apnea) (10) Renal calculi (11) Syncope Surgical Problems: (1) Cholecystectomy (2) History of dental surgery (3) Hx of esophagogastroduodenoscopy Family History Diabetes mellitus MOTHER GRANDFATHER FH: cancer FH: heart disease FATHER GRANDFATHER FH: lung disease Hypertension Kidney disease or stones Social History Smoking Status: Current Every Day Smoker Alcohol Use: none Drug Use: none Marital Status: Housing Status: lives with family Occupation Status: employed Current/Historical Medications Scheduled Amitriptyline Hcl (Elavil), 100 MG PO HS Hydrochlorothiazide (Hydrochlorothiazide), 6.25 MG PO DAILY Levothyroxine Sodium (Levothyroxine Sodium), 75 MCG PO QAM Multivitamin (Multivitamin), 1 TAB PO DAILY Oxycodone Immediate Rel Tab (Roxicodone Ir), 5 MG PO Q4H Pantoprazole (Pantoprazole Sodium), 40 MG PO HS Ranitidine HCl (Ranitidine HCl), 150 MG PO BID Tamsulosin Hcl (Flomax), 0.4 MG PO QAM Scheduled PRN Albuterol Hfa (Ventolin Hfa), 2-4 PUFFS INH Q4H PRN for SOB/Wheezing Fluticasone Prop/Salmeterol (Advair Diskus 250/50 60 Dose), 1 PUFF INH BID PRN for Wheezing Ibuprofen (Advil), 400 MG PO Q6 PRN for Pain Oxycodone/Acetaminophen 5MG/325MG (Percocet 5MG/325MG), 1 TABLET PO Q6H PRN for Pain Physical Exam Vital Signs Date Time Temp Pulse Resp B/P (MAP) Pulse Ox O2 Delivery O2 Flow Rate FiO2 03/08/18 04:23 78 20 134/72 98 03/08/18 03:33 78 20 138/88 98 Room Air 03/08/18 01:45 97 20 150/97 99 Room Air 03/08/18 00:48 36.8 105 20 146/91 94 Room Air Physical Exam VITALS: Vitals are noted on the nurse's note and reviewed by myself. Vital signs stable. GENERAL: Well-developed, well-nourished, white male who appears in moderate to severe discomfort. He is pacing in the emergency department room, HEART: Regular rate and rhythm without murmurs gallops or rubs. LUNGS: Clear to auscultation bilaterally without wheezes, rales or rhonchi. No retractions or accessory muscle use. ABDOMEN: Positive normal bowel sounds x 4. Soft, nontender, without masses or organomegaly. No guarding or rebound tenderness. No CVA tenderness. MUSCULOSKELETAL: No muscle atrophy, erythema, or edema noted. NEURO: Patient was alert and oriented to person place and time. CN II through XII grossly intact. No focal neurological deficits. SKIN: The skin was without rashes, erythema, edema, or bruising. Capillary refill less than 2 seconds. Medical Decision & Procedures ER Provider Diagnostic Interpretation: KUB CLINICAL HISTORY: Lower abdominal pain. History of ureteral stent placement. COMPARISON STUDY: 03/04/2018 FINDINGS: There is a double-pigtail right-sided nephroureteral stent. There is no pathologic bowel dilatation. Multiple granular calcifications project over the lower pole of the right kidney. There are faint calcifications project over the lower pole the left kidney. There are surgical clips within the right upper quadrant consistent with a prior cholecystectomy. No calcifications along the course of the right-sided stent are visualized. The previous identified proximal right ureteral calculus is not visualized on this study. IMPRESSION: 1. Bilateral nephrolithiasis 2. Interval placement of a right-sided double pigtail nephroureteral stent 3. No evidence of pathologic bowel dilatation Laboratory Results 03/08/18 01:38 Red Blood Count 4.52, Mean Corpuscular Volume 86.7, Mean Corpuscular Hemoglobin 30.8, Mean Corpuscular Hemoglobin Concent 35.5, Mean Platelet Volume 10.6, Neutrophils (%) (Auto) 59.2, Lymphocytes (%) (Auto) 32.4, Monocytes (%) (Auto) 6.6, Eosinophils (%) (Auto) 1.3, Basophils (%) (Auto) 0.3, Neutrophils # (Auto) 6.06, Lymphocytes # (Auto) 3.31, Monocytes # (Auto) 0.68, Eosinophils # (Auto) 0.13, Basophils # (Auto) 0.03 03/08/18 01:34 Test 03/08/18 01:34 03/08/18 01:38 Urine Color RED Urine Appearance TURBID (CLEAR) Urine pH 5.5 (4.5-7.5) Urine Specific [place] 1.034 (1.000-1.030) Urine Protein 3+ (NEG) Urine Glucose (UA) NEG (NEG) Urine Ketones TRACE (NEG) Urine Occult Blood 3+ (NEG) Urine Nitrite NEG (NEG) Urine Bilirubin NEG (NEG) Urine Urobilinogen NEG (NEG) Urine Leukocyte Esterase MODERATE (NEG) Urine WBC (Auto) >30 /hpf (0-5) Urine RBC (Auto) >30 /hpf (0-4) Urine Hyaline Casts (Auto) 0 /lpf (0-5) Urine Epithelial Cells (Auto) 0-5 /lpf (0-5) Urine Bacteria (Auto) NEG (NEG) Urine Pathogenic Casts /lpf (0) Anion Gap 5.0 mmol/L (3-11) Est Creatinine Clear Calc Drug Dose 100.5 ml/min Estimated GFR () 100.3 Estimated GFR (Non- 86.5 BUN/Creatinine Ratio 11.1 (10-20) Calcium Level 9.1 mg/dl (8.5-10.1) Magnesium Level 2.0 mg/dl (1.8-2.4) Total Bilirubin 0.4 mg/dl (0.2-1) Aspartate Amino Transf (AST/SGOT) 19 U/L (15-37) Alanine Aminotransferase (ALT/SGPT) 32 U/L (12-78) Alkaline Phosphatase 128 U/L (45-117) Total Protein 7.8 gm/dl (6.4-8.2) Albumin 4.0 gm/dl (3.4-5.0) Globulin 3.8 gm/dl (2.5-4.0) Albumin/Globulin Ratio 1.1 (0.9-2) Lipase 77 U/L (73-393) White Blood Count 10.23 K/uL (4.8-10.8) Red Blood Count 4.52 M/uL (4.7-6.1) Hemoglobin 13.9 g/dL (14.0-18.0) Hematocrit 39.2 % (42-52) Mean Corpuscular Volume 86.7 fL (80-100) Mean Corpuscular Hemoglobin 30.8 pg (25-34) Mean Corpuscular Hemoglobin Concent 35.5 g/dl (32-36) Platelet Count 266 K/uL (130-400) Mean Platelet Volume 10.6 fL (7.4-10.4) Neutrophils (%) (Auto) 59.2 % Lymphocytes (%) (Auto) 32.4 % Monocytes (%) (Auto) 6.6 % Eosinophils (%) (Auto) 1.3 % Basophils (%) (Auto) 0.3 % Neutrophils # (Auto) 6.06 K/uL (1.4-6.5) Lymphocytes # (Auto) 3.31 K/uL (1.2-3.4) Monocytes # (Auto) 0.68 K/uL (0.11-0.59) Eosinophils # (Auto) 0.13 K/uL (0-0.5) Basophils # (Auto) 0.03 K/uL (0-0.2) RDW Standard Deviation 40.5 fL (36.4-46.3) RDW Coefficient of Variation 12.8 % (11.5-14.5) Immature Granulocyte % (Auto) 0.2 % Immature Granulocyte # (Auto) 0.02 K/uL (0.00-0.02) Medications Administered Medications (Trade) Dose Ordered Sig/Denise Route Start Time Stop Time Status Last Admin Dose Admin Sodium Chloride 1,000 ml @ 999 mls/hr Q1H1M ONCE IV 03/08/18 01:30 03/08/18 02:30 DC 03/08/18 01:44 999 MLS/HR Ondansetron HCl (Zofran Inj) 4 mg NOW STAT IV 03/08/18 01:21 03/08/18 01:25 DC 03/08/18 01:44 4 MG Hydromorphone HCl (Dilaudid Inj) 1 mg NOW STAT IV 03/08/18 01:21 03/08/18 01:25 DC 03/08/18 01:44 1 MG Ceftriaxone Sodium (Rocephin Inj) 1 gm NOW STAT IV 03/08/18 02:06 03/08/18 02:07 DC 03/08/18 02:20 1 GM Ketorolac Tromethamine (Toradol Inj) 30 mg NOW STAT IV 03/08/18 02:24 03/08/18 02:25 DC 03/08/18 02:36 30 MG Hydromorphone HCl (Dilaudid Inj) 1 mg NOW STAT IV 03/08/18 03:00 03/08/18 03:01 DC 03/08/18 03:00 1 MG Oxycodone HCl (Roxicodone Immediate Rel 5MG Home Pack) 1 homepack UD ONCE PO 03/08/18 04:15 03/08/18 04:16 DC 03/08/18 04:15 1 HOMEPACK ED Course Physical exam and history were performed. Nursing notes, EMR, and Medication List were personally reviewed. Patient appears to have right flank pain with a recent stone and ureteral stent placement. The patient does appear uncomfortable on examination. IV access was established and labs were obtained. The patient was given IV Dilaudid, IV Toradol, and IV fluids. KUB was performed. Urine was collected. The patient's blood work is as above and was reviewed. He does not have a significantly elevated white blood cell count, gross anemia and electrolyte imbalance. Transaminases are not diagnostic. Urine may represent infection and he was empirically given a dose of Rocephin. We will await culture before providing additional antibiotics. The KUB does show an in place ureteral stent without other significant findings. The patient felt remarkably improved after IV pain medication and fluids. I did speak with the patient's urologist, Dr. Noriega, who is willing to follow the patient if he needs to stay in the hospital for pain control. He is to otherwise follow-up with her office has scheduled in a few days. I discussed the case with the on-call [facility] hospitalist, Dr. Cardoza, who also and independently evaluated the patient. After meeting with the patient, Dr. Cardoza indicated the patient was willing to go home and continue oral pain medication. Evidently the patient has done better with OxyIR over Percocet. There has been some concern for the patient having seeking behavior in the past , and I will give him a total of [address] Cardoza will contact the patient's primary care physician to help arrange a follow-up appointment tomorrow, which is completely reasonable. The patient was pleased with this plan and he will keep his upcoming appointments as scheduled. He remained in stable condition and was discharged home with a ride. The chart was completed utilizing [employer] Speech Voice Recognition Software. Grammatical errors, random word insertions, pronoun errors, and incomplete sentences are an occasional consequence of this system due to software limitations, ambient noise, and hardware issues. Any formal questions or concerns about the content, text, or information contained within the body of this dictation should be directly addressed to the provider for clarification. . Medical Decision Differential diagnosis: Etiologies such as renal colic, appendicitis, diverticulitis, mesenteric ischemia, aortic pathology, infections, inflammatory bowel disease, PUD, biliary pathology, UTI, as well as others were entertained. Impression Primary Impression: Pain due to ureteral stent Departure Information Dispostion Home / Self-Care Condition GOOD Prescriptions Oxycodone Immediate Rel Tab (ROXICODONE IR) 5 Mg Tab 5 MG PO Q4H for Pain, #8 TAB Prov: Mike Recinos PA-C 03/08/18 Forms HOME CARE DOCUMENTATION FORM, IMPORTANT VISIT INFORMATION Patient Instructions My [facility] [address] Additional Instructions You were seen and evaluated today on an emergency basis only. This is not a substitute for, or an effort to provide, complete comprehensive medical care. It is not possible to recognize and treat all injuries or illnesses in a single emergency department visit. For this reason it is recommended that you followup with your primary care physician tomorrow for ongoing care. Please keep her upcoming appointment with urology. Oxycodone (OxyIR) 5mg: Take ONE pill every FOUR to SIX hours for breakthrough pain. Avoid alcohol, operating machinery or dangerous equipment, working on ladders or roofs, DRIVING, or situations where being under the influence may be dangerous. It is recommended to use an [id number] stool softener such as Colace, 100mg twice daily while taking this medication to avoid constipation. You are welcome to return to the emergency department anytime with new, worsening, or concerning symptoms.
[2018-03-12] MEDS ORDERED: IBUP-1050 PO (01:12)
[2018-03-12] MEDS ORDERED: VNTHFA/IN INH (10:07)
[2018-03-12] MEDS ORDERED: MULT-506 PO (13:02)
[2018-03-12] MEDS ORDERED: RANI150T2 PO (15:49)
== END 2018-03-08 04:24 | disposition home or self-care (01) ==
LOC: C.EDB 00:45
DX: T83.84XA Pain due to genitourinary prosthetic devices, implants and grafts, initial encounter (principal); X58.XXXA Exposure to other specified factors, initial encounter; J45.909 Unspecified asthma, uncomplicated; E78.5 Hyperlipidemia, unspecified; E03.9 Hypothyroidism, unspecified; G47.33 Obstructive sleep apnea (adult) (pediatric); F17.200 Nicotine dependence, unspecified, uncomplicated

== ENCOUNTER 2018-03-12 16:24 | Emergency (ER) | payer OTHER ==
[~2018-03-12] VITALS: Ht 170.2 cm; Wt 89.8 kg
[~2018-03-12 16:24] MED LIST changes: -FLM4 PO; +IBUP-1050 PO; -IBUP1CAP9 OR; -INHALER INH; +MULT-506 PO; +OXYC1TAB3 PO; -PHEN-774 PO; +RANI150T2 PO; +TAMS0.4C38 PO; +VNTHFA/IN INH
[2018-03-12 16:25] VITALS: TEMP 36.7; Ht 170.2 cm; Wt 89.8 kg
--- NOTE | 2018-03-12 16:35 | EMERGENCY ROOM VISIT NOTE ---
History Report prepared by Geetha: Ruddy Hanley Under the Supervision of: Dr. Tom Swann M.D. First contact with patient: 16:29 Chief Complaint: KIDNEY STONE Stated Complaint: KIDNEY STONE History of Present Illness The patient is a 37 year old male who presents to the Emergency Room with complaints of constant, severe, right sided abdominal pain beginning this morning. The patient states he was evaluated by Dr. Noriega this morning and had his right ureteral stent pulled out. He reports his discomfort radiates into the right side of his back. The patient denies fevers. Review of EMR shows the patient was were multiple time and was last evaluated on the . It states the patient tested positive for cocaine, opiates, and marijuana. Source of History: patient Onset: this morning Position: abdomen (right side) Symptom Intensity: severe Timing: constant Associated Symptoms: No fevers Review of Systems See HPI for pertinent positives & negatives. A total of 10 systems reviewed and were otherwise negative. Past Medical & Surgical Medical Problems: (1) Asthma (2) Finger fracture, right (3) Gastroparesis (4) GERD (gastroesophageal reflux disease) (5) Hyperlipidemia (6) Hypothyroidism (7) Intractable pain (8) Migraine (9) JESI (obstructive sleep apnea) (10) Renal calculi (11) Syncope Surgical Problems: (1) Cholecystectomy (2) History of dental surgery (3) Hx of esophagogastroduodenoscopy Family History Diabetes mellitus MOTHER GRANDFATHER FH: cancer FH: heart disease FATHER GRANDFATHER FH: lung disease Hypertension Kidney disease or stones Social History Smoking Status: Former Smoker Alcohol Use: none Drug Use: cocaine, marijuana, other (opiates) Marital Status: Housing Status: lives with family Occupation Status: employed Current/Historical Medications Scheduled Amitriptyline Hcl (Elavil), 100 MG PO HS Hydrochlorothiazide (Hydrochlorothiazide), 6.25 MG PO DAILY Levothyroxine Sodium (Levothyroxine Sodium), 75 MCG PO QAM Multivitamin (Multivitamin), 1 TAB PO DAILY Pantoprazole (Pantoprazole Sodium), 40 MG PO HS Ranitidine HCl (Ranitidine HCl), 150 MG PO BID Tamsulosin HCl (Tamsulosin HCl), 0.4 MG PO HS Scheduled PRN Albuterol Hfa (Ventolin Hfa), 2 PUFFS INH Q4H PRN for SOB/Wheezing Fluticasone Prop/Salmeterol (Advair Diskus 250/50 60 Dose), 1 PUFF INH BID PRN for Wheezing Ibuprofen (Advil), 400 MG PO Q6H PRN for Pain Phenazopyridine HCl (Phenazopyridine HCl), 100 MG PO TID PRN for Bladder pain Allergies Coded Allergies: Benzoyl Peroxide (Verified Allergy, Mild, 03/10/18) Lactose Intolerance (Verified Allergy, Unknown, Unknown, 03/10/18) Risperidone (Verified Allergy, Unknown, "I FELT LIKE I WAS DRUNK", 03/10/18 ) Hydrocodone (Verified Adverse Reaction, Mild, VOMITING, 03/10/18) Magnesium (Verified Adverse Reaction, Unknown, Nausea, GI upset, 03/10/18) Prednisone (Verified Adverse Reaction, Unknown, "messes up my mind, depressed", 03/10/18) Physical Exam Vital Signs Date Time Temp Pulse Resp B/P (MAP) Pulse Ox O2 Delivery O2 Flow Rate FiO2 03/12/18 18:17 81 22 135/75 98 Room Air 03/12/18 17:49 70 03/12/18 16:25 36.7 77 20 170/100 98 Room Air Physical Exam GENERAL: Awake, alert, well-appearing, in no acute distress HENT: Normocephalic, atraumatic. Oropharynx unremarkable. EYES: Normal conjunctiva. Sclera non-icteric. NECK: Supple. No nuchal rigidity. FROM. No JVD. RESPIRATORY: Clear to auscultation. CARDIAC: Regular rate, normal rhythm. Extremities warm and well perfused. Pulses equal. ABDOMEN: Soft, non-distended. No tenderness to palpation. No rebound or guarding. No masses. RECTAL: Deferred. MUSCULOSKELETAL: Chest examination reveals no tenderness. The back is symmetrical on inspection without obvious abnormality. There is no CVA tenderness to palpation. No joint edema. LOWER EXTREMITIES: Calves are equal size bilaterally and non-tender. No edema. No discoloration. NEURO: Normal sensorium. No sensory or motor deficits noted. SKIN: No rash or jaundice noted. Medical Decision & Procedures Laboratory Results 03/12/18 17:10 Red Blood Count 4.46, Mean Corpuscular Volume 87.0, Mean Corpuscular Hemoglobin 30.0, Mean Corpuscular Hemoglobin Concent 34.5, Mean Platelet Volume 10.4, Neutrophils (%) (Auto) 79.0, Lymphocytes (%) (Auto) 15.4, Monocytes (%) (Auto) 4.4, Eosinophils (%) (Auto) 0.6, Basophils (%) (Auto) 0.2, Neutrophils # (Auto) 8.70, Lymphocytes # (Auto) 1.70, Monocytes # (Auto) 0.49, Eosinophils # (Auto) 0.07, Basophils # (Auto) 0.02 03/12/18 17:10 Test 03/12/18 17:10 03/12/18 17:40 White Blood Count 11.02 K/uL (4.8-10.8) Red Blood Count 4.46 M/uL (4.7-6.1) Hemoglobin 13.4 g/dL (14.0-18.0) Hematocrit 38.8 % (42-52) Mean Corpuscular Volume 87.0 fL (80-100) Mean Corpuscular Hemoglobin 30.0 pg (25-34) Mean Corpuscular Hemoglobin Concent 34.5 g/dl (32-36) Platelet Count 245 K/uL (130-400) Mean Platelet Volume 10.4 fL (7.4-10.4) Neutrophils (%) (Auto) 79.0 % Lymphocytes (%) (Auto) 15.4 % Monocytes (%) (Auto) 4.4 % Eosinophils (%) (Auto) 0.6 % Basophils (%) (Auto) 0.2 % Neutrophils # (Auto) 8.70 K/uL (1.4-6.5) Lymphocytes # (Auto) 1.70 K/uL (1.2-3.4) Monocytes # (Auto) 0.49 K/uL (0.11-0.59) Eosinophils # (Auto) 0.07 K/uL (0-0.5) Basophils # (Auto) 0.02 K/uL (0-0.2) RDW Standard Deviation 41.3 fL (36.4-46.3) RDW Coefficient of Variation 12.8 % (11.5-14.5) Immature Granulocyte % (Auto) 0.4 % Immature Granulocyte # (Auto) 0.04 K/uL (0.00-0.02) Anion Gap 6.0 mmol/L (3-11) Est Creatinine Clear Calc Drug Dose 105.0 ml/min Estimated GFR () 106.1 Estimated GFR (Non- 91.5 BUN/Creatinine Ratio 13.9 (10-20) Calcium Level 9.6 mg/dl (8.5-10.1) Total Bilirubin 0.4 mg/dl (0.2-1) Direct Bilirubin 0.1 mg/dl (0-0.2) Aspartate Amino Transf (AST/SGOT) 20 U/L (15-37) Alanine Aminotransferase (ALT/SGPT) 34 U/L (12-78) Alkaline Phosphatase 107 U/L (45-117) Total Protein 7.8 gm/dl (6.4-8.2) Albumin 4.2 gm/dl (3.4-5.0) Lipase 146 U/L (73-393) Urine Color DK YELLOW Urine Appearance CLOUDY (CLEAR) Urine pH 5.0 (4.5-7.5) Urine Specific [place] 1.023 (1.000-1.030) Urine Protein 2+ (NEG) Urine Glucose (UA) NEG (NEG) Urine Ketones NEG (NEG) Urine Occult Blood 3+ (NEG) Urine Nitrite POS (NEG) Urine Bilirubin NEG (NEG) Urine Urobilinogen NEG (NEG) Urine Leukocyte Esterase TRACE (NEG) Urine WBC (Auto) 5-10 /hpf (0-5) Urine RBC (Auto) >30 /hpf (0-4) Urine Hyaline Casts (Auto) 1-5 /lpf (0-5) Urine Epithelial Cells (Auto) 5-10 /lpf (0-5) Urine Bacteria (Auto) 1+ (NEG) Urine Crystals CALCIUM OXALATE (NONE Labs reviewed by ED physician. Medications Administered Medications (Trade) Dose Ordered Sig/Denise Route Start Time Stop Time Status Last Admin Dose Admin Ketorolac Tromethamine (Toradol Inj) 30 mg NOW STAT IV 03/12/18 16:36 03/12/18 16:40 DC 03/12/18 17:37 30 MG Sodium Chloride 1,000 ml @ 999 mls/hr Q1H1M STAT IV 03/12/18 16:36 03/12/18 17:36 DC 03/12/18 17:37 999 MLS/HR Ondansetron HCl (Zofran Inj) 4 mg NOW STAT IV 03/12/18 16:36 03/12/18 16:40 DC 03/12/18 17:35 4 MG Diphenhydramine HCl (Benadryl Inj) 50 mg NOW STAT IV 03/12/18 17:58 03/12/18 18:00 DC 03/12/18 18:12 50 MG Prochlorperazine Edisylate (Compazine Inj) 10 mg NOW STAT IV 03/12/18 17:58 03/12/18 18:00 DC 03/12/18 18:12 10 MG ED Course 163: Past medical records reviewed. The patient was evaluated in room B04B. A complete history and physical examination was performed. 163: Ordered Ondansetron HCl 4mg IV, Sodium Chloride 1000 ml @ 999 mls/hr IV, Ketorolac Tromethamine 30mg IV 175: The patient is refusing to have his KUB and ultrasound without receiving more pain medication. I am giving him Benadryl and Compazine. 1757: Ordered Compazine 10 mg IV, Benadryl Inj 50mg IV 183: I reevaluated the patient and discussed current exam findings. 1916: The patient eloped. Medical Decision Etiologies such as appendicitis, diverticulitis, PUD, biliary pathology, UTI, pancreatitis, obstruction, mesenteric ischemia, aortic pathology, infections, inflammatory bowel disease, renal colic, as well as others were entertained. This is a 37-year-old male who presents the emergency department after having his stent removed. I will note that this patient is on the no narcotics list and recently tested positive for cocaine as well as opiates and marijuana in his urine. I will also note that the patient the patient at this point demanded more pain medication before any further imaging could be performed. He was then given Compazine and Benadryl. At this point the patient became belligerent is afebrile here in the emergency department. An IV was established , the patient was given normal saline bolus, Toradol. Again demanding narcotics. He refused to have a KUB as well as a renal ultrasound performed. I reiterated to the patient that his urologist will want at least those studies performed. He then eloped from the emergency department. The patient has demonstrated no significant defect in the decision-making capacity to make choices. The encounter had a good level of communication with language the patient can easily understand. I feel trust was present and conveyed that our action/intentions were the best interest of the patient. The patient was given all relevant information and reiterated the explained risks and benefits. The patient explained the reasoning for refusing treatment clearly. The patient possesses and expresses a set of values and goals, the ability to communicate and understand, and an ability to reason and deliberate. Despite acting emphatically, attentively and with the utmost patient's the patient declined further treatment. I offered options, negotiated, and explored every reasonable choice. I must respect the patient's autonomy and that they feel that their choices are best for them despite the associated risks of leaving without completing the evaluation. Medication Reconcilliation Current Medication List: was personally reviewed by me Blood Pressure Screening Patient's blood pressure: Elevated blood pressure Blood pressure disposition: Referred to PCP Impression Primary Impression: Right flank pain Scribe Attestation The scribe's documentation has been prepared under my direction and personally reviewed by me in its entirety. I confirm that the note above accurately reflects all work, treatment, procedures, and medical decision making performed by me. Departure Information Dispostion Other (Eloped) Referrals Adrian Meza M.D. (PCP) Patient Instructions My [facility]
[2018-03-12] MEDS ORDERED: ONDANSETRON INJ 2 MG/ML 2 ML VIAL IV STA (16:36)
[2018-03-12] MEDS ORDERED: KETOROLAC TROMETHAMINE 30 MG/ML VIAL IV STA (16:36)
[2018-03-12] MEDS ORDERED: SODIUM CHLORIDE 0.9% 1000ML 1,000 ML IV STA (16:36)
[2018-03-12 17:27] LABS: BASO % 0.2 %; BASO ABS # 0.02 K/uL (0-0.2); EOS % 0.6 %; EOS ABS # 0.07 K/uL (0-0.5); HEMATOCRIT 38.8 % (42-52); HEMOGLOBIN 13.4 g/dL (14.0-18.0); IG# 0.04 K/uL (0.00-0.02); LYMPH % 15.4 %; MEAN CORPUSCULAR HGB CONC 34.5 g/dl (32-36); MEAN PLATELET VOLUME 10.4 fL (7.4-10.4); MONO % 4.4 %; MONO ABS # 0.49 K/uL (0.11-0.59); PLATELET COUNT 245 K/uL (130-400); RED CELL DISTRIBUTION WIDTH CV 12.8 % (11.5-14.5); RED CELL DISTRIBUTION WIDTH SD 41.3 fL (36.4-46.3); WHITE BLOOD COUNT 11.02 K/uL (4.8-10.8)
[2018-03-12] MEDS ORDERED: FLM4 PO (17:27)
[2018-03-12] MEDS ORDERED: PHEN-1042 PO (17:27)
[2018-03-12] MEDS ORDERED: AMIT100T2 PO (17:39)
[2018-03-12] MEDS ORDERED: ADVIN25/60 INH (17:45)
[2018-03-12] MEDS ORDERED: PANT40TA2 PO (17:45)
[2018-03-12 17:58] LABS: ALBUMIN 4.2 gm/dl (3.4-5.0); CALCIUM 9.6 mg/dl (8.5-10.1); CREATININE 1.05 mg/dl (0.60-1.40); TOTAL PROTEIN 7.8 gm/dl (6.4-8.2)
[2018-03-12] MEDS ORDERED: DiphenhydrAMINE HCL 50 MG/ML VIAL IV STA (17:58)
[2018-03-12] MEDS ORDERED: PROCHLORPERAZINE 5 MG/ML 2 ML VIAL IV STA (17:58)
[2018-03-12 18:17] VITALS: BP 135/75; PULSE 81; O2SAT 98
[2018-03-12] MEDS ORDERED: ACETAMINOPHEN 500 MG TAB PO STA (18:31)
[2018-03-12] MEDS ORDERED: LEVO75TA5 PO (21:32)
[2018-03-12] MEDS ORDERED: HYDR12.55 PO (22:32)
== END 2018-03-12 18:39 | disposition left against medical advice (07) ==
LOC: C.EDB 16:25
DX: R10.9 Unspecified abdominal pain (principal); K21.9 Gastro-esophageal reflux disease without esophagitis; E78.5 Hyperlipidemia, unspecified; E03.9 Hypothyroidism, unspecified; Z79.899 Other long term (current) drug therapy; Z88.5 Allergy status to narcotic agent; Z88.8 Allergy status to other drugs, medicaments and biological substances; Z91.011 Allergy to milk products; Z91.048 Other nonmedicinal substance allergy status

== ENCOUNTER 2018-03-23 12:21 | Emergency (ER) | payer OTHER ==
[~2018-03-23] VITALS: Ht 170.2 cm; Wt 88.3 kg
[~2018-03-23 12:21] MED LIST changes: +ADVIN25/60 INH; +AMIT100T2 PO; +FLM4 PO; +HYDR12.55 PO; +LEVO75TA5 PO; -OXYC-57 PO; -OXYC1TAB3 PO; +PANT40TA2 PO; +PHEN-1042 PO; -TAMS0.4C38 PO
[2018-03-23 12:27] VITALS: TEMP 36.7; Ht 170.2 cm; Wt 88.3 kg
[2018-03-23] MEDS ORDERED: hydrOXYzine HCL 25 MG TAB PO STA ×2 (12:50→20:38)
--- NOTE | 2018-03-23 12:50 | EMERGENCY ROOM VISIT NOTE ---
History First contact with patient: 12:30 Chief Complaint: PSYCHIATRIC PROBLEMS Stated Complaint: "FEEL LIKE HURTING MYSELF" History of Present Illness The patient is a 37 year old male who presents to the Emergency Room with complaints of anxiety and thoughts of suicide. The patient also notes the following associated symptoms, feeling depressed. This started throughout this week and is worsening. The patient has no relieving factors. The patient states he feels like driving his car at high rate of speed and racking on purpose. He notes he has a lot of stress with family and life. Denies any alcohol or drug use. Pt denies LOC, headache, fevers, chills, diaphoresis, visual changes, neck pain, chest pain, breathing difficulties, nausea, vomiting , abdominal pain, back pain, melena, hematochezia, urinary symptoms, numbness, weakness, lymphadenopathy, rash, or other complaints. Review of Systems See HPI for pertinent positives and negatives. A total of ten systems were reviewed and were otherwise negative. Past Medical/Surgical History Medical Problems: (1) Asthma (2) Finger fracture, right (3) Gastroparesis (4) GERD (gastroesophageal reflux disease) (5) Hyperlipidemia (6) Hypothyroidism (7) Intractable pain (8) Migraine (9) JESI (obstructive sleep apnea) (10) Renal calculi (11) Syncope Surgical Problems: (1) Cholecystectomy (2) History of dental surgery (3) Hx of esophagogastroduodenoscopy Family History Diabetes mellitus MOTHER GRANDFATHER FH: cancer FH: heart disease FATHER GRANDFATHER FH: lung disease Hypertension Kidney disease or stones Social History Smoking Status: Former Smoker Alcohol Use: none Drug Use: cocaine, marijuana, other Marital Status: Housing Status: lives with family Occupation Status: employed Current/Historical Medications Scheduled Amitriptyline Hcl (Elavil), 100 MG PO HS Hydrochlorothiazide (Hydrochlorothiazide), 25 MG PO DAILY Levothyroxine Sodium (Levothyroxine Sodium), 75 MCG PO QAM Pantoprazole (Pantoprazole Sodium), 40 MG PO HS Ranitidine HCl (Ranitidine HCl), 150 MG PO BID Scheduled PRN Albuterol Hfa (Ventolin Hfa), 2 PUFFS INH Q4H PRN for SOB/Wheezing Fluticasone Prop/Salmeterol (Advair Diskus 250/50 60 Dose), 1 PUFF INH BID PRN for Wheezing Ibuprofen (Advil), 400 MG PO Q6H PRN for Pain Phenazopyridine HCl (Phenazopyridine HCl), 100 MG PO TID PRN for Bladder pain Physical Exam Vital Signs Date Time Temp Pulse Resp B/P (MAP) Pulse Ox O2 Delivery O2 Flow Rate FiO2 03/23/18 12:27 36.7 89 18 146/91 95 Room Air Physical Exam GENERAL: Awake, alert, depressed appearing, no distress HENT: Normocephalic, atraumatic. TM's normal. Oropharynx unremarkable. EYES: PERRL. EOMI. Normal conjunctiva. Sclera non-icteric. NECK: Supple. No nuchal rigidity. FROM. No JVD or bruit. RESPIRATORY: Clear. Breath sounds equal. No wheezes. No rhonchi. Normal respiratory effort. CARDIAC: Normal rate. Regular rhythm. No murmurs. No rubs. No JVD. ABDOMEN: Soft, non distended. No tenderness to palpation. No rebound or guarding. No masses. MUSCULOSKELETAL: Unremarkable. No edema. No discoloration. Gross motor strength symmetric. NEURO: Cranial nerves 2-12 grossly intact. Normal sensorium. No sensory or motor deficits noted. Speech normal. No pronator drift. Normal [id number]. SKIN: No rash or jaundice noted. Multiple tattoos noted on the extremities and face. LYMPH: No adenopathy. PSYCH: Depressed mood, flat. Positive suicidal ideation. No homicidal ideation. Medical Decision & Procedures Laboratory Results 03/23/18 12:50 Red Blood Count 4.42, Mean Corpuscular Volume 86.7, Mean Corpuscular Hemoglobin 30.5, Mean Corpuscular Hemoglobin Concent 35.2, Mean Platelet Volume 10.2, Neutrophils (%) (Auto) 73.6, Lymphocytes (%) (Auto) 19.3, Monocytes (%) (Auto) 6.2, Eosinophils (%) (Auto) 0.4, Basophils (%) (Auto) 0.2, Neutrophils # (Auto) 8.32, Lymphocytes # (Auto) 2.18, Monocytes # (Auto) 0.70, Eosinophils # (Auto) 0.04, Basophils # (Auto) 0.02 03/23/18 12:50 Test 03/23/18 12:50 03/23/18 12:58 White Blood Count 11.29 K/uL (4.8-10.8) Red Blood Count 4.42 M/uL (4.7-6.1) Hemoglobin 13.5 g/dL (14.0-18.0) Hematocrit 38.3 % (42-52) Mean Corpuscular Volume 86.7 fL (80-100) Mean Corpuscular Hemoglobin 30.5 pg (25-34) Mean Corpuscular Hemoglobin Concent 35.2 g/dl (32-36) Platelet Count 238 K/uL (130-400) Mean Platelet Volume 10.2 fL (7.4-10.4) Neutrophils (%) (Auto) 73.6 % Lymphocytes (%) (Auto) 19.3 % Monocytes (%) (Auto) 6.2 % Eosinophils (%) (Auto) 0.4 % Basophils (%) (Auto) 0.2 % Neutrophils # (Auto) 8.32 K/uL (1.4-6.5) Lymphocytes # (Auto) 2.18 K/uL (1.2-3.4) Monocytes # (Auto) 0.70 K/uL (0.11-0.59) Eosinophils # (Auto) 0.04 K/uL (0-0.5) Basophils # (Auto) 0.02 K/uL (0-0.2) RDW Standard Deviation 40.6 fL (36.4-46.3) RDW Coefficient of Variation 12.7 % (11.5-14.5) Immature Granulocyte % (Auto) 0.3 % Immature Granulocyte # (Auto) 0.03 K/uL (0.00-0.02) Anion Gap 6.0 mmol/L (3-11) Est Creatinine Clear Calc Drug Dose 112.7 ml/min Estimated GFR () 116.7 Estimated GFR (Non- 100.7 BUN/Creatinine Ratio 15.0 (10-20) Calcium Level 9.0 mg/dl (8.5-10.1) Total Bilirubin 0.5 mg/dl (0.2-1) Direct Bilirubin < 0.1 mg/dl (0-0.2) Aspartate Amino Transf (AST/SGOT) 19 U/L (15-37) Alanine Aminotransferase (ALT/SGPT) 51 U/L (12-78) Alkaline Phosphatase 112 U/L (45-117) Total Protein 7.9 gm/dl (6.4-8.2) Albumin 4.0 gm/dl (3.4-5.0) Thyroid Stimulating Hormone (TSH) 4.460 uIu/ml (0.300-4.500) Salicylates Level 3.8 mg/dl (2.8-20) Acetaminophen Level < 2 ug/ml (10-30) Ethyl Alcohol mg/dL < 3.0 mg/dl (0-3) Urine Color YELLOW Urine Appearance CLEAR (CLEAR) Urine pH 6.0 (4.5-7.5) Urine Specific [place] 1.032 (1.000-1.030) Urine Protein 3+ (NEG) Urine Glucose (UA) NEG (NEG) Urine Ketones NEG (NEG) Urine Occult Blood NEG (NEG) Urine Nitrite NEG (NEG) Urine Bilirubin NEG (NEG) Urine Urobilinogen NEG (NEG) Urine Leukocyte Esterase NEG (NEG) Urine WBC (Auto) 1-5 /hpf (0-5) Urine RBC (Auto) 0-4 /hpf (0-4) Urine Hyaline Casts (Auto) 5-10 /lpf (0-5) Urine Epithelial Cells (Auto) 20-30 /lpf (0-5) Urine Bacteria (Auto) NEG (NEG) Urine Opiates Screen POS (NEG) Urine Methadone, Qualitative NEG (NEG) Urine Barbiturates NEG (NEG) Urine Phencyclidine (PCP) Level NEG (NEG) Ur Amphetamine/Methamphetamine NEG (NEG) MDMA (Ecstasy) Screen NEG (NEG) Urine Benzodiazepines Screen NEG (NEG) Urine Cocaine Metabolite POS (NEG) Urine Marijuana (THC) POS (NEG) Medications Administered Medications (Trade) Dose Ordered Sig/Denise Route Start Time Stop Time Status Last Admin Dose Admin Hydroxyzine HCl (Vistaril Tab) 50 mg NOW STAT PO 03/23/18 12:50 03/23/18 12:51 DC 03/23/18 13:10 50 MG Medical Decision Prior records/ancillary studies reviewed. Triage Nursing notes reviewed and agree them. The patient's history was concerning for possible psychiatric disturbance. Differential diagnosis: Etiologies such as mood disorder, infection, hypoglycemia, electrolyte abnormalities, cardiac sources, intracerebral event, toxicologic, neurologic, as well as others were entertained. Physical examination: The physical examination was performed as above and was completely benign. No emergent medical pathologies were noted. ER treatment provided: Oral Atarax 50 mg On reassessment the patient felt better. Evening medications ordered DuoNeb Oral Zantac Oral Protonix Oral amitriptyline Oral potassium Oral HCTZ Diagnostic interpretation by me: The labs revealed an unremarkable CBC and chemistry panel except for subtle leukocytosis and a slight decrease in his potassium of 3.2.. Urine drug screen was grossly abnormal as above. The patient is voluntary at this point. Bed search is underway. He has suicidal ideation. He was reassessed and was comfortable. There are no beds available here. The psychiatric rn case management is doing a bed search at this time. His case was signed out to Dr. Mary Alvarez at the change of shift. Impression Primary Impression: Mood disorder Additional Impression: Suicidal ideation Departure Information Dispostion Still a Patient Referrals Adrian Meza M.D. (PCP) Patient Instructions My [facility] Problem Qualifiers
[2018-03-23 13:03] LABS: BASO % 0.2 %; BASO ABS # 0.02 K/uL (0-0.2); EOS % 0.4 %; EOS ABS # 0.04 K/uL (0-0.5); HEMATOCRIT 38.3 % (42-52); HEMOGLOBIN 13.5 g/dL (14.0-18.0); IG# 0.03 K/uL (0.00-0.02); LYMPH % 19.3 %; LYMPH ABS # 2.18 K/uL (1.2-3.4); MEAN CELL VOLUME 86.7 fL (80-100); MEAN CORPUSCULAR HEMOGLOBIN 30.5 pg (25-34); MEAN CORPUSCULAR HGB CONC 35.2 g/dl (32-36); MEAN PLATELET VOLUME 10.2 fL (7.4-10.4); MONO % 6.2 %; NEUT % 73.6 %; NEUT ABS # 8.32 K/uL (1.4-6.5); PLATELET COUNT 238 K/uL (130-400); RED CELL DISTRIBUTION WIDTH CV 12.7 % (11.5-14.5); RED CELL DISTRIBUTION WIDTH SD 40.6 fL (36.4-46.3); WHITE BLOOD COUNT 11.29 K/uL (4.8-10.8)
[2018-03-23 13:21] LABS: ALT/SGPT 51 U/L (12-78); AST/SGOT 19 U/L (15-37); BLOOD UREA NITROGEN 15 mg/dl (7-18); CARBON DIOXIDE 30 mmol/L (21-32); CREATININE 0.97 mg/dl (0.60-1.40); GLUCOSE 106 mg/dl (70-99); POTASSIUM 3.2 mmol/L (3.5-5.1); SODIUM 135 mmol/L (136-145)
[2018-03-23 13:31] LABS: TOTAL PROTEIN 7.9 gm/dl (6.4-8.2)
[2018-03-23 13:32] LABS: ALKALINE PHOSPHATASE 112 U/L (45-117)
[2018-03-23] MEDS ORDERED: PANTOprazole SOD 40 MG TAB PO STA (19:29)
[2018-03-23] MEDS ORDERED: AMITRIPTYLINE HCL 100 MG TAB PO STA (19:29)
[2018-03-23] MEDS ORDERED: ALBUT/IPRATROP 3MG/0.5MG NEB 3 ML VIAL INH STA (19:29)
[2018-03-23] MEDS ORDERED: RANITIDINE HCL 150 MG TAB PO ONE ×2 (19:30→20:45)
[2018-03-23] MEDS ORDERED: POTASSIUM CHLORIDE 10 MEQ TABCR PO STA (19:34)
[2018-03-23] MEDS ORDERED: HYDROCHLOROTHIAZIDE 25 MG TAB PO STA (19:35)
[2018-03-23] MEDS ORDERED: ATORVASTATIN 20 MG TAB PO STA (20:33)
[2018-03-23] MEDS ORDERED: ATOR-24 PO (20:35)
--- NOTE | 2018-03-23 21:05 | EMERGENCY ROOM VISIT NOTE ---
ED Visit Note First contact with patient: 19:45 Patient signed out to me by Dr. Carlson. Patient awaiting evaluation and placement at this time. 2100: 201 and transfer paperwork signed.
[2018-03-23 21:22] VITALS: BP 151/94; PULSE 82; O2SAT 97
== END 2018-03-23 21:23 | disposition short-term general hospital (02) ==
LOC: C.EDB 12:21 → C.EDA 21:23
DX: R45.851 Suicidal ideations (principal); R82.5 Elevated urine levels of drugs, medicaments and biological substances; E87.6 Hypokalemia; D72.829 Elevated white blood cell count, unspecified; E03.9 Hypothyroidism, unspecified; K21.9 Gastro-esophageal reflux disease without esophagitis; Z87.891 Personal history of nicotine dependence

== ENCOUNTER 2018-03-31 06:22 | Emergency (ER) | payer OTHER ==
[~2018-03-31] VITALS: Ht 170.2 cm; Wt 89.0 kg
[~2018-03-31 06:22] MED LIST changes: +ATOR-24 PO; -FLM4 PO; -MULT-506 PO
[2018-03-31 06:28] VITALS: TEMP 36.8; Ht 170.2 cm; Wt 89.0 kg
[2018-03-31] MEDS ORDERED: ONDANSETRON 4MG OD TAB PO STA (06:51)
[2018-03-31] MEDS ORDERED: KETOROLAC TROMETHAMINE 30 MG/ML VIAL IV STA (06:51)
[2018-03-31] MEDS ORDERED: MoRPHine SULFATE 4 MG/ML 1 ML CARP\\VIAL IV STA ×2 (06:51→08:36)
--- NOTE | 2018-03-31 07:01 | EMERGENCY ROOM VISIT NOTE ---
History First contact with patient: 08:04 Chief Complaint: KIDNEY STONE Stated Complaint: KIDNEY STONE History of Present Illness The patient is a 37 year old male with a PMHX of depression, migraines and kidney stones who presents to the Emergency Room with complaints of bilateral flank pain starting at 1:30AM this morning. Pt describes his pain has sharp and colicky, it's there all the time and he rates the pain as 10/10. Patient has had multiple kidney stones in the past. He is taking Ibuprofen and Percocet for pain. The percocet was prescribed by a Urologist in [place] who he cannot remember the name. He also states he had a stent placed by this doctor in [place] two days ago. He also follows with Dr. Norie[facility] here in [place] and a urologist in [place]. Patient states that he noticed hematuria starting around 1:30AM this morning as well. Pt denies fevers. He states that his flank pain is worse on the left side. Review of Systems See HPI for pertinent positives and negatives. A total of ten systems were reviewed and were otherwise negative. Constitutional: No fever, No chills Respiratory: No cough, No sputum, No shortness of breath, No dyspnea on exertion Cardiovascular: No chest pain, No edema, No claudication, No palpitations Abdomen: No pain, No nausea, No vomiting, No diarrhea, No constipation, No GI bleeding Musculoskeletal: No joint pain Genitourinary - Male: + hematuria, + urinary frequency, No dysuria, No urinary hesitancy, No urinary retention, No urinary incontinence Neurologic: No memory loss Psychiatric: No depression symptoms (denies SI and HI) Past Medical/Surgical History Medical Problems: (1) Asthma (2) Finger fracture, right (3) Gastroparesis (4) GERD (gastroesophageal reflux disease) (5) Hyperlipidemia (6) Hypothyroidism (7) Intractable pain (8) Migraine (9) JESI (obstructive sleep apnea) (10) Renal calculi (11) Syncope Surgical Problems: (1) Cholecystectomy (2) History of dental surgery (3) Hx of esophagogastroduodenoscopy Family History Diabetes mellitus MOTHER GRANDFATHER FH: cancer FH: heart disease FATHER GRANDFATHER FH: lung disease Hypertension Kidney disease or stones Social History Smoking Status: Current Every Day Smoker Alcohol Use: none Drug Use: cocaine, marijuana, other Marital Status: Housing Status: lives with family Occupation Status: employed Current/Historical Medications Scheduled Amitriptyline Hcl (Elavil), 100 MG PO HS Atorvastatin (Lipitor), 40 MG PO DAILY Hydrochlorothiazide (Hydrochlorothiazide), 25 MG PO DAILY Levothyroxine Sodium (Levothyroxine Sodium), 75 MCG PO QAM Pantoprazole (Pantoprazole Sodium), 40 MG PO HS Ranitidine HCl (Ranitidine HCl), 150 MG PO BID Scheduled PRN Albuterol Hfa (Ventolin Hfa), 2 PUFFS INH Q4H PRN for SOB/Wheezing Fluticasone Prop/Salmeterol (Advair Diskus 250/50 60 Dose), 1 PUFF INH BID PRN for Wheezing Ibuprofen (Advil), 400 MG PO Q6H PRN for Pain Phenazopyridine HCl (Phenazopyridine HCl), 100 MG PO TID PRN for Bladder pain Physical Exam Vital Signs Date Time Temp Pulse Resp B/P (MAP) Pulse Ox O2 Delivery O2 Flow Rate FiO2 03/31/18 08:21 102 18 162/99 98 Room Air 03/31/18 06:28 36.8 116 22 163/98 94 Room Air Physical Exam Gen: Pt is pacing around the room complaining of pain. HEENT: Head - normocephalic and atraumatic. Pupils are equal, round, and reactive to light. Extraocular eye muscles are intact and sclera are anicteric. Nose - moist nasal mucosa without discharge. Mouth - moist buccal mucosa. Neck: Supple; no JVD, nuchal rigidity, cervical lymphadenopathy, or auscultated bruits. Heart: Regular rate and rhythm. There is a normal S1 and S2 with no murmurs, clicks, or gallops appreciated. Lungs: Clear to auscultation bilaterally with no wheezes, rales, or rhonchi. Abdomen: Soft, completely nontender, nondistended, with good bowel sounds. There are no palpable pulsatile masses or hepatosplenomegaly. There is no guarding, rigidity, or rebound noted. No Right Sided CVA Tenderness. Patient would not let me assess CVA Tenderness on the left side. Extremities: No evidence of cyanosis, clubbing, or edema. There are easily palpable peripheral pulses. Neuro:The patient is awake and alert, oriented to day, time, and place. Muscle strength is 5/5 in all 4 extremities. The patient has equal service center representative strength and equal pedal push and pull. There are no cerebellar signs. SKIN: Teardrop tattoo under right eye. Medical Decision & Procedures ER Provider Diagnostic Interpretation: ABD/PELVIS WITHOUT FOR STONE HISTORY: 37 years-old Male Bilateral Stents, acute onset flank pain and hematuria acute hematuria with left-sided flank pain COMPARISON: KUB 03/08/2018, CT abdomen and pelvis 03/03/2018 TECHNIQUE: Multiple axial CT images of the abdomen and pelvis were obtained without the use of IV contrast. A dose lowering technique was used consistent with the principals of ROBBI. FINDINGS: Lung bases are generally clear bilaterally. No pneumatosis or pneumoperitoneum. Imaged inferior cardiac chambers are unremarkable. Evaluation of the solid abdominal organs is limited without the use of IV contrast. Prior cholecystectomy. Liver, spleen, and pancreas are unremarkable. There are low attenuating lesions noted involving the bilateral adrenal glands, 1.5 cm on the right and 1.4 cm on the left suggesting adenomas. Bilateral nonobstructing nephrolithiasis with bilateral ureteral stents in place which appear to be in satisfactory positioning. Previously noted 4 mm calculus of the right ureter on CT study dated 03/03/2018 is no longer identified. There is a 3 mm calculus of the mid left ureter at the level of L3, image 185 series 3. No additional ureteral or urinary bladder calculi identified. Partial distention of the urinary bladder with a possible urachal diverticulum involving the anterior superior aspect of the bladder. No hydronephrosis or perinephric inflammatory stranding. There is mild periureteral inflammatory stranding bilaterally. Aorta appears normal without aneurysm. No bulky adenopathy. No bowel obstruction or focal bowel wall thickening. Mild colonic diverticulosis without diverticulitis. Moderate stool volume of the cecum, ascending and transverse colon. Normal appendix. Surgical clip of the central lower mesentery, possibly dropped clip from prior cholecystectomy. Soft tissues are within normal limits. Bones appear intact. Small posterior disc ossify complex at L5-S1. IMPRESSION: 1. Satisfactory positioning of bilateral ureteral stents with 3 mm calculus of the mid left ureter at the level of L3 without hydronephrosis. 2. Multiple nonobstructing bilateral nephrolithiasis. 3. Prior cholecystectomy. 4. No bowel obstruction or focal bowel wall thickening. Normal appendix. 5. Mild colonic diverticulosis without diverticulitis. Laboratory Results 03/31/18 07:15 Red Blood Count 4.12, Mean Corpuscular Volume 85.7, Mean Corpuscular Hemoglobin 30.3, Mean Corpuscular Hemoglobin Concent 35.4, Mean Platelet Volume 10.5, Neutrophils (%) (Auto) 64.6, Lymphocytes (%) (Auto) 24.6, Monocytes (%) (Auto) 7.8, Eosinophils (%) (Auto) 2.4, Basophils (%) (Auto) 0.3, Neutrophils # (Auto) 7.49, Lymphocytes # (Auto) 2.85, Monocytes # (Auto) 0.90, Eosinophils # (Auto) 0.28, Basophils # (Auto) 0.04 03/31/18 07:15 Test 03/31/18 06:40 03/31/18 07:15 Urine Color RED Urine Appearance CLOUDY (CLEAR) Urine pH 6.0 (4.5-7.5) Urine Specific [place] 1.024 (1.000-1.030) Urine Protein 3+ (NEG) Urine Glucose (UA) NEG (NEG) Urine Ketones NEG (NEG) Urine Occult Blood 3+ (NEG) Urine Nitrite NEG (NEG) Urine Bilirubin NEG (NEG) Urine Urobilinogen NEG (NEG) Urine Leukocyte Esterase SMALL (NEG) Urine RBC (Auto) /hpf (0-4) Urine Hyaline Casts (Auto) /lpf (0-5) Urine RBC >30 /hpf (0-4) Urine WBC >30 /hpf (0-5) Urine Epithelial Cells 0-5 /lpf (0-5) Urine Renal Epithelial Cells /lpf (0-5) Urine Calcium Oxalate Crystals PRESENT (NONE PRSENT) Urine Bacteria NEG (NEG) Urine Pathogenic Casts /lpf (0) Urine Mucus PRESENT (NONE PRSENT) Urine Yeast (Auto) (NONE PRSENT) Urine Opiates Screen POS (NEG) Urine Methadone, Qualitative NEG (NEG) Urine Barbiturates NEG (NEG) Urine Phencyclidine (PCP) Level NEG (NEG) Ur Amphetamine/Methamphetamine NEG (NEG) MDMA (Ecstasy) Screen NEG (NEG) Urine Benzodiazepines Screen NEG (NEG) Urine Cocaine Metabolite POS (NEG) Urine Marijuana (THC) POS (NEG) White Blood Count 11.59 K/uL (4.8-10.8) Red Blood Count 4.12 M/uL (4.7-6.1) Hemoglobin 12.5 g/dL (14.0-18.0) Hematocrit 35.3 % (42-52) Mean Corpuscular Volume 85.7 fL (80-100) Mean Corpuscular Hemoglobin 30.3 pg (25-34) Mean Corpuscular Hemoglobin Concent 35.4 g/dl (32-36) Platelet Count 207 K/uL (130-400) Mean Platelet Volume 10.5 fL (7.4-10.4) Neutrophils (%) (Auto) 64.6 % Lymphocytes (%) (Auto) 24.6 % Monocytes (%) (Auto) 7.8 % Eosinophils (%) (Auto) 2.4 % Basophils (%) (Auto) 0.3 % Neutrophils # (Auto) 7.49 K/uL (1.4-6.5) Lymphocytes # (Auto) 2.85 K/uL (1.2-3.4) Monocytes # (Auto) 0.90 K/uL (0.11-0.59) Eosinophils # (Auto) 0.28 K/uL (0-0.5) Basophils # (Auto) 0.04 K/uL (0-0.2) RDW Standard Deviation 38.9 fL (36.4-46.3) RDW Coefficient of Variation 12.5 % (11.5-14.5) Immature Granulocyte % (Auto) 0.3 % Immature Granulocyte # (Auto) 0.03 K/uL (0.00-0.02) Anion Gap 6.0 mmol/L (3-11) Est Creatinine Clear Calc Drug Dose 99.8 ml/min Estimated GFR () 100.3 Estimated GFR (Non- 86.5 BUN/Creatinine Ratio 15.3 (10-20) Calcium Level 8.7 mg/dl (8.5-10.1) Medications Administered Medications (Trade) Dose Ordered Sig/Denise Route Start Time Stop Time Status Last Admin Dose Admin Ondansetron HCl (Zofran Odt) 4 mg NOW STAT PO 03/31/18 06:51 03/31/18 07:04 DC 03/31/18 07:30 4 MG Ketorolac Tromethamine (Toradol Inj) 15 mg NOW STAT IV 03/31/18 06:51 5/12/18 07:04 DC 03/31/18 07:29 15 MG Morphine Sulfate (MoRPHine SULFATE INJ) 4 mg NOW STAT IV 03/31/18 06:51 03/31/18 07:04 DC 03/31/18 07:29 4 MG Medical Decision The patient's care and disposition was discussed with Dr. Esqueda, Attending ED Physician. This is a 37M with bilateral flank pain. Differential diagnosis include renal colic, appendicitis, diverticulitis, mesenteric ischemia, aortic pathology, infections, inflammatory bowel disease, PUD, biliary pathology, UTI, as well as others were entertained. Triage Nursing notes were reviewed. ED Course included an extensive history and physical exam, labs and imaging. 6:35am - Pt was examined by resident. PDMP reviewed. 6:45am - Case discussed with Attending ER Physician Dr. Hong and initial orders placed. For pain pt given 15mg IV Toradol and 4mg IV Morphine. 8:30am - CT results showed stones but not obstructing, good placement of stents. Urine has opiates, marijuana and cocaine. Pt requested a screenshot of his initial drug screen - pt told that the chromatography will takes 2-3 days to come back. Pt continues to be in pain, given 4mg IV Morphine. Pt stated that he will get his father to pick him up because he drove here. Pt instructed to follow up with Urologist from [place] because he does have a scheduled stent removal next week. Pt should still have left over Percocet from 03/29/2017 (pt was given 30 tablets). Return to the ER if the patient develops fevers, worsening hematuria and worsening of flank pain. The pt was informed about the findings as listed above. All questions were answered. Return instructions were outlined and the patient was discharged in good condition. The patient was referred to PCP for recheck of the current condition. Head Trauma GCS Score: 15 Impression Primary Impression: Pain due to ureteral stent Departure Information Dispostion Home / Self-Care Condition GOOD Referrals Adrian Meza M.D. (PCP) Patient Instructions Addiction Cocaine Signs, Cocaine Effects, Cocaine Get Help, ED Marijuana Abuse, [facility], Stents Ureteral Additional Instructions Follow up with your Urologist regarding this new onset blood in the urine. There is no obstruction in your ureters and your stents are in the correct place. Sometimes the stents themselves can cause pain and blood in the urine. Return to the ER if you develop fevers, worsening of the blood in the urine and worsening flank pain. Continue to take your regular home medications as prescribed. In the ER we found traces of cocaine and marijuana in your urine. Educational materials on cocaine and marijuana addiction will be printed for you on discharge. Please read this information carefully. Additionally, Information on uretal stents will be given to your on discharge. Please read this information carefully. Resident Involvement: Resident Care Provided Care Provided: Adult Hospital Medicine
[2018-03-31 07:26] LABS: BASO % 0.3 %; BASO ABS # 0.04 K/uL (0-0.2); EOS % 2.4 %; EOS ABS # 0.28 K/uL (0-0.5); HEMATOCRIT 35.3 % (42-52); HEMOGLOBIN 12.5 g/dL (14.0-18.0); IG# 0.03 K/uL (0.00-0.02); LYMPH % 24.6 %; LYMPH ABS # 2.85 K/uL (1.2-3.4); MEAN CELL VOLUME 85.7 fL (80-100); MEAN CORPUSCULAR HEMOGLOBIN 30.3 pg (25-34); MEAN CORPUSCULAR HGB CONC 35.4 g/dl (32-36); MEAN PLATELET VOLUME 10.5 fL (7.4-10.4); MONO % 7.8 %; NEUT % 64.6 %; NEUT ABS # 7.49 K/uL (1.4-6.5); PLATELET COUNT 207 K/uL (130-400); RED CELL DISTRIBUTION WIDTH CV 12.5 % (11.5-14.5); RED CELL DISTRIBUTION WIDTH SD 38.9 fL (36.4-46.3); WHITE BLOOD COUNT 11.59 K/uL (4.8-10.8)
[2018-03-31 07:42] LABS: CALCIUM 8.7 mg/dl (8.5-10.1); CREATININE 1.1 mg/dl (0.60-1.40)
--- NOTE | 2018-03-31 08:03 | DIAGNOSTIC IMAGING REPORT ---
ABD/PELVIS WITHOUT FOR STONE HISTORY: 37 years-old Male Bilateral Stents, acute onset flank pain and hematuria acute hematuria with left-sided flank pain COMPARISON: KUB 03/08/2018, CT abdomen and pelvis 03/03/2018 TECHNIQUE: Multiple axial CT images of the abdomen and pelvis were obtained without the use of IV contrast. A dose lowering technique was used consistent with the principals of ROBBI. FINDINGS: Lung bases are generally clear bilaterally. No pneumatosis or pneumoperitoneum. Imaged inferior cardiac chambers are unremarkable. Evaluation of the solid abdominal organs is limited without the use of IV contrast. Prior cholecystectomy. Liver, spleen, and pancreas are unremarkable. There are low attenuating lesions noted involving the bilateral adrenal glands, 1.5 cm on the right and 1.4 cm on the left suggesting adenomas. Bilateral nonobstructing nephrolithiasis with bilateral ureteral stents in place which appear to be in satisfactory positioning. Previously noted 4 mm calculus of the right ureter on CT study dated 03/03/2018 is no longer identified. There is a 3 mm calculus of the mid left ureter at the level of L3, image 185 series 3. No additional ureteral or urinary bladder calculi identified. Partial distention of the urinary bladder with a possible urachal diverticulum involving the anterior superior aspect of the bladder. No hydronephrosis or perinephric inflammatory stranding. There is mild periureteral inflammatory stranding bilaterally. Aorta appears normal without aneurysm. No bulky adenopathy. No bowel obstruction or focal bowel wall thickening. Mild colonic diverticulosis without diverticulitis. Moderate stool volume of the cecum, ascending and transverse colon. Normal appendix. Surgical clip of the central lower mesentery, possibly dropped clip from prior cholecystectomy. Soft tissues are within normal limits. Bones appear intact. Small posterior disc ossify complex at L5-S1. IMPRESSION: 1. Satisfactory positioning of bilateral ureteral stents with 3 mm calculus of the mid left ureter at the level of L3 without hydronephrosis. 2. Multiple nonobstructing bilateral nephrolithiasis. 3. Prior cholecystectomy. 4. No bowel obstruction or focal bowel wall thickening. Normal appendix. 5. Mild colonic diverticulosis without diverticulitis. The above report was generated using voice recognition software. It may contain grammatical, syntax or spelling errors. Electronically signed by: Edson Pabon M.D. 03/31/2018 8:02 AM Dictated Date/Time: 03/31/2018 7:52 AM
[2018-03-31 08:21] VITALS: BP 162/99; PULSE 102; O2SAT 98
--- NOTE | 2018-03-31 09:08 | EMERGENCY ROOM VISIT NOTE ---
History Report prepared by Geetha: Konstantin Sevilla Under the Supervision of: Dr. Tom Esqueda D.O. First contact with patient: 06:32 Chief Complaint: KIDNEY STONE Stated Complaint: KIDNEY STONE History of Present Illness The patient is a 37 year old male who presents to the Emergency Room with complaints of worsening kidney pain starting this morning around 0130. He rates his discomfort as a 10/10 in severity. The patient notes that he has been having hematuria, and he denies any fever. The patient states that he has a history of kidney stones, and he currently has a ureteral stent recently placed , and he states that he thinks that a stone dropped this morning leading to the pain. He states that he has not had hematuria recently until this morning. The patient reports that he is supposed to have lithotripsy soon. Source of History: patient Onset: 0130 Position: other (kidney) Symptom Intensity: 10/10 Timing: worsening Associated Symptoms: No fevers Note: Associated symptoms: Hematuria Review of Systems See HPI for pertinent positives & negatives. A total of 10 systems reviewed and were otherwise negative. Past Medical & Surgical Medical Problems: (1) Asthma (2) Finger fracture, right (3) Gastroparesis (4) GERD (gastroesophageal reflux disease) (5) Hyperlipidemia (6) Hypothyroidism (7) Intractable pain (8) Migraine (9) JESI (obstructive sleep apnea) (10) Renal calculi (11) Syncope Surgical Problems: (1) Cholecystectomy (2) History of dental surgery (3) Hx of esophagogastroduodenoscopy Family History Diabetes mellitus MOTHER GRANDFATHER FH: cancer FH: heart disease FATHER GRANDFATHER FH: lung disease Hypertension Kidney disease or stones Social History Smoking Status: Current Every Day Smoker Alcohol Use: none Drug Use: cocaine, marijuana, other Marital Status: Housing Status: lives with family Occupation Status: employed Current/Historical Medications Scheduled Amitriptyline Hcl (Elavil), 100 MG PO HS Atorvastatin (Lipitor), 40 MG PO DAILY Hydrochlorothiazide (Hydrochlorothiazide), 25 MG PO DAILY Levothyroxine Sodium (Levothyroxine Sodium), 75 MCG PO QAM Pantoprazole (Pantoprazole Sodium), 40 MG PO HS Ranitidine HCl (Ranitidine HCl), 150 MG PO BID Scheduled PRN Albuterol Hfa (Ventolin Hfa), 2 PUFFS INH Q4H PRN for SOB/Wheezing Fluticasone Prop/Salmeterol (Advair Diskus 250/50 60 Dose), 1 PUFF INH BID PRN for Wheezing Ibuprofen (Advil), 400 MG PO Q6H PRN for Pain Phenazopyridine HCl (Phenazopyridine HCl), 100 MG PO TID PRN for Bladder pain Allergies Coded Allergies: Benzoyl Peroxide (Verified Allergy, Mild, 03/23/18) Lactose Intolerance (Verified Allergy, Unknown, Unknown, 03/23/18) Risperidone (Verified Allergy, Unknown, "I FELT LIKE I WAS DRUNK", 03/23/18) Hydrocodone (Verified Adverse Reaction, Mild, VOMITING, 03/23/18) Magnesium (Verified Adverse Reaction, Unknown, Nausea, GI upset, 03/23/18) Prednisone (Verified Adverse Reaction, Unknown, "messes up my mind, depressed", 03/23/18) Physical Exam Vital Signs Date Time Temp Pulse Resp B/P (MAP) Pulse Ox O2 Delivery O2 Flow Rate FiO2 03/31/18 08:21 102 18 162/99 98 Room Air 03/31/18 06:28 36.8 116 22 163/98 94 Room Air Physical Exam CONSTITUTIONAL/VITAL SIGNS: Reviewed / noted above. GENERAL: Non-toxic and uncomfortable in appearance. INTEGUMENTARY: Warm, dry, and [place]. HEAD: Normocephalic. EYES: without scleral icterus or trauma. ENT/OROPHARYNX: clear and moist. LYMPHADENOPATHY/NECK: Is supple without lymphadenopathy or meningismus. RESPIRATORY: Lungs clear and equal. CARDIOVASCULAR: Regular rate and rhythm. GI/ABDOMEN: Soft and nontender. No organomegaly or pulsatile mass. No rebound or guarding. Normal bowel sounds. EXTREMITIES: Warm and well perfused. BACK: No CVA tenderness. NEUROLOGICAL: Intact without focal deficits. PSYCHIATRIC: normal affect. MUSCULOSKELETAL: Normally developed with good muscle tone. Medical Decision & Procedures ER Provider Diagnostic Interpretation: Radiology results as stated below per my review and radiologist interpretation: ABD/PELVIS WITHOUT FOR STONE HISTORY: 37 years-old Male Bilateral Stents, acute onset flank pain and hematuria acute hematuria with left-sided flank pain COMPARISON: KUB 03/08/2018, CT abdomen and pelvis 03/03/2018 TECHNIQUE: Multiple axial CT images of the abdomen and pelvis were obtained without the use of IV contrast. A dose lowering technique was used consistent with the principals of ROBBI. FINDINGS: Lung bases are generally clear bilaterally. No pneumatosis or pneumoperitoneum. Imaged inferior cardiac chambers are unremarkable. Evaluation of the solid abdominal organs is limited without the use of IV contrast. Prior cholecystectomy. Liver, spleen, and pancreas are unremarkable. There are low attenuating lesions noted involving the bilateral adrenal glands, 1.5 cm on the right and 1.4 cm on the left suggesting adenomas. Bilateral nonobstructing nephrolithiasis with bilateral ureteral stents in place which appear to be in satisfactory positioning. Previously noted 4 mm calculus of the right ureter on CT study dated 03/03/2018 is no longer identified. There is a 3 mm calculus of the mid left ureter at the level of L3, image 185 series 3. No additional ureteral or urinary bladder calculi identified. Partial distention of the urinary bladder with a possible urachal diverticulum involving the anterior superior aspect of the bladder. No hydronephrosis or perinephric inflammatory stranding. There is mild periureteral inflammatory stranding bilaterally. Aorta appears normal without aneurysm. No bulky adenopathy. No bowel obstruction or focal bowel wall thickening. Mild colonic diverticulosis without diverticulitis. Moderate stool volume of the cecum, ascending and transverse colon. Normal appendix. Surgical clip of the central lower mesentery, possibly dropped clip from prior cholecystectomy. Soft tissues are within normal limits. Bones appear intact. Small posterior disc ossify complex at L5-S1. IMPRESSION: 1. Satisfactory positioning of bilateral ureteral stents with 3 mm calculus of the mid left ureter at the level of L3 without hydronephrosis. 2. Multiple nonobstructing bilateral nephrolithiasis. 3. Prior cholecystectomy. 4. No bowel obstruction or focal bowel wall thickening. Normal appendix. 5. Mild colonic diverticulosis without diverticulitis. The above report was generated using voice recognition software. It may contain grammatical, syntax or spelling errors. Electronically signed by: Edson Pabon M.D. 03/31/2018 8:02 AM Dictated Date/Time: 03/31/2018 7:52 AM Laboratory Results 03/31/18 07:15 Red Blood Count 4.12, Mean Corpuscular Volume 85.7, Mean Corpuscular Hemoglobin 30.3, Mean Corpuscular Hemoglobin Concent 35.4, Mean Platelet Volume 10.5, Neutrophils (%) (Auto) 64.6, Lymphocytes (%) (Auto) 24.6, Monocytes (%) (Auto) 7.8, Eosinophils (%) (Auto) 2.4, Basophils (%) (Auto) 0.3, Neutrophils # (Auto) 7.49, Lymphocytes # (Auto) 2.85, Monocytes # (Auto) 0.90, Eosinophils # (Auto) 0.28, Basophils # (Auto) 0.04 03/31/18 07:15 Test 03/31/18 06:40 03/31/18 07:15 Urine Color RED Urine Appearance CLOUDY (CLEAR) Urine pH 6.0 (4.5-7.5) Urine Specific [place] 1.024 (1.000-1.030) Urine Protein 3+ (NEG) Urine Glucose (UA) NEG (NEG) Urine Ketones NEG (NEG) Urine Occult Blood 3+ (NEG) Urine Nitrite NEG (NEG) Urine Bilirubin NEG (NEG) Urine Urobilinogen NEG (NEG) Urine Leukocyte Esterase SMALL (NEG) Urine RBC (Auto) /hpf (0-4) Urine Hyaline Casts (Auto) /lpf (0-5) Urine RBC >30 /hpf (0-4) Urine WBC >30 /hpf (0-5) Urine Epithelial Cells 0-5 /lpf (0-5) Urine Renal Epithelial Cells /lpf (0-5) Urine Calcium Oxalate Crystals PRESENT (NONE PRSENT) Urine Bacteria NEG (NEG) Urine Pathogenic Casts /lpf (0) Urine Mucus PRESENT (NONE PRSENT) Urine Yeast (Auto) (NONE PRSENT) Urine Opiates Screen POS (NEG) Urine Methadone, Qualitative NEG (NEG) Urine Barbiturates NEG (NEG) Urine Phencyclidine (PCP) Level NEG (NEG) Ur Amphetamine/Methamphetamine NEG (NEG) MDMA (Ecstasy) Screen NEG (NEG) Urine Benzodiazepines Screen NEG (NEG) Urine Cocaine Metabolite POS (NEG) Urine Marijuana (THC) POS (NEG) White Blood Count 11.59 K/uL (4.8-10.8) Red Blood Count 4.12 M/uL (4.7-6.1) Hemoglobin 12.5 g/dL (14.0-18.0) Hematocrit 35.3 % (42-52) Mean Corpuscular Volume 85.7 fL (80-100) Mean Corpuscular Hemoglobin 30.3 pg (25-34) Mean Corpuscular Hemoglobin Concent 35.4 g/dl (32-36) Platelet Count 207 K/uL (130-400) Mean Platelet Volume 10.5 fL (7.4-10.4) Neutrophils (%) (Auto) 64.6 % Lymphocytes (%) (Auto) 24.6 % Monocytes (%) (Auto) 7.8 % Eosinophils (%) (Auto) 2.4 % Basophils (%) (Auto) 0.3 % Neutrophils # (Auto) 7.49 K/uL (1.4-6.5) Lymphocytes # (Auto) 2.85 K/uL (1.2-3.4) Monocytes # (Auto) 0.90 K/uL (0.11-0.59) Eosinophils # (Auto) 0.28 K/uL (0-0.5) Basophils # (Auto) 0.04 K/uL (0-0.2) RDW Standard Deviation 38.9 fL (36.4-46.3) RDW Coefficient of Variation 12.5 % (11.5-14.5) Immature Granulocyte % (Auto) 0.3 % Immature Granulocyte # (Auto) 0.03 K/uL (0.00-0.02) Anion Gap 6.0 mmol/L (3-11) Est Creatinine Clear Calc Drug Dose 99.8 ml/min Estimated GFR () 100.3 Estimated GFR (Non- 86.5 BUN/Creatinine Ratio 15.3 (10-20) Calcium Level 8.7 mg/dl (8.5-10.1) Laboratory results as stated above per my review. Medications Administered Medications (Trade) Dose Ordered Sig/Denise Route Start Time Stop Time Status Last Admin Dose Admin Ondansetron HCl (Zofran Odt) 4 mg NOW STAT PO 03/31/18 06:51 03/31/18 07:04 DC 03/31/18 07:30 4 MG Ketorolac Tromethamine (Toradol Inj) 15 mg NOW STAT IV 03/31/18 06:51 03/31/18 07:04 DC 03/31/18 07:29 15 MG Morphine Sulfate (MoRPHine SULFATE INJ) 4 mg NOW STAT IV 03/31/18 06:51 03/31/18 07:04 DC 03/31/18 07:29 4 MG Morphine Sulfate (MoRPHine SULFATE INJ) 4 mg NOW STAT IV 03/31/18 08:36 03/31/18 08:41 DC 03/31/18 09:00 4 MG ED Course 0632: Previous medical records were reviewed. The patient was evaluated in room B3. A complete history and physical examination was performed. 0651: Morphine Sulfate 4mg IV, Toradol 15mg IV, Zofran Odt 4mg PO 0832: On reevaluation, the patient is doing well. I discussed the results and findings with the patient. He verbalized agreement of the treatment plan. He was discharged home. 0836: Morphine Sulfate 4mg IV Medical Decision Differential considered: pancreatitis, hepatitis, or acute cholecystitis, AAA, UTI, pyelonephritis, kidney stones, appendicitis, diverticulitis, shingles, bowel obstruction mesenteric ischemia, intussusception,hernia, testicular torsion. This is a 37-year-old male who presents to the ED with a chief complaint of left flank pain. The patient was seen in conjunction with the resident. See the above and his documentation for additional information. The patient does have hematuria and 3+ blood on urinalysis. A CT scan reveals a left 3 mm calculus in the mid ureter as well as stents. The patient has multiple stones in the kidneys. The patient has a unremarkable CBC and chemistry panel. Patient was given IV morphine in addition to IV Toradol and IV Zofran. He was told the results of the test. He is seeing a urologist in [place]. He was told to contact the urologist and was felt to be stable for discharge. Medication Reconcilliation Current Medication List: was personally reviewed by me Blood Pressure Screening Patient's blood pressure: Elevated blood pressure Blood pressure disposition: Elevated BP felt to be situational Impression Primary Impression: Renal colic Additional Impression: Left ureteral calculus Scribe Attestation The scribe's documentation has been prepared under my direction and personally reviewed by me in its entirety. I confirm that the note above accurately reflects all work, treatment, procedures, and medical decision making performed by me. Departure Information Dispostion Home / Self-Care Referrals Adrian Meza M.D. (PCP) Patient Instructions My [facility] Problem Qualifiers
== END 2018-03-31 09:01 | disposition home or self-care (01) ==
LOC: C.EDB 06:23
DX: T83.84XA Pain due to genitourinary prosthetic devices, implants and grafts, initial encounter (principal); Y83.1 Surgical operation with implant of artificial internal device as the cause of abnormal reaction of the patient, or of later complication, without mention of misadventure at the time of the procedure; Z87.442 Personal history of urinary calculi; J45.909 Unspecified asthma, uncomplicated; K31.84 Gastroparesis; K21.9 Gastro-esophageal reflux disease without esophagitis; E78.5 Hyperlipidemia, unspecified; E03.9 Hypothyroidism, unspecified; G47.33 Obstructive sleep apnea (adult) (pediatric); Z90.49 Acquired absence of other specified parts of digestive tract; Z83.3 Family history of diabetes mellitus; Z80.9 Family history of malignant neoplasm, unspecified; Z82.49 Family history of ischemic heart disease and other diseases of the circulatory system; Z84.1 Family history of disorders of kidney and ureter; F17.210 Nicotine dependence, cigarettes, uncomplicated; F12.90 Cannabis use, unspecified, uncomplicated; F14.90 Cocaine use, unspecified, uncomplicated; Z79.899 Other long term (current) drug therapy

== ENCOUNTER 2018-03-31 15:59 | Emergency (ER) | payer OTHER ==
[~2018-03-31] VITALS: Ht 170.2 cm; Wt 87.4 kg
[2018-03-31 16:03] VITALS: TEMP 36.7; Ht 170.2 cm; Wt 87.4 kg
--- NOTE | 2018-03-31 16:54 | EMERGENCY ROOM VISIT NOTE ---
History Report prepared by Geetha: Cole Tarango Under the Supervision of: Dr. Tomás Isbell M.D. First contact with patient: 16:05 Chief Complaint: KIDNEY STONE Stated Complaint: LOSING ALOT OF BLOOD, KIDNEY STONES History of Present Illness The patient is a 37 year old male who presents to the Emergency Room with complaints of constant bilateral flank pain that began this morning. Patient states that the right-sided flank pain started a couple of hours ago after he left the ER this morning. Patient states that he has hematuria and describes the urine as "dark red". Patient adds that he has a 3.5mm kidney stone currently in his left ureter. Patient states that he sees [place] Urologist. He states that he had right-sided lithotripsy done in [place] last week. Patient has had multiple evaluations for kidney stones with multiple procedures here and at [place]. Patient currently has bilateral stents in his ureters. Patient was in the ER this morning complaining of left flank pain. Patient had a CT scan , labs, and multiple of medications administered. Patient's work up was benign without hydronephrosis. Patient is requesting emergent transport to [place] for his pain. He states that he did not contact his urologist in [place]. Patient keeps referring to [facility] if we do not transport him. Patient denies purposeful cocaine use but friends admits that his friends have been lacing his marijuana with cocaine. Source of History: patient Onset: This morning Position: other (Bilateral flank) Timing: constant Modifying Factors (Relieving): other (None) Associated Symptoms: + urinary symptoms (Hematuria) Review of Systems See HPI for pertinent positives & negatives. A total of 10 systems reviewed and were otherwise negative. Past Medical & Surgical Medical Problems: (1) Asthma (2) Finger fracture, right (3) Gastroparesis (4) GERD (gastroesophageal reflux disease) (5) Hyperlipidemia (6) Hypothyroidism (7) Intractable pain (8) Migraine (9) JESI (obstructive sleep apnea) (10) Renal calculi (11) Syncope Surgical Problems: (1) Cholecystectomy (2) History of dental surgery (3) Hx of esophagogastroduodenoscopy Family History Diabetes mellitus MOTHER GRANDFATHER FH: cancer FH: heart disease FATHER GRANDFATHER FH: lung disease Hypertension Kidney disease or stones Social History Smoking Status: Former Smoker Alcohol Use: none Drug Use: cocaine, marijuana, other Marital Status: Housing Status: lives with family Occupation Status: employed Current/Historical Medications Scheduled Amitriptyline Hcl (Elavil), 100 MG PO HS Atorvastatin (Lipitor), 40 MG PO DAILY Hydrochlorothiazide (Hydrochlorothiazide), 25 MG PO DAILY Levothyroxine Sodium (Levothyroxine Sodium), 75 MCG PO QAM Pantoprazole (Pantoprazole Sodium), 40 MG PO HS Ranitidine HCl (Ranitidine HCl), 150 MG PO BID Scheduled PRN Albuterol Hfa (Ventolin Hfa), 2 PUFFS INH Q4H PRN for SOB/Wheezing Fluticasone Prop/Salmeterol (Advair Diskus 250/50 60 Dose), 1 PUFF INH BID PRN for Wheezing Ibuprofen (Advil), 400 MG PO Q6H PRN for Pain Phenazopyridine HCl (Phenazopyridine HCl), 100 MG PO TID PRN for Bladder pain Allergies Coded Allergies: Benzoyl Peroxide (Verified Allergy, Mild, 03/31/18) Lactose Intolerance (Verified Allergy, Unknown, Unknown, 03/31/18) Risperidone (Verified Allergy, Unknown, "I FELT LIKE I WAS DRUNK", 03/31/18 ) Hydrocodone (Verified Adverse Reaction, Mild, VOMITING, 03/31/18) Magnesium (Verified Adverse Reaction, Unknown, Nausea, GI upset, 03/31/18) Prednisone (Verified Adverse Reaction, Unknown, "messes up my mind, depressed", 03/31/18) Physical Exam Vital Signs Date Time Temp Pulse Resp B/P (MAP) Pulse Ox O2 Delivery O2 Flow Rate FiO2 03/31/18 18:09 100 20 161/120 95 03/31/18 17:49 100 20 161/120 95 Room Air 03/31/18 16:44 107 03/31/18 16:03 36.7 100 18 152/89 97 Room Air Physical Exam GENERAL: Patient is chronic un-well appearing, disheveled, irritable, angry, and has a tear drop tattoo EYES: No scleral icterus, unremarkable pupils. ENT: Mucous membranes moist, no nasal congestion. NECK: No masses appreciated, no meningismus, trachea is midline. RESPIRATORY: No dyspnea. Clear to auscultation and equal bilaterally. No wheeze , no rhonchi. CARDIOVASCULAR: Mildly tachycardic rate and rhythm. No murmurs, rubs, gallops appreciated. GASTROINTESTINAL: Abdomen soft, nontender, no peritonitis. Bowel sounds positive. No masses appreciated. BACK: No midline tenderness, vague right CVA tenderness to palpitation EXTREMITIES: Normal motion all extremities, no cyanosis, no edema. NEUROLOGIC: Alert and oriented, no acute motor or sensory deficits, no focal weakness, cranial nerves grossly intact. SKIN: Extensive tract/IV peña all over arms. No rash, no jaundice, no diaphoresis. Medical Decision & Procedures ER Provider Diagnostic Interpretation: Radiology results and stated below per my review and radiologist interpretation: KUB HISTORY: Acute bilateral flank pain Bilateral flank pain. Right new from this morning COMPARISON: CT abdomen and pelvis of same day at 7:35 AM, KUB 03/08/2018 FINDINGS: The bowel gas pattern is non-obstructive. Moderate stool volume of the right hemicolon. Cholecystectomy clips noted. There is no organomegaly. Previously described 3 mm calculus of the mid left ureter appears unchanged. Bilateral ureteral stents appear to be in satisfactory positioning. Renal shadows are partially obscured by bowel gas. Bilateral nephrolithiasis better seen on CT of same day. No pneumoperitoneum or pneumatosis. No fracture. IMPRESSION: 1. Bilateral ureteral stents in satisfactory positioning. 2. Redemonstration of a 3 mm calculus of the left ureter at the level of L3. Electronically signed by: Edson Pabon M.D. 03/31/2018 5:46 PM Laboratory Results Test 03/31/18 16:15 Urine Color RED Urine Appearance TURBID (CLEAR) Urine pH 6.5 (4.5-7.5) Urine Specific [place] >= 1.030 (1.000-1.030) Urine Protein 3+ (NEG) Urine Glucose (UA) NEG (NEG) Urine Ketones TRACE (NEG) Urine Occult Blood 3+ (NEG) Urine Nitrite NEG (NEG) Urine Bilirubin NEG (NEG) Urine Urobilinogen NEG (NEG) Urine Leukocyte Esterase SMALL (NEG) Urine RBC >30 /hpf (0-4) Urine WBC >30 /hpf (0-5) Urine Epithelial Cells 5-10 /lpf (0-5) Urine Calcium Oxalate Crystals PRESENT (NONE PRSENT) Urine Bacteria NEG (NEG) Urine Hyaline Casts 0 /lpf (0-5) Laboratory results as reviewed by me. ED Course 1640: The patient was evaluated in room C4. A complete history and physical exam was performed. 1809: Reevaluated the patient. Discussed results and discharge instructions. The patient began getting dressed and started to walk out of the room. He refused to talk to me anymore after I refused to transport him to [place]. The patient was discharged. Medical Decision Differential: Renal Colic, Pyelonephritis, Hydronephrosis, Appendicitis, Diverticulitis, Retroperitoneal Bleed/Infection, Aortic Pathology, MSK, Neurologic Pathology, amongst other pathologies entertained. 37 yr old male with periodic stones who has had bilateral ureteral stents placed and just discharged from [facility] days ago. He was seen this morning for flank pain and had extensive work-up showing no hydro, no evidence infection, stable stents, etc. he is here claiming he is having right flank pain in addition to the left flank pain he had this morning. He on my evaluation is demanding transfer to [place]. UA unchanged from earlier without evidence bacteria. KUB with stents in place. HR decreasing after resting. He is now admitting cocaine use, but states he was tricked in to taking it by having it laced in his marijuana. He is claiming severe pain but I do not see any clear evidence of this by exam. He was discussed with on-call Urologist at [place] who does not know him but notes he will pass along to his partners, and agrees based on what I told him no obvious reason for emergent transfer. Patient without infection earlier in the day and does not appear to have that now. He did not have hydro earlier and I feel repeat kidney imaging just a few hours after his last one would be unnecessary. I have advised he follow up with his Urologist as outpatient. I have discussed fact he received rx percocet just 2 days ago as well and he should use that per recommendations of his prescribing physician. Medication Reconcilliation Current Medication List: was personally reviewed by me Blood Pressure Screening Patient's blood pressure: Elevated blood pressure Blood pressure disposition: Referred to PCP (Patient refused to talk to me any further after I refused to transfer him to [place]) Consults Time Called: 1800 Consulting Physician: Dr. Luque - [facility] Returned Call: [phone] Discussed the patient's case. Dr. Luque agrees that there is no hydronephrosis than there is no need for emergent surgery Impression Primary Impression: Bilateral flank pain Additional Impression: Chronic pain Scribe Attestation The scribe's documentation has been prepared under my direction and personally reviewed by me in its entirety. I confirm that the note above accurately reflects all work, treatment, procedures, and medical decision making performed by me. Departure Information Dispostion Home / Self-Care Referrals Adrian Meza M.D. (PCP) Patient Instructions My [facility] Additional Instructions Pt left refusing to wait for his discharge instructions. Problem Qualifiers
--- NOTE | 2018-03-31 17:47 | DIAGNOSTIC IMAGING REPORT ---
KUB HISTORY: Acute bilateral flank pain Bilateral flank pain. Right new from this morning COMPARISON: CT abdomen and pelvis of same day at 7:35 AM, KUB 03/08/2018 FINDINGS: The bowel gas pattern is non-obstructive. Moderate stool volume of the right hemicolon. Cholecystectomy clips noted. There is no organomegaly. Previously described 3 mm calculus of the mid left ureter appears unchanged. Bilateral ureteral stents appear to be in satisfactory positioning. Renal shadows are partially obscured by bowel gas. Bilateral nephrolithiasis better seen on CT of same day. No pneumoperitoneum or pneumatosis. No fracture. IMPRESSION: 1. Bilateral ureteral stents in satisfactory positioning. 2. Redemonstration of a 3 mm calculus of the left ureter at the level of L3. Electronically signed by: Edson Pabon M.D. 03/31/2018 5:46 PM Dictated Date/Time: 03/31/2018 5:44 PM
[2018-03-31 18:09] VITALS: BP 161/120; PULSE 100; O2SAT 95
== END 2018-03-31 18:10 | disposition home or self-care (01) ==
LOC: C.EDB 16:00 → C.EDC 18:10
DX: R10.31 Right lower quadrant pain (principal); R10.32 Left lower quadrant pain; G89.29 Other chronic pain; N20.1 Calculus of ureter; Z96.0 Presence of urogenital implants; K31.84 Gastroparesis; K21.9 Gastro-esophageal reflux disease without esophagitis; E78.5 Hyperlipidemia, unspecified; E03.9 Hypothyroidism, unspecified; E73.9 Lactose intolerance, unspecified; Z90.49 Acquired absence of other specified parts of digestive tract; F12.90 Cannabis use, unspecified, uncomplicated; F14.90 Cocaine use, unspecified, uncomplicated; Z87.891 Personal history of nicotine dependence; Z88.8 Allergy status to other drugs, medicaments and biological substances; Z88.5 Allergy status to narcotic agent

== ENCOUNTER 2018-04-03 11:29 | Emergency (ER) | payer OTHER ==
[~2018-04-03] VITALS: Ht 170.2 cm; Wt 79.3 kg
[2018-04-03 11:32] VITALS: TEMP 37.1; Ht 170.2 cm; Wt 79.3 kg
[2018-04-03] MEDS ORDERED: ONDANSETRON INJ 2 MG/ML 2 ML VIAL IV STA (11:54)
[2018-04-03] MEDS ORDERED: SODIUM CHLORIDE 0.9% 1000ML 1,000 ML IV STA (11:54)
[2018-04-03] MEDS ORDERED: KETOROLAC TROMETHAMINE 30 MG/ML VIAL IV STA ×2 (11:54→20:45)
[2018-04-03] MEDS ORDERED: FLM4 PO (12:53)
[2018-04-03] MEDS ORDERED: DTR5 PO (12:53)
[2018-04-03 12:56] LABS: BASO % 0.2 %; BASO ABS # 0.02 K/uL (0-0.2); EOS % 0.3 %; EOS ABS # 0.03 K/uL (0-0.5); HEMOGLOBIN 13.8 g/dL (14.0-18.0); IG# 0.03 K/uL (0.00-0.02); LYMPH % 15.7 %; MEAN CELL VOLUME 84.4 fL (80-100); MEAN CORPUSCULAR HEMOGLOBIN 30.7 pg (25-34); MEAN CORPUSCULAR HGB CONC 36.3 g/dl (32-36); MEAN PLATELET VOLUME 11.1 fL (7.4-10.4); MONO % 7.4 %; NEUT % 76.1 %; NEUT ABS # 8.28 K/uL (1.4-6.5); PLATELET COUNT 256 K/uL (130-400); RED CELL DISTRIBUTION WIDTH CV 12.8 % (11.5-14.5); RED CELL DISTRIBUTION WIDTH SD 38.9 fL (36.4-46.3); WHITE BLOOD COUNT 10.86 K/uL (4.8-10.8)
[2018-04-03 13:30] LABS: CALCIUM 9.9 mg/dl (8.5-10.1); CREATININE 1.69 mg/dl (0.60-1.40); POTASSIUM 3.1 mmol/L (3.5-5.1)
[2018-04-03] MEDS ORDERED: ACETAMINOPHEN 325 MG TAB PO STA (15:52)
[2018-04-03] MEDS ORDERED: LORAZEPAM 0.5 MG TAB PO STA (19:07)
--- NOTE | 2018-04-03 21:05 | EMERGENCY ROOM VISIT NOTE ---
ED Visit Note First contact with patient: 11:40 Chief Complaint: I have pain in my private parts. History of Present Illness: Mr. Merrill is a 37 year-old white male who ambulates into the ED complaining of at the distal end of the penis. Historically patient reports patient has a history of multiple renal calculi and currently has [address] Additionally he was seen 2 times yesterday and was found to have a stable 3 mm mid ureter calculus at the L3 level without hydronephrosis. Additionally it was noted that he had multiple nonobstructing bilateral nephrolithiasis and was status post cholecystectomy. Laboratory testing he had a mild white blood cell count of 11.59 with a left shift and bandemia urinalysis was positive for blood, calcium oxalate and red and white blood cells without bacteria. A culture was performed and was negative. Patient reports an acute onset of severe pain in the distal aspect of his penis that started earlier this morning approximately 11 hours before he arrived in the emergency department. Since that time he reports his pain has been constant. He describes his discomfort as a burning sensation. He has not identified any aggravating or alleviating factors. He has not taken any medications for pain prior to arrival at the hospital. Associated with his pain he reports he has been nauseated but has not vomited and he has had gross hematuria. Patient denies fevers, chills, sweats, skin eruptions, skin color changes, upper respiratory tract symptoms, shortness of breath, chest pain, diarrhea, constipation, penile drainage, sex outside of his , no risk factors for STDs , rectal bleeding, black/tarry stools, urinary burning, increased urinary frequency. Additionally patient reports just prior to evaluating him today he was urinating and passed a small ureter calculus. Review of Systems: As noted above in history of present illness. All body systems were reviewed and found to be negative as noted above. Past Medical History: As previously noted and asthma, gastroparesis, GERD, dyslipidemia, hypothyroidism, migraine headaches, obstructive sleep apnea and unspecified dental surgery. Current Medications: Medications Dose Route/Sig Max Daily Dose Days Date Category Dose Instructions Oxybutynin Chloride 5 Mg Tab 5 Mg PO Q8 04/03/18 Reported Tamsulosin HCl 0.4 Mg Cap 0.4 Mg PO QAM 04/03/18 Reported Lipitor (Atorvastatin Calcium) 40 Mg Tab 40 Mg PO DAILY 03/23/18 Reported Phenazopyridine HCl 100 Mg Tab 100 Mg PO TID PRN 03/12/18 Reported Advil (Ibuprofen) 200 Mg Tab 400 Mg PO Q6H PRN 03/08/18 Reported Hydrochlorothiazide 12.5 Mg Tab 25 Mg PO DAILY 01/17/18 Reported Levothyroxine Sodium 75 Mcg Tab 75 Mcg PO QAM 07/01/17 Reported TAKE THIS MEDICATION ONCE DAILY 30 MINUTES BEFORE BREAKFAST OR ANY OTHER MEDICATION Ventolin Hfa (Albuterol) 200 Puffs/61371 Mcg Aers 2 Puffs INH Q4H PRN 12/30/16 Reported Pantoprazole Sodium (Pantoprazole) 40 Mg Tab 40 Mg PO HS 07/19/16 Reported Ranitidine HCl 150 Mg Tab 150 Mg PO BID 04/05/16 Reported Elavil (Amitriptyline Hcl) 100 Mg Tab 100 Mg PO HS 12/24/15 Reported Advair Diskus 250/50 60 Dose (Fluticasone Prop/Salmeterol) 1 Ea Aerp 1 Puff INH BID PRN 04/01/14 Reported Allergies to Medications: Benzyl peroxide, hydrocodone, lactose intolerance, magnesium, prednisone and risperidone. Social History: Patient is currently employed; he feels safe in his home environment; he admits to tobacco use; he denies alcohol use; he admits to marijuana abuse. Physical Examination: Vital Signs: Date Time Temp Pulse Resp B/P (MAP) Pulse Ox O2 Delivery O2 Flow Rate FiO2 04/03/18 16:26 98 18 135/97 97 Room Air 04/03/18 14:44 105 13 156/90 94 Room Air 04/03/18 12:45 102 04/03/18 12:37 103 25 152/113 95 Room Air 04/03/18 11:32 37.1 136 20 146/87 96 Room Air GENERAL: 37-year-old male in mild to moderate distress due to pain, nontoxic- appearing, afebrile and hemodynamically stable. NEUROLOGICAL: Awake, alert and oriented to person, place and time. Answering questions appropriately and following commands. Normal gait. Good hand eye coordination. SKIN: Warm, dry and pink. No soft tissue eruptions or trauma noted. HEENT: Atraumatic and normocephalic. THORAX: Lungs sounds are clear to auscultation and equal bilaterally with symmetrical chest wall. No wheezing, rales or rhonchi. ABDOMEN: Flat and soft with moderate tenderness in the suprapubic area. Positive bowel sounds in all quadrants. No guarding, rigidity or organomegaly. GENITALS: Mature, circumcised penis. No skin lesions, erythema or edema. Blood noted in the ureter. No tenderness of the penis. Normal-appearing scrotum with no external lesions, erythema or edema. The testicles are nontender. They appear to have a normal lie. No abnormal growths were palpable. No tenderness or abdominal contents in the inguinal canals. No local lymphadenopathy. EXTREMITIES: Moves all extremities well on command and with purpose. All distal neurovascular statuses are intact and equal bilaterally. ED Course: Patient is assessed as noted above. Patient's medication list was reviewed. Laboratory Testing: Test 04/03/18 12:15 04/03/18 12:20 Range/Units Urine Color RED Urine Appearance CLOUDY CLEAR Urine pH 6.5 4.5-7.5 Urine Specific Perry 1.025 1.000-1.030 Urine Protein 3+ NEG Urine Glucose (UA) NEG NEG Urine Ketones 1+ NEG Urine Occult Blood 3+ NEG Urine Nitrite NEG NEG Urine Bilirubin NEG NEG Urine Urobilinogen NEG NEG Urine Leukocyte Esterase MODERATE NEG Urine RBC >30 0-4 /hpf Urine WBC 10-30 0-5 /hpf Urine Epithelial Cells >30 0-5 /lpf Urine Renal Cells 0-5 FEW /lpf Urine Bacteria 1+ NEG Urine Hyaline Casts 10-30 0-5 /lpf Urine Granular Casts 0-3 0 /lpf Urine Opiates Screen POS NEG Urine Methadone, Qualitative NEG NEG Urine Barbiturates NEG NEG Urine Phencyclidine (PCP) Level NEG NEG Ur Amphetamine/Methamphetamine NEG NEG MDMA (Ecstasy) Screen NEG NEG Urine Benzodiazepines Screen POS NEG Urine Cocaine Metabolite POS NEG Urine Marijuana (THC) POS NEG White Blood Count 10.86 4.8-10.8 K/uL Red Blood Count 4.50 4.7-6.1 M/uL Hemoglobin 13.8 14.0-18.0 g/dL Hematocrit 38.0 42-52 % Mean Corpuscular Volume 84.4 80-100 fL Mean Corpuscular Hemoglobin 30.7 25-34 pg Mean Corpuscular Hemoglobin Concent 36.3 32-36 g/dl Platelet Count 256 130-400 K/uL Mean Platelet Volume 11.1 7.4-10.4 fL Neutrophils (%) (Auto) 76.1 % Lymphocytes (%) (Auto) 15.7 % Monocytes (%) (Auto) 7.4 % Eosinophils (%) (Auto) 0.3 % Basophils (%) (Auto) 0.2 % Neutrophils # (Auto) 8.28 1.4-6.5 K/uL Lymphocytes # (Auto) 1.70 1.2-3.4 K/uL Monocytes # (Auto) 0.80 0.11-0.59 K/uL Eosinophils # (Auto) 0.03 0-0.5 K/uL Basophils # (Auto) 0.02 0-0.2 K/uL RDW Standard Deviation 38.9 36.4-46.3 fL RDW Coefficient of Variation 12.8 11.5-14.5 % Immature Granulocyte % (Auto) 0.3 % Immature Granulocyte # (Auto) 0.03 0.00-0.02 K/uL Sodium Level 136 136-145 mmol/L Potassium Level 3.1 3.5-5.1 mmol/L Chloride Level 102 98-107 mmol/L Carbon Dioxide Level 24 21-32 mmol/L Anion Gap 10.0 3-11 mmol/L Blood Urea Nitrogen 18 7-18 mg/dl Creatinine 1.69 0.60-1.40 mg/dl Est Creatinine Clear Calc Drug Dose 57.1 ml/min Estimated GFR () 59.7 Estimated GFR (Non- 51.5 BUN/Creatinine Ratio 10.7 10-20 Random Glucose 131 70-99 mg/dl Calcium Level 9.9 8.5-10.1 mg/dl Thyroid Stimulating Hormone (TSH) 4.250 0.300-4.500 uIu/ml Patient was hydrated with normal saline and initially received 30 mg of Toradol IV for pain and 4 mg of Zofran. Patient was reassessed multiple times during her stay in the emergency department and on his first reevaluation reported that he was feeling much better and rated his discomfort 3/10. I reviewed his case with my attending Dr. Taylor; we agreed on diagnostic approach, treatment, disposition and plan. While I was reviewing the patient with his discharge instructions he requested to speak to a psychiatrist; when I questioned why he reported he has been feeling increasingly depressed but did not want to discuss any additional issues with me. I consulted his case with Patricia, psychiatric nurse case management; she assessed the patient on her return she reports that the patient has been feeling more depressed and that he wanted to kill himself by being run over by a car and did not feel safe going home. She then started an evaluation for the patient and additional tests were performed. While he was waiting for the his laboratory test to be completed for possible psychiatric admission he reported increasing pain and was given 650 mg of acetaminophen by mouth and then he also reported that he was having increasing anxiety and he was given 0.5 mg of Ativan by mouth. Psychiatric crisis management continue to look for a room for the patient. I was informed that a bed was identified at [facility] pending toxicology and TSH testing. While waiting for these tests patient reported increasing pain and was given 15 mg of Toradol IV for pain. Patient's case was reviewed with Dr. Thurston; we agreed on diagnostic approach, treatment, disposition plan. By the end of my shift his toxicology results were still pending and his care was transferred to Hemal Gonzales PA-C, pending further testing and final discharge. Clinical Impression: Penis pain. Possible passage of ureter calculus. Hematuria. Depression exacerbation. Disposition: Patient to be discharged and possibly transferred for psychiatric evaluation and care. I believe the patient is medically clear for his psychiatric evaluation and possible admission. Plan: Patient is continued to his current medications as prescribed. Patient is cleared to be transferred for psychiatric admission evaluation. Patient is to keep his upcoming appointment with urology. If patient is not admitted for psychiatric evaluation and care he should follow- up with his psychiatrist as psychologist for reevaluation in 1-2 days. Patient is not admitted for psychiatric evaluation and care he should return to the ED for any new or concerning medical conditions including fevers, increasing pain, or any new/concerning symptoms.
--- NOTE | 2018-04-04 04:17 | EMERGENCY ROOM VISIT NOTE ---
ED Visit Note HPI: Patient here with penile/urethral pain the setting of know ureteral stone. Plan: w/u unremarkable. Patient reports passing his stone while here and feels improved. However, patient then endorsed SI repeatedly with plan to get run over and so referred to Psych CM and we agree patient meets criteria for inpatient psych admission. Patient is voluntary at this time however given his repeated suicidal statements would meet criteria for 302 if necessary. Placement unsuccessful today. Of note, [facility] initially declined since previously he was admitted there but then was transferred out for medical evaluation due to his kidney stone pain. Given the patient's passing of the stone here in the ED today in the setting of a CT scan performed on 03/31 that demonstrated a remaining 3 mm ureteral stone, no indication for further imaging today. Thus plan will be to contact [facility] again in the morning to repeat referral for inpatient psych admission. I reviewed the patient's past medical history, medications, and visit nursing notes. I discussed the case with the physician orthodontic assistant, examined the patient, and agree with the findings and plan as documented in the physician assistants note.
[2018-04-04] MEDS ORDERED: IBUPROFEN 200 MG TAB PO PRN (05:45)
[2018-04-04] MEDS ORDERED: ALBUTEROL HFA 8 GM INHALER INH PRN (05:45)
[2018-04-04] MEDS ORDERED: PHENAZOPYRIDINE HCL 200 MG TAB PO PRN (05:45)
--- NOTE | 2018-04-04 06:05 | EMERGENCY ROOM VISIT NOTE ---
ED Visit Note First contact with patient: 02:05 37 yr old male with long history psychiatric diagnosis arrived yesterday complaining of his chronic pain but then admitting suicidal ideation. Attempts at placement without success overnight and thus signed out to Dr Swann awaiting further attempts at placement. Stable throughout the night. I ordered him his daily medications both morning and throughout the day in case prolonged stay.
[2018-04-04] MEDS ORDERED: LEVOTHYROXINE 75 MCG TAB PO SCH (07:00)
--- NOTE | 2018-04-04 07:34 | EMERGENCY ROOM VISIT NOTE ---
ED Visit Note First contact with patient: 06:49 Received patient in signout at change of shift. History and physical verified by me. Patient is awaiting to go to [place] in the morning. Patient was accepted to [facility].
[2018-04-04] MEDS ORDERED: HYDROCHLOROTHIAZIDE 25 MG TAB PO SCH (09:00)
[2018-04-04] MEDS ORDERED: TAMSULOSIN HCL 0.4 MG CAP PO SCH (09:00)
[2018-04-04] MEDS ORDERED: ATORVASTATIN 40 MG TAB PO SCH (09:00)
[2018-04-04] MEDS ORDERED: RANITIDINE HCL 150 MG TAB PO SCH (09:00)
[2018-04-04] MEDS ORDERED: OXYBUTYNIN CHLORIDE 5 MG TAB PO SCH (09:00)
[2018-04-04] MEDS ORDERED: LORAZEPAM 1 MG TAB SL STA (09:28)
[2018-04-04 12:45] LABS: ISTAT CREATININE 1.3 mg/dl (0.6-1.3); ISTAT IONIZED CALCIUM 0.91 mmol/l (1.12-1.32)
[2018-04-04 14:28] LABS: ALBUMIN 3.7 gm/dl (3.4-5.0); CREATININE 1.22 mg/dl (0.60-1.40); POTASSIUM 3.6 mmol/L (3.5-5.1)
[2018-04-04 14:52] VITALS: BP 112/68; PULSE 76; O2SAT 99
== END 2018-04-04 14:50 ==
LOC: C.EDB 11:30 → C.EDA 04-04 14:50
DX: N48.89 Other specified disorders of penis (principal); R31.9 Hematuria, unspecified; F32.9 Major depressive disorder, single episode, unspecified; N20.1 Calculus of ureter; R45.851 Suicidal ideations; Z87.442 Personal history of urinary calculi; J45.909 Unspecified asthma, uncomplicated; E78.5 Hyperlipidemia, unspecified; K21.9 Gastro-esophageal reflux disease without esophagitis; E03.9 Hypothyroidism, unspecified; Z72.0 Tobacco use; Z98.818 Other dental procedure status; Z90.49 Acquired absence of other specified parts of digestive tract; Z96.0 Presence of urogenital implants; Z88.5 Allergy status to narcotic agent; Z88.8 Allergy status to other drugs, medicaments and biological substances; Z79.899 Other long term (current) drug therapy